=== PATIENT | male | born 1955 | race Caucasian/White ===

== ENCOUNTER → 2016-09-02 | Outpatient (CLI) | payer BC, OTHER ==
[~2016-09-02] MED LIST: AMIT25TA PO; AMIT50TA PO; CLOB-25 TOP; CYCL10TA PO; CYCL5TA PO; FLON0.054; GABA-282 PO; GABA-283 PO; LIDO5DIS36 TD; LISI10TA4 PO; LOPROX TOP; METF1000 PO; NITR4TASL SL; OMEP40CA2 PO; PRED5PAK PO; PROC60TA PO; REQU1TAB16 PO; SIMV40TA2 PO; TEMO0.0520 TOP; TIZA4CAP3 PO; VITA500046 PO; glucosamine PO; indocin PO
--- NOTE | 2016-09-07 00:20 | ECWPNPC ---
PATIENT NAME: JENNIFER JAIME : 1955 GENDER: MALE VISIT DATE: 09/02/2016 DISCHARGE DATE: 09/02/16915 VISIT LOCKED DATE TIME: PHYSICIAN: THANH ZAPATA PHYSICIAN PAGER NO: [phone] RESOURCE: THANH ZAPATA REASON FOR APPOINTMENT 1. BACK HISTORY OF PRESENT ILLNESS HISTORY OF PRESENT ILLNESS: PAIN THE PATIENT DESCRIBES THE PAIN... THE PATIENT DESCRIBES THE PAIN... THE PATIENT DESCRIBES THE PAIN... THE PATIENT DESCRIBES THE PAIN... HERE FOR ROUTINE F/U OF PERSISTENT NECK AND RIGHT UPPER BACK PAIN.USING CYMBALTA 30MG DAILY AND GABAPENTIN 300MG BID.FINDS MEDICATION EFFECTIVE AT REDUCING PAIN AND KEEPING HIM COMFORTABLE.DENIES SIDE EFFECTS.RATING PAIN VAS 2/10.CONTINUES W RELATIVELY NEW ONSET OF LEFT MID THORACIC INTERMITTENT PAIN. FALL RISK SCREENING: SCREENING :NO FALLS IN THE PAST YEAR CURRENT MEDICATIONS TAKING GLUCOSAMINE 2000 TABLET 1 TABLET ORALLY ONCE A DAY TAKING VITAMIN D 5000 UNIT TABLET 1 TABLET ORALLY DAILY TAKING CLOBETASOL PROPIONATE 0.05 % CREAM 1 APPLICATION TO AFFECTED AREA/ EZEXMA BODY EXTERNALLY TWICE A DAY NEEDED TAKING NITROGLYCERIN 0.4 MG TABLET SUBLINGUAL 1 TABLET UNDER THE TONGUE SUBLINGUAL 1 EVERY 5 MIN X3 FOR CHEST PAIN TAKING LOPROX CREAM CREAM TO FEET FOR FUNGUS TOPICALLY TWICE A DAY NEEDED TAKING METFORMIN 1000 MG TABLET 1 TAB(S) ORALLY TWICE A DAY TAKING OMEPRAZOLE 40 MG CAPSULE DELAYED RELEASE 1 CAPSULE ORALLY TWICE A DAY TAKING FLEXERIL 5 MG TABLET 1-2 TABLET ORALLY EVERY NIGHT MDD = 2 TAKING PLAVIX 75 MG TABLET 1 TAB(S) ORALLY DAILY TAKING ASPIRIN 81 MG TABLET 1 TAB(S) ORALLY DAILY TAKING BISOPROLOL FUMARATE 5 MG TABLET 1 TABLET ORALLY BID TAKING ATORVASTATIN CALCIUM 40 MG TABLET 1 TABLET ORALLY ONCE A DAY TAKING REQUIP 1 MG TABLET TAKE TWO TABLETS BY MOUTH AT BEDTIME TAKING NITROSTAT 0.4 MG TABLET SUBLINGUAL 1 TAB(S) SUBLINGUAL EVERY 5 MIN PRN CHEST PAIN, MAX DOSE 3 TAKING LISINOPRIL 10 MG TABLET 1 TABLET ORALLY DAILY TAKING AMLODIPINE 5MG TABLET 1 TAB(S) ORAL DAILY TAKING DULOXETINE HCL 30 MG CAPSULE DELAYED RELEASE PARTICLES 1 CAPSULE ORALLY DAILY TAKING GABAPENTIN 300 MG CAPSULE 1 CAPSULE ORALLY TWICE TIMES A DAY MEDICATION LIST REVIEWED AND RECONCILED WITH THE PATIENT PAST MEDICAL HISTORY CAD--NST 09/04 EF 63%, ANTEROSEPT ISCHEMIA, LAD STENT [facility] 09/04; NST 11/04, ANTEROSEPTAL REVERSIBLE ISCHEMIA, EF 60% IBS ECHO 08/07: EF 70%, SL ELEV PULM ART PRESSURE, NL VALVES DDD/DJD C-SPINE, T SPINE HYPERLIPIDEMIA IMPAIRED FASTING GLUCOSE ESOPHAGEAL REFLUX- EGD 08/24, UGI-01/26, PH PROBE 10/26 HYPERTENSION DERMATITIS VITAMIN D DEFICIENCY RLS ESOPHAGEAL SPASMS RENAL STONE 12/25 CONCUSSION DECEMBER 2013 T7 COMPRESSION FRACTURE 2014 ANTONI, ON CPAP 01/04 PFTS AT [facility] 08/07--NL, FEV1/FVC 76% ALLERGIES PRAVACHOL: ELEV LFT'S: SIDE EFFECTS SOCIAL HISTORY GENERAL: TOBACCO USE ARE YOU A: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 NEW PATIENT PAIN DIARY TODAY'S VISITNOTES FROM 0-10, WHAT LEVEL IS YOUR PAIN TODAY?0 PAIN CLINIC PFS, CLERGY, PUBLIC HEALTH REFERRALS PFS REFERRAL NEEDED?NO CLERGY REFERRAL NEEDED?NO PUBLIC HEALTH REFERRAL NEEDED?NO WAS THE PROVIDER NOTIFIED OF ANY PERTINENT INFO?NO PFS REFERRAL NEEDED?NO CLERGY REFERRAL NEEDED?NO PUBLIC HEALTH REFERRAL NEEDED?NO WAS THE PROVIDER NOTIFIED OF ANY PERTINENT INFO?NO REVIEW OF SYSTEMS CONSTITUTIONAL: ANY CHANGE IN YOUR MEDICAL CONDITION? NO . CHILLS NO . FEVER NO . INFECTION: DO YOU HAVE NEW INFECTIONS? NO . DO YOU HAVE HISTORY OF MRSA? NO . MUSCULOSKELETAL: ANY NEW PATTERNS OF PAIN OR NUMBNESS? YES, PAIN ON OCCASION GOING TO THE LEFT RIB AREA . GASTROENTEROLOGY: ANY NEW CHANGE IN BOWEL CONTROL? NO . GENITOURINARY: ANY NEW CHANGE IN BLADDER CONTROL? NO . IS THERE A CHANCE YOU COULD BE ? NO . HEMATOLOGY/LYMPH: DO YOU TAKE ANY BLOOD THINNERS? (FOR EXAMPLE- COUMADIN, PLAVIX, AGGRENOX, PLATEL, PRADAXA, OR XARELTO) YES, PLAVIX . WHEN WAS YOUR LAST DOSE? DATE:09/01/16 TIME: 2300 . NEUROLOGY: HAVE YOU FALLEN IN THE PAST 6 MONTHS? NO . ANY NEW EXTREMITY NUMBNESS OR WEAKNESS? NO . CARDIOLOGY: DO YOU HAVE A PACEMAKER OR DEFIBRILLATOR? NO . RESPIRATORY: HAVE YOU BEEN SICK IN THE PAST WEEK? NO . FEVER NO . FLU LIKE SYMPTOMS? NO . COUGH NO . INTEGUMENTARY: DO YOU HAVE ANY RASHES OR OPEN SORES? NO . ALLERGIC/IMMUNO: ARE YOU ALLERGIC TO SHELLFISH OR IV DYE? NO . ANY NEW ALLERGIES? NO . PSYCHIATRIC: DO YOU HAVE THOUGHTS OF HURTING YOURSELF OR SOMEONE ELSE? NO . ARE YOU ABUSED, NEGLECTED, OR IN AN UNSAFE ENVIRONMENT? NO . ENDOCRINOLOGY: ARE YOU DIABETIC? NO . OTHER: DO YOU NEED ANY PRESCRIPTIONS? YES . IF YES, PLEASE LIST: GABAPENTIN AND CYMBALTA . ANY NEW PROBLEMS WITH YOUR MEDICATIONS? NO . WHEN DID YOU LAST EAT? ____ . WHEN DID YOU LAST DRINK? ____ . WHAT DID YOU LAST DRINK? ____ . NAME OF PERSON DRIVING YOU HOME? ____ . DO YOU HAVE ANY OTHER QUESTIONS OR CONCERNS NO . REVIEWED BY: PROVIDER: THANH SANCHEZ . VITAL SIGNS WT 216 LBS, HT 70 IN, BMI 30.99 INDEX, BP 142/98 MM HG, HR 77 /MIN, RR 16 /MIN, TEMP 96.4 F, OXYGEN SAT % 96%, NA INITIALS SC 08:49, REVIEWED BY: KEYSHA. EXAMINATION GENERAL EXAMINATION: LUNGS:LUNG SOUNDS ARE CLEAR. HEART:HEART RATE REGULAR. MUSCULOSKELETAL:*, PALPATION: NEGATIVE FOR PAIN OVER L/S SPINE. NEGATIVE FOR PAIN OVER L/S PARASPINALS, MUSCLE STRENGTH TESTING 5/5 BILATERAL, NO PAIN ELICITED WITH PALPATION OVER CERVICAL SPINOUS PROCESSES AND ACROSS THE TRAPEZIUS MUSCLES BILATERALLY.THORACIC-PALPATION NEGATIVE FOR PAIN.FULL ROJM UPPER EXTREMITIES WITHOUT INCREASE IN PAIN. . ASSESSMENTS CERVICALGIA - M54.2 (PRIMARY) CHRONIC BILATERAL LOW BACK PAIN WITHOUT SCIATICA - M54.5 PAIN IN THORACIC SPINE - M54.6 TREATMENT CERVICALGIA REFILL GABAPENTIN CAPSULE, 300 MG, 1 CAPSULE, ORALLY, TWICE TIMES A DAY, 90 DAY(S), 180, REFILLS 1 CONTINUE FLEXERIL TABLET, 5 MG, 1-2 TABLET, ORALLY, EVERY NIGHT MDD = 2 REFILL DULOXETINE HCL CAPSULE DELAYED RELEASE PARTICLES, 30 MG, 1 CAPSULE, ORALLY, DAILY, 90 DAY(S), 90, REFILLS 1 PROCEDURE CODES FA211 ESTABILISHED PATIENT [facility] FAC[facility] CHARGE DISPOSITION & COMMUNICATION FOLLOW UP 3 MONTHS ELECTRONICALLY SIGNED BY LAURA BRASHER ON 09/02/2016 AT 02:00 PM EDT DISCLAIMER : THIS IS A VISIT SUMMARY EXTRACTED FROM THE [employer] CHART. IT IS NOT A COPY OF THE [employer] PROGRESS NOTE. RADHA
== END ==
LOC: M PAIN 08:40
PROVIDERS: ATTEND Nurse Practitioner Family
DX: G89.29 Other chronic pain (principal); M54.2 Cervicalgia; M54.5 Low back pain; M54.6 Pain in thoracic spine; I25.10 Atherosclerotic heart disease of native coronary artery without angina pectoris; K58.9 Irritable bowel syndrome, unspecified; E78.5 Hyperlipidemia, unspecified; R73.01 Impaired fasting glucose; K21.9 Gastro-esophageal reflux disease without esophagitis; K22.4 Dyskinesia of esophagus; I10 Essential (primary) hypertension; E55.9 Vitamin D deficiency, unspecified; G25.81 Restless legs syndrome; G47.33 Obstructive sleep apnea (adult) (pediatric); Z88.8 Allergy status to other drugs, medicaments and biological substances; Z79.01 Long term (current) use of anticoagulants; Z79.84 Long term (current) use of oral hypoglycemic drugs; Z79.82 Long term (current) use of aspirin; Z79.899 Other long term (current) drug therapy

== ENCOUNTER → 2016-10-30 | Outpatient (CLI) | payer BC, OTHER ==
[2016-10-30 13:46] LABS: MEAN CORPUSCULAR HEMOGLOBIN 33.7 pg (27.0-33.0); MEAN CORPUSCULAR HGB CONC 34.3 g/dl (32.0-36.5); MEAN CORPUSCULAR VOLUME 98.4 fl (80.0-96.0); RED CELL DISTRIBUTION WIDTH 12.5 % (11.5-14.5); WHITE BLOOD COUNT 4.2 K/mm3 (4.0-10.0)
[2016-10-30 14:05] LABS: ALBUMIN 3.8 GM/DL (3.2-5.2); ALBUMIN/GLOBULIN RATIO 1.36 (1.00-1.93); ALKALINE PHOSPHATASE 98 U/L (45-117); ALT/SGPT 63 U/L (12-78); ANION GAP 10 MEQ/L (8-16); AST/SGOT 25 U/L (15-37); BILIRUBIN,TOTAL 0.4 MG/DL (0.2-1.0); BLOOD UREA NITROGEN 19 MG/DL (7-18); CALCIUM LEVEL 8.3 MG/DL (8.5-10.1); CARBON DIOXIDE LEVEL 27 MEQ/L (21-32); CHLORIDE LEVEL 104 MEQ/L (98-107); CHOLESTEROL LEVEL 146 MG/DL (<200); GLOMERULAR FILTRATION RATE > 60.0 (>56); GLUCOSE, FASTING 101 MG/DL (70-105); POTASSIUM SERUM 4.5 MEQ/L (3.5-5.1); SODIUM LEVEL 141 MEQ/L (136-145); TOTAL PROTEIN 6.6 GM/DL (6.4-8.2); TRIGLYCERIDES LEVEL 253 MG/DL (<150)
== END ==
LOC: M SMT 08:03
PROVIDERS: ATTEND Family Medicine
DX: I25.10 Atherosclerotic heart disease of native coronary artery without angina pectoris (principal); E78.2 Mixed hyperlipidemia; Z12.5 Encounter for screening for malignant neoplasm of prostate
CPT/HCPCS: 36415; 80053; 80061; 83036; 84439; 84443; 85027; G0103

== ENCOUNTER → 2016-12-03 | Outpatient (CLI) | payer OTHER ==
--- NOTE | 2016-12-04 02:10 | ECWPNPC ---
PATIENT NAME: JENNIFER JAIME : 1955 GENDER: MALE VISIT DATE: 12/03/2016 DISCHARGE DATE: 12/03/16919 VISIT LOCKED DATE TIME: PHYSICIAN: THANH ZAPATA PHYSICIAN PAGER NO: [phone] RESOURCE: THANH ZAPATA REASON FOR APPOINTMENT 1. FOLLOWUP HISTORY OF PRESENT ILLNESS HISTORY OF PRESENT ILLNESS: PAIN THE PATIENT DESCRIBES THE PAIN... THE PATIENT DESCRIBES THE PAIN... THE PATIENT DESCRIBES THE PAIN... THE PATIENT DESCRIBES THE PAIN... THE PATIENT DESCRIBES THE PAIN... HERE FOR ROUTINE F/U OF PERSISTENT NECK AND RIGHT UPPER BACK PAIN.USING CYMBALTA 30MG DAILY AND GABAPENTIN 300MG BID.FINDS MEDICATION EFFECTIVE AT REDUCING PAIN AND KEEPING HIM COMFORTABLE.DENIES SIDE EFFECTS.RATING PAIN VAS 2/10.CONTINUES W RELATIVELY NEW ONSET OF RIGHT MID THORACIC INTERMITTENT PAIN. FALL RISK SCREENING: SCREENING :NO FALLS IN THE PAST YEAR CURRENT MEDICATIONS TAKING GLUCOSAMINE 2000 TABLET 1 TABLET ORALLY ONCE A DAY TAKING VITAMIN D 5000 UNIT TABLET 1 TABLET ORALLY DAILY TAKING CLOBETASOL PROPIONATE 0.05 % CREAM 1 APPLICATION TO AFFECTED AREA/ EZEXMA BODY EXTERNALLY TWICE A DAY NEEDED TAKING NITROGLYCERIN 0.4 MG TABLET SUBLINGUAL 1 TABLET UNDER THE TONGUE SUBLINGUAL 1 EVERY 5 MIN X3 FOR CHEST PAIN TAKING LOPROX CREAM CREAM TO FEET FOR FUNGUS TOPICALLY TWICE A DAY NEEDED TAKING METFORMIN 1000 MG TABLET 1 TAB(S) ORALLY TWICE A DAY TAKING OMEPRAZOLE 40 MG CAPSULE DELAYED RELEASE 1 CAPSULE ORALLY TWICE A DAY TAKING PLAVIX 75 MG TABLET 1 TAB(S) ORALLY DAILY TAKING ASPIRIN 81 MG TABLET 1 TAB(S) ORALLY DAILY TAKING BISOPROLOL FUMARATE 5 MG TABLET 1 TABLET ORALLY BID TAKING ATORVASTATIN CALCIUM 40 MG TABLET 1 TABLET ORALLY ONCE A DAY TAKING REQUIP 1 MG TABLET TAKE TWO TABLETS BY MOUTH AT BEDTIME TAKING NITROSTAT 0.4 MG TABLET SUBLINGUAL 1 TAB(S) SUBLINGUAL EVERY 5 MIN PRN CHEST PAIN, MAX DOSE 3 TAKING LISINOPRIL 10 MG TABLET 1 TABLET ORALLY DAILY TAKING AMLODIPINE 5MG TABLET 1 TAB(S) ORAL DAILY TAKING GABAPENTIN 300 MG CAPSULE 1 CAPSULE ORALLY TWICE TIMES A DAY TAKING FLEXERIL 5 MG TABLET 1-2 TABLET ORALLY EVERY NIGHT MDD = 2 TAKING AMITRIPTYLINE HCL 25 MG TABLET 2 TABLETS ORALLY BEFORE BEDTIME TAKING DULOXETINE HCL 30 MG CAPSULE DELAYED RELEASE PARTICLES TAKE ONE CAPSULE BY MOUTH EVERY DAY MEDICATION LIST REVIEWED AND RECONCILED WITH THE PATIENT PAST MEDICAL HISTORY CAD--NST 09/04 EF 63%, ANTEROSEPT ISCHEMIA, LAD STENT [facility] 09/04; NST 11/04, ANTEROSEPTAL REVERSIBLE ISCHEMIA, EF 60% IBS ECHO 08/07: EF 70%, SL ELEV PULM ART PRESSURE, NL VALVES DDD/DJD C-SPINE, T SPINE HYPERLIPIDEMIA IMPAIRED FASTING GLUCOSE ESOPHAGEAL REFLUX- EGD 08/24, UGI-01/26, PH PROBE 10/26 HYPERTENSION DERMATITIS VITAMIN D DEFICIENCY RLS ESOPHAGEAL SPASMS RENAL STONE 12/25 CONCUSSION DECEMBER 2013 T7 COMPRESSION FRACTURE 2014 ANTONI, ON CPAP 01/04 PFTS AT [facility] 08/07--NL, FEV1/FVC 76% ALLERGIES PRAVACHOL: ELEV LFT'S: SIDE EFFECTS REVIEW OF SYSTEMS CONSTITUTIONAL: ANY CHANGE IN YOUR MEDICAL CONDITION? NO . CHILLS NO . FEVER NO . INFECTION: DO YOU HAVE NEW INFECTIONS? NO . DO YOU HAVE HISTORY OF MRSA? NO . MUSCULOSKELETAL: ANY NEW PATTERNS OF PAIN OR NUMBNESS? NO . GASTROENTEROLOGY: ANY NEW CHANGE IN BOWEL CONTROL? NO . GENITOURINARY: ANY NEW CHANGE IN BLADDER CONTROL? NO . IS THERE A CHANCE YOU COULD BE ? NO . HEMATOLOGY/LYMPH: DO YOU TAKE ANY BLOOD THINNERS? (FOR EXAMPLE- COUMADIN, PLAVIX, AGGRENOX, PLATEL, PRADAXA, OR XARELTO) NO . WHEN WAS YOUR LAST DOSE? DATE: TIME: . NEUROLOGY: HAVE YOU FALLEN IN THE PAST 6 MONTHS? NO . ANY NEW EXTREMITY NUMBNESS OR WEAKNESS? NO . CARDIOLOGY: DO YOU HAVE A PACEMAKER OR DEFIBRILLATOR? NO . RESPIRATORY: HAVE YOU BEEN SICK IN THE PAST WEEK? YES, ALLERGIES TO UPPER RESP AND NOT FEELING WELL STILL TODAY . FEVER NO . FLU LIKE SYMPTOMS? NO . COUGH NO . INTEGUMENTARY: DO YOU HAVE ANY RASHES OR OPEN SORES? NO . ALLERGIC/IMMUNO: ARE YOU ALLERGIC TO SHELLFISH OR IV DYE? NO . ANY NEW ALLERGIES? NO . PSYCHIATRIC: DO YOU HAVE THOUGHTS OF HURTING YOURSELF OR SOMEONE ELSE? NO . ARE YOU ABUSED, NEGLECTED, OR IN AN UNSAFE ENVIRONMENT? NO . ENDOCRINOLOGY: ARE YOU DIABETIC? NO . OTHER: DO YOU NEED ANY PRESCRIPTIONS? YES . IF YES, PLEASE LIST: [place] - NOT SURE IF HER NEEDS . ANY NEW PROBLEMS WITH YOUR MEDICATIONS? NO . WHEN DID YOU LAST EAT? ____ . WHEN DID YOU LAST DRINK? ____ . WHAT DID YOU LAST DRINK? ____ . NAME OF PERSON DRIVING YOU HOME? ____ . DO YOU HAVE ANY OTHER QUESTIONS OR CONCERNS NO . REVIEWED BY: PROVIDER: THANH SANCHEZ . VITAL SIGNS WT 215 LBS, HT 70 IN, BMI 30.85 INDEX, BP 138/94 MM HG, HR 73 /MIN, RR 16 /MIN, TEMP 97.0 F, OXYGEN SAT % 98%, NA INITIALS SC 09:12, REVIEWED BY: NL. EXAMINATION GENERAL EXAMINATION: LUNGS:LUNG SOUNDS ARE CLEAR. HEART:HEART RATE REGULAR. MUSCULOSKELETAL:*, PALPATION: NEGATIVE FOR PAIN OVER L/S SPINE. NEGATIVE FOR PAIN OVER L/S PARASPINALS, MUSCLE STRENGTH TESTING 5/5 BILATERAL, NO PAIN ELICITED WITH PALPATION OVER CERVICAL SPINOUS PROCESSES AND ACROSS THE TRAPEZIUS MUSCLES BILATERALLY.THORACIC-PALPATION NEGATIVE FOR PAIN.FULL ROJM UPPER EXTREMITIES WITHOUT INCREASE IN PAIN. . ASSESSMENTS CERVICALGIA - M54.2 (PRIMARY) CHRONIC BILATERAL LOW BACK PAIN WITHOUT SCIATICA - M54.5 PAIN IN THORACIC SPINE - M54.6 TREATMENT CERVICALGIA CONTINUE GABAPENTIN CAPSULE, 300 MG, 1 CAPSULE, ORALLY, TWICE TIMES A DAY CONTINUE FLEXERIL TABLET, 5 MG, 1-2 TABLET, ORALLY, EVERY NIGHT MDD = 2 CONTINUE DULOXETINE HCL CAPSULE DELAYED RELEASE PARTICLES, 30 MG, TAKE ONE CAPSULE BY MOUTH EVERY DAY PROCEDURE CODES FA211 ESTABILISHED PATIENT [facility] CHARGE DISPOSITION & COMMUNICATION FOLLOW UP 3 MONTHS ELECTRONICALLY SIGNED BY LAURA BRASHER ON 12/03/2016 AT 03:15 PM EDT DISCLAIMER : THIS IS A VISIT SUMMARY EXTRACTED FROM THE [employer] CHART. IT IS NOT A COPY OF THE [employer] PROGRESS NOTE. MTDD
== END ==
LOC: M PAIN 08:40
PROVIDERS: ATTEND Nurse Practitioner Family
DX: G89.29 Other chronic pain (principal); M54.2 Cervicalgia; M54.5 Low back pain; M54.6 Pain in thoracic spine; I25.10 Atherosclerotic heart disease of native coronary artery without angina pectoris; E78.5 Hyperlipidemia, unspecified; K21.9 Gastro-esophageal reflux disease without esophagitis; E55.9 Vitamin D deficiency, unspecified; G25.81 Restless legs syndrome; G47.33 Obstructive sleep apnea (adult) (pediatric); I11.9 Hypertensive heart disease without heart failure; J30.9 Allergic rhinitis, unspecified; K58.8 Other irritable bowel syndrome; E78.2 Mixed hyperlipidemia; K22.0 Achalasia of cardia; R73.03 Prediabetes; H93.13 Tinnitus, bilateral; Z88.8 Allergy status to other drugs, medicaments and biological substances; Z79.84 Long term (current) use of oral hypoglycemic drugs; Z79.82 Long term (current) use of aspirin; Z79.899 Other long term (current) drug therapy; Z87.820 Personal history of traumatic brain injury

== ENCOUNTER 2017-02-06 08:18 | Emergency (ER) | payer BC, OTHER ==
[~2017-02-06] VITALS: Ht 177.8 cm; Wt 97.7 kg
[~2017-02-06 08:18] MED LIST changes: -LIDO5DIS36 TD; +LIDO5DIS41 TD; -METF1000 PO; +METF10004 PO
[2017-02-06 08:24] VITALS: BP 147/93
[2017-02-06] MEDS ORDERED: BISO5TAB5 (08:28)
[2017-02-06] MEDS ORDERED: DULO1CAP2 (08:28)
[2017-02-06] MEDS ORDERED: AMLO5TAB2 (08:28)
[2017-02-06] MEDS ORDERED: [UNRECOGNIZED DRUG - CODE] (08:28)
[2017-02-06] MEDS ORDERED: ATOR40TA75 PO (08:34)
--- NOTE | 2017-02-06 09:16 | REP ---
Left ankle four views: There is soft tissue edema laterally. There is no fracture or dislocation. The mortise is symmetric. Mineralization is normal. No calcifications or foreign bodies. Signed by Jatinder Nath MD 02/06/2017 09:07 A
== END 2017-02-06 09:17 | disposition home or self-care (01) ==
LOC: M ED 08:18
DX: S93.402A Sprain of unspecified ligament of left ankle, initial encounter (principal); E11.9 Type 2 diabetes mellitus without complications; I25.10 Atherosclerotic heart disease of native coronary artery without angina pectoris; X58.XXXA Exposure to other specified factors, initial encounter; Y92.018 Other place in single-family (private) house as the place of occurrence of the external cause; Y99.9 Unspecified external cause status; Y93.9 Activity, unspecified; Z79.84 Long term (current) use of oral hypoglycemic drugs; Z88.8 Allergy status to other drugs, medicaments and biological substances; Z79.899 Other long term (current) drug therapy

== ENCOUNTER → 2017-02-13 | Outpatient (REF) | payer OTHER ==
[~2017-02-13] MED LIST changes: +AMLO5TAB2; +ATOR40TA75 PO; +BISO5TAB5; +DULO1CAP2; +[UNRECOGNIZED DRUG - CODE]
[2017-02-13 12:12] LABS: MEAN CORPUSCULAR HEMOGLOBIN 33.9 pg (27.0-33.0); MEAN CORPUSCULAR HGB CONC 35.6 g/dl (32.0-36.5); MEAN CORPUSCULAR VOLUME 95.2 fl (80.0-96.0); RED CELL DISTRIBUTION WIDTH 13.2 % (11.5-14.5); WHITE BLOOD COUNT 4.7 K/mm3 (4.0-10.0)
[2017-02-13 13:02] LABS: ALBUMIN/GLOBULIN RATIO 1.25 (1.00-1.93); ALKALINE PHOSPHATASE 120 U/L (45-117); ALT/SGPT 54 U/L (12-78); ANION GAP 12 MEQ/L (8-16); AST/SGOT 29 U/L (15-37); BILIRUBIN,TOTAL 0.6 MG/DL (0.2-1.0); BLOOD UREA NITROGEN 21 MG/DL (7-18); CALCIUM LEVEL 9.5 MG/DL (8.8-10.2); CARBON DIOXIDE LEVEL 24 MEQ/L (21-32); CHLORIDE LEVEL 102 MEQ/L (98-107); CHOLESTEROL LEVEL 173 MG/DL (<200); CREATININE FOR GFR 1.08 MG/DL (0.70-1.30); FREE T4 0.87 NG/DL (0.76-1.46); GLOMERULAR FILTRATION RATE > 60.0 (>49); GLUCOSE, FASTING 85 MG/DL (80-110); POTASSIUM SERUM 4.2 MEQ/L (3.5-5.1); SODIUM LEVEL 138 MEQ/L (136-145); TOTAL PROTEIN 7.2 GM/DL (6.4-8.2); TRIGLYCERIDES LEVEL 426 MG/DL (<150)
== END ==
LOC: M SFHCPLAZ 09:28
PROVIDERS: ATTEND Family Medicine
DX: I25.10 Atherosclerotic heart disease of native coronary artery without angina pectoris (principal); E78.2 Mixed hyperlipidemia; R73.03 Prediabetes; Z12.5 Encounter for screening for malignant neoplasm of prostate

== ENCOUNTER → 2017-02-16 | Outpatient (CLI) | payer BC, OTHER ==
--- NOTE | 2017-02-16 16:44 | REP ---
MR BRAIN WITHOUT AND WITH CONTRAST: HISTORY: Sensory neural hearing loss. CONTRAST: ProHance 19 mL. Several punctate areas of increased signal intensity on T2 weighted images are present in the periventricular and subcortical white matter. This represents small vessel ischemic disease. There is no intraparenchymal hemorrhage, infarct, mass or midline shift. There is no abnormal enhancement. The ventricular system and cortical sulci are dilated consistent with minimal volume loss. There is no extracerebral collection. There is no cerebellopontine angle mass. The inner ear structures are normal in appearance. The mastoid air cells and sinuses are clear. IMPRESSION:1. Minimal small vessel ischemic disease. 2. Minimal volume loss. Signed by Gabriele Mayer MD 02/16/2017 05:08 P
== END ==
LOC: M RAD 11:09
PROVIDERS: ATTEND Otolaryngology
DX: H90.3 Sensorineural hearing loss, bilateral (principal)
CPT/HCPCS: 70553; A9576

== ENCOUNTER → 2017-03-05 | Outpatient (CLI) | payer BC, OTHER ==
--- NOTE | 2017-03-06 01:10 | ECWPNPC ---
PATIENT NAME: JENNIFER JAIME : 1955 GENDER: MALE VISIT DATE: 03/05/2017 DISCHARGE DATE: 03/05/17943 VISIT LOCKED DATE TIME: PHYSICIAN: THANH ZAPATA PHYSICIAN PAGER NO: [phone] RESOURCE: THANH ZAPATA REASON FOR APPOINTMENT 1. FOLLOWUP HISTORY OF PRESENT ILLNESS HISTORY OF PRESENT ILLNESS: PAIN THE PATIENT DESCRIBES THE PAIN... THE PATIENT DESCRIBES THE PAIN... THE PATIENT DESCRIBES THE PAIN... THE PATIENT DESCRIBES THE PAIN... THE PATIENT DESCRIBES THE PAIN... THE PATIENT DESCRIBES THE PAIN... HERE FOR ROUTINE F/U OF PERSISTENT NECK AND RIGHT UPPER BACK PAIN.USING CYMBALTA 30MG DAILY AND GABAPENTIN 300MG BID.RECENT FLARE UP OF CHRONIC NECK PAIN AND NEW ONSET OF LEFT ARM ACHING.REPORTS FALL INJURY ONE MONTHS AGO.PAIN HAS BEEN INTERUPTING SLEEP LATELY.REVIEWED MRI C-SPINE 2014.RATING PAIN VAS 4/10.DISCUSSED MEDICINE AND TREATMENT OPTIONS.HAS RESPONDED WELL TO CATRACHO ,LAST CATRACHO WAS 2014. FALL RISK SCREENING: SCREENING :NO FALLS IN THE PAST YEAR CURRENT MEDICATIONS TAKING GLUCOSAMINE 2000 TABLET 1 TABLET ORALLY ONCE A DAY TAKING VITAMIN D 5000 UNIT TABLET 1 TABLET ORALLY DAILY TAKING CLOBETASOL PROPIONATE 0.05 % CREAM 1 APPLICATION TO AFFECTED AREA/ EZEXMA BODY EXTERNALLY TWICE A DAY NEEDED TAKING NITROGLYCERIN 0.4 MG TABLET SUBLINGUAL 1 TABLET UNDER THE TONGUE SUBLINGUAL 1 EVERY 5 MIN X3 FOR CHEST PAIN TAKING LOPROX CREAM CREAM TO FEET FOR FUNGUS TOPICALLY TWICE A DAY NEEDED TAKING METFORMIN 1000 MG TABLET 1 TAB(S) ORALLY TWICE A DAY TAKING OMEPRAZOLE 40 MG CAPSULE DELAYED RELEASE 1 CAPSULE ORALLY TWICE A DAY TAKING PLAVIX 75 MG TABLET 1 TAB(S) ORALLY DAILY TAKING ASPIRIN 81 MG TABLET 1 TAB(S) ORALLY DAILY TAKING BISOPROLOL FUMARATE 5 MG TABLET 1 TABLET ORALLY BID TAKING ATORVASTATIN CALCIUM 40 MG TABLET 1 TABLET ORALLY ONCE A DAY TAKING REQUIP 1 MG TABLET TAKE TWO TABLETS BY MOUTH AT BEDTIME TAKING NITROSTAT 0.4 MG TABLET SUBLINGUAL 1 TAB(S) SUBLINGUAL EVERY 5 MIN PRN CHEST PAIN, MAX DOSE 3 TAKING LISINOPRIL 10 MG TABLET 1 TABLET ORALLY DAILY TAKING AMLODIPINE 5MG TABLET 1 TAB(S) ORAL DAILY TAKING AMITRIPTYLINE HCL 25 MG TABLET 2 TABLETS ORALLY BEFORE BEDTIME TAKING GABAPENTIN 300 MG CAPSULE 1 CAPSULE ORALLY TWICE TIMES A DAY TAKING FLEXERIL 5 MG TABLET 1-2 TABLET ORALLY EVERY NIGHT MDD = 2 TAKING DULOXETINE HCL 30 MG CAPSULE DELAYED RELEASE PARTICLES TAKE ONE CAPSULE BY MOUTH EVERY DAY MEDICATION LIST REVIEWED AND RECONCILED WITH THE PATIENT PAST MEDICAL HISTORY CAD--NST 09/04 EF 63%, ANTEROSEPT ISCHEMIA, LAD STENT [facility] 09/04; NST 11/04, ANTEROSEPTAL REVERSIBLE ISCHEMIA, EF 60% IBS ECHO 08/07: EF 70%, SL ELEV PULM ART PRESSURE, NL VALVES DDD/DJD C-SPINE, T SPINE HYPERLIPIDEMIA IMPAIRED FASTING GLUCOSE ESOPHAGEAL REFLUX- EGD 08/24, UGI-01/26, PH PROBE 10/26 HYPERTENSION DERMATITIS VITAMIN D DEFICIENCY RLS ESOPHAGEAL SPASMS RENAL STONE 12/25 CONCUSSION DECEMBER 2013 T7 COMPRESSION FRACTURE 2014 ANTONI, ON CPAP 01/04 PFTS AT [facility] 08/07--NL, FEV1/FVC 76% ALLERGIES PRAVACHOL: ELEV LFT'S: SIDE EFFECTS REVIEW OF SYSTEMS REVIEWED BY: PROVIDER: THANH SANCHEZ . CONSTITUTIONAL: ANY CHANGE IN YOUR MEDICAL CONDITION? NO . CHILLS NO . FEVER NO . INFECTION: DO YOU HAVE NEW INFECTIONS? NO . DO YOU HAVE HISTORY OF MRSA? NO . MUSCULOSKELETAL: ANY NEW PATTERNS OF PAIN OR NUMBNESS? NO . GASTROENTEROLOGY: ANY NEW CHANGE IN BOWEL CONTROL? NO . GENITOURINARY: ANY NEW CHANGE IN BLADDER CONTROL? NO . IS THERE A CHANCE YOU COULD BE ? NO . HEMATOLOGY/LYMPH: DO YOU TAKE ANY BLOOD THINNERS? (FOR EXAMPLE- COUMADIN, PLAVIX, AGGRENOX, PLATEL, PRADAXA, OR XARELTO) YES . WHEN WAS YOUR LAST DOSE? DATE: TIME: . NEUROLOGY: HAVE YOU FALLEN IN THE PAST 6 MONTHS? YES . ANY NEW EXTREMITY NUMBNESS OR WEAKNESS? NO . CARDIOLOGY: DO YOU HAVE A PACEMAKER OR DEFIBRILLATOR? NO . RESPIRATORY: HAVE YOU BEEN SICK IN THE PAST WEEK? NO . FEVER NO . FLU LIKE SYMPTOMS? NO . COUGH NO . INTEGUMENTARY: DO YOU HAVE ANY RASHES OR OPEN SORES? NO . ALLERGIC/IMMUNO: ARE YOU ALLERGIC TO SHELLFISH OR IV DYE? NO . ANY NEW ALLERGIES? NO . PSYCHIATRIC: DO YOU HAVE THOUGHTS OF HURTING YOURSELF OR SOMEONE ELSE? NO . ARE YOU ABUSED, NEGLECTED, OR IN AN UNSAFE ENVIRONMENT? NO . ENDOCRINOLOGY: ARE YOU DIABETIC? NO . OTHER: DO YOU NEED ANY PRESCRIPTIONS? YES . IF YES, PLEASE LIST: DULOXETINE . ANY NEW PROBLEMS WITH YOUR MEDICATIONS? NO . WHEN DID YOU LAST EAT? ____ . WHEN DID YOU LAST DRINK? ____ . WHAT DID YOU LAST DRINK? ____ . NAME OF PERSON DRIVING YOU HOME? ____ . DO YOU HAVE ANY OTHER QUESTIONS OR CONCERNS NO . VITAL SIGNS WT 215 LBS, HT 70 IN, BMI 30.85 INDEX, BP 137/95 MM HG, HR 80 /MIN, RR 18 /MIN, TEMP 97.5 F, OXYGEN SAT % 96, REVIEWED BY: NL. EXAMINATION CERVICAL SPINE/NECK: RANGE OF MOTION OF NECK:LIMITED ROTATIONS W INCREASE IN PAIN. REFLEXES:2 PLUS BILATERALLY. MOTOR STRENGTH:NORMAL. VERTEBRAL SPINE TENDERNESS:MILD DISCOMFORT OVER C-SPINE. DIAGNOSTIC DATA-MRI C-SPINE 2015 -REVIEWED. GENERAL EXAMINATION: LUNGS:LUNG MERA ARE CLEAR TO AUSCULTATION BILATERALLY. GOOD MOVEMENT OF AIR. HEART:S1, S2 IN A REGULAR RATE AND RHYTHM. NO SIGNIFICANT MURMURS, RUBS OR GALLOPS NOTED. ASSESSMENTS CERVICALGIA - M54.2 (PRIMARY) CERVICAL RADICULOPATHY - M54.12 TREATMENT CERVICALGIA START TRAMADOL HCL TABLET, 50 MG, 1 TABLET NEEDED, ORALLY, EVERY 6 HRS PRN MDD4, 30 DAYS, 30, REFILLS 1 NOTES: CATRAHCO C4/5STOP PLAVIX FULL 7 DAYS SCHEDULE DAY 8. OTHERS NOTES: CERVICAL EPIDURAL INJECTION: YOUR EXPERIENCE MATERIAL WAS PRINTED. PROCEDURE CODES FA211 ESTABILISHED PATIENT [facility] CHARGE DISPOSITION & COMMUNICATION FOLLOW UP 2WK POST (REASON: CATRACHO C4/5) ELECTRONICALLY SIGNED BY LAURA BRASHER ON 03/05/2017 AT 09:59 AM EDT DISCLAIMER : THIS IS A VISIT SUMMARY EXTRACTED FROM THE [employer] CHART. IT IS NOT A COPY OF THE [employer] PROGRESS NOTE. RADHA
== END ==
LOC: M PAIN 08:40
PROVIDERS: ATTEND Nurse Practitioner Family
DX: G89.29 Other chronic pain (principal); M54.12 Radiculopathy, cervical region; I25.10 Atherosclerotic heart disease of native coronary artery without angina pectoris; I11.9 Hypertensive heart disease without heart failure; K22.4 Dyskinesia of esophagus; J30.9 Allergic rhinitis, unspecified; K58.8 Other irritable bowel syndrome; K21.9 Gastro-esophageal reflux disease without esophagitis; E78.2 Mixed hyperlipidemia; E55.9 Vitamin D deficiency, unspecified; R73.03 Prediabetes; G25.81 Restless legs syndrome; Z88.8 Allergy status to other drugs, medicaments and biological substances; Z79.01 Long term (current) use of anticoagulants; Z79.84 Long term (current) use of oral hypoglycemic drugs; Z79.82 Long term (current) use of aspirin

== ENCOUNTER → 2017-03-31 | Outpatient (CLI) | payer BC, OTHER ==
[~2017-03-31] MED LIST changes: +ISOVUE-M 300 61% 15ML VIAL (Q9967) As Ordered ONE; +LIDOCAINE 1% SDV INJ 30 ML VIAL As Ordered ONE; +diazePAM 5 MG TAB As Ordered ONE; +methylPREDNISolone SUSP 40 MG/ML (DEPO-medrol) VIAL (J1030) As Ordered ONE; +oxyCODONE 5MG TAB As Ordered ONE
--- NOTE | 2017-03-31 15:16 | REP ---
PARTIAL CERVICAL SPINE SERIES: THREE VIEWS. HISTORY: Injection procedure for pain. 11 seconds of fluoroscopy time is reported. FINDINGS: A sequence of three last image hold fluoroscopic spot radiographs of the cervical-thoracic junction document needle position and contrast injection associated with epidural injection procedure. Signed by Flip Xavier MD 03/31/2017 05:28 P
--- NOTE | 2017-04-02 | ECWPNPC ---
PATIENT NAME: JENNIFER JAIME : 1955 GENDER: MALE VISIT DATE: 03/31/2017 DISCHARGE DATE: 03/31/17 1023 VISIT LOCKED DATE TIME: PHYSICIAN: DAVID CUBA PHYSICIAN PAGER NO: [phone] RESOURCE: DAVID CUBA REASON FOR APPOINTMENT 1. [place] HISTORY OF PRESENT ILLNESS HISTORY OF PRESENT ILLNESS: PAIN THE PATIENT DESCRIBES THE PAIN... FALL RISK SCREENING: SCREENING :NO FALLS IN THE PAST YEAR CURRENT MEDICATIONS TAKING GLUCOSAMINE 2000 TABLET 1 TABLET ORALLY ONCE A DAY, NOTES: HAS BEEN OUT FOR MONTHS TAKING LORAZEPAM 1 TAB ORAL FOUR TIMES DAILY NEEDED, NOTES: 03/27 1800 TAKING VITAMIN D 5000 UNIT TABLET 1 TABLET ORALLY DAILY, NOTES: 03/30 830 TAKING CLOBETASOL PROPIONATE 0.05 % CREAM 1 APPLICATION TO AFFECTED AREA/ EZEXMA BODY EXTERNALLY TWICE A DAY NEEDED, NOTES: NONE RECENT TAKING LOPROX CREAM CREAM TO FEET FOR FUNGUS TOPICALLY TWICE A DAY NEEDED, NOTES: NONE RECENT TAKING METFORMIN 1000 MG TABLET 1 TAB(S) ORALLY TWICE A DAY, NOTES: 03/30 2100 TAKING OMEPRAZOLE 40 MG CAPSULE DELAYED RELEASE 1 CAPSULE ORALLY TWICE A DAY, NOTES: 03/30 2200 TAKING PLAVIX 75 MG TABLET 1 TAB(S) ORALLY DAILY, NOTES: 03/23/172199 TAKING ASPIRIN 81 MG TABLET 1 TAB(S) ORALLY DAILY, NOTES: 03/30 830 TAKING BISOPROLOL FUMARATE 5 MG TABLET 1 TABLET ORALLY BID, NOTES: 03/30 2200 TAKING ATORVASTATIN CALCIUM 40 MG TABLET 1 TABLET ORALLY ONCE A DAY, NOTES: 03/30 2200 TAKING REQUIP 1 MG TABLET TAKE TWO TABLETS BY MOUTH AT BEDTIME , NOTES: 03/30 2200 TAKING NITROSTAT 0.4 MG TABLET SUBLINGUAL 1 TAB(S) SUBLINGUAL EVERY 5 MIN PRN CHEST PAIN, MAX DOSE 3, NOTES: 2 WEEKS AGO TAKING LISINOPRIL 10 MG TABLET 1 TABLET ORALLY DAILY, NOTES: 03/30 830 TAKING AMLODIPINE 5MG TABLET 1 TAB(S) ORAL DAILY, NOTES: 03/30 2200 TAKING AMITRIPTYLINE HCL 25 MG TABLET 2 TABLETS ORALLY BEFORE BEDTIME, NOTES: 03/30 2200 TAKING GABAPENTIN 300 MG CAPSULE 1 CAPSULE ORALLY TWICE TIMES A DAY, NOTES: 03/30 2200 TAKING FLEXERIL 5 MG TABLET 1-2 TABLET ORALLY EVERY NIGHT MDD = 2, NOTES: 03/30 2200 TAKING DULOXETINE HCL 30 MG CAPSULE DELAYED RELEASE PARTICLES TAKE ONE CAPSULE BY MOUTH EVERY DAY , NOTES: 03/30 2200 TAKING TRAMADOL HCL 50 MG TABLET 1 TABLET NEEDED ORALLY EVERY 6 HRS PRN MDD4, NOTES: 03/27 1800 DISCONTINUED NITROGLYCERIN 0.4 MG TABLET SUBLINGUAL 1 TABLET UNDER THE TONGUE SUBLINGUAL 1 EVERY 5 MIN X3 FOR CHEST PAIN MEDICATION LIST REVIEWED AND RECONCILED WITH THE PATIENT PAST MEDICAL HISTORY CAD--NST 09/04 EF 63%, ANTEROSEPT ISCHEMIA, LAD STENT [facility] 09/04; NST 11/04, ANTEROSEPTAL REVERSIBLE ISCHEMIA, EF 60% IBS ECHO 08/07: EF 70%, SL ELEV PULM ART PRESSURE, NL VALVES DDD/DJD C-SPINE, T SPINE HYPERLIPIDEMIA IMPAIRED FASTING GLUCOSE ESOPHAGEAL REFLUX- EGD 08/24, UGI-01/26, PH PROBE 10/26 HYPERTENSION DERMATITIS VITAMIN D DEFICIENCY RLS ESOPHAGEAL SPASMS RENAL STONE 12/25 CONCUSSION DECEMBER 2013 T7 COMPRESSION FRACTURE 2014 ANTONI, ON CPAP 01/04 PFTS AT [facility] 08/07--NL, FEV1/FVC 76% ALLERGIES PRAVACHOL: ELEV LFT'S: SIDE EFFECTS SOCIAL HISTORY GENERAL: TOBACCO USE ARE YOU A:NONSMOKER ALCOHOL SCREENING DID YOU HAVE A DRINK CONTAINING ALCOHOL IN THE PAST YEAR?YES HOW OFTEN DID YOU HAVE SIX OR MORE DRINKS ON ONE OCCASION IN THE PAST YEAR?NEVER (0 POINTS) HOW MANY DRINKS DID YOU HAVE ON A TYPICAL DAY WHEN YOU WERE DRINKING IN THE PAST YEAR?3 OR 4 (1 POINT) HOW OFTEN DID YOU HAVE A DRINK CONTAINING ALCOHOL IN THE PAST YEAR?TWO TO THREE TIMES PER WEEK (3 POINTS) POINTS4 INTERPRETATIONPOSITIVE RECREATIONAL DRUG USE DRUG USE?NO CAFFEINE CAFFEINE USE?YES COFFEE HOW OFTEN AND HOW MUCH? 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 MARITAL STATUS: . ZOROASTRIAN [id number] GNOSTICISM LEARNING BARRIERS / SPECIAL NEEDS CHANGE FROM LAST VISIT?NO BARRIERS TO LEARNING?NO HEARING IMPAIRED?NO VISION IMPAIRED?YES :CORRECTIVE LENSES COGNITIVELY IMPAIRED?NO READINESS TO LEARN?YES LEARNING PREFERENCES?NO LEARNING CAPABILITIES PRESENT?YES EMOTIONAL BARRIERS?NO SPECIAL DEVICES?NO NEW PATIENT PAIN DIARY TODAY'S VISITNOTES FROM 0-10, WHAT LEVEL IS YOUR PAIN TODAY?0 PAIN CLINIC PFS, CLERGY, PUBLIC HEALTH REFERRALS PFS REFERRAL NEEDED?NO CLERGY REFERRAL NEEDED?NO PUBLIC HEALTH REFERRAL NEEDED?NO WAS THE PROVIDER NOTIFIED OF ANY PERTINENT INFO?NO HAS THE PATIENT BEEN EDUCATED REGARDING HIS/HER PLAN OF CARE?YES HAS THE PATIENT BEEN EDUCATED REGARDING PAIN, THE RISK FOR PAIN, THE IMPORTANCE OF EFFECTIVE PAIN MANAGEMENT, AND THE PAIN ASSESSMENT PROCESS?YES 03/31 85 REVIEWED AD. REVIEW OF SYSTEMS REVIEWED BY: PROVIDER: . CONSTITUTIONAL: ANY CHANGE IN YOUR MEDICAL CONDITION? NO . CHILLS NO . FEVER NO . INFECTION: DO YOU HAVE NEW INFECTIONS? NO . DO YOU HAVE HISTORY OF MRSA? NO . MUSCULOSKELETAL: ANY NEW PATTERNS OF PAIN OR NUMBNESS? NO . GASTROENTEROLOGY: ANY NEW CHANGE IN BOWEL CONTROL? NO . GENITOURINARY: ANY NEW CHANGE IN BLADDER CONTROL? NO . IS THERE A CHANCE YOU COULD BE ? NO . HEMATOLOGY/LYMPH: DO YOU TAKE ANY BLOOD THINNERS? (FOR EXAMPLE- COUMADIN, PLAVIX, AGGRENOX, PLATEL, PRADAXA, OR XARELTO) YES, PLAVIX . WHEN WAS YOUR LAST DOSE? DATE: TIME: 03/23/172199 . NEUROLOGY: HAVE YOU FALLEN IN THE PAST 6 MONTHS? YES, MARTINA ROLLED HIS LEFT ANKLE WHEN GOING OUT THE DOOR. SPRAINED HIS ANKLE . ANY NEW EXTREMITY NUMBNESS OR WEAKNESS? NO . CARDIOLOGY: DO YOU HAVE A PACEMAKER OR DEFIBRILLATOR? NO . RESPIRATORY: HAVE YOU BEEN SICK IN THE PAST WEEK? NO . FEVER NO . FLU LIKE SYMPTOMS? NO . COUGH NO . INTEGUMENTARY: DO YOU HAVE ANY RASHES OR OPEN SORES? NO . ALLERGIC/IMMUNO: ARE YOU ALLERGIC TO SHELLFISH OR IV DYE? NO . ANY NEW ALLERGIES? NO . PSYCHIATRIC: DO YOU HAVE THOUGHTS OF HURTING YOURSELF OR SOMEONE ELSE? NO . ARE YOU ABUSED, NEGLECTED, OR IN AN UNSAFE ENVIRONMENT? NO . ENDOCRINOLOGY: ARE YOU DIABETIC? STATES HE'S PRE-DIABETIC; ON METFORMIN . OTHER: DO YOU NEED ANY PRESCRIPTIONS? NO . IF YES, PLEASE LIST: ____ . ANY NEW PROBLEMS WITH YOUR MEDICATIONS? NO . WHEN DID YOU LAST EAT? 03/30 2045 . WHEN DID YOU LAST DRINK? 03/31 400 . WHAT DID YOU LAST DRINK? WATER . NAME OF PERSON DRIVING YOU HOME? BELL . DO YOU HAVE ANY OTHER QUESTIONS OR CONCERNS NO . VITAL SIGNS WT 223.8 LBS, HT 70 IN, BMI 32.11 INDEX, BP 147/92 MM HG, HR 88 /MIN, RR 18 /MIN, TEMP 97.9 F, OXYGEN SAT % 97%, NA INITIALS SC 08:49, REVIEWED BY: AD. ASSESSMENTS CERVICAL DISC DISORDER WITH RADICULOPATHY OF CERVICOTHORACIC REGION - M50.13 (PRIMARY) PROCEDURES PN CERVICAL EPIDURAL PRE PROCEDURE DIAGNOSIS CERVICAL DISC DISORDER WITH RADICULOPATHY POST PROCEDURE DIAGNOSIS CERVICAL DISC DISORDER WITH RADICULOPATHY PROCEDURE CERVICAL EPIDURAL STEROID INJECTION UNDER FLUOROSCOPIC GUIDANCE SURGEON DR. DAVID CUBA FINANCIAL ADVISOR NONE ANESTHESIA LOCAL PRE PROCEDURE NOTE THE PATIENT HAS A HISTORY OF CHRONIC CERVICAL PAIN. I EVALUATE THE PATIENT AND REVIEWED THE CHART. I WENT OVER THE RISKS, ALTERNATIVES, AND BENEFITS ASSOCIATED WITH THIS PROCEDURE. THE PATIENT WOULD LIKE TO PROCEED AND GIVE CONSENT TO PERFORMED THE PROCEDURE. THE PATIENT DENIES UNEXPLAINABLE WEIGHT LOSS, FEVER, CHILLS, OR NEW CHANGES IN URINARY OR BOWEL CONTROL DESCRIPTION OF PROCEDURE THE PATIENT WAS BROUGHT TO THE PROCEDURE ROOM AND PLACED IN THE PRONE POSITION. THE CERVICOTHORACIC AREA WAS CLEANED WITH BETADINE SOLUTION AND DRAPED ASEPTICALLY. THE PROCEDURE WAS DONE UNDER STERILE CONDITIONS. I CHECKED LATERALITY AND THE LEVEL WHERE THE PROCEDURE WAS GOING TO BE PERFORMED WITH THE PATIENT AND THE SUPPORTING STAFF AT THE MOMENT OF THE TIME OUT IN THE PROCEDURE ROOM. UNDER FLUOROSCOPIC GUIDANCE, THE TARGET WAS SELECTED AT THE INTERLAMINAR LEVEL OF C7-T1. LIDOCAINE WAS USED TO NUMB THE SKIN AND THE SUBCUTANEOUS TISSUE BELOW IT. EPIDURAL TUOHY NEEDLE 17-GAUGE WAS ADVANCED UNDER FLUOROSCOPIC GUIDANCE AND FOLLOWING PATIENT FEEDBACK UNTIL THE EPIDURAL SPACE WAS REACHED 6 CM DEEP INTO THE SKIN BY THE LOSS OF RESISTANCE TECHNIQUE. ISOVUE M DYE 30%, 0.25 ML, WAS INJECTED SHOWING ADEQUATE SPREAD OF THE DYE. THEN, A SOLUTION OF 3 ML OF NORMAL SALINE WITH DEPO-MEDROL 60 MG WAS INJECTED SLOWLY FOLLOWING PATIENT FEEDBACK. THERE WAS NO EVIDENCE OF BLOOD, PARESTHESIA OR CEREBROSPINAL FLUID DURING THE PROCEDURE. THE PATIENT WAS SENT TO THE RECOVERY ROOM. THE PATIENT WAS MOVING THE EXTREMITIES AND DOING WELL. THERE WAS NO COMPLICATION DURING THE PROCEDURE. FLUOROSCOPY TIME WAS 11 SECONDS POST PROCEDURE NOTE THE PATIENT WILL BE SEEN IN A FOLLOW UP IN THE NEXT FEW WEEKS. INSTRUCTIONS WERE GIVEN, QUESTIONS WERE ANSWERED, AND THE PATIENT EXPRESSED UNDERSTANDING AND AGREES WITH THE PLAN. I, SILVIA ALSTON, DOCUMENTED THE ABOVE INFORMATION ACTING A SCRIBE FOR DR. CUBA. I HAVE REVIEWED THE ABOVE DOCUMENT, WRITTEN BY SILVIA RAZA AND I VERIFY THAT IT IS [facility]NOST[facility] FLUORO GUIDE SPINE INJECTION (PAIN)[id number] PROCEDURE CODES 46407 CERVICAL/THORACIC W/ IMAGING 6045F RADXPS IN END [id number] PXD DISPOSITION & COMMUNICATION FOLLOW UP 3 WEEKS ELECTRONICALLY SIGNED BY DAVID CUBA MD ON 04/01/2017 AT 01:02 PM EDT DISCLAIMER : THIS IS A VISIT SUMMARY EXTRACTED FROM THE [facility] CHART. IT IS NOT A COPY OF THE [facility] PROGRESS NOTE. MTDD
== END ==
LOC: M PAIN 08:45
PROVIDERS: ATTEND Anesthesiology
DX: M50.13 Cervical disc disorder with radiculopathy, cervicothoracic region (principal); I10 Essential (primary) hypertension; R73.09 Other abnormal glucose; Z79.82 Long term (current) use of aspirin; Z79.84 Long term (current) use of oral hypoglycemic drugs; Z79.899 Other long term (current) drug therapy; Z79.891 Long term (current) use of opiate analgesic
CPT/HCPCS: 62321; J1030; Q9967

== ENCOUNTER → 2017-04-14 | Outpatient (CLI) | payer BC, OTHER ==
[~2017-04-14] MED LIST changes: -ISOVUE-M 300 61% 15ML VIAL (Q9967) As Ordered ONE; -LIDOCAINE 1% SDV INJ 30 ML VIAL As Ordered ONE; -diazePAM 5 MG TAB As Ordered ONE; -methylPREDNISolone SUSP 40 MG/ML (DEPO-medrol) VIAL (J1030) As Ordered ONE; -oxyCODONE 5MG TAB As Ordered ONE
--- NOTE | 2017-04-15 00:29 | ECWPNPC ---
PATIENT NAME: JENNIFER JAIME : 1955 GENDER: MALE VISIT DATE: 04/14/2017 DISCHARGE DATE: 04/14/17903 VISIT LOCKED DATE TIME: PHYSICIAN: THANH ZAPATA PHYSICIAN PAGER NO: [phone] RESOURCE: THANH ZAPATA REASON FOR APPOINTMENT 1. POST EPIDURAL HISTORY OF PRESENT ILLNESS HISTORY OF PRESENT ILLNESS: HERE FOR POST PROCEDURE F/U.HAD CERVICAL EPIDURAL C7/T1 ON 03-31-17.REPORTING >50% IMPROVEMENT IN PAIN AND BILATERAL ARM PARATHESIAS SINCE PROCEDURE.RATING PAIN VAS 1/10.HAS NOT USED TRAMADOL SINCE PROCEDURE. PAIN THE PATIENT DESCRIBES THE PAIN... FALL RISK SCREENING: SCREENING :NO FALLS IN THE PAST YEAR CURRENT MEDICATIONS TAKING GLUCOSAMINE 2000 TABLET 1 TABLET ORALLY ONCE A DAY TAKING LORAZEPAM 1 TAB ORAL FOUR TIMES DAILY NEEDED TAKING VITAMIN D 5000 UNIT TABLET 1 TABLET ORALLY DAILY TAKING CLOBETASOL PROPIONATE 0.05 % CREAM 1 APPLICATION TO AFFECTED AREA/ EZEXMA BODY EXTERNALLY TWICE A DAY NEEDED TAKING LOPROX CREAM CREAM TO FEET FOR FUNGUS TOPICALLY TWICE A DAY NEEDED TAKING METFORMIN 1000 MG TABLET 1 TAB(S) ORALLY TWICE A DAY TAKING OMEPRAZOLE 40 MG CAPSULE DELAYED RELEASE 1 CAPSULE ORALLY TWICE A DAY TAKING PLAVIX 75 MG TABLET 1 TAB(S) ORALLY DAILY TAKING ASPIRIN 81 MG TABLET 1 TAB(S) ORALLY DAILY TAKING BISOPROLOL FUMARATE 5 MG TABLET 1 TABLET ORALLY BID TAKING ATORVASTATIN CALCIUM 40 MG TABLET 1 TABLET ORALLY ONCE A DAY TAKING REQUIP 1 MG TABLET TAKE TWO TABLETS BY MOUTH AT BEDTIME TAKING NITROSTAT 0.4 MG TABLET SUBLINGUAL 1 TAB(S) SUBLINGUAL EVERY 5 MIN PRN CHEST PAIN, MAX DOSE 3 TAKING LISINOPRIL 10 MG TABLET 1 TABLET ORALLY DAILY TAKING AMLODIPINE 5MG TABLET 1 TAB(S) ORAL DAILY TAKING AMITRIPTYLINE HCL 25 MG TABLET 2 TABLETS ORALLY BEFORE BEDTIME TAKING GABAPENTIN 300 MG CAPSULE 1 CAPSULE ORALLY TWICE TIMES A DAY TAKING FLEXERIL 5 MG TABLET 1-2 TABLET ORALLY EVERY NIGHT MDD = 2 TAKING DULOXETINE HCL 30 MG CAPSULE DELAYED RELEASE PARTICLES TAKE ONE CAPSULE BY MOUTH EVERY DAY TAKING TRAMADOL HCL 50 MG TABLET 1 TABLET NEEDED ORALLY EVERY 6 HRS PRN MDD4 MEDICATION LIST REVIEWED AND RECONCILED WITH THE PATIENT PAST MEDICAL HISTORY CAD--NST 09/04 EF 63%, ANTEROSEPT ISCHEMIA, LAD STENT [facility] 09/04; NST 11/04, ANTEROSEPTAL REVERSIBLE ISCHEMIA, EF 60% IBS ECHO 08/07: EF 70%, SL ELEV PULM ART PRESSURE, NL VALVES DDD/DJD C-SPINE, T SPINE HYPERLIPIDEMIA IMPAIRED FASTING GLUCOSE ESOPHAGEAL REFLUX- EGD 08/24, UGI-01/26, PH PROBE 10/26 HYPERTENSION DERMATITIS VITAMIN D DEFICIENCY RLS ESOPHAGEAL SPASMS RENAL STONE 12/25 CONCUSSION DECEMBER 2013 T7 COMPRESSION FRACTURE 2014 ANTONI, ON CPAP 01/04 PFTS AT [facility] 08/07--NL, FEV1/FVC 76% ALLERGIES PRAVACHOL: ELEV LFT'S: SIDE EFFECTS SOCIAL HISTORY GENERAL: TOBACCO USE ARE YOU A:NONSMOKER ALCOHOL SCREENING DID YOU HAVE A DRINK CONTAINING ALCOHOL IN THE PAST YEAR?YES HOW OFTEN DID YOU HAVE SIX OR MORE DRINKS ON ONE OCCASION IN THE PAST YEAR?NEVER (0 POINTS) HOW MANY DRINKS DID YOU HAVE ON A TYPICAL DAY WHEN YOU WERE DRINKING IN THE PAST YEAR?3 OR 4 (1 POINT) HOW OFTEN DID YOU HAVE A DRINK CONTAINING ALCOHOL IN THE PAST YEAR?TWO TO THREE TIMES PER WEEK (3 POINTS) POINTS4 INTERPRETATIONPOSITIVE RECREATIONAL DRUG USE DRUG USE?NO CAFFEINE CAFFEINE USE?YES COFFEE HOW OFTEN AND HOW MUCH? 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 MARITAL STATUS: . PENTECOSTAL [id number] MU-ISM LANGUAGE LANGUAGES SPOKEN:ANDORRAN LEARNING BARRIERS / SPECIAL NEEDS CHANGE FROM LAST VISIT?NO BARRIERS TO LEARNING?NO HEARING IMPAIRED?NO VISION IMPAIRED?YES :CORRECTIVE LENSES COGNITIVELY IMPAIRED?NO READINESS TO LEARN?YES LEARNING PREFERENCES?NO LEARNING CAPABILITIES PRESENT?YES EMOTIONAL BARRIERS?NO SPECIAL DEVICES?NO CABINET WORKER NEEDED?NO NEW PATIENT PAIN DIARY TODAY'S VISITNOTES FROM 0-10, WHAT LEVEL IS YOUR PAIN TODAY?0 PAIN CLINIC PFS, CLERGY, PUBLIC HEALTH REFERRALS PFS REFERRAL NEEDED?NO CLERGY REFERRAL NEEDED?NO PUBLIC HEALTH REFERRAL NEEDED?NO WAS THE PROVIDER NOTIFIED OF ANY PERTINENT INFO?NO HAS THE PATIENT BEEN EDUCATED REGARDING HIS/HER PLAN OF CARE?YES HAS THE PATIENT BEEN EDUCATED REGARDING PAIN, THE RISK FOR PAIN, THE IMPORTANCE OF EFFECTIVE PAIN MANAGEMENT, AND THE PAIN ASSESSMENT PROCESS?YES 03/31 85 REVIEWED AD. REVIEW OF SYSTEMS REVIEWED BY: PROVIDER: THANH SANCHEZ . CONSTITUTIONAL: ANY CHANGE IN YOUR MEDICAL CONDITION? NO . CHILLS NO . FEVER NO . INFECTION: DO YOU HAVE NEW INFECTIONS? NO . DO YOU HAVE HISTORY OF MRSA? NO . MUSCULOSKELETAL: ANY NEW PATTERNS OF PAIN OR NUMBNESS? NO . GASTROENTEROLOGY: ANY NEW CHANGE IN BOWEL CONTROL? NO . GENITOURINARY: ANY NEW CHANGE IN BLADDER CONTROL? NO . IS THERE A CHANCE YOU COULD BE ? NO . HEMATOLOGY/LYMPH: DO YOU TAKE ANY BLOOD THINNERS? (FOR EXAMPLE- COUMADIN, PLAVIX, AGGRENOX, PLATEL, PRADAXA, OR XARELTO) YES, PLAVIX . WHEN WAS YOUR LAST DOSE? DATE:04/13/17 TIME: 2199 . NEUROLOGY: HAVE YOU FALLEN IN THE PAST 6 MONTHS? YES . ANY NEW EXTREMITY NUMBNESS OR WEAKNESS? NO . CARDIOLOGY: DO YOU HAVE A PACEMAKER OR DEFIBRILLATOR? NO . RESPIRATORY: HAVE YOU BEEN SICK IN THE PAST WEEK? NO . FEVER NO . FLU LIKE SYMPTOMS? NO . COUGH NO . INTEGUMENTARY: DO YOU HAVE ANY RASHES OR OPEN SORES? NO . ALLERGIC/IMMUNO: ARE YOU ALLERGIC TO SHELLFISH OR IV DYE? NO . ANY NEW ALLERGIES? NO . PSYCHIATRIC: DO YOU HAVE THOUGHTS OF HURTING YOURSELF OR SOMEONE ELSE? NO . ARE YOU ABUSED, NEGLECTED, OR IN AN UNSAFE ENVIRONMENT? NO . ENDOCRINOLOGY: ARE YOU DIABETIC? NO . OTHER: DO YOU NEED ANY PRESCRIPTIONS? NO . IF YES, PLEASE LIST: ____ . ANY NEW PROBLEMS WITH YOUR MEDICATIONS? NO . WHEN DID YOU LAST EAT? ____ . WHEN DID YOU LAST DRINK? ____ . WHAT DID YOU LAST DRINK? ____ . NAME OF PERSON DRIVING YOU HOME? ____ . DO YOU HAVE ANY OTHER QUESTIONS OR CONCERNS NO . VITAL SIGNS WT 216 LBS, HT 70 IN, BMI 30.99 INDEX, BP 143/85 MM HG, HR 86 /MIN, RR 18 /MIN, TEMP 97.6 F, OXYGEN SAT % 95%, SAFE IN ENV? (Y/N) YES, NA INITIALS AW 0843, REVIEWED BY: CS. EXAMINATION CERVICAL SPINE/NECK: RANGE OF MOTION OF NECK:LIMITED ROTATIONS W INCREASE IN PAIN. REFLEXES:2 PLUS BILATERALLY. MOTOR STRENGTH:NORMAL. VERTEBRAL SPINE TENDERNESS:MILD DISCOMFORT OVER C-SPINE. DIAGNOSTIC DATA-MRI C-SPINE 2015 -REVIEWED. GENERAL EXAMINATION: LUNGS:LUNG MERA ARE CLEAR TO AUSCULTATION BILATERALLY. GOOD MOVEMENT OF AIR. HEART:S1, S2 IN A REGULAR RATE AND RHYTHM. NO SIGNIFICANT MURMURS, RUBS OR GALLOPS NOTED. ASSESSMENTS CERVICALGIA - M54.2 (PRIMARY) CERVICAL RADICULOPATHY - M54.12 TREATMENT CERVICALGIA CONTINUE TRAMADOL HCL TABLET, 50 MG, 1 TABLET NEEDED, ORALLY, EVERY 6 HRS PRN MDD4 PROCEDURE CODES FA211 ESTABILISHED PATIENT [facility] CHARGE DISPOSITION & COMMUNICATION FOLLOW UP 3 MONTHS ELECTRONICALLY SIGNED BY LAURA BRASHER ON 04/14/2017 AT 09:04 AM EDT DISCLAIMER : THIS IS A VISIT SUMMARY EXTRACTED FROM THE [employer] CHART. IT IS NOT A COPY OF THE [employer] PROGRESS NOTE. MTDD
== END ==
LOC: M PAIN 08:45
PROVIDERS: ATTEND Nurse Practitioner Family
DX: G89.29 Other chronic pain (principal); M54.12 Radiculopathy, cervical region; I25.10 Atherosclerotic heart disease of native coronary artery without angina pectoris; I11.9 Hypertensive heart disease without heart failure; K22.4 Dyskinesia of esophagus; J30.9 Allergic rhinitis, unspecified; K58.8 Other irritable bowel syndrome; E78.2 Mixed hyperlipidemia; K21.9 Gastro-esophageal reflux disease without esophagitis; E55.9 Vitamin D deficiency, unspecified; R73.03 Prediabetes; G25.81 Restless legs syndrome; Z88.8 Allergy status to other drugs, medicaments and biological substances; Z79.01 Long term (current) use of anticoagulants; Z79.84 Long term (current) use of oral hypoglycemic drugs; Z79.82 Long term (current) use of aspirin; Z79.899 Other long term (current) drug therapy

== ENCOUNTER 2017-05-30 10:21 | Inpatient (IN) | payer BC, OTHER ==
[~2017-05-30] VITALS: Ht 177.8 cm; Wt 97.7 kg
[~2017-05-30 10:21] MED LIST changes: -AMLO5TAB2; +AMLO5TAB2 PO; -BISO5TAB5; +BISO5TAB5 PO; -[UNRECOGNIZED DRUG - CODE]; +[UNRECOGNIZED DRUG - CODE] PO
[2017-05-30] MEDS ORDERED: ONDANSETRON 4MG/2ML VIAL (J2405) IV ONE (10:45)
[2017-05-30] MEDS ORDERED: NS 1,000 ML IV SCH (10:45)
[2017-05-30] MEDS: MORPHINE 4 MG/ML 1ML SYRINGE IV PRN ×4 (10:50→15:48)
--- NOTE | 2017-05-30 12:07 | REP ---
REASON: Preoperative evaluation. COMPARISON: 07/04/2015, the latest prior. The technique utilized in obtaining the radiograph has magnified the cardiac silhouette and accentuated the interstitial markings. AP supine was obtained. Cardiomediastinal silhouette is unchanged from the prior exam. The heart is not frankly enlarged. Mild fibrotic changes are seen throughout the lung fountain, status quo without evidence of a patchy opacity or pleural effusion. There is no change in the osseous structures. IMPRESSION: No evidence of acute cardiopulmonary disease. Signed by Dmia Toussaint DO 05/30/2017 12:16 P
--- NOTE | 2017-05-30 12:07 | REP ---
Pain after trauma. There is a distal fibular fracture and a posterior malleolar fracture seen in conjunction with abnormal widening of the medial mortise consistent with lateral tibiotalar subluxation. IMPRESSION: Fractures and subluxation as described above. Signed by Dima Toussaint DO 05/30/2017 12:16 P
[2017-05-30] MEDS ORDERED: GLUC100020 PO (12:24)
[2017-05-30] MEDS ORDERED: ASPI1TAB15 PO (12:24)
[2017-05-30] MEDS ORDERED: DULO1CAP2 PO (12:24)
[2017-05-30] MEDS ORDERED: LORA1TAB12 PO (12:24)
[2017-05-30] MEDS ORDERED: CYCL5TAB PO (12:24)
[2017-05-30] MEDS ORDERED: AMIT25TA PO (12:24)
[2017-05-30] MEDS ORDERED: IBUPOTC PO (12:24)
[2017-05-30 12:27] LABS: MEAN CORPUSCULAR HEMOGLOBIN 32.7 pg (27.0-33.0); MEAN CORPUSCULAR HGB CONC 35.5 g/dl (32.0-36.5); PLATELET COUNT, AUTOMATED 205 10^3/uL (150-450); RED CELL DISTRIBUTION WIDTH 11.9 % (11.5-14.5); WHITE BLOOD COUNT 4.8 10^3/uL (4.0-10.0)
--- NOTE | 2017-05-30 12:34 | ECGEPIP ---
Stationary ECG Study [facility] - ED Test Date: 2017-05-30 Pat Name: JENNIFER JAIME Department: Room: - Gender: M Wire Drawer: toney : 1955 Requested By: Sandro Lao Order Number: [id number] Reading MD: Karina Segundo Measurements Intervals [place] Rate: 74 P: 18 TX: 185 QRS: -7 QRSD: 101 T: -15 QT: 373 QTc: 415 Interpretive Statements SINUS RHYTHM MODERATE VOLTAGE CRITERIA FOR LVH, CONSIDER NORMAL VARIANT NSTTW ABNORMALITY DECREASED RATE 07/04/15 Electronically Signed On 05-30-2017 12:34:51 EST by Karina Segundo
[2017-05-30 12:50] LABS: ANION GAP 9 MEQ/L (8-16); BLOOD UREA NITROGEN 14 MG/DL (7-18); CARBON DIOXIDE LEVEL 25 MEQ/L (21-32); CHLORIDE LEVEL 106 MEQ/L (98-107); CREATININE FOR GFR 0.91 MG/DL (0.70-1.30); GLOMERULAR FILTRATION RATE > 60.0 (>49); GLUCOSE, FASTING 106 MG/DL (80-110); POTASSIUM SERUM 4.1 MEQ/L (3.5-5.1); SODIUM LEVEL 140 MEQ/L (136-145)
--- NOTE | 2017-05-30 16:37 | CR.PDOC ---
[facility] Consultation Consultation Family Medicine Consultation note DATE OF CONSULTATION: May 30, 2017 at 10:21 PRIMARY CARE PHYSICIAN: Dr. Salguero REFERRING PROVIDER: Dr. Bustillo ATTENDING PHYSICIAN: Dr. Carrasco REASON FOR CONSULTATION/CHIEF COMPLAINT: R ankle injury. HISTORY OF PRESENT ILLNESS: This is a 61 y/o M who presents to the ED today after slipping on ice and injuring his R ankle. He has a past medical history significant for CAD, ANTONI on CPAP, HTN, GERD, Restless leg syndrome, chronic back pain, chronic tinitus and hyperlipidemia. Patient injured his R ankle after slipping on ice infront of his driveway. He states that he rolled his ankle forward and fell backwards onto impacting his thighs and buttock. He states that there was a slight abrasion above his ankle but no open wound. He was not able to bear weight on the R foot. Patient crawled into his house and got his to call the ambulance. Pain worsened when in the ED. Patient was given morphine which controlled the pain. Ankle imaging series showed "a distal fibular fracture and a posterior malleolar fracture seen in conjunction with abnormal widening of the medial mortise consistent with lateral tibiotalar subluxation." Patient R ankle was stabilized with a cast in the ED. Orthopedic surgery to admit patient with the anticipated plan for operative fixation in the OR tomorrow. HOME MEDICATIONS: Please see below. PAST MEDICAL HISTORY: CAD, ANTONI on CPAP, HTN, GERD, Restless leg syndrome, chronic back pain, chronic tinitus, hyperlipidemia. 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 HEENT: tinitus, stable; no vision changes. CARDIOVASCULAR: no CP or palpitations. RESPIRATORY: no SOB. GENITOURINARY: no dysuria. MUSCULOSKELETAL: pain secondary to trauma per hx. GASTROINTESTINAL: no constipation/diarrhea. SKIN: no suspicious lesions NEUROLOGICAL: no sensory loss. PSYCHIATRIC: no depression hx or anxiety hx. ENDOCRINE: prediabetic. HEMATOLOGIC/LYMPHATIC: no abnormal bruising/bleeding. PHYSICAL EXAMINATION: VITAL SIGNS: Please see below. GENERAL APPEARANCE: resting in hospital bed, no acute distress. HEENT: Normocephalic. EOMI. PERRLA RESPIRATORY: Clear b/l. No wheezing. CARDIOVASCULAR: RRR, no murmurs ABDOMEN: obese, normoactive bowel sounds, nontender. EXTREMITIES: no edema. R ankle and foot in NEUROLOGICAL: No sensory deficits. CN II-XII grossly intact PSYCHIATRIC: Normal mood. LABORATORY DATA: Please see below. ASSESSMENT/PLAN: This is a 61 y/o M with R ankle fracture. 1. R ankle fracture. Anticipate OR tomorrow for operative fixation. Will address pain with morphine and Percocet. Orthopedic surgery will manage rehabilitation and bowel regimen postoperatively. 2. CAD. Continue patient on ASA. Will hold the Plavix and restart postoperatively. Patient has drug eluding stent, has been on dual antiplatelet therapy for over minimum recommended of 12mo. 3. HTN. Continue patient on home antihypertensive. Continue Bisoprolol with hold parameters. Holding Amlodipine and Lisinopril at the moment because his pressures are soft. 4. Prediabetic. Hold metformin. Will monitor fasting glucose. 5. Hyperlipidemia. Continue atorvastatin. 6. ANTONI. Continue CPAP at night. 7. Tinnitus, chronic. Continue Lorazepam. 8. Back pain, chronic. Continue patient on amitriptyline, cyclobenzaprine, duloxetine, gabapentin with hold parameters for excessive sedation Vital Signs/I&O Vital Signs Date Time Temp Pulse Resp B/P (MAP) Pulse Ox O2 Delivery O2 Flow Rate FiO2 05/30/17 15:48 16 05/30/17 14:37 98.4 74 124/81 (95) 94 Room Air I&O- Last 24 Hours up to 6 AM 05/31/17 06:00 Intake Total 1000 ml Balance 1000 ml Laboratory Data Labs 24H Laboratory Tests 2 05/30/17 12:21: Nucleated Red Blood Cells % (auto) 0.0, Anion Gap 9, Glomerular Filtration Rate > 60.0, Blood Urea Nitrogen 14, Creatinine 0.91, Sodium Level 140, Potassium Level 4.1, Chloride Level 106, Carbon Dioxide Level 25, Calcium Level 8.0L, Total Creatine Kinase 179, Creatine Kinase MB 1.5, Creatine Kinase MB Relative Index 0.83, Troponin I < 0.02 CBC/BMP Laboratory Tests 05/30/17 12:21 Red Blood Count 3.64 L, Mean Corpuscular Volume 92.0, Mean Corpuscular Hemoglobin 32.7, Mean Corpuscular Hemoglobin Concent 35.5, Red Cell Distribution Width 11.9, Calcium Level 8.0 L, Total Creatine Kinase 179 Allergies Coded Allergies: Pravastatin (Unverified Adverse Reaction, Intermediate, ELEVATED LFTS, 09/26) Tizanidine (Verified Adverse Reaction, Intermediate, TREMORS, 10/20/14) Home Medications Scheduled (Requip) 1 Mg Tab, 2 MG PO QHS, (Reported) Amitriptyline HCl (Amitriptyline HCl) 25 Mg Tab, 50 MG PO QHS, (Reported) Amlodipine Besylate (Amlodipine Besylate) 5 Mg Tab, 5 MG PO QHS, (Reported) Aspirin (Aspirin) 81 Mg Tab, 81 MG PO QHS, (Reported) Atorvastatin Calcium (Atorvastatin Calcium) 40 Mg Tab, 40 MG PO QHS, (Reported) Bisoprolol Fumarate (Bisoprolol Fumarate) 5 Mg Tab, 5 MG PO BID, (Reported) Cholecalciferol (Vitamin D) 5,000 Unit Tab, 5,000 UNIT PO DAILY, (Reported) Clopidogrel Bisulfate (Plavix) 300 Mg Tab, 75 MG PO QHS, (Reported) Cyclobenzaprine HCl (Cyclobenzaprine HCl) 5 Mg Tab, 10 MG PO QHS, (Reported) Duloxetine Hcl (Duloxetine HCl) 30 Mg Cap, 30 MG PO QHS, (Reported) Gabapentin (Gabapentin) 300 Mg Cap, 300 MG PO BID, (Reported) Glucosamine Sulfate (Glucosamine) 1,000 Mg Cap, 1,000 MG PO DAILY, (Reported) Lisinopril (Lisinopril) 10 Mg Tab, 10 MG PO DAILY, (Reported) Metformin Hydrochloride (Metformin HCl) 1,000 Mg Tab, 1,000 MG PO BID, (Reported ) Omeprazole (Omeprazole) 40 Mg Cap, 40 MG PO BID, (Reported) Scheduled PRN Clobetasol Propionate (Clobetasol Propionate) 0.05 % Lot, 0.05 % TOP BIDP PRN for ITCHING, (Reported) Ibuprofen (Ibuprofen) 200 Mg Tab, 600 MG PO QID PRN for PAIN, (Reported) Lorazepam (Lorazepam) 1 Mg Tab, 1 MG PO QHS PRN for SLEEP, (Reported) Lorazepam (Lorazepam) 1 Mg Tab, 2 MG PO QHS PRN for SLEEP, (Reported) Nitroglycerin (Nitrostat) 0.4 Mg Subl, 0.4 MG SL NITRO PRN for PAIN, (Reported) GME ATTESTATION GME ATTESTATION My faculty preceptor for this patient encounter was physically present during the encounter and was fully available. All aspects of the patient interview, examination, medical decision making process, and medical care plan development were reviewed and approved by the faculty preceptor. The faculty preceptor is aware and concurs with the plan as stated in the body of this note and will attest to such by his/her cosignature. DENNISE LACEY DO May 30, 2017 16:37
[2017-05-30] MEDS ORDERED: MORPHINE 2 MG/ML 1ML SYRINGE IV PRN (16:45)
[2017-05-30] MEDS ORDERED: LORazepam 1 MG TAB PO PRN (16:45)
[2017-05-30] MEDS ORDERED: PERCOCET 5MG/325MG TAB PO PRN (16:45)
[2017-05-30 18:00] VITALS: BP 141/97
[2017-05-30] MEDS ORDERED: oxyCODONE 5MG TAB PO PRN (18:15)
[2017-05-30] MEDS: oxyCODONE 5MG TAB PO PRN ×2 (18:21→21:31)
[2017-05-30] MEDS ORDERED: AMITRIPTYLINE 25 MG TAB PO SCH (21:00)
[2017-05-30] MEDS ORDERED: ASPIRIN 81 MG ENTERIC TAB PO SCH (21:00)
[2017-05-30] MEDS: BISOPROLOL FUMARATE 5 MG TAB PO SCH (21:00)
[2017-05-30] MEDS ORDERED: rOPINIRole 1MG TAB PO SCH (21:00)
[2017-05-30] MEDS ORDERED: DULoxetine 30 MG CAP (CYMBALTA) PO SCH (21:00)
[2017-05-30] MEDS ORDERED: CYCLOBENZAPRINE 10 MG TAB PO SCH (21:00)
[2017-05-30] MEDS: ATORVASTATIN 20 MG TAB PO SCH (21:31)
[2017-05-30] MEDS: OMEPRAZOLE 20 MG CAP PO SCH (21:32)
[2017-05-30] MEDS: GABAPENTIN 300 MG CAP PO SCH (21:32)
[2017-05-30 22:00] VITALS: BP 167/87
[2017-05-31] VITALS (11 sets, daily range): BP systolic 124–149; BP diastolic 76–83; O2SAT 92
[2017-05-31] MEDS: oxyCODONE 5MG TAB PO PRN ×5 (00:41→21:11)
[2017-05-31] MEDS ORDERED: ACETAMINOPHEN 500 MG TAB PO PRN (01:15)
[2017-05-31] MEDS: MORPHINE 2 MG/ML 1ML SYRINGE IV PRN ×3 (01:53→08:57)
[2017-05-31] MEDS: OMEPRAZOLE 20 MG CAP PO SCH ×2 (08:56→20:06)
[2017-05-31] MEDS: BISOPROLOL FUMARATE 5 MG TAB PO SCH (08:57)
[2017-05-31] MEDS: GABAPENTIN 300 MG CAP PO SCH (08:57)
[2017-05-31] MEDS: VITAMIN D 1,000 INTERNATIONAL UNITS TABLET PO SCH (08:58)
[2017-05-31] MEDS ORDERED: MIDAZOLAM INJ 2 MG/2 ML VIAL (J2250) As Ordered ONE ×2 (10:29→10:55)
[2017-05-31] MEDS ORDERED: fentaNYL 100 MCG/2 ML INJECTION (J3010) As Ordered ONE ×2 (10:29→13:03)
[2017-05-31] MEDS ORDERED: ceFAZolin 2 GM/D5W 50 ML IV BAG (J0690 PER 500MG) As Ordered ONE (10:43)
[2017-05-31] MEDS ORDERED: PROPOFOL 200 MG/20 ML VIAL As Ordered ONE (10:55)
[2017-05-31] MEDS ORDERED: ROCURONIUM BROMIDE 50 MG/5 ML VIAL As Ordered ONE (10:55)
[2017-05-31] MEDS ORDERED: ONDANSETRON 4MG/2ML VIAL (J2405) As Ordered ONE ×2 (10:55→14:15)
[2017-05-31] MEDS ORDERED: LIDOCAINE 2% INJ 100 MG/5 ML SDV (FOR ANES.) As Ordered ONE (10:55)
[2017-05-31] MEDS ORDERED: fentaNYL 250 MCG/5 ML INJECTION (J3010) As Ordered ONE (10:55)
[2017-05-31] MEDS ORDERED: dexameTHASONE 4 MG/ML 1ML VIAL (J1100) As Ordered ONE (10:55)
[2017-05-31] MEDS: LR 1,000 ML IV SCH ×2 (11:07)
--- NOTE | 2017-05-31 11:51 | REP ---
REASON: Trauma. COMPARISON: Earlier same day at 11:15 a.m. Previously described fracture/subluxation is again noted. There is overlying casting/splinting material obscuring the bony detail. With that exception, examination is unchanged. Signed by Dima Toussaint DO 05/31/2017 12:02 P
[2017-05-31] MEDS ORDERED: HYDROmorphone HCL 2 MG/ML 1ML VIAL (J1170) As Ordered ONE (12:06)
[2017-05-31] MEDS ORDERED: GLYCOPYRROLATE INJ 0.2 MG/ML 2 ML VIAL As Ordered ONE (12:37)
[2017-05-31] MEDS ORDERED: BUPIVACAINE HCL 0.5% 30 ML VIAL As Ordered ONE (12:52)
[2017-05-31] MEDS: fentaNYL 100 MCG/2 ML INJECTION (J3010) IV PRN ×4 (13:48→14:09)
[2017-05-31] MEDS ORDERED: oxyCODONE 5MG TAB As Ordered ONE (13:55)
[2017-05-31] MEDS ORDERED: ONDANSETRON 4MG/2ML VIAL (J2405) IV PRN (14:00)
[2017-05-31] MEDS ORDERED: MEPERIDINE INJ 25 MG/ML VIAL (J2175) IV PRN (14:00)
[2017-05-31] MEDS ORDERED: LR 1,000 ML IV SCH ×2 (14:00→14:15)
[2017-05-31] MEDS ORDERED: METOCLOPRAMIDE INJ 10MG/2ML VIAL (J2765) IV PRN (14:00)
[2017-05-31] MEDS ORDERED: PERCOCET 5MG/325MG TAB PO PRN (14:00)
[2017-05-31] MEDS ORDERED: MEPERIDINE INJ 25 MG/ML VIAL (J2175) As Ordered ONE (14:14)
--- NOTE | 2017-05-31 14:23 | REP ---
REASON: ORIF. Previously described ankle fractures have been reduced. The alignment is near anatomical. Nine spot views were obtained in my absentia. Seven internally affixing screws are seen with an internal fixation plate about the lateral distal fibular cortex. Fluoroscopy time was 54 seconds. Signed by Dima Toussaint DO 05/31/2017 02:27 P
--- NOTE | 2017-05-31 14:45 | REP ---
REASON: Status post ORIF. Previously described right ankle abnormalities have been openly reduced and internally fixed. There is an internal fixation plate applied to the lateral cortex of the distal fibula with seven affixing screws. The alignment is near anatomical. Overlying casting material does obscure the bony detail. Signed by Dima Toussaint DO 05/31/2017 02:48 P
--- NOTE | 2017-05-31 14:47 | HPE ---
DATE OF ADMISSION: 05/30/2017 CHIEF COMPLAINT: Right ankle pain. HISTORY OF PRESENT ILLNESS: This is a 61-year-old male who was walking to his car when he slipped on the ice in his driveway. He had immediate pain of the right ankle with a deformity. He was seen in the emergency department at [facility] where he was found to have a displaced right ankle fracture. The patient denies any numbness or tingling in his foot, although he has some mild paresthesias in his toe. He has pain in the region of the fracture. PAST MEDICAL HISTORY: 1. Obstructive sleep apnea. 2. Hiatal hernia. 3. Prediabetes. 4. Cholesterol. 5. Back and neck pain for which he gets epidural injections. PAST SURGICAL HISTORY: 1. Cardiac stent, on Plavix and aspirin. 2. Orbital fracture requiring open reduction internal fixation (ORIF). 3. Achilles repair times two. 4. ACL. 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 He lives with his . He does not smoke cigarettes. PHYSICAL EXAMINATION: GENERAL: Well appearing, alert and oriented, in no acute distress. MUSCULOSKELETAL: In the right ankle, the patient's skin is intact. There is a very small abrasion over the anterolateral aspect of the ankle. There is moderate swelling. The patient has intact sensation with some mild paresthesias over his toes. He is able to grossly wiggle his toes. PULMONARY: Regular breathing. CARDIAC: Regular pulse. RADIOLOGY: X-rays of the right ankle reveal a ligamentous supination-external rotation (SER) 4 ankle fracture. IMPRESSION: Ligamentous SER 4 ankle fracture. PLAN: The patient was placed in a splint and has been keeping his leg elevated since the fracture. We will plan to go to the operating room (OR) today for surgical fixation of the fracture. He has been cleared by his medical team to do this. We will hold the Plavix for the time being. He will get medical co-management given his comorbidities. The risks and benefits of surgery were explained to the patient and informed consent was obtained.
[2017-05-31] MEDS: ACETAMINOPHEN 500 MG TAB PO SCH ×2 (15:47→21:12)
[2017-05-31] MEDS: ATORVASTATIN 20 MG TAB PO SCH (20:05)
[2017-05-31] MEDS: DOCUSATE SODIUM 100 MG CAP PO SCH (20:05)
[2017-05-31] MEDS ORDERED: SENNA 8.6 MG TAB (SENOKOT) PO SCH (21:00)
[2017-06-01] MEDS: oxyCODONE 5MG TAB PO PRN ×3 (00:06→06:03)
[2017-06-01] MEDS: ACETAMINOPHEN 500 MG TAB PO SCH ×2 (05:26→13:25)
[2017-06-01 06:00] VITALS: BP 130/78
[2017-06-01 06:39] LABS: MEAN CORPUSCULAR HEMOGLOBIN 32.3 pg (27.0-33.0); MEAN CORPUSCULAR HGB CONC 35.2 g/dl (32.0-36.5); MEAN CORPUSCULAR VOLUME 91.9 fl (80.0-96.0); PLATELET COUNT, AUTOMATED 206 10^3/uL (150-450); RED CELL DISTRIBUTION WIDTH 11.9 % (11.5-14.5); WHITE BLOOD COUNT 7.3 10^3/uL (4.0-10.0)
[2017-06-01] MEDS ORDERED: MORP15TASA PO (07:39)
[2017-06-01] MEDS ORDERED: PERC5TAB12 PO (07:39)
[2017-06-01] MEDS ORDERED: PERCOCET 5MG/325MG TAB PO PRN ×2 (08:15)
[2017-06-01] MEDS ORDERED: ASPIRIN 81 MG CHEW TABLET PO SCH (09:00)
[2017-06-01] MEDS ORDERED: MORPHINE 15 MG SA TAB PO SCH (09:00)
[2017-06-01 10:00] VITALS: BP 131/75
[2017-06-01] MEDS: DOCUSATE SODIUM 100 MG CAP PO SCH (10:17)
[2017-06-01] MEDS: OMEPRAZOLE 20 MG CAP PO SCH (10:17)
[2017-06-01] MEDS: VITAMIN D 1,000 INTERNATIONAL UNITS TABLET PO SCH (10:18)
--- NOTE | 2017-06-01 12:26 | RO ---
DATE OF PROCEDURE: 05/31/2017 PREPROCEDURE DIAGNOSIS: Right ligamentous SER4 ankle fracture. POSTPROCEDURE DIAGNOSIS: Right ligamentous SER4 ankle fracture. PROCEDURE: Right ankle open reduction internal fixation. SURGEON: Anila Bustillo MD COLD FOOD PACKER: ANESTHESIA: General endotrachal. ESTIMATED BLOOD LOSS: 50 mL. IMPLANTS: Synthes seven hole one-third tubular plate with associated 3.5 mm screws and one 4 mm cancellous screw and a single 2.4 mm screw. INDICATIONS: Aftab Tafoya is a 61-year-old male who has a slip on the ice and fell sustaining a right ligamentous SER4 ankle fracture. Patient was admitted to the hospital and obtained clearance from the medical team. His Plavix was held for approximately 48 hours before the case. This was deemed satisfactory to the medical team for him to proceed with surgical fixation of his unstable ankle fracture. Risks and benefits of the surgery including flexion, deep venous thrombosis (DVT)/pulmonary embolism (PE), wound healing problems, malunion/nonunion, need for additional procedures, continued pain and stiffness were discussed with the patient in detail. Informed consent was obtained. DESCRIPTION OF PROCEDURE: The patient was met in the preoperative holding area where the right lower extremity was marked as the correct operative site. The decision was made to hold on a preoperative block as I wanted to monitor his exam given he was at increase of swelling with his history of Plavix. The patient agreed with this decision. He was taken to the operating room underwent general anesthesia without difficulty. He was transferred to operating room bed where he was placed in the supine position. His bony prominences were padded and a bump was placed under the ipsilateral hip. An incision was marked over the posterior lateral aspect of the fibula. An official time-out was held where the correct patient and site were again verified. At this point, the limb was exsanguinated and the tourniquet was inflated to 250 mmHg. Using a 15 blade the skin was incised. Careful dissection to the level to the fibula over the posterior lateral aspect of the bone was performed. The fracture was identified. It was cleaned from debris using a rongeur and curettes. It was thoroughly irrigated. The fracture was reduced using a pointed reduction clamp. It was secured using a .062 K-Wire. The fracture had a short oblique pattern anteriorly, but was relatively transverse over the posterior aspect of the fracture. Given this short section it was difficult to get a lag screw across the fracture site. I was able to at least secure this reduction with a 2.4 mm screw. A seven hole one-third tubular plate was selected and placed on the posterior aspect of the bone in an antiglide type fashion. The first screw was placed in the axilla of the fracture proximally. The plate was further secured proximally with 3.5 mm screws. Distally the plate was secured with a 3.5 mm screw and one 4.0 cancellous screw. There maintain to be good and satisfactory alignment of the fracture. The joint was stressed under live fluoroscopy and was not found to open medially. The tourniquet was brought down and hemostasis was obtained. The wound was irrigated with copious normal saline. The subcutaneous tissues were closed using #2-0 Vicryl and the skin was closed using #3-0 nylon. A well padded splint was applied. PLAN: The patient will be non-weightbearing right lower extremity in a splint. We will keep him on his aspirin for now for deep venous thrombosis (DVT) prophylaxis and restart his Plavix in 2 or 3 days. He will followup in clinic for a wound check as cast within the next few days. We will also monitor his swelling overnight to make sure his pain does not become uncontrolled.
== END 2017-06-01 13:45 | disposition home or self-care (01) | DRG 313 ==
LOC: M ED 10:21 → EDBD 10:21 → M ED INP 16:00 → M MS5PR 18:01
PROVIDERS: ADMIT Orthopaedic Surgery; ATTEND Orthopaedic Surgery
PROC: 0QSJ04Z Reposition Right Fibula with Internal Fixation Device, Open Approach (ICD-10-PCS; principal; 2017-05-31 12:00)
DX: S82.841B Displaced bimalleolar fracture of right lower leg, initial encounter for open fracture type I or II (principal); I10 Essential (primary) hypertension; G47.33 Obstructive sleep apnea (adult) (pediatric); K44.9 Diaphragmatic hernia without obstruction or gangrene; E78.00 Pure hypercholesterolemia, unspecified; M54.2 Cervicalgia; M54.5 Low back pain; Z79.82 Long term (current) use of aspirin; Z79.899 Other long term (current) drug therapy; I25.10 Atherosclerotic heart disease of native coronary artery without angina pectoris; G25.81 Restless legs syndrome; E78.5 Hyperlipidemia, unspecified; H93.19 Tinnitus, unspecified ear; W00.0XXA Fall on same level due to ice and snow, initial encounter; Y92.009 Unspecified place in unspecified non-institutional (private) residence as the place of occurrence of the external cause

== ENCOUNTER 2017-06-01 20:50 | Emergency (ER) | payer BC, OTHER ==
[~2017-06-01] VITALS: Ht 177.8 cm; Wt 100.0 kg
[2017-06-01 20:50] VITALS: BP 186/95
[~2017-06-01 20:50] MED LIST changes: +ASPI1TAB15 PO; +CYCL5TAB PO; +DULO1CAP2 PO; +GLUC100020 PO; +IBUPOTC PO; +LORA1TAB12 PO; +MORP15TASA PO; +PERC5TAB12 PO
[2017-06-02] MEDS ORDERED: dexameTHASONE 4 MG/ML 1ML VIAL (J1100) PO ONE
[2017-06-02] MEDS ORDERED: PERCOCET 5MG/325MG TAB PO ONE
== END 2017-06-02 00:27 | disposition home or self-care (01) ==
LOC: M ED 20:50
DX: R07.0 Pain in throat (principal); Z98.890 Other specified postprocedural states; I11.9 Hypertensive heart disease without heart failure; I25.10 Atherosclerotic heart disease of native coronary artery without angina pectoris; E11.9 Type 2 diabetes mellitus without complications; M54.5 Low back pain; K21.9 Gastro-esophageal reflux disease without esophagitis; E78.9 Disorder of lipoprotein metabolism, unspecified; Z95.5 Presence of coronary angioplasty implant and graft; Z79.02 Long term (current) use of antithrombotics/antiplatelets; Z79.899 Other long term (current) drug therapy; Z79.891 Long term (current) use of opiate analgesic; Z79.84 Long term (current) use of oral hypoglycemic drugs; Z79.82 Long term (current) use of aspirin
CPT/HCPCS: 99282; J1100

== ENCOUNTER → 2017-07-15 | Outpatient (CLI) | payer BC, OTHER | LOC: M PAIN 08:30 | DX: G89.29 Other chronic pain (principal); M50.13 Cervical disc disorder with radiculopathy, cervicothoracic region; I25.10 Atherosclerotic heart disease of native coronary artery without angina pectoris; K58.9 Irritable bowel syndrome, unspecified; E78.5 Hyperlipidemia, unspecified; R73.03 Prediabetes; K21.9 Gastro-esophageal reflux disease without esophagitis; I10 Essential (primary) hypertension; E55.9 Vitamin D deficiency, unspecified; G25.81 Restless legs syndrome; G47.33 Obstructive sleep apnea (adult) (pediatric); Z88.8 Allergy status to other drugs, medicaments and biological substances; Z79.02 Long term (current) use of antithrombotics/antiplatelets; Z79.899 Other long term (current) drug therapy; Z79.82 Long term (current) use of aspirin; Z79.84 Long term (current) use of oral hypoglycemic drugs; Z79.891 Long term (current) use of opiate analgesic | CPT/HCPCS: G0463 ==

== ENCOUNTER → 2017-11-04 | Outpatient (CLI) | payer OTHER | LOC: M PAIN 09:15 | DX: G89.29 Other chronic pain (principal); M54.2 Cervicalgia; I25.10 Atherosclerotic heart disease of native coronary artery without angina pectoris; K58.9 Irritable bowel syndrome, unspecified; M51.34 Other intervertebral disc degeneration, thoracic region; E78.5 Hyperlipidemia, unspecified; R73.03 Prediabetes; K21.9 Gastro-esophageal reflux disease without esophagitis; I10 Essential (primary) hypertension; G25.81 Restless legs syndrome; E55.9 Vitamin D deficiency, unspecified; G47.33 Obstructive sleep apnea (adult) (pediatric); Z79.84 Long term (current) use of oral hypoglycemic drugs; Z79.82 Long term (current) use of aspirin; Z79.899 Other long term (current) drug therapy; Z88.8 Allergy status to other drugs, medicaments and biological substances | CPT/HCPCS: G0463 ==

== ENCOUNTER → 2017-12-10 | Outpatient (CLI) | payer BC, OTHER ==
[2017-12-10 13:26] LABS: HEMATOCRIT 37.4 % (42.0-52.0); MEAN CORPUSCULAR HEMOGLOBIN 32.9 pg (27.0-33.0); MEAN CORPUSCULAR HGB CONC 34.8 g/dl (32.0-36.5); MEAN CORPUSCULAR VOLUME 94.7 fl (80.0-96.0); PLATELET COUNT, AUTOMATED 239 10^3/uL (150-450); RED BLOOD COUNT 3.95 10^6/uL (4.30-6.10); WHITE BLOOD COUNT 4.1 10^3/uL (4.0-10.0)
[2017-12-10 13:42] LABS: ALBUMIN/GLOBULIN RATIO 1.21 (1.00-1.93); ALKALINE PHOSPHATASE 113 U/L (45-117); ALT/SGPT 59 U/L (12-78); ANION GAP 8 MEQ/L (8-16); AST/SGOT 26 U/L (7-37); BILIRUBIN,TOTAL 0.5 MG/DL (0.2-1.0); BLOOD UREA NITROGEN 17 MG/DL (7-18); CALCIUM LEVEL 8.9 MG/DL (8.8-10.2); CARBON DIOXIDE LEVEL 27 MEQ/L (21-32); CHLORIDE LEVEL 105 MEQ/L (98-107); CHOLESTEROL LEVEL 173 MG/DL (<200); CREATININE FOR GFR 0.97 MG/DL (0.70-1.30); GLOMERULAR FILTRATION RATE > 60.0 (>49); GLUCOSE, FASTING 112 MG/DL (70-100); HDL CHOLESTEROL 50 MG/DL (>40); LDL CHOLESTEROL 79.4 MG/DL (<100); NON-HDL-C 123 MG/DL; POTASSIUM SERUM 4.6 MEQ/L (3.5-5.1); SODIUM LEVEL 140 MEQ/L (136-145); TOTAL PROTEIN 7.3 GM/DL (6.4-8.2); TRIGLYCERIDES LEVEL 218 MG/DL (<150)
[2017-12-10 13:49] LABS: ESTIMATED AVERAGE GLUCOSE 128 MG/DL (60-110); HEMOGLOBIN A1c 6.1 %
== END ==
LOC: M SMT 08:26
DX: I25.10 Atherosclerotic heart disease of native coronary artery without angina pectoris (principal); E78.2 Mixed hyperlipidemia; R73.03 Prediabetes
CPT/HCPCS: 80053

== ENCOUNTER → 2018-02-04 | Outpatient (CLI) | payer OTHER | LOC: M PAIN 08:30 | DX: M54.12 Radiculopathy, cervical region (principal); I25.10 Atherosclerotic heart disease of native coronary artery without angina pectoris; K58.9 Irritable bowel syndrome, unspecified; E78.5 Hyperlipidemia, unspecified; R73.03 Prediabetes; K21.9 Gastro-esophageal reflux disease without esophagitis; I10 Essential (primary) hypertension; E55.9 Vitamin D deficiency, unspecified; G25.81 Restless legs syndrome; G47.33 Obstructive sleep apnea (adult) (pediatric); M51.34 Other intervertebral disc degeneration, thoracic region; Z88.8 Allergy status to other drugs, medicaments and biological substances; Z79.02 Long term (current) use of antithrombotics/antiplatelets; Z79.84 Long term (current) use of oral hypoglycemic drugs; Z79.82 Long term (current) use of aspirin; Z79.899 Other long term (current) drug therapy; Z95.5 Presence of coronary angioplasty implant and graft | CPT/HCPCS: G0463 ==

== ENCOUNTER → 2018-04-15 | Outpatient (REF) | payer BC, OTHER | LOC: M ADAMS 15:53 | DX: M75.82 Other shoulder lesions, left shoulder (principal) | CPT/HCPCS: 73030 ==

== ENCOUNTER → 2018-05-25 | Outpatient (CLI) | payer BC, OTHER | LOC: M PAIN 09:30 | DX: M54.12 Radiculopathy, cervical region (principal); G89.29 Other chronic pain; I25.10 Atherosclerotic heart disease of native coronary artery without angina pectoris; E78.5 Hyperlipidemia, unspecified; K21.9 Gastro-esophageal reflux disease without esophagitis; I10 Essential (primary) hypertension; E55.9 Vitamin D deficiency, unspecified; G25.81 Restless legs syndrome; G47.33 Obstructive sleep apnea (adult) (pediatric); Z79.01 Long term (current) use of anticoagulants; Z79.84 Long term (current) use of oral hypoglycemic drugs; Z79.82 Long term (current) use of aspirin; Z79.899 Other long term (current) drug therapy; Z88.8 Allergy status to other drugs, medicaments and biological substances | CPT/HCPCS: G0463 ==

== ENCOUNTER → 2018-07-06 | Outpatient (REF) | payer OTHER ==
[~2018-07-06] MED LIST changes: -AMLO5TAB2 PO; +AMLO5TAB6 PO; -GABA-282 PO; -GABA-283 PO; +GABA-843 PO; +GABA-845 PO; +TIZA4CAP PO; -TIZA4CAP3 PO
[2018-07-06 12:49] LABS: HEMATOCRIT 38.8 % (42.0-52.0); HEMOGLOBIN 13.1 g/dl (13.5-17.5); MEAN CORPUSCULAR HEMOGLOBIN 32.4 pg (27.0-33.0); MEAN CORPUSCULAR HGB CONC 33.8 g/dl (32.0-36.5); PLATELET COUNT, AUTOMATED 254 10^3/uL (150-450); RED BLOOD COUNT 4.04 10^6/uL (4.30-6.10); WHITE BLOOD COUNT 5.3 10^3/uL (4.0-10.0)
[2018-07-06 13:17] LABS: ALBUMIN 3.9 GM/DL (3.2-5.2); ALT/SGPT 43 U/L (12-78); BILIRUBIN,TOTAL 0.4 MG/DL (0.2-1.0); BLOOD UREA NITROGEN 13 MG/DL (7-18); CALCIUM LEVEL 9.1 MG/DL (8.8-10.2); CARBON DIOXIDE LEVEL 25 MEQ/L (21-32); CHLORIDE LEVEL 103 MEQ/L (98-107); CREATININE FOR GFR 1.07 MG/DL (0.70-1.30); FREE T4 1.01 NG/DL (0.76-1.46); GLOMERULAR FILTRATION RATE > 60.0 (>49); GLUCOSE, FASTING 91 MG/DL (70-100); POTASSIUM SERUM 4.9 MEQ/L (3.5-5.1); SODIUM LEVEL 140 MEQ/L (136-145); TOTAL PROTEIN 7.4 GM/DL (6.4-8.2)
[2018-07-06 14:19] LABS: HEMOGLOBIN A1c 6.2 %
== END ==
LOC: M SFHCADAM 09:07
PROVIDERS: ATTEND Family Medicine
DX: R73.03 Prediabetes (principal); Z12.5 Encounter for screening for malignant neoplasm of prostate; I20.8 Other forms of angina pectoris; F41.0 Panic disorder [episodic paroxysmal anxiety]

== ENCOUNTER → 2018-08-24 | Outpatient (CLI) | payer BC, OTHER ==
--- NOTE | 2018-09-08 02:11 | ECWPNPC ---
PATIENT NAME: JENNIFER JAIME : 1955 GENDER: MALE VISIT DATE: 08/24/2018 DISCHARGE DATE: 08/24/18917 VISIT LOCKED DATE TIME: PHYSICIAN: THANH ZAPATA PHYSICIAN PAGER NO: [phone] RESOURCE: THANH ZAPATA REASON FOR APPOINTMENT 1. NECK HISTORY OF PRESENT ILLNESS HISTORY OF PRESENT ILLNESS: HERE FOR 3 MOS F/U OF CHRONIC NECK PAIN. RATING PAIN VAS 1/10.CHIEF AREA OF PAIN IS RIGHT MID THORACIC/NECK AND DESCRIBED INTERMITTENT ACHING.HAS BEEN USING TRAMAOL 50MG 1-2 TAB AT HS INFREQUENTLY FOR SEVERE PAIN AND THIS IS HELPFUL.TAKING CYMBALTA 30MG DAILY FOR GENERALIZED JOINT PAIN. PAIN THE PATIENT DESCRIBES THE PAIN... THE PATIENT DESCRIBES THE PAIN... THE PATIENT DESCRIBES THE PAIN... THE PATIENT DESCRIBES THE PAIN... THE PATIENT DESCRIBES THE PAIN... FALL RISK SCREENING: SCREENING : NO FALLS IN THE PAST YEAR. CURRENT MEDICATIONS TAKING GLUCOSAMINE 2000 TABLET 1 TABLET ORALLY ONCE A DAY TAKING VITAMIN D 5000 UNIT TABLET 1 TABLET ORALLY DAILY TAKING CLOBETASOL PROPIONATE 0.05 % CREAM 1 APPLICATION TO AFFECTED AREA/ EZEXMA BODY EXTERNALLY TWICE A DAY NEEDED TAKING LOPROX CREAM CREAM TO FEET FOR FUNGUS TOPICALLY TWICE A DAY NEEDED TAKING METFORMIN 1000 MG TABLET 1 TAB(S) ORALLY TWICE A DAY TAKING ASPIRIN 81 MG TABLET 1 TAB(S) ORALLY DAILY TAKING OMEPRAZOLE 40 MG CAPSULE DELAYED RELEASE TAKE ONE CAPSULE BY MOUTH TWICE A DAY TAKING PLAVIX 75 MG TABLET TAKE ONE TABLET BY MOUTH EVERY DAY TAKING NITROSTAT 0.4 MG TABLET SUBLINGUAL 1 TAB(S) SUBLINGUAL EVERY 5 MIN PRN CHEST PAIN, MAX DOSE 3 TAKING AMLODIPINE 5MG TABLET 1 TAB(S) ORAL DAILY TAKING LISINOPRIL 10 MG TABLET TAKE ONE TABLET BY MOUTH EVERY DAY TAKING CYCLOBENZAPRINE HCL 5 MG TABLET TAKE 1-2 TABLETS BY MOUTH EVERY NIGHT TAKING DULOXETINE HCL 30 MG CAPSULE DELAYED RELEASE PARTICLES TAKE ONE CAPSULE BY MOUTH EVERY DAY ORALLY DAILY TAKING REQUIP 1 MG TABLET TAKE TWO TABLETS BY MOUTH AT BEDTIME ORALLY DAILY TAKING AMITRIPTYLINE HCL 25 MG TABLET 2 TABLETS ORALLY BEFORE BEDTIME TAKING TRAMADOL HCL 50 MG TABLET 1 TABLET NEEDED ORALLY EVERY 6 HRS PRN MDD4 TAKING ATORVASTATIN CALCIUM 40 MG TABLET TAKE ONE TABLET BY MOUTH EVERY DAY TAKING BISOPROLOL FUMARATE 5 MG TABLET TAKE ONE TABLET BY MOUTH TWICE A DAY TAKING IBUPROFEN 800 MG TABLET 1 TABLET WITH FOOD OR MILK NEEDED ORALLY THREE TIMES A DAY TAKING ISOSORBIDE MONONITRATE ER 30 MG TABLET EXTENDED RELEASE 24 HOUR 1 TABLET IN THE MORNING ORALLY ONCE A DAY NOT-TAKING FLEXERIL 5 MG TABLET 1-2 TABLET ORALLY EVERY NIGHT MDD = 2 NOT-TAKING AMOXICILLIN 500 MG CAPSULE 1 CAPSULE ORALLY EVERY 8 HRS NOT-TAKING NAPROXEN 500 MG TABLET DELAYED RELEASE 1 TABLET ORALLY TWICE A DAY UNKNOWN PENICILLIN V POTASSIUM 500 MG TABLET 1 TABLET ORALLY FOUR TIMES A DAY UNKNOWN SHINGRIX 50 MCG SUSPENSION RECONSTITUTED DIRECTED INTRAMUSCULAR DIRECTED MEDICATION LIST REVIEWED AND RECONCILED WITH THE PATIENT PAST MEDICAL HISTORY CAD--NST 09/04 EF 63%, ANTEROSEPT ISCHEMIA, LAD STENT [facility] 09/04; NST 11/04, ANTEROSEPTAL REVERSIBLE ISCHEMIA, EF 60%; NST 11/06: NL PERFUSION, EF 65% IBS ECHO 08/07: EF 70%, SL ELEV PULM ART PRESSURE, NL VALVES DDD/DJD C-SPINE, T SPINE HYPERLIPIDEMIA PREDIABETES ESOPHAGEAL REFLUX- EGD 08/24, UGI-01/26, PH PROBE 10/26 HYPERTENSION DERMATITIS VITAMIN D DEFICIENCY 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 RENAL STONE 12/25 CONCUSSION DECEMBER 2013 T7 COMPRESSION FRACTURE 2014 ANTONI, ON CPAP 01/04 PFTS AT [facility] 08/07--NL, FEV1/FVC 76% ALLERGIES PRAVACHOL: ELEV LFT'S - SIDE EFFECTS SURGICAL HISTORY L EYE SURGERY 1980 RUPTURED ACHILLES TENDON L 1998 R KNEE ACL 2002 EGD/COLONOSCOPY--NL BOTH TIMES 08/24, 09/01 EGD--NL 01/26 CARDIAC CATH/LAD ADRIANNA STENT 09/04 09/04 RIGHT ANKLE 06/07 TOOTH EXTRACTION WITH BONE GRAFT FAMILY HISTORY FATHER: , AT 86, [place], DIAGNOSED WITH HEART DISEASE MOTHER: , AT 66 OF PULM FIBROSIS, [employer] MACHINERY SERVICE ENGINEER; CAD, HEART DISEASE SOCIAL HISTORY GENERAL: TOBACCO USE ARE YOU A: NONSMOKER . ALCOHOL SCREENING DID YOU HAVE A DRINK CONTAINING ALCOHOL IN THE PAST YEAR?YES HOW OFTEN DID YOU HAVE SIX OR MORE DRINKS ON ONE OCCASION IN THE PAST YEAR?NEVER (0 POINTS) HOW MANY DRINKS DID YOU HAVE ON A TYPICAL DAY WHEN YOU WERE DRINKING IN THE PAST YEAR?3 OR 4 (1 POINT) HOW OFTEN DID YOU HAVE A DRINK CONTAINING ALCOHOL IN THE PAST YEAR?TWO TO THREE TIMES PER WEEK (3 POINTS) POINTS4 INTERPRETATIONPOSITIVE RECREATIONAL DRUG USE DRUG USE?NO CAFFEINE CAFFEINE USE?YES COFFEE HOW OFTEN AND HOW MUCH? 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 MARITAL STATUS: . NEW PATIENT PAIN DIARY TODAY'S VISIT NOTES, FROM 0-10, WHAT LEVEL IS YOUR PAIN TODAY? 0. PAIN CLINIC PFS, CLERGY, PUBLIC HEALTH REFERRALS PFS REFERRAL NEEDED?NO CLERGY REFERRAL NEEDED?NO PUBLIC HEALTH REFERRAL NEEDED?NO WAS THE PROVIDER NOTIFIED OF ANY PERTINENT INFO?NO HAS THE PATIENT BEEN EDUCATED REGARDING HIS/HER PLAN OF CARE?YES HAS THE PATIENT BEEN EDUCATED REGARDING PAIN, THE RISK FOR PAIN, THE IMPORTANCE OF EFFECTIVE PAIN MANAGEMENT, AND THE PAIN ASSESSMENT PROCESS?YES ADVANCE DIRECTIVE ADVANCE DIRECTIVE DISCUSSED WITH PATIENT:YES DECLINED 03/31 858 REVIEWED AD. HOSPITALIZATION/MAJOR DIAGNOSTIC PROCEDURE SURG RELATED REVIEW OF SYSTEMS REVIEWED BY: PROVIDER: THANH SANCHEZ . CONSTITUTIONAL: ANY CHANGE IN YOUR MEDICAL CONDITION? NO . CHILLS NO . FEVER NO . INFECTION: DO YOU HAVE NEW INFECTIONS? NO . DO YOU HAVE HISTORY OF MRSA? NO . MUSCULOSKELETAL: ANY NEW PATTERNS OF PAIN OR NUMBNESS? NO . GASTROENTEROLOGY: ANY NEW CHANGE IN BOWEL CONTROL? NO . GENITOURINARY: ANY NEW CHANGE IN BLADDER CONTROL? NO . IS THERE A CHANCE YOU COULD BE ? NO . HEMATOLOGY/LYMPH: DO YOU TAKE ANY BLOOD THINNERS? (FOR EXAMPLE- COUMADIN, PLAVIX, AGGRENOX, PLATEL, PRADAXA, OR XARELTO) NO . WHEN WAS YOUR LAST DOSE? DATE: TIME: . NEUROLOGY: HAVE YOU FALLEN IN THE PAST 12 MONTHS? YES SLIPPED ON THE ICE A MONTH AGO - NO INJURY . ANY NEW EXTREMITY NUMBNESS OR WEAKNESS? NO . CARDIOLOGY: DO YOU HAVE A PACEMAKER OR DEFIBRILLATOR? NO . RESPIRATORY: HAVE YOU BEEN SICK IN THE PAST WEEK? NO . FEVER NO . FLU LIKE SYMPTOMS? NO . COUGH NO . INTEGUMENTARY: DO YOU HAVE ANY RASHES OR OPEN SORES? NO . ALLERGIC/IMMUNO: ARE YOU ALLERGIC TO IV DYE? NO . ANY NEW ALLERGIES? NO . PSYCHIATRIC: DO YOU HAVE THOUGHTS OF HURTING YOURSELF OR SOMEONE ELSE? NO . ARE YOU ABUSED, NEGLECTED, OR IN AN UNSAFE ENVIRONMENT? NO . ENDOCRINOLOGY: ARE YOU DIABETIC? YES . OTHER: DO YOU NEED ANY PRESCRIPTIONS? TRAMADOL . IF YES, PLEASE LIST: ____ . ANY NEW PROBLEMS WITH YOUR MEDICATIONS? NO . WHEN DID YOU LAST EAT? ____ . WHEN DID YOU LAST DRINK? ____ . WHAT DID YOU LAST DRINK? ____ . NAME OF PERSON DRIVING YOU HOME? ____ . DO YOU HAVE ANY OTHER QUESTIONS OR CONCERNS NO . VITAL SIGNS WT 227.4 LBS, HT 70 IN, BMI 32.62 INDEX, BP 138/90 MM HG, HR 82 /MIN, RR 18 /MIN, TEMP 97.2 F, OXYGEN SAT % 97%, NA INITIALS SC 08:54. EXAMINATION GENERAL EXAMINATION: GENERAL APPEARANCE:AWAKE,ALERT ,PLEAASANT . PSYCHAFFECT NORMAL . LUNGS:LUNG MERA ARE CLEAR TO AUSCULTATION BILATERALLY. GOOD MOVEMENT OF AIR . HEART:S1, S2 IN A REGULAR RATE AND RHYTHM. NO SIGNIFICANT MURMURS, RUBS OR GALLOPS NOTED . ASSESSMENTS CERVICALGIA - M54.2 (PRIMARY) CERVICAL RADICULOPATHY - M54.12 THORACIC SPINE PAIN - M54.6 TREATMENT CERVICALGIA CONTINUE DULOXETINE HCL CAPSULE DELAYED RELEASE PARTICLES, 30 MG, TAKE ONE CAPSULE BY MOUTH EVERY DAY, ORALLY, DAILY REFILL TRAMADOL HCL TABLET, 50 MG, 1 TABLET NEEDED, ORALLY, EVERY 6 HRS PRN MDD4, 30 DAY(S), 45, REFILLS 2 NOTES: [facility] NARCOTIC AGREEMENT WAS REVIEWED AND SIGNED TODAY BY THE PATIENT. SEE ATTACHED DOCUMENT FOR FULL DETAILS; SPECIFIC ISSUES WERE REVIEWED: 1) KEEP PAIN MEDS IN THEIR ORIGINAL BOTTLES AND ANY WEEKLY PLANNERS ARE TO BE BROUGHT TO THE PAIN CENTER AT EVERY VISIT. 2) THE PATIENT IS NOT TO INCREASE DOSING OR TIMING OF THEIR PAIN MEDICATION WITHOUT SPECIFIC DIRECTION OF THEIR PAIN CENTERPROVIDER (NOT ER OR OTHER PROVIDERS). 3) ALL PAIN MEDS ARE TO BE KEPT SECURED, IN A LOCKED BOX. 4) NO PAIN MEDS ARE TO BE SHARED WITH ANY OTHER PERSON FOR ANY REASON. 5) NO PAIN MEDS MAY BE TAKEN FROM ANY FRIENDS OR RELATIVES FOR ANY REASON 6) NO MEDS OR SUBSTANCES WHICH ARE NOT LEGAL ARE TO BE USED- NO MARIJUANA, NO COCAINE, AMPHETAMINES, HEROIN, OR OTHERS ARE EVER TO BE USED. 7)URINE TESTING IS DONE TO ACCOUNT FOR MEDS AND SUBSTANCES BEING TAKEN AND WILL BE DONE RANDOMLY., ISTOP REGISTRY REVIEWED AND DEMONSTRATES COMPLLIANCE. , RISKS AND BENEFITS OF NARCOTIC/OPIOD MEDICATIONS WERE REVIEWED WITH PATIENT - THIS INCLUDES BUT IS NOT LIMITED TO RISK OF DEPENDANCE/DEVELOPMENT OF ADDICTION, MOOD DISTURBANCE AND DEPRESSION, OSTEOPOROSIS, HORMONAL AND LABIDAL CHANGES, RESPIRATORY DEPRESSION AND . PATIENT IS ADVISED NOT TO DRIVE OR DRINK ALCOHOL WHILE ON THESE MEDICATIONS. PROCEDURE CODES FA211 ESTABILISHED PATIENT [facility] FAC[facility] CHARGE DISPOSITION & COMMUNICATION FOLLOW UP 3 MONTHS ELECTRONICALLY SIGNED BY LAURA ORDAZ ON 09/07/2018 AT 03:51 PM EDT DISCLAIMER : THIS IS A VISIT SUMMARY EXTRACTED FROM THE [employer] CHART. IT IS NOT A COPY OF THE [employer] PROGRESS NOTE. RADHA
== END ==
LOC: M PAIN 08:30
PROVIDERS: ATTEND Nurse Practitioner Family
DX: M54.12 Radiculopathy, cervical region (principal); M54.6 Pain in thoracic spine; G89.29 Other chronic pain; I25.10 Atherosclerotic heart disease of native coronary artery without angina pectoris; E78.5 Hyperlipidemia, unspecified; R73.03 Prediabetes; K21.9 Gastro-esophageal reflux disease without esophagitis; I10 Essential (primary) hypertension; G25.81 Restless legs syndrome; Z87.820 Personal history of traumatic brain injury; G47.33 Obstructive sleep apnea (adult) (pediatric); Z79.84 Long term (current) use of oral hypoglycemic drugs; Z79.82 Long term (current) use of aspirin; Z79.899 Other long term (current) drug therapy; Z88.8 Allergy status to other drugs, medicaments and biological substances

== ENCOUNTER → 2018-11-24 | Outpatient (CLI) | payer BC, OTHER ==
[~2018-11-24] MED LIST changes: -CYCL5TA PO; +CYCL5TAB5 PO
--- NOTE | 2018-11-25 00:51 | ECWPNPC ---
PATIENT NAME: JENNIFER JAIME : 1955 GENDER: MALE VISIT DATE: 11/24/2018 DISCHARGE DATE: 11/24/18916 VISIT LOCKED DATE TIME: PHYSICIAN: THANH ZAPATA PHYSICIAN PAGER NO: [phone] RESOURCE: THANH ZAPATA REASON FOR APPOINTMENT 1. NECK HISTORY OF PRESENT ILLNESS HISTORY OF PRESENT ILLNESS: HERE FOR 3 MOS F/U OF CHRONIC NECK PAIN. RATING PAIN VAS 1/10.CHIEF AREA OF PAIN IS RIGHT MID THORACIC/NECK AND DESCRIBED INTERMITTENT ACHING.HAS BEEN USING TRAMAOL 50MG 1-2 TAB AT HS INFREQUENTLY FOR SEVERE PAIN AND THIS IS HELPFUL.TAKING CYMBALTA 30MG DAILY FOR GENERALIZED JOINT PAIN. PAIN THE PATIENT DESCRIBES THE PAIN... THE PATIENT DESCRIBES THE PAIN... THE PATIENT DESCRIBES THE PAIN... THE PATIENT DESCRIBES THE PAIN... THE PATIENT DESCRIBES THE PAIN... THE PATIENT DESCRIBES THE PAIN... PAIN THE PATIENT DESCRIBES THE PAIN... THE PATIENT DESCRIBES THE PAIN... THE PATIENT DESCRIBES THE PAIN... THE PATIENT DESCRIBES THE PAIN... THE PATIENT DESCRIBES THE PAIN... THE PATIENT DESCRIBES THE PAIN... FALL RISK SCREENING: SCREENING :NO FALLS REPORTED IN THE LAST YEAR CURRENT MEDICATIONS TAKING GLUCOSAMINE 2000 TABLET 1 TABLET ORALLY ONCE A DAY, NOTES: NONE RECENTLY TAKING VITAMIN D 5000 UNIT TABLET 1 TABLET ORALLY DAILY TAKING CLOBETASOL PROPIONATE 0.05 % CREAM 1 APPLICATION TO AFFECTED AREA/ EZEXMA BODY EXTERNALLY TWICE A DAY NEEDED TAKING LOPROX CREAM CREAM TO FEET FOR FUNGUS TOPICALLY TWICE A DAY NEEDED TAKING METFORMIN 1000 MG TABLET 1 TAB(S) ORALLY TWICE A DAY TAKING ASPIRIN 81 MG TABLET 1 TAB(S) ORALLY DAILY TAKING OMEPRAZOLE 40 MG CAPSULE DELAYED RELEASE TAKE ONE CAPSULE BY MOUTH TWICE A DAY TAKING PLAVIX 75 MG TABLET TAKE ONE TABLET BY MOUTH EVERY DAY TAKING NITROSTAT 0.4 MG TABLET SUBLINGUAL 1 TAB(S) SUBLINGUAL EVERY 5 MIN PRN CHEST PAIN, MAX DOSE 3 TAKING AMLODIPINE 5MG TABLET 1 TAB(S) ORAL DAILY TAKING LISINOPRIL 10 MG TABLET TAKE ONE TABLET BY MOUTH EVERY DAY TAKING CYCLOBENZAPRINE HCL 5 MG TABLET TAKE 1-2 TABLETS BY MOUTH EVERY NIGHT TAKING ATORVASTATIN CALCIUM 40 MG TABLET TAKE ONE TABLET BY MOUTH EVERY DAY TAKING BISOPROLOL FUMARATE 5 MG TABLET TAKE ONE TABLET BY MOUTH TWICE A DAY TAKING IBUPROFEN 800 MG TABLET 1 TABLET WITH FOOD OR MILK NEEDED ORALLY THREE TIMES A DAY TAKING ISOSORBIDE MONONITRATE ER 30 MG TABLET EXTENDED RELEASE 24 HOUR 1 TABLET IN THE MORNING ORALLY ONCE A DAY TAKING DULOXETINE HCL 30 MG CAPSULE DELAYED RELEASE PARTICLES TAKE ONE CAPSULE BY MOUTH EVERY DAY ORALLY DAILY TAKING TRAMADOL HCL 50 MG TABLET 1 TABLET NEEDED ORALLY EVERY 6 HRS PRN MDD4 TAKING REQUIP 1 MG TABLET TAKE TWO TABLETS BY MOUTH AT BEDTIME ORALLY DAILY TAKING AMITRIPTYLINE HCL 25 MG TABLET 2 TABLETS ORALLY BEFORE BEDTIME TAKING MAY USE CBD OIL ONCE DAILY NOT-TAKING FLEXERIL 5 MG TABLET 1-2 TABLET ORALLY EVERY NIGHT MDD = 2 NOT-TAKING AMOXICILLIN 500 MG CAPSULE 1 CAPSULE ORALLY EVERY 8 HRS NOT-TAKING NAPROXEN 500 MG TABLET DELAYED RELEASE 1 TABLET ORALLY TWICE A DAY NOT-TAKING PENICILLIN V POTASSIUM 500 MG TABLET 1 TABLET ORALLY FOUR TIMES A DAY NOT-TAKING SHINGRIX 50 MCG SUSPENSION RECONSTITUTED DIRECTED INTRAMUSCULAR DIRECTED DISCONTINUED METFORMIN HCL 1000 MG TABLET TAKE ONE TABLET BY MOUTH TWICE A DAY , NOTES: DUPLICATE MEDICATION LIST REVIEWED AND RECONCILED WITH THE PATIENT PAST MEDICAL HISTORY CAD--NST 09/04 EF 63%, ANTEROSEPT ISCHEMIA, LAD STENT [facility] 09/04; NST 11/04, ANTEROSEPTAL REVERSIBLE ISCHEMIA, EF 60%; NST 11/06: NL PERFUSION, EF 65% IBS ECHO 08/07: EF 70%, SL ELEV PULM ART PRESSURE, NL VALVES DDD/DJD C-SPINE, T SPINE HYPERLIPIDEMIA PREDIABETES ESOPHAGEAL REFLUX- EGD 08/24, UGI-01/26, PH PROBE 10/26 HYPERTENSION DERMATITIS VITAMIN D DEFICIENCY 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 RENAL STONE 12/25 CONCUSSION DECEMBER 2013 T7 COMPRESSION FRACTURE 2014 ANTONI, ON CPAP 01/04 PFTS AT [facility] 08/07--NL, FEV1/FVC 76% ALLERGIES PRAVACHOL: ELEV LFT'S - SIDE EFFECTS SURGICAL HISTORY L EYE SURGERY 1980 RUPTURED ACHILLES TENDON L 1998 R KNEE ACL 2002 EGD/COLONOSCOPY--NL BOTH TIMES 08/24, 09/01 EGD--NL 01/26 CARDIAC CATH/LAD ADRIANNA STENT 09/04 09/04 RIGHT ANKLE 06/07 TOOTH EXTRACTION WITH BONE GRAFT -2018 FAMILY HISTORY FATHER: , AT 86, [place], DIAGNOSED WITH HEART DISEASE MOTHER: , AT 66 OF PULM FIBROSIS, 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 LANGUAGE LANGUAGES SPOKEN:UPPER SORBIAN NEW PATIENT PAIN DIARY TODAY'S VISIT NOTES, FROM 0-10, WHAT LEVEL IS YOUR PAIN TODAY? 0. 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 PAIN CLINIC PFS, CLERGY, PUBLIC HEALTH REFERRALS PFS REFERRAL NEEDED?NO CLERGY REFERRAL NEEDED?NO PUBLIC HEALTH REFERRAL NEEDED?NO WAS THE PROVIDER NOTIFIED OF ANY PERTINENT INFO?NO HAS THE PATIENT BEEN EDUCATED REGARDING HIS/HER PLAN OF CARE?YES HAS THE PATIENT BEEN EDUCATED REGARDING PAIN, THE RISK FOR PAIN, THE IMPORTANCE OF EFFECTIVE PAIN MANAGEMENT, AND THE PAIN ASSESSMENT PROCESS?YES LATEX QUESTIONNAIRE LATEX ALLERGY : HAVE YOU EVER DEVELOPED ANY TYPE OF REACTION AFTER HANDLING LATEX PRODUCTS SUCH RUBBER GLOVES, CONDOMS, DIAPHRAGMS, BALLOONS, SOCKS, OR UNDERWEAR?NO LATEX ALLERGY : HAVE YOU EVER DEVELOPED ANY TYPE OF REACTION DURING OR AFTER DENTAL APPOINTMENT, VAGINAL/RECTAL EXAMINATION, SURGICAL PROCEDURE, OR ANY OTHER EXPOSURE?NO LATEX RISK : HAVE YOU EVER HAD ANY DIFFICULTY BREATHING OR HIVES AFTER EATING OR HANDLING ANY FRUITS, OR VEGETABLES; SUCH KIWI, BANANAS, STONE FRUITS, OR CHESTNUTSNO LATEX RISK : DO YOU HAVE A PREVIOUS PERSONAL HISTORY OF MORE THAN NINE SURGERIES, SPINA BIFIDA, OR REPEATED CATHERTIZATIONS? NO LATEX RISK : ARE YOU FREQUENTLY EXPOSED TO LATEX PRODUCTS IN YOUR OCCUPATION?NO DATE ASKED : 11/24/2018 CAFFEINE CAFFEINE USE?YES COFFEE HOW OFTEN AND HOW MUCH? 3 CUPS COFFEE/DAY ADVANCE DIRECTIVE ADVANCE DIRECTIVE DISCUSSED WITH PATIENT:YES DECLINED INFO AND ASSISTANCE WITH FORM AT THIS TIME 11/24/18 MORAVIAN [id number] SIKHISM MARITAL STATUS: . 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 SEXUAL HX HAD SEX IN THE LAST 12 MONTHS (VAGINAL, ORAL, OR ANAL)?YES WITHWOMEN ONLY HAVE YOU EVER HAD AN STD?NO 03/31 858 REVIEWED ADREVIEWED WITH PT 11/24/18 0855 BV. HOSPITALIZATION/MAJOR DIAGNOSTIC PROCEDURE SURG RELATED REVIEW OF SYSTEMS REVIEWED BY: PROVIDER: THANH SANCHEZ . CONSTITUTIONAL: ANY CHANGE IN YOUR MEDICAL CONDITION? NO . CHILLS NO . FEVER NO . INFECTION: DO YOU HAVE NEW INFECTIONS? NO . DO YOU HAVE HISTORY OF MRSA? NO . MUSCULOSKELETAL: ANY NEW PATTERNS OF PAIN OR NUMBNESS? NO . GASTROENTEROLOGY: ANY NEW CHANGE IN BOWEL CONTROL? NO . GENITOURINARY: ANY NEW CHANGE IN BLADDER CONTROL? NO . IS THERE A CHANCE YOU COULD BE ? NO . HEMATOLOGY/LYMPH: DO YOU TAKE ANY BLOOD THINNERS? (FOR EXAMPLE- COUMADIN, PLAVIX, AGGRENOX, PLATEL, PRADAXA, OR XARELTO) YES, PLAVIX . WHEN WAS YOUR LAST DOSE? DATE: TIME: . NEUROLOGY: HAVE YOU FALLEN IN THE PAST 12 MONTHS? YES, PT REPORTS A FALL IN THE WINTER ON ICE. DOES NOT RECALL EXACT DATE, BUT DENIES ANY INJUIES OR ED VISIT WITH FALL. . ANY NEW EXTREMITY NUMBNESS OR WEAKNESS? YES, PT COMPLAINS OF NEW NUMBNESS/BURNING FEELING IN RIGHT LATERAL LOWER THIGH. STATES THIS IS INTERMITTENT AND HAS BEEN HAPPENING FOR ABOUT THE PAST 3 WEEKS. STATES HE IS GOING TO TALK TO ANA STEWART ABOUT THIS NEXT WEEK . CARDIOLOGY: DO YOU HAVE A PACEMAKER OR DEFIBRILLATOR? NO . RESPIRATORY: HAVE YOU BEEN SICK IN THE PAST WEEK? NO . FEVER NO . FLU LIKE SYMPTOMS? NO . COUGH NO . INTEGUMENTARY: DO YOU HAVE ANY RASHES OR OPEN SORES? NO . ALLERGIC/IMMUNO: ARE YOU ALLERGIC TO IV DYE? NO . ANY NEW ALLERGIES? NO . PSYCHIATRIC: DO YOU HAVE THOUGHTS OF HURTING YOURSELF OR SOMEONE ELSE? NO . ARE YOU ABUSED, NEGLECTED, OR IN AN UNSAFE ENVIRONMENT? NO . ENDOCRINOLOGY: ARE YOU DIABETIC? NO . OTHER: DO YOU NEED ANY PRESCRIPTIONS? NO . IF YES, PLEASE LIST: ____ . ANY NEW PROBLEMS WITH YOUR MEDICATIONS? NO . WHEN DID YOU LAST EAT? ____ . WHEN DID YOU LAST DRINK? ____ . WHAT DID YOU LAST DRINK? ____ . NAME OF PERSON DRIVING YOU HOME? ____ . DO YOU HAVE ANY OTHER QUESTIONS OR CONCERNS NO . VITAL SIGNS WT 228.0 LBS, HT 70 IN, BMI 32.71 INDEX, BP 136/85 MM HG, HR 80 /MIN, RR 18 /MIN, TEMP 97.8 F, OXYGEN SAT % 97, NA INITIALS MP 0842, REVIEWED BY: BV. EXAMINATION GENERAL EXAMINATION: GENERAL APPEARANCE:AWAKE,ALERT ,PLEAASANT . PSYCHAFFECT NORMAL . LUNGS:LUNG MERA ARE CLEAR TO AUSCULTATION BILATERALLY. GOOD MOVEMENT OF AIR . HEART:S1, S2 IN A REGULAR RATE AND RHYTHM. NO SIGNIFICANT MURMURS, RUBS OR GALLOPS NOTED . ASSESSMENTS CERVICALGIA - M54.2 (PRIMARY) CERVICAL RADICULOPATHY - M54.12 THORACIC SPINE PAIN - M54.6 TREATMENT CERVICALGIA CONTINUE DULOXETINE HCL CAPSULE DELAYED RELEASE PARTICLES, 30 MG, TAKE ONE CAPSULE BY MOUTH EVERY DAY, ORALLY, DAILY CONTINUE TRAMADOL HCL TABLET, 50 MG, 1 TABLET NEEDED, ORALLY, EVERY 6 HRS PRN MDD4 PROCEDURE CODES FA211 ESTABILISHED PATIENT [facility] CHARGE DISPOSITION & COMMUNICATION FOLLOW UP 3 MONTHS ELECTRONICALLY SIGNED BY LAURA ORDAZ ON 11/24/2018 AT 10:56 AM EDT DISCLAIMER : THIS IS A VISIT SUMMARY EXTRACTED FROM THE [employer] CHART. IT IS NOT A COPY OF THE [employer] PROGRESS NOTE. MTDD
== END ==
LOC: M PAIN 08:30
PROVIDERS: ATTEND Nurse Practitioner Family
DX: M54.2 Cervicalgia (principal); M54.6 Pain in thoracic spine; Z79.4 Long term (current) use of insulin; Z79.2 Long term (current) use of antibiotics; Z79.899 Other long term (current) drug therapy; Z79.891 Long term (current) use of opiate analgesic; Z95.5 Presence of coronary angioplasty implant and graft; Z88.8 Allergy status to other drugs, medicaments and biological substances

== ENCOUNTER → 2019-02-24 | Outpatient (CLI) | payer BC, OTHER ==
[~2019-02-24] MED LIST changes: +BISO5TAB14 PO; -BISO5TAB5 PO; -DULO1CAP2; -DULO1CAP2 PO; +DULO1CAP5; +DULO1CAP5 PO; +ISOS30TA4; -LORA1TAB12 PO; +LORA1TAB4 PO; +NAPR-885; -OMEP40CA2 PO; +OMEP40CA97 PO; +ROPI1TAB; -SIMV40TA2 PO; +SIMV40TA20 PO
--- NOTE | 2019-02-25 02:54 | ECWPNPC ---
PATIENT NAME: JENNIFER JAIME : 1955 GENDER: MALE VISIT DATE: 02/24/2019 DISCHARGE DATE: 02/24/19932 VISIT LOCKED DATE TIME: PHYSICIAN: THANH ZAPATA PHYSICIAN PAGER NO: [phone] RESOURCE: THANH ZAPATA REASON FOR APPOINTMENT 1. NECK/UPPER BACK HISTORY OF PRESENT ILLNESS HISTORY OF PRESENT ILLNESS: HERE FOR 3 MOS F/U OF CHRONIC NECK PAIN. RATING PAIN VAS 1/10.CHIEF AREA OF PAIN IS RIGHT MID THORACIC/NECK AND DESCRIBED INTERMITTENT ACHING.HAS BEEN USING TRAMAOL 50MG 1-2 TAB AT HS INFREQUENTLY FOR SEVERE PAIN AND THIS IS HELPFUL.TAKING CYMBALTA 30MG DAILY FOR GENERALIZED JOINT PAIN. PAIN THE PATIENT DESCRIBES THE PAIN... THE PATIENT DESCRIBES THE PAIN... THE PATIENT DESCRIBES THE PAIN... THE PATIENT DESCRIBES THE PAIN... THE PATIENT DESCRIBES THE PAIN... THE PATIENT DESCRIBES THE PAIN... THE PATIENT DESCRIBES THE PAIN... FALL RISK SCREENING: SCREENING :NO FALLS REPORTED IN THE LAST YEAR CURRENT MEDICATIONS TAKING VITAMIN D 5000 UNIT TABLET 1 TABLET ORALLY DAILY TAKING CLOBETASOL PROPIONATE 0.05 % CREAM 1 APPLICATION TO AFFECTED AREA/ EZEXMA BODY EXTERNALLY TWICE A DAY NEEDED TAKING LOPROX CREAM CREAM TO FEET FOR FUNGUS TOPICALLY TWICE A DAY NEEDED TAKING METFORMIN 1000 MG TABLET 1 TAB(S) ORALLY TWICE A DAY TAKING ASPIRIN 81 MG TABLET 1 TAB(S) ORALLY DAILY TAKING OMEPRAZOLE 40 MG CAPSULE DELAYED RELEASE TAKE ONE CAPSULE BY MOUTH TWICE A DAY TAKING NITROSTAT 0.4 MG TABLET SUBLINGUAL 1 TAB(S) SUBLINGUAL EVERY 5 MIN PRN CHEST PAIN, MAX DOSE 3 TAKING LISINOPRIL 10 MG TABLET TAKE ONE TABLET BY MOUTH EVERY DAY TAKING CYCLOBENZAPRINE HCL 5 MG TABLET TAKE 1-2 TABLETS BY MOUTH EVERY NIGHT TAKING ATORVASTATIN CALCIUM 40 MG TABLET TAKE ONE TABLET BY MOUTH EVERY DAY TAKING BISOPROLOL FUMARATE 5 MG TABLET TAKE ONE TABLET BY MOUTH TWICE A DAY TAKING IBUPROFEN 800 MG TABLET 1 TABLET WITH FOOD OR MILK NEEDED ORALLY THREE TIMES A DAY TAKING ISOSORBIDE MONONITRATE ER 30 MG TABLET EXTENDED RELEASE 24 HOUR 1 TABLET IN THE MORNING ORALLY ONCE A DAY TAKING REQUIP 1 MG TABLET TAKE TWO TABLETS BY MOUTH AT BEDTIME ORALLY DAILY TAKING AMITRIPTYLINE HCL 25 MG TABLET 2 TABLETS ORALLY BEFORE BEDTIME TAKING MAY USE CBD TABS ONCE DAILY TAKING DULOXETINE HCL 30 MG CAPSULE DELAYED RELEASE PARTICLES TAKE ONE CAPSULE BY MOUTH EVERY DAY ORALLY DAILY TAKING TRAMADOL HCL 50 MG TABLET 1 TABLET NEEDED ORALLY EVERY 6 HRS PRN MDD4 TAKING AMLODIPINE 5MG TABLET 1 TAB(S) ORAL DAILY TAKING TURMERIC CURCUMIN 500 MG CAPSULE DIRECTED ORALLY NOT-TAKING GLUCOSAMINE 2000 TABLET 1 TABLET ORALLY ONCE A DAY, NOTES: NONE RECENTLY NOT-TAKING PLAVIX 75 MG TABLET TAKE ONE TABLET BY MOUTH EVERY DAY NOT-TAKING FLEXERIL 5 MG TABLET 1-2 TABLET ORALLY EVERY NIGHT MDD = 2 NOT-TAKING AMOXICILLIN 500 MG CAPSULE 1 CAPSULE ORALLY EVERY 8 HRS NOT-TAKING NAPROXEN 500 MG TABLET DELAYED RELEASE 1 TABLET ORALLY TWICE A DAY NOT-TAKING PENICILLIN V POTASSIUM 500 MG TABLET 1 TABLET ORALLY FOUR TIMES A DAY NOT-TAKING SHINGRIX 50 MCG SUSPENSION RECONSTITUTED DIRECTED INTRAMUSCULAR DIRECTED MEDICATION LIST REVIEWED AND RECONCILED WITH THE PATIENT PAST MEDICAL HISTORY CAD--NST 09/04 EF 63%, ANTEROSEPT ISCHEMIA, LAD STENT [facility] 09/04; NST 11/04, ANTEROSEPTAL REVERSIBLE ISCHEMIA, EF 60%; NST 11/06: NL PERFUSION, EF 65% IBS ECHO 08/07: EF 70%, SL ELEV PULM ART PRESSURE, NL VALVES DDD/DJD C-SPINE, T SPINE HYPERLIPIDEMIA PREDIABETES ESOPHAGEAL REFLUX- EGD 08/24, UGI-01/26, PH PROBE 10/26 HYPERTENSION VITAMIN D DEFICIENCY 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 RENAL STONE 12/25 CONCUSSION DECEMBER 2013 T7 COMPRESSION FRACTURE 2014 ANTONI, ON CPAP 01/04 PFTS AT [facility] 08/07--NL, FEV1/FVC 76% DERMATITIS FRACTURE RIGHT ANKLE ALLERGIES PRAVACHOL: ELEV LFT'S - SIDE EFFECTS SURGICAL HISTORY L EYE SURGERY 1980 RUPTURED ACHILLES TENDON L X 2 12/1998, 05/1999 R KNEE ACL 2002 EGD/COLONOSCOPY--NL BOTH TIMES 08/24, 09/01 EGD--NL 01/26 CARDIAC CATH/LAD ADRIANNA STENT 09/04 09/04 RIGHT ANKLE 06/07 TOOTH EXTRACTION WITH BONE GRAFT FAMILY HISTORY FATHER: , AT 86, [place], DIAGNOSED WITH HEART DISEASE MOTHER: , AT 66 OF PULM FIBROSIS, [employer] STRAIGHT[employer]; CAD, HEART DISEASE SOCIAL HISTORY GENERAL: TOBACCO USE ARE YOU A: NONSMOKER. 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?NO PAIN CLINIC PFS, CLERGY, PUBLIC HEALTH REFERRALS PFS REFERRAL NEEDED?NO CLERGY REFERRAL NEEDED?NO PUBLIC HEALTH REFERRAL NEEDED?NO WAS THE PROVIDER NOTIFIED OF ANY PERTINENT INFO?NO HAS THE PATIENT BEEN EDUCATED REGARDING HIS/HER PLAN OF CARE?YES HAS THE PATIENT BEEN EDUCATED REGARDING PAIN, THE RISK FOR PAIN, THE IMPORTANCE OF EFFECTIVE PAIN MANAGEMENT, AND THE PAIN ASSESSMENT PROCESS?YES LATEX QUESTIONNAIRE LATEX ALLERGY : HAVE YOU EVER DEVELOPED ANY TYPE OF REACTION AFTER HANDLING LATEX PRODUCTS SUCH RUBBER GLOVES, CONDOMS, DIAPHRAGMS, BALLOONS, SOCKS, OR UNDERWEAR?NO LATEX ALLERGY : HAVE YOU EVER DEVELOPED ANY TYPE OF REACTION DURING OR AFTER DENTAL APPOINTMENT, VAGINAL/RECTAL EXAMINATION, SURGICAL PROCEDURE, OR ANY OTHER EXPOSURE?NO DATE ASKED : 11/24/2018 LATEX RISK : HAVE YOU EVER HAD ANY DIFFICULTY BREATHING OR HIVES AFTER EATING OR HANDLING ANY FRUITS, OR VEGETABLES; SUCH KIWI, BANANAS, STONE FRUITS, OR CHESTNUTSNO LATEX RISK : DO YOU HAVE A PREVIOUS PERSONAL HISTORY OF MORE THAN NINE SURGERIES, SPINA BIFIDA, OR REPEATED CATHERIZATIONS? NO LATEX RISK : ARE YOU FREQUENTLY EXPOSED TO LATEX PRODUCTS IN YOUR OCCUPATION?NO CAFFEINE CAFFEINE USE?YES COFFEE HOW OFTEN AND HOW MUCH? 3 CUPS COFFEE/DAY ADVANCE DIRECTIVE ADVANCE DIRECTIVE DISCUSSED WITH PATIENT:YES DECLINED INFO AND ASSISTANCE WITH FORM AT THIS TIME 11/24/18 YAZIDI [id number] ADVENTISM MARITAL STATUS: . 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 SEXUAL HX HAD SEX IN THE LAST 12 MONTHS (VAGINAL, ORAL, OR ANAL)?YES WITHWOMEN ONLY HAVE YOU EVER HAD AN STD?NO HOSPITALIZATION/MAJOR DIAGNOSTIC PROCEDURE SURG RELATED REVIEW OF SYSTEMS REVIEWED BY: PROVIDER: THANH SANCHEZ . CONSTITUTIONAL: ANY CHANGE IN YOUR MEDICAL CONDITION? NO . CHILLS NO . FEVER NO . INFECTION: DO YOU HAVE NEW INFECTIONS? NO . DO YOU HAVE HISTORY OF MRSA? NO . MUSCULOSKELETAL: ANY NEW PATTERNS OF PAIN OR NUMBNESS? NO . GASTROENTEROLOGY: ANY NEW CHANGE IN BOWEL CONTROL? NO . GENITOURINARY: ANY NEW CHANGE IN BLADDER CONTROL? NO . IS THERE A CHANCE YOU COULD BE ? NO . HEMATOLOGY/LYMPH: DO YOU TAKE ANY BLOOD THINNERS? (FOR EXAMPLE- COUMADIN, PLAVIX, AGGRENOX, PLATEL, PRADAXA, OR XARELTO) NO . WHEN WAS YOUR LAST DOSE? DATE: TIME: . NEUROLOGY: HAVE YOU FALLEN IN THE PAST 12 MONTHS? NO . ANY NEW EXTREMITY NUMBNESS OR WEAKNESS? NO . CARDIOLOGY: DO YOU HAVE A PACEMAKER OR DEFIBRILLATOR? NO . RESPIRATORY: HAVE YOU BEEN SICK IN THE PAST WEEK? NO . FEVER NO . FLU LIKE SYMPTOMS? NO . COUGH NO . INTEGUMENTARY: DO YOU HAVE ANY RASHES OR OPEN SORES? NO . ALLERGIC/IMMUNO: ARE YOU ALLERGIC TO IV DYE? NO . ANY NEW ALLERGIES? NO . PSYCHIATRIC: DO YOU HAVE THOUGHTS OF HURTING YOURSELF OR SOMEONE ELSE? NO . ARE YOU ABUSED, NEGLECTED, OR IN AN UNSAFE ENVIRONMENT? NO . ENDOCRINOLOGY: ARE YOU DIABETIC? NO . OTHER: DO YOU NEED ANY PRESCRIPTIONS? YES . IF YES, PLEASE LIST: TRAMADOL, DULOXETINE . ANY NEW PROBLEMS WITH YOUR MEDICATIONS? NO . WHEN DID YOU LAST EAT? ____ . WHEN DID YOU LAST DRINK? ____ . WHAT DID YOU LAST DRINK? ____ . NAME OF PERSON DRIVING YOU HOME? ____ . DO YOU HAVE ANY OTHER QUESTIONS OR CONCERNS NO . VITAL SIGNS WT 220.2 LBS, HT 70 IN, BMI 31.59 INDEX, BP 135/93 MM HG, HR 73 /MIN, RR 18 /MIN, TEMP 96.6 F, OXYGEN SAT % 98%, NA INITIALS SC 09:02, REVIEWED BY: FANTA. EXAMINATION GENERAL EXAMINATION: GENERALAWAKE,ALERT ,PLEAASANT . PSYCHAFFECT NORMAL . LUNGS:LUNG MERA ARE CLEAR TO AUSCULTATION BILATERALLY. GOOD MOVEMENT OF AIR . HEART:S1, S2 IN A REGULAR RATE AND RHYTHM. NO SIGNIFICANT MURMURS, RUBS OR GALLOPS NOTED . ASSESSMENTS CERVICALGIA - M54.2 (PRIMARY) CERVICAL RADICULOPATHY - M54.12 THORACIC SPINE PAIN - M54.6 TREATMENT CERVICALGIA REFILL DULOXETINE HCL CAPSULE DELAYED RELEASE PARTICLES, 30 MG, TAKE ONE CAPSULE BY MOUTH EVERY DAY, ORALLY, DAILY, 30 DAYS, 30, REFILLS 2 CONTINUE TRAMADOL HCL TABLET, 50 MG, 1 TABLET NEEDED, ORALLY, EVERY 6 HRS PRN MDD4, 30 DAYS, 45, REFILLS 1 NOTES: ISTOP REGISTRY REVIEWED AND DEMONSTRATES COMPLLIANCE. URINE TOX TODAY, RISKS AND BENEFITS OF NARCOTIC/OPIOD MEDICATIONS WERE REVIEWED WITH PATIENT - THIS INCLUDES BUT IS NOT LIMITED TO RISK OF DEPENDANCE/DEVELOPMENT OF ADDICTION, MOOD DISTURBANCE AND DEPRESSION, OSTEOPOROSIS, HORMONAL AND LABIDAL CHANGES, RESPIRATORY DEPRESSION AND . PATIENT IS ADVISED NOT TO DRIVE OR DRINK ALCOHOL WHILE ON THESE MEDICATIONS. PROCEDURE CODES FA211 ESTABILISHED PATIENT [facility] CHARGE DISPOSITION & COMMUNICATION FOLLOW UP 3 MONTHS (REASON: MED MGMNT) ELECTRONICALLY SIGNED BY LAURA ORDAZ ON 02/24/2019 AT 09:45 AM EDT DISCLAIMER : THIS IS A VISIT SUMMARY EXTRACTED FROM THE [employer] CHART. IT IS NOT A COPY OF THE [employer] PROGRESS NOTE. RADHA
== END ==
LOC: M PAIN 08:45
PROVIDERS: ATTEND Nurse Practitioner Family
DX: M54.12 Radiculopathy, cervical region (principal); M54.6 Pain in thoracic spine; G89.29 Other chronic pain; E78.5 Hyperlipidemia, unspecified; R73.03 Prediabetes; K21.9 Gastro-esophageal reflux disease without esophagitis; I10 Essential (primary) hypertension; E55.9 Vitamin D deficiency, unspecified; G25.81 Restless legs syndrome; G47.33 Obstructive sleep apnea (adult) (pediatric); Z88.8 Allergy status to other drugs, medicaments and biological substances; Z79.82 Long term (current) use of aspirin; Z79.84 Long term (current) use of oral hypoglycemic drugs; Z79.899 Other long term (current) drug therapy

== ENCOUNTER 2019-05-05 13:20 | Emergency (ER) | payer BC, OTHER ==
[~2019-05-05] VITALS: Ht 177.8 cm; Wt 94.5 kg
[~2019-05-05 13:20] MED LIST changes: -BISO5TAB14 PO; +BISO5TAB9 PO; -ISOS30TA4; +LORA1TAB12 PO; -LORA1TAB4 PO; -NAPR-885; -ROPI1TAB; +SIMV40TA2 PO; -SIMV40TA20 PO
[2019-05-05] MEDS ORDERED: NAPR-885 (13:49)
[2019-05-05] MEDS ORDERED: ROPI1TAB (13:49)
[2019-05-05] MEDS ORDERED: ISOS30TA4 (13:49)
[2019-05-05] MEDS ORDERED: ASPIRIN 81 MG CHEW TABLET PO ONE (14:00)
[2019-05-05] MEDS ORDERED: NITROGLYCERIN 0.4 MG SUBL TABLET SL PRN (14:00)
[2019-05-05 14:09] VITALS: BP 143/93
[2019-05-05 14:12] LABS: BASO % 0.5 % (0.0-1.0); EOS # 0.2 10^3/uL (0.0-0.5); EOS % 2.9 % (0.0-3.0); HEMATOCRIT 38.5 % (42.0-52.0); HEMOGLOBIN 13.1 g/dl (13.5-17.5); LYMPH # 1.3 10^3/uL (1.5-5.0); LYMPH % 23.9 % (24.0-44.0); MEAN CORPUSCULAR HEMOGLOBIN 32.8 pg (27.0-33.0); MEAN CORPUSCULAR VOLUME 96.5 fl (80.0-96.0); MONO # 0.4 10^3/uL (0.0-0.8); MONO % 6.3 % (0.0-5.0); NEUTROPHILS # 3.7 10^3/uL (1.5-8.5); NEUTROPHILS % 66.2 % (36.0-66.0); PLATELET COUNT, AUTOMATED 252 10^3/uL (150-450); RED BLOOD COUNT 3.99 10^6/uL (4.30-6.10); WHITE BLOOD COUNT 5.6 10^3/uL (4.0-10.0)
[2019-05-05] MEDS ORDERED: ISOSORBIDE MON. (IMDUR) 30 MG XR TAB PO ONE (14:15)
--- NOTE | 2019-05-05 14:29 | REP ---
Portable chest x-ray: Single view. History: Chest pain. Comparison study: May 30, 2017. Findings: Monitoring electrodes are seen. The lungs are symmetrically aerated and clear. The pleural angles are sharp. Heart is not enlarged. No focal infiltrate is seen. Pulmonary vasculature is not increased. Impression: No acute disease. Electronically Signed by Flip Xavier MD 05/05/2019 02:19 P
[2019-05-05 14:38] LABS: ALBUMIN 3.7 GM/DL (3.2-5.2); ALT/SGPT 42 U/L (12-78); BILIRUBIN,DIRECT < 0.1 MG/DL (0.0-0.2); BILIRUBIN,TOTAL 0.3 MG/DL (0.2-1.0); LIPASE 117 U/L (73-393)
[2019-05-05 14:39] LABS: BLOOD UREA NITROGEN 17 MG/DL (7-18); CALCIUM LEVEL 9.5 MG/DL (8.8-10.2); CARBON DIOXIDE LEVEL 24 MEQ/L (21-32); CHLORIDE LEVEL 106 MEQ/L (98-107); CK-MB VALUE MASS 5.6 NG/ML (<3.6); CPK CREATINE PHOSPHOKINASE 173 U/L (39-308); CREATININE FOR GFR 1.21 MG/DL (0.70-1.30); GLOMERULAR FILTRATION RATE > 60.0 (>49); GLUCOSE, FASTING 122 MG/DL (70-100); MB/CK RELATIVE INDEX 3.24 (< OR =4); POTASSIUM SERUM 4.5 MEQ/L (3.5-5.1); SODIUM LEVEL 140 MEQ/L (136-145); TROPONIN I < 0.02 NG/ML (< 0.10)
--- NOTE | 2019-05-05 18:33 | ECGEPIP ---
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
--- NOTE | 2019-05-05 18:39 | ECGEPIP ---
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
[2019-05-05 19:03] LABS: CK-MB VALUE MASS 4.3 NG/ML (<3.6); CPK CREATINE PHOSPHOKINASE 142 U/L (39-308); MB/CK RELATIVE INDEX 3.03 (< OR =4); TROPONIN I < 0.02 NG/ML (< 0.10)
[2019-05-05 19:35] VITALS: BP 147/87
== END 2019-05-05 19:36 | disposition home or self-care (01) ==
LOC: M ED 13:20
DX: I20.9 Angina pectoris, unspecified (principal); R00.0 Tachycardia, unspecified; I11.9 Hypertensive heart disease without heart failure; J44.9 Chronic obstructive pulmonary disease, unspecified; Z95.5 Presence of coronary angioplasty implant and graft; Z87.891 Personal history of nicotine dependence; Z88.8 Allergy status to other drugs, medicaments and biological substances; Z79.82 Long term (current) use of aspirin; Z79.83 Long term (current) use of bisphosphonates; Z79.899 Other long term (current) drug therapy

== ENCOUNTER → 2019-05-26 | Outpatient (CLI) | payer BC, OTHER ==
[~2019-05-26] MED LIST changes: +ISOS30TA4; +NAPR-885; +ROPI1TAB; -SIMV40TA2 PO; +SIMV40TA20 PO
--- NOTE | 2019-06-11 04:34 | ECWPNPC ---
PATIENT NAME: JENNIFER JAIME : 1955 GENDER: MALE VISIT DATE: 05/26/2019 DISCHARGE DATE: 05/26/19952 VISIT LOCKED DATE TIME: PHYSICIAN: THANH ZAPATA PHYSICIAN PAGER NO: [phone] RESOURCE: THANH ZAPATA REASON FOR APPOINTMENT 1. MED MGMNT HISTORY OF PRESENT ILLNESS HISTORY OF PRESENT ILLNESS: HERE FOR F/U OF CHRONIC NECK PAIN.REPORTS FALLING X2 OVER THE PAST 2 WEEKS.REPORTING INCREASE IN NECK PAIN AND GENERALIZED BACK PAIN SINCE FALL.REPORTING WHAT COULD BE NEW RADICULAR PAIN/PARATHESIAS IN RIGHT ARM AND HAND SINCE FALL INJURY.RATING PAIN VAS 4-7/10. PAIN THE PATIENT DESCRIBES THE PAIN... FALL RISK SCREENING: SCREENING :NO FALLS REPORTED IN THE LAST YEAR CURRENT MEDICATIONS TAKING VITAMIN D 5000 UNIT TABLET 1 TABLET ORALLY DAILY TAKING CLOBETASOL PROPIONATE 0.05 % CREAM 1 APPLICATION TO AFFECTED AREA/ EZEXMA BODY EXTERNALLY TWICE A DAY NEEDED TAKING LOPROX CREAM CREAM TO FEET FOR FUNGUS TOPICALLY TWICE A DAY NEEDED TAKING METFORMIN 1000 MG TABLET 1 TAB(S) ORALLY TWICE A DAY TAKING ASPIRIN 81 MG TABLET 1 TAB(S) ORALLY DAILY TAKING OMEPRAZOLE 40 MG CAPSULE DELAYED RELEASE TAKE ONE CAPSULE BY MOUTH TWICE A DAY TAKING NITROSTAT 0.4 MG TABLET SUBLINGUAL 1 TAB(S) SUBLINGUAL EVERY 5 MIN PRN CHEST PAIN, MAX DOSE 3 TAKING CYCLOBENZAPRINE HCL 5 MG TABLET TAKE 1-2 TABLETS BY MOUTH EVERY NIGHT TAKING BISOPROLOL FUMARATE 5 MG TABLET TAKE ONE TABLET BY MOUTH TWICE A DAY TAKING IBUPROFEN 800 MG TABLET 1 TABLET WITH FOOD OR MILK NEEDED ORALLY THREE TIMES A DAY TAKING ISOSORBIDE MONONITRATE ER 30 MG TABLET EXTENDED RELEASE 24 HOUR 1 TABLET IN THE MORNING ORALLY ONCE A DAY TAKING MAY USE CBD TABS ONCE DAILY TAKING AMLODIPINE 5MG TABLET 1 TAB(S) ORAL DAILY TAKING TURMERIC CURCUMIN 500 MG CAPSULE DIRECTED ORALLY TAKING DULOXETINE HCL 30 MG CAPSULE DELAYED RELEASE PARTICLES TAKE ONE CAPSULE BY MOUTH EVERY DAY ORALLY DAILY TAKING TRAMADOL HCL 50 MG TABLET 1 TABLET NEEDED ORALLY EVERY 6 HRS PRN MDD4 TAKING LISINOPRIL 10 MG TABLET TAKE ONE TABLET BY MOUTH EVERY DAY TAKING REQUIP 1 MG TABLET TAKE TWO TABLETS BY MOUTH AT BEDTIME ORALLY DAILY TAKING AMITRIPTYLINE HCL 25 MG TABLET 2 TABLETS ORALLY BEFORE BEDTIME TAKING ATORVASTATIN CALCIUM 40 MG TABLET TAKE ONE TABLET BY MOUTH EVERY DAY NOT-TAKING PLAVIX 75 MG TABLET TAKE ONE TABLET BY MOUTH EVERY DAY ORALLY DAILY NOT-TAKING GLUCOSAMINE 2000 TABLET 1 TABLET ORALLY ONCE A DAY, NOTES: NONE RECENTLY NOT-TAKING FLEXERIL 5 MG TABLET 1-2 TABLET ORALLY EVERY NIGHT MDD = 2 NOT-TAKING AMOXICILLIN 500 MG CAPSULE 1 CAPSULE ORALLY EVERY 8 HRS NOT-TAKING NAPROXEN 500 MG TABLET DELAYED RELEASE 1 TABLET ORALLY TWICE A DAY NOT-TAKING PENICILLIN V POTASSIUM 500 MG TABLET 1 TABLET ORALLY FOUR TIMES A DAY NOT-TAKING SHINGRIX 50 MCG SUSPENSION RECONSTITUTED DIRECTED INTRAMUSCULAR DIRECTED MEDICATION LIST REVIEWED AND RECONCILED WITH THE PATIENT PAST MEDICAL HISTORY CAD--NST 09/04 EF 63%, ANTEROSEPT ISCHEMIA, LAD STENT [facility] 09/04; NST 11/04, ANTEROSEPTAL REVERSIBLE ISCHEMIA, EF 60%; NST 11/06: NL PERFUSION, EF 65% IBS ECHO 08/07: EF 70%, SL ELEV PULM ART PRESSURE, NL VALVES DDD/DJD C-SPINE, T SPINE HYPERLIPIDEMIA PREDIABETES ESOPHAGEAL REFLUX- EGD 08/24, UGI-01/26, PH PROBE 10/26 HYPERTENSION VITAMIN D DEFICIENCY 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 RENAL STONE 12/25 CONCUSSION DECEMBER 2013 T7 COMPRESSION FRACTURE 2014 ANTONI, ON CPAP 01/04 PFTS AT [facility] 08/07--NL, FEV1/FVC 76% DERMATITIS FRACTURE RIGHT ANKLE CHEST PAIN ALLERGIES PRAVACHOL: ELEV LFT'S - SIDE EFFECTS SURGICAL HISTORY L EYE SURGERY 1980 RUPTURED ACHILLES TENDON L X 2 12/1998, 05/1999 R KNEE ACL 2002 EGD/COLONOSCOPY--NL BOTH TIMES 08/24, 09/01 EGD--NL 01/26 CARDIAC CATH/LAD ADRIANNA STENT 09/04 09/04 RIGHT ANKLE 06/07 TOOTH EXTRACTION WITH BONE GRAFT FAMILY HISTORY FATHER: , AT 86, [place], DIAGNOSED WITH UNSPECIFIED HEART DISEASE MOTHER: , AT 66 OF PULM FIBROSIS, [employer] LEGAL RESEARCHER; CAD, UNSPECIFIED HEART DISEASE SOCIAL HISTORY GENERAL: TOBACCO USE ARE YOU A: NONSMOKER. LANGUAGE LANGUAGES SPOKEN:SRI LANKAN NEW PATIENT PAIN DIARY FROM 0-10, WHAT LEVEL IS YOUR PAIN TODAY?1 BMI CARE GOAL FOLLOW-UP ABOVE NORMAL BMI FOLLOW-UPDIETARY MANAGEMENT EDUCATION, GUIDANCE, AND COUNSELING RECREATIONAL DRUG USE DRUG USE?NO LEARNING BARRIERS / SPECIAL NEEDS CHANGE FROM LAST VISIT?NO BARRIERS TO LEARNING?NO HEARING IMPAIRED?NO VISION IMPAIRED?YES COGNITIVELY IMPAIRED?NO :CORRECTIVE LENSES READINESS TO LEARN?YES LEARNING PREFERENCES?NO LEARNING CAPABILITIES PRESENT?YES EMOTIONAL BARRIERS?NO SPECIAL DEVICES?NO SUBMARINE DIVER NEEDED?NO LUNG CANCER SCREENING SMOKING STATUS:NON SMOKER PAIN CLINIC PFS, CLERGY, PUBLIC HEALTH REFERRALS PFS REFERRAL NEEDED?NO CLERGY REFERRAL NEEDED?NO PUBLIC HEALTH REFERRAL NEEDED?NO WAS THE PROVIDER NOTIFIED OF ANY PERTINENT INFO?NO HAS THE PATIENT BEEN EDUCATED REGARDING HIS/HER PLAN OF CARE?YES HAS THE PATIENT BEEN EDUCATED REGARDING PAIN, THE RISK FOR PAIN, THE IMPORTANCE OF EFFECTIVE PAIN MANAGEMENT, AND THE PAIN ASSESSMENT PROCESS?YES LATEX QUESTIONNAIRE LATEX ALLERGY : HAVE YOU EVER DEVELOPED ANY TYPE OF REACTION AFTER HANDLING LATEX PRODUCTS SUCH RUBBER GLOVES, CONDOMS, DIAPHRAGMS, BALLOONS, SOCKS, OR UNDERWEAR?NO LATEX ALLERGY : HAVE YOU EVER DEVELOPED ANY TYPE OF REACTION DURING OR AFTER DENTAL APPOINTMENT, VAGINAL/RECTAL EXAMINATION, SURGICAL PROCEDURE, OR ANY OTHER EXPOSURE?NO LATEX RISK : HAVE YOU EVER HAD ANY DIFFICULTY BREATHING OR HIVES AFTER EATING OR HANDLING ANY FRUITS, OR VEGETABLES; SUCH KIWI, BANANAS, STONE FRUITS, OR CHESTNUTSNO LATEX RISK : DO YOU HAVE A PREVIOUS PERSONAL HISTORY OF MORE THAN NINE SURGERIES, SPINA BIFIDA, OR REPEATED CATHERIZATIONS? NO LATEX RISK : ARE YOU FREQUENTLY EXPOSED TO LATEX PRODUCTS IN YOUR OCCUPATION?NO DATE ASKED : 11/24/2018 CAFFEINE CAFFEINE USE?YES COFFEE HOW OFTEN AND HOW MUCH? 3 CUPS COFFEE/DAY ADVANCE DIRECTIVE ADVANCE DIRECTIVE DISCUSSED WITH PATIENT:YES 05/26/19 PATIENT GIVEN INFORMATION ON HCP AT THIS TIME, DECLINED ASSISTANCE IN FILLING IT OUT. KORINA ROMAN CATHOLIC [id number] [facility] STATUS: . 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 SEXUAL HX HAD SEX IN THE LAST 12 MONTHS (VAGINAL, ORAL, OR ANAL)?YES WITHWOMEN ONLY HAVE YOU EVER HAD AN STD?NO REVIEWED WITH PATIENT 05/26/19 7782 . HOSPITALIZATION/MAJOR DIAGNOSTIC PROCEDURE SURG RELATED REVIEW OF SYSTEMS REVIEWED BY: PROVIDER: THANH SANCHEZ . CONSTITUTIONAL: ANY CHANGE IN YOUR MEDICAL CONDITION? NO . CHILLS NO . FEVER NO . INFECTION: DO YOU HAVE NEW INFECTIONS? YES, HEAD COLD . DO YOU HAVE HISTORY OF MRSA? NO . MUSCULOSKELETAL: ANY NEW PATTERNS OF PAIN OR NUMBNESS? YES, STATES INCREASED PAIN SINCE THE 2 FALLS WITHIN THE PAST FEW DAYS . GASTROENTEROLOGY: ANY NEW CHANGE IN BOWEL CONTROL? NO . GENITOURINARY: ANY NEW CHANGE IN BLADDER CONTROL? NO . IS THERE A CHANCE YOU COULD BE ? NO . HEMATOLOGY/LYMPH: DO YOU TAKE ANY BLOOD THINNERS? (FOR EXAMPLE- COUMADIN, PLAVIX, AGGRENOX, PLATEL, PRADAXA, OR XARELTO) NO . WHEN WAS YOUR LAST DOSE? DATE: TIME: . NEUROLOGY: HAVE YOU FALLEN IN THE PAST 12 MONTHS? YES, 2 FALLS IN THE PAST 5 DAYS FROM SLIPPING ON THE ICE, STATES INCERASED PAIN SINCE. STATES NO ED VISIT, NO IMAGING PERFORMED . ANY NEW EXTREMITY NUMBNESS OR WEAKNESS? YES, TINGLING/BUZZING FEELING DOWN RIGHT ARM . CARDIOLOGY: DO YOU HAVE A PACEMAKER OR DEFIBRILLATOR? NO . RESPIRATORY: HAVE YOU BEEN SICK IN THE PAST WEEK? YES, HEAD COLD . FEVER NO . FLU LIKE SYMPTOMS? NO . COUGH YES . INTEGUMENTARY: DO YOU HAVE ANY RASHES OR OPEN SORES? NO . ALLERGIC/IMMUNO: ARE YOU ALLERGIC TO IV DYE? NO . ANY NEW ALLERGIES? NO . PSYCHIATRIC: DO YOU HAVE THOUGHTS OF HURTING YOURSELF OR SOMEONE ELSE? NO . ARE YOU ABUSED, NEGLECTED, OR IN AN UNSAFE ENVIRONMENT? NO . ENDOCRINOLOGY: ARE YOU DIABETIC? NO . OTHER: DO YOU NEED ANY PRESCRIPTIONS? YES . IF YES, PLEASE LIST: ____TRAMADOL . ANY NEW PROBLEMS WITH YOUR MEDICATIONS? NO . WHEN DID YOU LAST EAT? ____ . WHEN DID YOU LAST DRINK? ____ . WHAT DID YOU LAST DRINK? ____ . NAME OF PERSON DRIVING YOU HOME? ____ . DO YOU HAVE ANY OTHER QUESTIONS OR CONCERNS YES, STATES NEW NECK/BACK PAIN FROM HIS 2 FALLS . VITAL SIGNS WT 217 LBS, HT 70 IN, BMI 31.13 INDEX, BP 149/95 MM HG, HR 95 /MIN, RR 18 /MIN, TEMP 97.9 F, OXYGEN SAT % 97%, SAFE IN ENV? (Y/N) YES, NA INITIALS RI 08:52, REVIEWED BY: KORINA. EXAMINATION GENERAL EXAMINATION: GENERALNO ACUTE DISTRESS, WELL NOURISHED AND HYDRATED. NECK:NO LYMPHADENOPATHY, SUPPLE, NO THYROMEGALLY, NO JVD OR BRUITS. LUNGS: LUNG SOUNDS ARE CLEAR . HEART: HEART RATE REGULAR . MUSCULOSKELETAL:*, MUSCLE STRENGTH TESTING 5/5 BILATERAL UPPER EXTREMITIES. . CERVICAL+ FOR PAIN WITH PALPATION OF CERVICAL SPINE. + FOR PAIN WITH PALPATION OF CERVICAL PARASPINALS. . DIAGNOSTIC TESTS REVIEWED CERVICAL MRI-2014. 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 TREATMENT NECK PAIN, ACUTE INCREASE CYCLOBENZAPRINE HCL TABLET, 5 MG, TAKE 1-2 TABLETS BY MOUTH EVERY NIGHT, ORALLY, Q6H PRN, 14 DAYS, REFILLS 2 REFILL DULOXETINE HCL CAPSULE DELAYED RELEASE PARTICLES, 30 MG, TAKE ONE CAPSULE BY MOUTH EVERY DAY, ORALLY, DAILY, 30 DAYS, 30, REFILLS 2 INCREASE TRAMADOL HCL TABLET, 50 MG, 1 TABLET NEEDED, ORALLY, EVERY 6 HRS PRN MDD4, 30 DAYS, 120, REFILLS 1 START VALIUM TABLET, 5 MG, 1 TAB, ORALLY, 2HR PRE MRI AND 1 TAB 30MIN PRE MRI MDD2, 1 DAYS, 2, REFILLS 0 [facility] MRI SPINE, CERVICAL WITHOUT [id number] NOTES: ISTOP REGISTRY REVIEWED AND DEMONSTRATES COMPLLIANCE. , RISKS OF NARCOTIC/OPIOD MEDICATIONS INCLUDES BUT IS NOT LIMITED TO RISK OF DEPENDANCE/DEVELOPMENT OF ADDICTION, MOOD DISTURBANCE AND DEPRESSION, OSTEOPOROSIS, HORMONAL AND LABIDAL CHANGES, RESPIRATORY DEPRESSION AND . PATIENT IS ADVISED NOT TO DRIVE OR DRINK ALCOHOL WHILE ON THESE MEDICATIONS. OTHER CERVICAL DISC DEGENERATION, CERVICOTHORACIC REGION [facility] MRI SPINE, CERVICAL WITHOUT [id number] PROCEDURE CODES FA211 ESTABILISHED PATIENT [facility] FACILITY CHARGE DISPOSITION & COMMUNICATION FOLLOW UP 6 WEEKS (REASON: REVIEW CERVICAL MRI) ELECTRONICALLY SIGNED BY LAURA ORDAZ ON 06/10/2019 AT 01:23 PM EST DISCLAIMER : THIS IS A VISIT SUMMARY EXTRACTED FROM THE [employer] CHART. IT IS NOT A COPY OF THE [employer] PROGRESS NOTE. RADHA
== END ==
LOC: M PAIN 08:45
PROVIDERS: ATTEND Nurse Practitioner Family
DX: M50.33 Other cervical disc degeneration, cervicothoracic region (principal); G89.29 Other chronic pain; E78.5 Hyperlipidemia, unspecified; R73.03 Prediabetes; K21.9 Gastro-esophageal reflux disease without esophagitis; I10 Essential (primary) hypertension; E55.9 Vitamin D deficiency, unspecified; G25.81 Restless legs syndrome; G47.33 Obstructive sleep apnea (adult) (pediatric); Z88.8 Allergy status to other drugs, medicaments and biological substances; Z79.82 Long term (current) use of aspirin; Z79.84 Long term (current) use of oral hypoglycemic drugs; Z79.899 Other long term (current) drug therapy

== ENCOUNTER → 2019-05-28 | Outpatient (CLI) | payer BC, OTHER ==
--- NOTE | 2019-05-29 09:52 | REP ---
MRI CERVICAL SPINE WITHOUT CONTRAST: 05/28/2019. COMPARISON: 10/13/2014. CLINICAL HISTORY: Neck pain, acute. TECHNIQUE: Sagittal T1, T2 and STIR with axial T1 and T2 sequences provided. FINDINGS: There is loss of some of the normal lordosis. There is cervical spondylosis with loss of disc water signal throughout the cervical spine. There is maintenance of height at the C2-3 level to relative extend C4-5, but the other disc space heights and T1-2 show some narrowing. Anterior osteophytes at C6-7 and T1-2 are noted. There are no destructive lesions or fractures. Craniocervical junction shows ample subarachnoid space. At C2-3, there is no significant disc bulge, herniation and no spinal stenosis or foraminal encroachment. At C3-4, there is a minimal disc bulge not causing central canal stenosis. No nerve root compression in the central canal. The foramina show some uncinate spurring contributing to some mild stenosis bilaterally. C4-5, there is a mild broad-based disc bulge thinning the ventral subarachnoid space without cord compression. Uncinate spurring causing moderately severe stenosis on the right, slightly less on the left. At C5-6, some minimal broad-based thinning ventral thecal sac but not causing cord compression or central canal stenosis. Uncinate hypertrophy noted contributing to mild foraminal encroachment of both C5 foramina. At C6-C7, there is a mild broad-based disc bulge flattening ventral thecal sac but not causing central canal stenosis. The foramina show encroachment due to uncinate spurring on both sides, greater left than right. C7-T1, there is no spinal or foraminal stenosis. T1-2, there is a broad-based disc bulge thinning the ventral thecal sac and not causing cord compression. There is foraminal encroachment bilaterally at this level. There is no intrinsic cord signal abnormality at any level. IMPRESSION: 1. Cervical spondylosis from C3-4 through C6-7 and also at T1-T2 without cord compression. Foraminal encroachment due to uncinate spurring noted at all of these levels. 2. The C2-3 and C7-T1 levels are spared. Overall, I see no significant progression from the study in 2014. Nevertheless, the foraminal encroachment is at multiple levels and in some places moderately severe. Electronically Signed by Aditya Avelar MD 05/29/2019 10:22 A
== END ==
LOC: M RAD 08:50
PROVIDERS: ATTEND Nurse Practitioner Family
DX: M54.2 Cervicalgia (principal)

== ENCOUNTER → 2019-06-21 | Outpatient (CLI) | payer BC, OTHER ==
[2019-06-21 16:08] LABS: HEMATOCRIT 38.3 % (42.0-52.0); HEMOGLOBIN 12.9 g/dl (13.5-17.5); MEAN CORPUSCULAR HEMOGLOBIN 32.1 pg (27.0-33.0); MEAN CORPUSCULAR HGB CONC 33.7 g/dl (32.0-36.5); MEAN CORPUSCULAR VOLUME 95.3 fl (80.0-96.0); PLATELET COUNT, AUTOMATED 283 10^3/uL (150-450); RED BLOOD COUNT 4.02 10^6/uL (4.30-6.10)
[2019-06-21 16:23] LABS: HEMOGLOBIN A1c 6.3 %
[2019-06-21 16:31] LABS: ALBUMIN 3.9 GM/DL (3.2-5.2); ALT/SGPT 38 U/L (12-78); BILIRUBIN,TOTAL 0.5 MG/DL (0.2-1.0); BLOOD UREA NITROGEN 17 MG/DL (7-18); CALCIUM LEVEL 9.3 MG/DL (8.8-10.2); CARBON DIOXIDE LEVEL 26 MEQ/L (21-32); CHLORIDE LEVEL 104 MEQ/L (98-107); CHOLESTEROL LEVEL 158 MG/DL (<200); CHOLESTEROL RISK RATIO 3.224 (<5); CREATININE FOR GFR 1.28 MG/DL (0.70-1.30); GLOMERULAR FILTRATION RATE > 60.0 (>49); GLUCOSE, FASTING 101 MG/DL (70-100); HDL CHOLESTEROL 49 MG/DL (>40); LDL CHOLESTEROL 73 MG/DL (<100); NON-HDL-C 109 MG/DL; SODIUM LEVEL 140 MEQ/L (136-145); TOTAL PROTEIN 7.5 GM/DL (6.4-8.2); TRIGLYCERIDES LEVEL 180 MG/DL (<150)
== END ==
LOC: M PLALAB 13:05
PROVIDERS: ATTEND Family Medicine
DX: Z12.5 Encounter for screening for malignant neoplasm of prostate (principal); I25.10 Atherosclerotic heart disease of native coronary artery without angina pectoris; I11.9 Hypertensive heart disease without heart failure; R73.03 Prediabetes; E78.2 Mixed hyperlipidemia
CPT/HCPCS: 36415; 80053; 80061; 83036; 85027; G0103

== ENCOUNTER → 2019-06-27 | Outpatient (CLI) | payer BC, OTHER ==
[~2019-06-27] MED LIST changes: +BISO5TAB14 PO; -BISO5TAB9 PO; -LORA1TAB12 PO; +LORA1TAB4 PO
--- NOTE | 2019-07-12 01:35 | ECWPNPC ---
PATIENT NAME: JENNIFER JAIME : 1955 GENDER: MALE VISIT DATE: 06/27/2019 DISCHARGE DATE: 06/27/19 1135 VISIT LOCKED DATE TIME: PHYSICIAN: THANH ZAPATA PHYSICIAN PAGER NO: [phone] RESOURCE: THANH ZAPATA REASON FOR APPOINTMENT 1. REVIEW MRI HISTORY OF PRESENT ILLNESS HISTORY OF PRESENT ILLNESS: HERE FOR F/U OF NECK PAIN EXACERBATION WITH RADICULAR SYMPTOMS THAT OCCURED AFTER A FALL INJURY 1 MONTH AGO.FEELS HE IS DOING BETTER SINCE FALL.REVIEWED CERVICAL MRI.CHIEF AREA OF PAIN IS LEFT SCAPULAR PAIN.PAIN IS AGGREVATED BY MOVEMENT.RATING PAIN VAS 2-7/10. PAIN THE PATIENT DESCRIBES THE PAIN... FALL RISK SCREENING: SCREENING :NO FALLS REPORTED IN THE LAST YEAR CURRENT MEDICATIONS TAKING VITAMIN D 5000 UNIT TABLET 1 TABLET ORALLY DAILY TAKING CLOBETASOL PROPIONATE 0.05 % CREAM 1 APPLICATION TO AFFECTED AREA/ EZEXMA BODY EXTERNALLY TWICE A DAY NEEDED TAKING LOPROX CREAM CREAM TO FEET FOR FUNGUS TOPICALLY TWICE A DAY NEEDED TAKING METFORMIN 1000 MG TABLET 1 TAB(S) ORALLY TWICE A DAY TAKING ASPIRIN 81 MG TABLET 1 TAB(S) ORALLY DAILY TAKING NITROSTAT 0.4 MG TABLET SUBLINGUAL 1 TAB(S) SUBLINGUAL EVERY 5 MIN PRN CHEST PAIN, MAX DOSE 3 TAKING IBUPROFEN 800 MG TABLET 1 TABLET WITH FOOD OR MILK NEEDED ORALLY THREE TIMES A DAY TAKING ISOSORBIDE MONONITRATE ER 30 MG TABLET EXTENDED RELEASE 24 HOUR 1 TABLET IN THE MORNING ORALLY ONCE A DAY TAKING AMLODIPINE 5MG TABLET 1 TAB(S) ORAL DAILY TAKING REQUIP 1 MG TABLET TAKE TWO TABLETS BY MOUTH AT BEDTIME ORALLY DAILY TAKING AMITRIPTYLINE HCL 25 MG TABLET 2 TABLETS ORALLY BEFORE BEDTIME TAKING ATORVASTATIN CALCIUM 40 MG TABLET TAKE ONE TABLET BY MOUTH EVERY DAY TAKING CYCLOBENZAPRINE HCL 5 MG TABLET TAKE 1-2 TABLETS BY MOUTH EVERY NIGHT ORALLY Q6H PRN TAKING DULOXETINE HCL 30 MG CAPSULE DELAYED RELEASE PARTICLES TAKE ONE CAPSULE BY MOUTH EVERY DAY ORALLY DAILY TAKING TRAMADOL HCL 50 MG TABLET 1 TABLET NEEDED ORALLY EVERY 6 HRS PRN MDD4 TAKING OMEPRAZOLE 40 MG CAPSULE DELAYED RELEASE TAKE ONE CAPSULE BY MOUTH TWICE A DAY TAKING LISINOPRIL 10 MG TABLET TAKE ONE TABLET BY MOUTH EVERY DAY TAKING BISOPROLOL FUMARATE 5 MG TABLET TAKE ONE TABLET BY MOUTH TWICE A DAY NOT-TAKING MAY USE CBD TABS ONCE DAILY NOT-TAKING TURMERIC CURCUMIN 500 MG CAPSULE DIRECTED ORALLY NOT-TAKING VALIUM 5 MG TABLET 1 TAB ORALLY 2HR PRE MRI AND 1 TAB 30MIN PRE MRI MDD2 NOT-TAKING PLAVIX 75 MG TABLET TAKE ONE TABLET BY MOUTH EVERY DAY ORALLY DAILY NOT-TAKING GLUCOSAMINE 2000 TABLET 1 TABLET ORALLY ONCE A DAY, NOTES: NONE RECENTLY NOT-TAKING FLEXERIL 5 MG TABLET 1-2 TABLET ORALLY EVERY NIGHT MDD = 2 NOT-TAKING AMOXICILLIN 500 MG CAPSULE 1 CAPSULE ORALLY EVERY 8 HRS NOT-TAKING NAPROXEN 500 MG TABLET DELAYED RELEASE 1 TABLET ORALLY TWICE A DAY NOT-TAKING PENICILLIN V POTASSIUM 500 MG TABLET 1 TABLET ORALLY FOUR TIMES A DAY NOT-TAKING SHINGRIX 50 MCG SUSPENSION RECONSTITUTED DIRECTED INTRAMUSCULAR DIRECTED MEDICATION LIST REVIEWED AND RECONCILED WITH THE PATIENT PAST MEDICAL HISTORY CAD--NST 09/04 EF 63%, ANTEROSEPT ISCHEMIA, LAD STENT [facility] 09/04; NST 11/04, ANTEROSEPTAL REVERSIBLE ISCHEMIA, EF 60%; NST 11/06: NL PERFUSION, EF 65% IBS ECHO 08/07: EF 70%, SL ELEV PULM ART PRESSURE, NL VALVES DDD/DJD C-SPINE, T SPINE HYPERLIPIDEMIA PREDIABETES ESOPHAGEAL REFLUX- EGD 08/24, UGI-01/26, PH PROBE 10/26 HYPERTENSION VITAMIN D DEFICIENCY 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 RENAL STONE 12/25 CONCUSSION DECEMBER 2013 T7 COMPRESSION FRACTURE 2014 ANTONI, ON CPAP 01/04 PFTS AT [facility] 08/07--NL, FEV1/FVC 76% DERMATITIS FRACTURE RIGHT ANKLE CHEST PAIN ALLERGIES PRAVACHOL: ELEV LFT'S - SIDE EFFECTS SURGICAL HISTORY L EYE SURGERY 1980 RUPTURED ACHILLES TENDON L X 2 12/1998, 05/1999 R KNEE ACL 2002 EGD/COLONOSCOPY--NL BOTH TIMES 08/24, 09/01 EGD--NL 01/26 CARDIAC CATH/LAD ADRIANNA STENT 09/04 09/04 RIGHT ANKLE 06/07 TOOTH EXTRACTION WITH BONE GRAFT FAMILY HISTORY FATHER: , AT 86, [place], DIAGNOSED WITH UNSPECIFIED HEART DISEASE MOTHER: , AT 66 OF PULM FIBROSIS, [employer] SEARCH ANALYST; CAD, UNSPECIFIED HEART DISEASE SOCIAL HISTORY GENERAL: TOBACCO USE ARE YOU A: NONSMOKER. 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 LUNG CANCER SCREENING SMOKING STATUS:NON SMOKER PAIN CLINIC PFS, CLERGY, PUBLIC HEALTH REFERRALS PFS REFERRAL NEEDED?NO CLERGY REFERRAL NEEDED?NO PUBLIC HEALTH REFERRAL NEEDED?NO WAS THE PROVIDER NOTIFIED OF ANY PERTINENT INFO?NO HAS THE PATIENT BEEN EDUCATED REGARDING HIS/HER PLAN OF CARE?YES HAS THE PATIENT BEEN EDUCATED REGARDING PAIN, THE RISK FOR PAIN, THE IMPORTANCE OF EFFECTIVE PAIN MANAGEMENT, AND THE PAIN ASSESSMENT PROCESS?YES LATEX QUESTIONNAIRE LATEX ALLERGY : HAVE YOU EVER DEVELOPED ANY TYPE OF REACTION AFTER HANDLING LATEX PRODUCTS SUCH RUBBER GLOVES, CONDOMS, DIAPHRAGMS, BALLOONS, SOCKS, OR UNDERWEAR?NO LATEX ALLERGY : HAVE YOU EVER DEVELOPED ANY TYPE OF REACTION DURING OR AFTER DENTAL APPOINTMENT, VAGINAL/RECTAL EXAMINATION, SURGICAL PROCEDURE, OR ANY OTHER EXPOSURE?NO LATEX RISK : HAVE YOU EVER HAD ANY DIFFICULTY BREATHING OR HIVES AFTER EATING OR HANDLING ANY FRUITS, OR VEGETABLES; SUCH KIWI, BANANAS, STONE FRUITS, OR CHESTNUTSNO LATEX RISK : DO YOU HAVE A PREVIOUS PERSONAL HISTORY OF MORE THAN NINE SURGERIES, SPINA BIFIDA, OR REPEATED CATHERIZATIONS? NO LATEX RISK : ARE YOU FREQUENTLY EXPOSED TO LATEX PRODUCTS IN YOUR OCCUPATION?NO DATE ASKED : 06/27/2019 CAFFEINE CAFFEINE USE?YES COFFEE HOW OFTEN AND HOW MUCH? 3 CUPS COFFEE/DAY ADVANCE DIRECTIVE ADVANCE DIRECTIVE DISCUSSED WITH PATIENT:YES PATIENT GIVEN INFORMATION ON HCP AT LAST APPT, DECLINED ASSISTANCE IN FILLING IT OUT. LUTHERAN [id number] BAPTIST MARITAL STATUS: . 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 SEXUAL HX HAD SEX IN THE LAST 12 MONTHS (VAGINAL, ORAL, OR ANAL)?YES WITHWOMEN ONLY HAVE YOU EVER HAD AN STD?NO REVIEWED WITH PATIENT 05/26/19 0853 JSREVIEWED WITH PATIENT 06-27-19. HOSPITALIZATION/MAJOR DIAGNOSTIC PROCEDURE SURG RELATED REVIEW OF SYSTEMS REVIEWED BY: PROVIDER: THANH SANCHEZ . CONSTITUTIONAL: ANY CHANGE IN YOUR MEDICAL CONDITION? NO . CHILLS NO . FEVER NO . INFECTION: DO YOU HAVE NEW INFECTIONS? YES, PT STATES THAT HE HAS HAD A COLD RECENTLY . DO YOU HAVE HISTORY OF MRSA? NO . MUSCULOSKELETAL: ANY NEW PATTERNS OF PAIN OR NUMBNESS? NO . GASTROENTEROLOGY: ANY NEW CHANGE IN BOWEL CONTROL? NO . GENITOURINARY: ANY NEW CHANGE IN BLADDER CONTROL? NO . IS THERE A CHANCE YOU COULD BE ? NO . HEMATOLOGY/LYMPH: DO YOU TAKE ANY BLOOD THINNERS? (FOR EXAMPLE- COUMADIN, PLAVIX, AGGRENOX, PLATEL, PRADAXA, OR XARELTO) NO . WHEN WAS YOUR LAST DOSE? DATE: TIME: . NEUROLOGY: HAVE YOU FALLEN IN THE PAST 12 MONTHS? YES, PT STATES THAT HE FELL WHILE AT HOME, SLIPPED ON ICE, NO REPORT TO ED, FEELS THAT HE MAY HAVE INJURED BACK . ANY NEW EXTREMITY NUMBNESS OR WEAKNESS? YES . CARDIOLOGY: DO YOU HAVE A PACEMAKER OR DEFIBRILLATOR? NO . RESPIRATORY: HAVE YOU BEEN SICK IN THE PAST WEEK? YES, PT STATES THAT HE RECENTLY HAD A COLD . FEVER NO . FLU LIKE SYMPTOMS? NO . COUGH NO . INTEGUMENTARY: DO YOU HAVE ANY RASHES OR OPEN SORES? NO . ALLERGIC/IMMUNO: ARE YOU ALLERGIC TO IV DYE? NO . ANY NEW ALLERGIES? NO . PSYCHIATRIC: DO YOU HAVE THOUGHTS OF HURTING YOURSELF OR SOMEONE ELSE? NO . ARE YOU ABUSED, NEGLECTED, OR IN AN UNSAFE ENVIRONMENT? NO . ENDOCRINOLOGY: ARE YOU DIABETIC? NO . OTHER: DO YOU NEED ANY PRESCRIPTIONS? NO . IF YES, PLEASE LIST: ____ . ANY NEW PROBLEMS WITH YOUR MEDICATIONS? NO . WHEN DID YOU LAST EAT? ____ . WHEN DID YOU LAST DRINK? ____ . WHAT DID YOU LAST DRINK? ____ . NAME OF PERSON DRIVING YOU HOME? ____ . DO YOU HAVE ANY OTHER QUESTIONS OR CONCERNS NO . VITAL SIGNS WT 216.2 LBS, HT 70 IN, BMI 31.02 INDEX, BP 119/78 MM HG, HR 82 /MIN, RR 16 /MIN, TEMP 97.4 F, OXYGEN SAT % 100, SAFE IN ENV? (Y/N) Y, REVIEWED BY: [place]. EXAMINATION GENERAL EXAMINATION: GENERAL AWAKE,ALERT ,PLEASANT . PSYCH AFFECT NORMAL . LUNGS: LUNG MERA ARE CLEAR TO AUSCULTATION BILATERALLY. GOOD MOVEMENT OF AIR . HEART: S1, S2 IN A REGULAR RATE AND RHYTHM. NO SIGNIFICANT MURMURS, RUBS OR GALLOPS NOTED . MUSCULOSKELETAL: MUSCLE STRENGTH TESTING 5/5 BILATERAL UPPER AND LOWER EXTREMITIES , TRIGGER POINTS:, ELICITED WITH PALPATION OVER LEFT MID THORACIC MUSCLES T8/10/. DIAGNOSTIC TESTS REVIEWED MRI CERVICAL -05/28/19 MRI THORACIC-2014. ASSESSMENTS MYALGIA, OTHER SITE - M79.18 (PRIMARY) TREATMENT MYALGIA, OTHER SITE NOTES: LEFT T8 TPIREVIEWED WRITTEN AND VERBAL INSTRUCTION FOR TPI WITH PATIENT, PT ACKNOWLEDGED UNDERSTANDING. PREVENTIVE MEDICINE PAIN CLINIC TEACHING: THE PATIENT HAS BEEN EDUCATED REGARDING HIS/HER PLAN OF CARE : REVIEWED AND DISCUSSED INSTRUCTIONS FOR MRI, PT ACKNOWLEDGED UNDERSTANDING. DS THE PATIENT HAS BEEN EDUCATED REGARDING PAIN, THE RISK FOR PAIN, THE IMPORTANCE OF EFFECTIVE PAIN MANAGEMENT, AND THE PAIN ASSESSMENT PROCESS. : REVIEWED WRITTEN AND VERBAL INSTRUCTIONS FOR TPI, PT ACKNOWLEDGED UNDERSTANDING. [place] PROCEDURE CODES FA211 ESTABILISHED PATIENT [facility] FACILITY CHARGE DISPOSITION & COMMUNICATION FOLLOW UP POST (REASON: LEFT T8 TPI) ELECTRONICALLY SIGNED BY LAURA ORDAZ ON 07/11/2019 AT 03:03 PM EST DISCLAIMER : THIS IS A VISIT SUMMARY EXTRACTED FROM THE [employer] CHART. IT IS NOT A COPY OF THE [employer] PROGRESS NOTE. RADHA
== END ==
LOC: M PAIN 10:00
PROVIDERS: ATTEND Nurse Practitioner Family
DX: M79.18 Myalgia, other site (principal)

== ENCOUNTER → 2019-06-29 | Outpatient (CLI) | payer BC, OTHER ==
[~2019-06-29] MED LIST changes: +BUPIVACAINE HCL 0.25% 10 ML VIAL As Ordered ONE; +BUPIVACAINE HCL 0.25% 30 ML VIAL As Ordered ONE; +TRIAMCINOLONE ACETONIDE SUSP 40 MG/ML VIAL (J3301) As Ordered ONE; +diazePAM 5 MG TAB As Ordered ONE; +oxyCODONE 5MG TAB As Ordered ONE
--- NOTE | 2019-07-06 23:24 | ECWPNPC ---
PATIENT NAME: JENNIFER JAIME : 1955 GENDER: MALE VISIT DATE: 06/29/2019 DISCHARGE DATE: 06/29/19 1516 VISIT LOCKED DATE TIME: PHYSICIAN: DAVID CUBA MD PHYSICIAN PAGER NO: [phone] RESOURCE: DAVID CUBA MD REASON FOR APPOINTMENT 1. LEFT THORACIC TPI HISTORY OF PRESENT ILLNESS HISTORY OF PRESENT ILLNESS: PAIN THE PATIENT DESCRIBES THE PAIN... FALL RISK SCREENING: SCREENING :NO FALLS REPORTED IN THE LAST YEAR CURRENT MEDICATIONS TAKING VITAMIN D 5000 UNIT TABLET 1 TABLET ORALLY DAILY, NOTES: 06/29/19 TAKING CLOBETASOL PROPIONATE 0.05 % CREAM 1 APPLICATION TO AFFECTED AREA/ EZEXMA BODY EXTERNALLY TWICE A DAY NEEDED, NOTES: NONE LATELY TAKING LOPROX CREAM CREAM TO FEET FOR FUNGUS TOPICALLY TWICE A DAY NEEDED, NOTES: NONE LATELY TAKING METFORMIN 1000 MG TABLET 1 TAB(S) ORALLY TWICE A DAY, NOTES: 06/29/19 TAKING ASPIRIN 81 MG TABLET 1 TAB(S) ORALLY DAILY, NOTES: 06/28/19 TAKING NITROSTAT 0.4 MG TABLET SUBLINGUAL 1 TAB(S) SUBLINGUAL EVERY 5 MIN PRN CHEST PAIN, MAX DOSE 3, NOTES: NONE LATELY TAKING IBUPROFEN 800 MG TABLET 1 TABLET WITH FOOD OR MILK NEEDED ORALLY THREE TIMES A DAY, NOTES: NONE LATELY TAKING ISOSORBIDE MONONITRATE ER 30 MG TABLET EXTENDED RELEASE 24 HOUR 1 TABLET IN THE MORNING ORALLY ONCE A DAY, NOTES: 06/29/19 TAKING AMLODIPINE 5MG TABLET 1 TAB(S) ORAL DAILY, NOTES: 06/28/19 TAKING REQUIP 1 MG TABLET TAKE TWO TABLETS BY MOUTH AT BEDTIME ORALLY DAILY, NOTES: 06/28/19 TAKING AMITRIPTYLINE HCL 25 MG TABLET 2 TABLETS ORALLY BEFORE BEDTIME, NOTES: 06/28/19 TAKING ATORVASTATIN CALCIUM 40 MG TABLET TAKE ONE TABLET BY MOUTH EVERY DAY , NOTES: 06/28/19 TAKING CYCLOBENZAPRINE HCL 5 MG TABLET TAKE 1-2 TABLETS BY MOUTH EVERY NIGHT ORALLY Q6H PRN, NOTES: 06/28/19 TAKING DULOXETINE HCL 30 MG CAPSULE DELAYED RELEASE PARTICLES TAKE ONE CAPSULE BY MOUTH EVERY DAY ORALLY DAILY, NOTES: 06/28/19 TAKING TRAMADOL HCL 50 MG TABLET 1 TABLET NEEDED ORALLY EVERY 6 HRS PRN MDD4, NOTES: 06/28/19 TAKING OMEPRAZOLE 40 MG CAPSULE DELAYED RELEASE TAKE ONE CAPSULE BY MOUTH TWICE A DAY , NOTES: 06/29/19 TAKING LISINOPRIL 10 MG TABLET TAKE ONE TABLET BY MOUTH EVERY DAY , NOTES: 06/29/19 TAKING BISOPROLOL FUMARATE 5 MG TABLET TAKE ONE TABLET BY MOUTH TWICE A DAY , NOTES: 06/29/19 MEDICATION LIST REVIEWED AND RECONCILED WITH THE PATIENT PAST MEDICAL HISTORY CAD--NST 09/04 EF 63%, ANTEROSEPT ISCHEMIA, LAD STENT [facility] 09/04; NST 11/04, ANTEROSEPTAL REVERSIBLE ISCHEMIA, EF 60%; NST 11/06: NL PERFUSION, EF 65% IBS ECHO 08/07: EF 70%, SL ELEV PULM ART PRESSURE, NL VALVES DDD/DJD C-SPINE, T SPINE HYPERLIPIDEMIA PREDIABETES ESOPHAGEAL REFLUX- EGD 08/24, UGI-01/26, PH PROBE 10/26 HYPERTENSION VITAMIN D DEFICIENCY 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 RENAL STONE 12/25 CONCUSSION DECEMBER 2013 T7 COMPRESSION FRACTURE 2014 ANTONI, ON CPAP 01/04 PFTS AT [facility] 08/07--NL, FEV1/FVC 76% DERMATITIS FRACTURE RIGHT ANKLE CHEST PAIN ALLERGIES PRAVACHOL: ELEV LFT'S - SIDE EFFECTS SURGICAL HISTORY L EYE SURGERY 1980 RUPTURED ACHILLES TENDON L X 2 12/1998, 05/1999 R KNEE ACL 2002 EGD/COLONOSCOPY--NL BOTH TIMES 08/24, 09/01 EGD--NL 01/26 CARDIAC CATH/LAD ADRIANNA STENT 09/04 09/04 RIGHT ANKLE 06/07 TOOTH EXTRACTION WITH BONE GRAFT FAMILY HISTORY FATHER: , AT 86, [place], DIAGNOSED WITH UNSPECIFIED HEART DISEASE MOTHER: , AT 66 OF PULM FIBROSIS, [employer]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 LANGUAGE LANGUAGES SPOKEN:ARMENIAN NEW PATIENT PAIN DIARY FROM 0-10, WHAT LEVEL IS YOUR PAIN TODAY?1 BMI CARE GOAL FOLLOW-UP ABOVE NORMAL BMI FOLLOW-UPDIETARY MANAGEMENT EDUCATION, GUIDANCE, AND COUNSELING RECREATIONAL DRUG USE DRUG USE?NO LEARNING BARRIERS / SPECIAL NEEDS CHANGE FROM LAST VISIT?NO BARRIERS TO LEARNING?NO HEARING IMPAIRED?NO VISION IMPAIRED?YES COGNITIVELY IMPAIRED?NO :CORRECTIVE LENSES READINESS TO LEARN?YES LEARNING PREFERENCES?NO LEARNING CAPABILITIES PRESENT?YES EMOTIONAL BARRIERS?NO SPECIAL DEVICES?NO OIL DRILLING ENGINEER NEEDED?NO LUNG CANCER SCREENING SMOKING STATUS:NON SMOKER PAIN CLINIC PFS, CLERGY, PUBLIC HEALTH REFERRALS PFS REFERRAL NEEDED?NO CLERGY REFERRAL NEEDED?NO PUBLIC HEALTH REFERRAL NEEDED?NO WAS THE PROVIDER NOTIFIED OF ANY PERTINENT INFO?NO HAS THE PATIENT BEEN EDUCATED REGARDING HIS/HER PLAN OF CARE?YES HAS THE PATIENT BEEN EDUCATED REGARDING PAIN, THE RISK FOR PAIN, THE IMPORTANCE OF EFFECTIVE PAIN MANAGEMENT, AND THE PAIN ASSESSMENT PROCESS?YES LATEX QUESTIONNAIRE LATEX ALLERGY : HAVE YOU EVER DEVELOPED ANY TYPE OF REACTION AFTER HANDLING LATEX PRODUCTS SUCH RUBBER GLOVES, CONDOMS, DIAPHRAGMS, BALLOONS, SOCKS, OR UNDERWEAR?NO LATEX ALLERGY : HAVE YOU EVER DEVELOPED ANY TYPE OF REACTION DURING OR AFTER DENTAL APPOINTMENT, VAGINAL/RECTAL EXAMINATION, SURGICAL PROCEDURE, OR ANY OTHER EXPOSURE?NO DATE ASKED : 06/27/2019 LATEX RISK : HAVE YOU EVER HAD ANY DIFFICULTY BREATHING OR HIVES AFTER EATING OR HANDLING ANY FRUITS, OR VEGETABLES; SUCH KIWI, BANANAS, STONE FRUITS, OR CHESTNUTSNO LATEX RISK : DO YOU HAVE A PREVIOUS PERSONAL HISTORY OF MORE THAN NINE SURGERIES, SPINA BIFIDA, OR REPEATED CATHERIZATIONS? NO LATEX RISK : ARE YOU FREQUENTLY EXPOSED TO LATEX PRODUCTS IN YOUR OCCUPATION?NO CAFFEINE CAFFEINE USE?YES COFFEE HOW OFTEN AND HOW MUCH? 3 CUPS COFFEE/DAY ADVANCE DIRECTIVE ADVANCE DIRECTIVE DISCUSSED WITH PATIENT:YES PATIENT GIVEN INFORMATION ON HCP AT LAST APPT, DECLINED ASSISTANCE IN FILLING IT OUT. MOSQUE [id number] [employer] MARITAL STATUS: . ALCOHOL SCREENING DID YOU HAVE A DRINK CONTAINING ALCOHOL IN THE PAST YEAR?YES HOW OFTEN DID YOU HAVE SIX OR MORE DRINKS ON ONE OCCASION IN THE PAST YEAR?NEVER (0 POINTS) HOW MANY DRINKS DID YOU HAVE ON A TYPICAL DAY WHEN YOU WERE DRINKING IN THE PAST YEAR?3 OR 4 (1 POINT) HOW OFTEN DID YOU HAVE A DRINK CONTAINING ALCOHOL IN THE PAST YEAR?TWO TO THREE TIMES PER WEEK (3 POINTS) POINTS4 INTERPRETATIONPOSITIVE OCCUPATION: [employer] - RETIRED. SEXUAL HX HAD SEX IN THE LAST 12 MONTHS (VAGINAL, ORAL, OR ANAL)?YES WITHWOMEN ONLY HAVE YOU EVER HAD AN STD?NO REVIEWED WITH PATIENT 05/26/19 0853 JSREVIEWED WITH PATIENT 06-27-19. HOSPITALIZATION/MAJOR DIAGNOSTIC PROCEDURE SURG RELATED REVIEW OF SYSTEMS REVIEWED BY: PROVIDER: . CONSTITUTIONAL: ANY CHANGE IN YOUR MEDICAL CONDITION? NO . CHILLS NO . FEVER NO . INFECTION: DO YOU HAVE NEW INFECTIONS? NO . DO YOU HAVE HISTORY OF MRSA? NO . MUSCULOSKELETAL: ANY NEW PATTERNS OF PAIN OR NUMBNESS? NO . GASTROENTEROLOGY: ANY NEW CHANGE IN BOWEL CONTROL? NO . GENITOURINARY: ANY NEW CHANGE IN BLADDER CONTROL? NO . IS THERE A CHANCE YOU COULD BE ? NO . HEMATOLOGY/LYMPH: DO YOU TAKE ANY BLOOD THINNERS? (FOR EXAMPLE- COUMADIN, PLAVIX, AGGRENOX, PLATEL, PRADAXA, OR XARELTO) NO . WHEN WAS YOUR LAST DOSE? DATE: TIME: . NEUROLOGY: HAVE YOU FALLEN IN THE PAST 12 MONTHS? YES, PRIOR TO LAST VISIT . ANY NEW EXTREMITY NUMBNESS OR WEAKNESS? NO . CARDIOLOGY: DO YOU HAVE A PACEMAKER OR DEFIBRILLATOR? NO . RESPIRATORY: HAVE YOU BEEN SICK IN THE PAST WEEK? YES, URI RESOLVING . FEVER NO . FLU LIKE SYMPTOMS? NO . COUGH NO . INTEGUMENTARY: DO YOU HAVE ANY RASHES OR OPEN SORES? NO . ALLERGIC/IMMUNO: ARE YOU ALLERGIC TO IV DYE? NO . ANY NEW ALLERGIES? NO . PSYCHIATRIC: DO YOU HAVE THOUGHTS OF HURTING YOURSELF OR SOMEONE ELSE? NO . ARE YOU ABUSED, NEGLECTED, OR IN AN UNSAFE ENVIRONMENT? NO . ENDOCRINOLOGY: ARE YOU DIABETIC? NO . OTHER: DO YOU NEED ANY PRESCRIPTIONS? NO . IF YES, PLEASE LIST: ____ . ANY NEW PROBLEMS WITH YOUR MEDICATIONS? NO . WHEN DID YOU LAST EAT? 06/28/19 2300 . WHEN DID YOU LAST DRINK? 06/29/19 1115 . WHAT DID YOU LAST DRINK? [place] . NAME OF PERSON DRIVING YOU HOME? BELL . DO YOU HAVE ANY OTHER QUESTIONS OR CONCERNS NO . VITAL SIGNS WT 217.6 LBS, HT 70 IN, BMI 31.22 INDEX, BP 129/81 MM HG, HR 74 /MIN, RR 18 /MIN, TEMP 97.0 F, OXYGEN SAT % 99%, NA INITIALS SC 13:31, REVIEWED BY: EM. ASSESSMENTS MYALGIA, OTHER SITE - M79.18 (PRIMARY) PROCEDURES PN TRIGGER POINT INJECTION WITH STEROIDS PRE PROCEDURE DIAGNOSIS 1. MYALGIA 2. PAIN AT LEFT THORACIC AREA POST PROCEDURE DIAGNOSIS 1. MYALGIA 2. PAIN AT LEFT THORACIC AREA PROCEDURE TRIGGER POINT INJECTION AT LEFT THORACIC AREA SURGEON DR. DAVID CUBA EXTERNAL RELATIONS DIRECTOR NONE ANESTHESIA LOCAL PRE PROCEDURE NOTE THE PATIENT HAS A HISTORY OF CHRONIC PAIN AT THE LEFT THORACIC AREA. I EVALUATED THE PATIENT AND REVIEWED THE CHART. THERE IS EVIDENCE OF BANDS OF TISSUE WITH RESTRICTION OF MOVEMENT AND PRESENCE OF TRIGGER POINT AT THE AFFECTED AREA. I WENT OVER THE RISKS, ALTERNATIVES, AND BENEFITS ASSOCIATED WITH THIS PROCEDURE. THE PATIENT WOULD LIKE TO PROCEED AND GIVES CONSENT TO PERFORM THE PROCEDURE. THE PATIENT DENIES UNEXPLAINABLE WEIGHT LOSS, FEVER, CHILLS, OR NEW CHANGES IN URINARY OR BOWEL CONTROL DESCRIPTION OF PROCEDURE THE PATIENT WAS BROUGHT TO THE PROCEDURE ROOM AND PLACED IN THE SITTING POSITION. THE AREA WAS CLEANED WITH ALCOHOL. THE PROCEDURE WAS DONE USING ASEPTIC STERILE TECHNIQUE. I CHECKED LATERALITY AND THE LEVEL WHERE THE PROCEDURE WAS GOING TO BE PERFORMED WITH THE PATIENT AND THE SUPPORTING STAFF AT THE MOMENT OF THE TIME OUT IN THE PROCEDURE ROOM. USING A 25-GAUGE NEEDLE, TRIGGER POINTS WERE INJECTED AT THE LEFT THORACIC AREA WITH A TOTAL OF 40 ML OF BUPIVACAINE 0.25% AND KENALOG 40 MG. THERE WAS NO EVIDENCE OF BLOOD, PARESTHESIA OR CEREBROSPINAL FLUID DURING THE PROCEDURE. THE PATIENT WAS SENT TO THE RECOVERY ROOM. THE PATIENT WAS MOVING THE EXTREMITIES AND DOING WELL. THERE WAS NO COMPLICATION DURING THE PROCEDURE POST PROCEDURE NOTE THE PATIENT WILL BE SEEN IN A FOLLOWUP IN THE NEXT FEW WEEKS. I AM LOOKING FOR LONG-LASTING PAIN RELIEF WITH THIS INTERVENTION. INSTRUCTIONS WERE GIVEN, QUESTIONS WERE ANSWERED, AND THE PATIENT EXPRESSED UNDERSTANDING AND AGREES WITH THE PLAN. I, INÉS RAMOS, DOCUMENTED THE ABOVE INFORMATION ACTING A SCRIBE FOR DR. CUBA. I HAVE REVIEWED THE ABOVE DOCUMENT, WRITTEN BY LUZ MARINA GUERRERO, AND I VERIFY THAT IT IS ACCURATE PROCEDURE CODES 82767 INJECT TRIGGER POINT, 1 OR 2 DISPOSITION & COMMUNICATION FOLLOW UP 3 WEEKS ELECTRONICALLY SIGNED BY DAVID CUBA MD, MD ON 07/06/2019 AT 11:30 AM EST DISCLAIMER : THIS IS A VISIT SUMMARY EXTRACTED FROM THE [employer] CHART. IT IS NOT A COPY OF THE [employer] PROGRESS NOTE. RADHA
== END ==
LOC: M PAIN 13:30
PROVIDERS: ATTEND Anesthesiology
DX: M79.18 Myalgia, other site (principal); E78.5 Hyperlipidemia, unspecified; R73.03 Prediabetes; K21.9 Gastro-esophageal reflux disease without esophagitis; I10 Essential (primary) hypertension; E55.9 Vitamin D deficiency, unspecified; G25.81 Restless legs syndrome; G47.33 Obstructive sleep apnea (adult) (pediatric); Z88.8 Allergy status to other drugs, medicaments and biological substances; Z79.82 Long term (current) use of aspirin; Z79.84 Long term (current) use of oral hypoglycemic drugs; Z79.899 Other long term (current) drug therapy
CPT/HCPCS: 20552; J3301

== ENCOUNTER → 2019-07-20 | Outpatient (CLI) | payer BC, OTHER ==
[~2019-07-20] MED LIST changes: -BUPIVACAINE HCL 0.25% 10 ML VIAL As Ordered ONE; -BUPIVACAINE HCL 0.25% 30 ML VIAL As Ordered ONE; -ROPI1TAB; +ROPI1TAB3; -TRIAMCINOLONE ACETONIDE SUSP 40 MG/ML VIAL (J3301) As Ordered ONE; -diazePAM 5 MG TAB As Ordered ONE; -oxyCODONE 5MG TAB As Ordered ONE
--- NOTE | 2019-08-09 05:42 | ECWPNPC ---
PATIENT NAME: JENNIFER JAIME : 1955 GENDER: MALE VISIT DATE: 07/20/2019 DISCHARGE DATE: 07/20/19 1158 VISIT LOCKED DATE TIME: PHYSICIAN: THANH ZAPATA PHYSICIAN PAGER NO: [phone] RESOURCE: THANH ZAPATA REASON FOR APPOINTMENT 1. POST TPI HISTORY OF PRESENT ILLNESS HISTORY OF PRESENT ILLNESS: HERE FOR POST PROCEDURE FOLLOW-UP. HAD TRIGGER POINT INJECTIONS TO LEFT THORACIC REGION ON 06/29/2019. DOING WELL TODAY. REPORTING LESS PAIN IN THAT REGION. CHIEF AREA OF PAIN IS LEFT SHOULDER. FOLLOWING WITH [facility] FOR TORN LABRUM LEFT SHOULDER. RATING BACK PAIN A 1-4/10 VAS. PAIN THE PATIENT DESCRIBES THE PAIN... FALL RISK SCREENING: SCREENING :NO FALLS REPORTED IN THE LAST YEAR CURRENT MEDICATIONS TAKING VITAMIN D 5000 UNIT TABLET 1 TABLET ORALLY DAILY TAKING CLOBETASOL PROPIONATE 0.05 % CREAM 1 APPLICATION TO AFFECTED AREA/ EZEXMA BODY EXTERNALLY TWICE A DAY NEEDED TAKING LOPROX CREAM CREAM TO FEET FOR FUNGUS TOPICALLY TWICE A DAY NEEDED TAKING METFORMIN 1000 MG TABLET 1 TAB(S) ORALLY TWICE A DAY TAKING ASPIRIN 81 MG TABLET 1 TAB(S) ORALLY DAILY TAKING NITROSTAT 0.4 MG TABLET SUBLINGUAL 1 TAB(S) SUBLINGUAL EVERY 5 MIN PRN CHEST PAIN, MAX DOSE 3 TAKING IBUPROFEN 800 MG TABLET 1 TABLET WITH FOOD OR MILK NEEDED ORALLY THREE TIMES A DAY TAKING ISOSORBIDE MONONITRATE ER 30 MG TABLET EXTENDED RELEASE 24 HOUR 1 TABLET IN THE MORNING ORALLY ONCE A DAY TAKING AMLODIPINE 5MG TABLET 1 TAB(S) ORAL DAILY TAKING REQUIP 1 MG TABLET TAKE TWO TABLETS BY MOUTH AT BEDTIME ORALLY DAILY TAKING AMITRIPTYLINE HCL 25 MG TABLET 2 TABLETS ORALLY BEFORE BEDTIME TAKING ATORVASTATIN CALCIUM 40 MG TABLET TAKE ONE TABLET BY MOUTH EVERY DAY TAKING CYCLOBENZAPRINE HCL 5 MG TABLET TAKE 1-2 TABLETS BY MOUTH EVERY NIGHT ORALLY Q6H PRN TAKING DULOXETINE HCL 30 MG CAPSULE DELAYED RELEASE PARTICLES TAKE ONE CAPSULE BY MOUTH EVERY DAY ORALLY DAILY TAKING TRAMADOL HCL 50 MG TABLET 1 TABLET NEEDED ORALLY EVERY 6 HRS PRN MDD4 TAKING OMEPRAZOLE 40 MG CAPSULE DELAYED RELEASE TAKE ONE CAPSULE BY MOUTH TWICE A DAY TAKING LISINOPRIL 10 MG TABLET TAKE ONE TABLET BY MOUTH EVERY DAY TAKING BISOPROLOL FUMARATE 5 MG TABLET TAKE ONE TABLET BY MOUTH TWICE A DAY TAKING MAY USE - - CBD CREAM DIRECTED MEDICATION LIST REVIEWED AND RECONCILED WITH THE PATIENT PAST MEDICAL HISTORY CAD--NST 09/04 EF 63%, ANTEROSEPT ISCHEMIA, LAD STENT [facility] 09/04; NST 11/04, ANTEROSEPTAL REVERSIBLE ISCHEMIA, EF 60%; NST 11/06: NL PERFUSION, EF 65% IBS ECHO 08/07: EF 70%, SL ELEV PULM ART PRESSURE, NL VALVES DDD/DJD C-SPINE, T SPINE HYPERLIPIDEMIA PREDIABETES ESOPHAGEAL REFLUX- EGD 08/24, UGI-01/26, PH PROBE 10/26 HYPERTENSION VITAMIN D DEFICIENCY 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 RENAL STONE 12/25 CONCUSSION DECEMBER 2013 T7 COMPRESSION FRACTURE 2014 ANTONI, ON CPAP 01/04 PFTS AT [facility] 08/07--NL, FEV1/FVC 76% DERMATITIS FRACTURE RIGHT ANKLE CHEST PAIN TORN LABRUM LEFT SHOULDER ALLERGIES PRAVACHOL: ELEV LFT'S - SIDE EFFECTS SURGICAL HISTORY L EYE SURGERY 1980 RUPTURED ACHILLES TENDON L X 2 12/1998, 05/1999 R KNEE ACL 2002 EGD/COLONOSCOPY--NL BOTH TIMES 08/24, 09/01 EGD--NL 01/26 CARDIAC CATH/LAD ADRIANNA STENT 09/04 09/04 RIGHT ANKLE 06/07 TOOTH EXTRACTION WITH BONE GRAFT FAMILY HISTORY FATHER: , AT 86, [place], DIAGNOSED WITH UNSPECIFIED HEART DISEASE MOTHER: , AT 66 OF PULM FIBROSIS, [employer] 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 LUNG CANCER SCREENING SMOKING STATUS:NON SMOKER PAIN CLINIC PFS, CLERGY, PUBLIC HEALTH REFERRALS PFS REFERRAL NEEDED?NO CLERGY REFERRAL NEEDED?NO PUBLIC HEALTH REFERRAL NEEDED?NO WAS THE PROVIDER NOTIFIED OF ANY PERTINENT INFO?NO HAS THE PATIENT BEEN EDUCATED REGARDING HIS/HER PLAN OF CARE?YES HAS THE PATIENT BEEN EDUCATED REGARDING PAIN, THE RISK FOR PAIN, THE IMPORTANCE OF EFFECTIVE PAIN MANAGEMENT, AND THE PAIN ASSESSMENT PROCESS?YES LATEX QUESTIONNAIRE LATEX ALLERGY : HAVE YOU EVER DEVELOPED ANY TYPE OF REACTION AFTER HANDLING LATEX PRODUCTS SUCH RUBBER GLOVES, CONDOMS, DIAPHRAGMS, BALLOONS, SOCKS, OR UNDERWEAR?NO LATEX ALLERGY : HAVE YOU EVER DEVELOPED ANY TYPE OF REACTION DURING OR AFTER DENTAL APPOINTMENT, VAGINAL/RECTAL EXAMINATION, SURGICAL PROCEDURE, OR ANY OTHER EXPOSURE?NO LATEX RISK : HAVE YOU EVER HAD ANY DIFFICULTY BREATHING OR HIVES AFTER EATING OR HANDLING ANY FRUITS, OR VEGETABLES; SUCH KIWI, BANANAS, STONE FRUITS, OR CHESTNUTSNO LATEX RISK : DO YOU HAVE A PREVIOUS PERSONAL HISTORY OF MORE THAN NINE SURGERIES, SPINA BIFIDA, OR REPEATED CATHERIZATIONS? NO LATEX RISK : ARE YOU FREQUENTLY EXPOSED TO LATEX PRODUCTS IN YOUR OCCUPATION?NO DATE ASKED : 06/27/2019 CAFFEINE CAFFEINE USE?YES COFFEE HOW OFTEN AND HOW MUCH? 3 CUPS COFFEE/DAY ADVANCE DIRECTIVE ADVANCE DIRECTIVE DISCUSSED WITH PATIENT:YES 07/20/2019 PATIENT GIVEN INFORMATION ON HCP AT LAST APPT, DECLINED ASSISTANCE IN FILLING IT OUT. JS RASTAFARIAN [id number] CONGREGATION MARITAL STATUS: . 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 SEXUAL HX HAD SEX IN THE LAST 12 MONTHS (VAGINAL, ORAL, OR ANAL)?YES WITHWOMEN ONLY HAVE YOU EVER HAD AN STD?NO REVIEWED WITH PATIENT 05/26/19 0853 JSREVIEWED WITH PATIENT [id number] WITH PATIENT 07/20/2019 1138 JS. HOSPITALIZATION/MAJOR DIAGNOSTIC PROCEDURE SURG RELATED REVIEW OF SYSTEMS REVIEWED BY: PROVIDER: THANH SANCHEZ . CONSTITUTIONAL: ANY CHANGE IN YOUR MEDICAL CONDITION? YES, LEFT SHOULDER TORN LABRUM - RECEIVED CORTISONE INJECTION YESTERDAY . CHILLS NO . FEVER NO . INFECTION: DO YOU HAVE NEW INFECTIONS? NO . DO YOU HAVE HISTORY OF MRSA? NO . MUSCULOSKELETAL: ANY NEW PATTERNS OF PAIN OR NUMBNESS? NO . GASTROENTEROLOGY: ANY NEW CHANGE IN BOWEL CONTROL? NO . GENITOURINARY: ANY NEW CHANGE IN BLADDER CONTROL? NO . IS THERE A CHANCE YOU COULD BE ? NO . HEMATOLOGY/LYMPH: DO YOU TAKE ANY BLOOD THINNERS? (FOR EXAMPLE- COUMADIN, PLAVIX, AGGRENOX, PLATEL, PRADAXA, OR XARELTO) NO . WHEN WAS YOUR LAST DOSE? DATE: TIME: . NEUROLOGY: HAVE YOU FALLEN IN THE PAST 12 MONTHS? YES, STATES FALL BEGINNING OF MAY - DISCUSSED AT PREVIOUS VISIT . ANY NEW EXTREMITY NUMBNESS OR WEAKNESS? NO . CARDIOLOGY: DO YOU HAVE A PACEMAKER OR DEFIBRILLATOR? NO . RESPIRATORY: HAVE YOU BEEN SICK IN THE PAST WEEK? YES, COLD 2 WEEKS AGO . FEVER NO . FLU LIKE SYMPTOMS? NO . COUGH YES . INTEGUMENTARY: DO YOU HAVE ANY RASHES OR OPEN SORES? NO . ALLERGIC/IMMUNO: ARE YOU ALLERGIC TO IV DYE? NO . ANY NEW ALLERGIES? NO . PSYCHIATRIC: DO YOU HAVE THOUGHTS OF HURTING YOURSELF OR SOMEONE ELSE? NO . ARE YOU ABUSED, NEGLECTED, OR IN AN UNSAFE ENVIRONMENT? NO . ENDOCRINOLOGY: ARE YOU DIABETIC? NO . OTHER: DO YOU NEED ANY PRESCRIPTIONS? NO . IF YES, PLEASE LIST: ____ . ANY NEW PROBLEMS WITH YOUR MEDICATIONS? NO . WHEN DID YOU LAST EAT? ____ . WHEN DID YOU LAST DRINK? ____ . WHAT DID YOU LAST DRINK? ____ . NAME OF PERSON DRIVING YOU HOME? ____ . DO YOU HAVE ANY OTHER QUESTIONS OR CONCERNS NO . VITAL SIGNS WT 216.2 LBS, HT 70 IN, BMI 31.02 INDEX, BP 135/88 MM HG, HR 76 /MIN, RR 18 /MIN, TEMP 98.1 F, OXYGEN SAT % 97%, SAFE IN ENV? (Y/N) YES, REVIEWED BY: KORINA. EXAMINATION GENERAL EXAMINATION: GENERAL AWAKE,ALERT. PSYCH AFFECT NORMAL . LUNGS: LUNG MERA ARE CLEAR TO AUSCULTATION BILATERALLY. GOOD MOVEMENT OF AIR . HEART: S1, S2 IN A REGULAR RATE AND RHYTHM. NO SIGNIFICANT MURMURS, RUBS OR GALLOPS NOTED . ASSESSMENTS MYALGIA, OTHER SITE - M79.18 (PRIMARY) TREATMENT MYALGIA, OTHER SITE CONTINUE DULOXETINE HCL CAPSULE DELAYED RELEASE PARTICLES, 30 MG, TAKE ONE CAPSULE BY MOUTH EVERY DAY, ORALLY, DAILY CONTINUE TRAMADOL HCL TABLET, 50 MG, 1 TABLET NEEDED, ORALLY, EVERY 6 HRS PRN MDD4 NOTES: ISTOP REGISTRY REVIEWED AND DEMONSTRATES COMPLLIANCE. BRINGS IN MEDICATIONS WHICH IS APPROPRIATE FOR WHAT WAS DISPENSED.. PROCEDURE CODES FA211 ESTABILISHED PATIENT [facility] FACILITY CHARGE DISPOSITION & COMMUNICATION FOLLOW UP 3 MONTHS (REASON: THORACIC/NECK PAIN) ELECTRONICALLY SIGNED BY LAURA ORDAZ ON 08/08/2019 AT 09:58 AM EST DISCLAIMER : THIS IS A VISIT SUMMARY EXTRACTED FROM THE [employer] CHART. IT IS NOT A COPY OF THE [employer] PROGRESS NOTE. MTDD
== END ==
LOC: M PAIN 10:45
PROVIDERS: ATTEND Nurse Practitioner Family
DX: M79.18 Myalgia, other site (principal); E78.5 Hyperlipidemia, unspecified; I10 Essential (primary) hypertension; G25.81 Restless legs syndrome; Z79.82 Long term (current) use of aspirin; Z79.84 Long term (current) use of oral hypoglycemic drugs; Z79.891 Long term (current) use of opiate analgesic; Z79.899 Other long term (current) drug therapy; Z88.8 Allergy status to other drugs, medicaments and biological substances

== ENCOUNTER 2019-10-01 09:26 | Emergency (ER) | payer BC, OTHER ==
[~2019-10-01] VITALS: Ht 177.8 cm; Wt 100.4 kg
[~2019-10-01 09:26] MED LIST changes: +CYCL-707 PO; -CYCL10TA PO
[2019-10-01] MEDS ORDERED: ASPIRIN 81 MG CHEW TABLET PO ONE (09:45)
[2019-10-01 09:48] LABS: BASO # 0.1 10^3/uL (0.0-0.2); BASO % 0.4 % (0.0-1.0); EOS # 0.2 10^3/uL (0.0-0.5); EOS % 1.3 % (0.0-3.0); HEMATOCRIT 38.9 % (42.0-52.0); HEMOGLOBIN 13.1 g/dl (13.5-17.5); LYMPH # 2.7 10^3/uL (1.5-5.0); LYMPH % 21.1 % (24.0-44.0); MEAN CORPUSCULAR HEMOGLOBIN 33.2 pg (27.0-33.0); MEAN CORPUSCULAR HGB CONC 33.7 g/dl (32.0-36.5); MEAN CORPUSCULAR VOLUME 98.7 fl (80.0-96.0); MONO # 0.6 10^3/uL (0.0-0.8); MONO % 4.8 % (0.0-5.0); NEUTROPHILS # 9.1 10^3/uL (1.5-8.5); NEUTROPHILS % 71.8 % (36.0-66.0); PLATELET COUNT, AUTOMATED 295 10^3/uL (150-450); RED BLOOD COUNT 3.94 10^6/uL (4.30-6.10); WHITE BLOOD COUNT 12.7 10^3/uL (4.0-10.0)
[2019-10-01 09:59] LABS: INR 0.88; PROTHROMBIN TIME 11.7 SECONDS (11.8-14.0)
[2019-10-01 10:00] LABS: PARTIAL THROMBOPLASTIN TIME 26.4 SECONDS (25.0-38.4)
[2019-10-01] MEDS ORDERED: NS 500 ML IV ONE (10:00)
[2019-10-01] MEDS ORDERED: lisinopriL 10 MG TAB PO ONE (10:00)
[2019-10-01] MEDS ORDERED: PANTOPRAZOLE 40MG INJ (PROTONIX) (C9113) IV ONE (10:00)
[2019-10-01 10:02] VITALS: BP 115/65
--- NOTE | 2019-10-01 10:13 | REP ---
CHEST PORTABLE: REASON: Chest pain. COMPARISON: 05/05/2019 The technique utilized in obtaining the radiograph has magnified the cardiac silhouette and accentuated the interstitial markings. FINDINGS: The superior mediastinal structures are midline. The cardiac silhouette is unremarkable in size, shape, and position. The diaphragmatic surfaces of the lungs are regular, and the costophrenic angles are clear. The pulmonary fountain are clear. The imaged osseous structures are intact. IMPRESSION: There is no acute cardiopulmonary disease. Stable chronic changes. Electronically Signed by Dima Toussaint DO 10/01/2019 11:12 A
[2019-10-01 10:18] LABS: ALBUMIN 4.1 GM/DL (3.2-5.2); ALT/SGPT 57 U/L (12-78); BILIRUBIN,DIRECT 0.2 MG/DL (0.0-0.2); BILIRUBIN,TOTAL 0.4 MG/DL (0.2-1.0); BLOOD UREA NITROGEN 24 MG/DL (7-18); CALCIUM LEVEL 9.2 MG/DL (8.8-10.2); CARBON DIOXIDE LEVEL 19 MEQ/L (21-32); CHLORIDE LEVEL 102 MEQ/L (98-107); CK-MB VALUE MASS 2.1 NG/ML (<3.6); CPK CREATINE PHOSPHOKINASE 124 U/L (39-308); CREATININE FOR GFR 1.33 MG/DL (0.70-1.30); FREE T4 1.29 NG/DL (0.76-1.46); GLUCOSE, FASTING 66 MG/DL (70-100); LIPASE 126 U/L (73-393); MB/CK RELATIVE INDEX 1.69 (< OR =4); POTASSIUM SERUM 3.6 MEQ/L (3.5-5.1); SODIUM LEVEL 138 MEQ/L (136-145); TROPONIN I < 0.02 NG/ML (< 0.10)
[2019-10-01] MEDS ORDERED: DEXTROSE 50% 50 ML SYRINGE IV STA (10:19)
[2019-10-01 14:05] LABS: CK-MB VALUE MASS 2.3 NG/ML (<3.6); MB/CK RELATIVE INDEX 2.35 (< OR =4); TROPONIN I 0.06 NG/ML (< 0.10)
[2019-10-01 14:47] VITALS: BP 134/95
--- NOTE | 2019-10-01 19:28 | ECGEPIP ---
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
--- NOTE | 2019-10-01 19:29 | ECGEPIP ---
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
== END 2019-10-01 14:51 | disposition home or self-care (01) ==
LOC: M ED 09:26
DX: R07.9 Chest pain, unspecified (principal); Z95.5 Presence of coronary angioplasty implant and graft; I11.9 Hypertensive heart disease without heart failure; E78.5 Hyperlipidemia, unspecified; G47.33 Obstructive sleep apnea (adult) (pediatric); M54.5 Low back pain; K21.9 Gastro-esophageal reflux disease without esophagitis; F41.0 Panic disorder [episodic paroxysmal anxiety]; Z88.8 Allergy status to other drugs, medicaments and biological substances; Z79.899 Other long term (current) drug therapy
CPT/HCPCS: 71045; 80048; 80076; 82550; 82553; 83690; 84439; 84443; 84484; 85025; 85610; 85730; 93005; 93041; 94760; 96361; 96374; 96375; 99285; C9113; G0480

== ENCOUNTER → 2019-10-11 | Outpatient (REF) | payer OTHER ==
[2019-10-11 16:37] LABS: BLOOD UREA NITROGEN 17 MG/DL (7-18); CALCIUM LEVEL 9.1 MG/DL (8.8-10.2); CARBON DIOXIDE LEVEL 29 MEQ/L (21-32); CHLORIDE LEVEL 103 MEQ/L (98-107); CREATININE FOR GFR 1.12 MG/DL (0.70-1.30); GLOMERULAR FILTRATION RATE > 60.0 (>49); GLUCOSE, FASTING 126 MG/DL (70-100); POTASSIUM SERUM 4.7 MEQ/L (3.5-5.1); SODIUM LEVEL 135 MEQ/L (136-145)
[2019-10-11 17:11] LABS: HEMOGLOBIN A1c 6.5 %
== END ==
LOC: M SFHCADAM 12:14
PROVIDERS: ATTEND Family Medicine
DX: E16.0 Drug-induced hypoglycemia without coma (principal)

== ENCOUNTER → 2019-11-09 | Outpatient (CLI) | payer BC, OTHER ==
--- NOTE | 2019-11-16 05:33 | ECWPNPC ---
PATIENT NAME: JENNIFER JAIME : 1955 GENDER: MALE VISIT DATE: 11/09/2019 DISCHARGE DATE: 11/09/19 1139 VISIT LOCKED DATE TIME: PHYSICIAN: THANH ZAPATA PHYSICIAN PAGER NO: [phone] RESOURCE: THANH ZAPATA REASON FOR APPOINTMENT 1. [email or web address] HISTORY OF PRESENT ILLNESS HISTORY OF PRESENT ILLNESS: BEING SEEN VIA ZOOM, TELEMED VISIT TODAY, WHICH PATIENT IS AGREEABLE TO. THIS IS A FOLLOW-UP FOR PERSISTENT RIGHT UPPER BACK PAIN. OVERALL DOING WELL IN THIS REGION. RATING PAIN LEVEL I/X VAS. CHIEF AREA OF PAIN IS LEFT SHOULDER. HE WILL BE HAVING LEFT SHOULDER SURGERY IN THE NEAR FUTURE. USING TRAMADOL PERIODICALLY FOR SEVERE PAIN EPISODES WHICH IS HELPFUL. ON CYMBALTA 30 MILLIGRAMS DAILY. PAIN THE PATIENT DESCRIBES THE PAIN... FALL RISK SCREENING: SCREENING :NO FALLS REPORTED IN THE LAST YEAR CURRENT MEDICATIONS TAKING VITAMIN D 5000 UNIT TABLET 1 TABLET ORALLY DAILY TAKING CLOBETASOL PROPIONATE 0.05 % CREAM 1 APPLICATION TO AFFECTED AREA/ EZEXMA BODY EXTERNALLY TWICE A DAY NEEDED TAKING LOPROX CREAM CREAM TO FEET FOR FUNGUS TOPICALLY TWICE A DAY NEEDED TAKING ASPIRIN 81 MG TABLET 1 TAB(S) ORALLY DAILY TAKING NITROSTAT 0.4 MG TABLET SUBLINGUAL 1 TAB(S) SUBLINGUAL EVERY 5 MIN PRN CHEST PAIN, MAX DOSE 3 TAKING IBUPROFEN 800 MG TABLET 1 TABLET WITH FOOD OR MILK NEEDED ORALLY THREE TIMES A DAY TAKING AMLODIPINE 5MG TABLET 1 TAB(S) ORAL DAILY TAKING ATORVASTATIN CALCIUM 40 MG TABLET TAKE ONE TABLET BY MOUTH EVERY DAY TAKING CYCLOBENZAPRINE HCL 5 MG TABLET 1-2 TABS ORALLY BEFORE BEDTIME TAKING OMEPRAZOLE 40 MG CAPSULE DELAYED RELEASE TAKE ONE CAPSULE BY MOUTH TWICE A DAY TAKING LISINOPRIL 10 MG TABLET TAKE ONE TABLET BY MOUTH EVERY DAY TAKING BISOPROLOL FUMARATE 5 MG TABLET TAKE ONE TABLET BY MOUTH TWICE A DAY TAKING MAY USE - - CBD CREAM DIRECTED TAKING ISOSORBIDE MONONITRATE ER 30 MG TABLET EXTENDED RELEASE 24 HOUR 1 TABLET IN THE MORNING ORALLY ONCE A DAY TAKING AMITRIPTYLINE HCL 25 MG TABLET 2 TABLETS ORALLY BEFORE BEDTIME TAKING TRAMADOL HCL 50 MG TABLET 1 TABLET NEEDED ORALLY EVERY 6 HRS PRN MDD4 TAKING DULOXETINE HCL 30 MG CAPSULE DELAYED RELEASE PARTICLES TAKE ONE CAPSULE BY MOUTH EVERY DAY ORALLY DAILY TAKING REQUIP 1 MG TABLET TAKE TWO TABLETS BY MOUTH AT BEDTIME ORALLY DAILY TAKING MELATONIN ER 1 MG TABLET EXTENDED RELEASE DIRECTED ORALLY TAKING METFORMIN 1000 MG TABLET 1 TAB(S) ORALLY DAILY MEDICATION LIST REVIEWED AND RECONCILED WITH THE PATIENT PAST MEDICAL HISTORY CAD--NST 09/04 EF 63%, ANTEROSEPT ISCHEMIA, LAD STENT [facility] 09/04; NST 11/04, ANTEROSEPTAL REVERSIBLE ISCHEMIA, EF 60%; NST 11/06: NL PERFUSION, EF 65%; NST 11/08: NL PERFUSION, EF 66% IBS ECHO 08/07: EF 70%, SL ELEV PULM ART PRESSURE, NL VALVES DDD/DJD C-SPINE, T SPINE HYPERLIPIDEMIA PREDIABETES ESOPHAGEAL REFLUX- EGD 08/24, UGI-01/26, PH PROBE 10/26 HYPERTENSION VITAMIN D DEFICIENCY 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 RENAL STONE 12/25 CONCUSSION DECEMBER 2013 T7 COMPRESSION FRACTURE 2014 ANTONI, ON CPAP 01/04 PFTS AT [facility] 08/07--NL, FEV1/FVC 76% FRACTURE RIGHT ANKLE TORN LABRUM LEFT SHOULDER TINNITUS ALLERGIES PRAVACHOL: ELEV LFT'S - SIDE EFFECTS SURGICAL HISTORY L EYE SURGERY 1980 RUPTURED ACHILLES TENDON L X 2 12/1998, 05/1999 R KNEE ACL 2002 EGD/COLONOSCOPY--NL BOTH TIMES 08/24, 09/01 EGD--NL 01/26 CARDIAC CATH/LAD ADRIANNA STENT 09/04 09/04 RIGHT ANKLE 06/07 TOOTH EXTRACTION WITH BONE GRAFT X4 FAMILY HISTORY FATHER: , AT 86, [place], DIAGNOSED WITH UNSPECIFIED HEART DISEASE MOTHER: , AT 66 OF PULM FIBROSIS, SnapwizEMPLOYEE COMMUNICATIONS INTERN; CAD, UNSPECIFIED HEART DISEASE SOCIAL HISTORY GENERAL: TOBACCO USE ARE YOU A: NONSMOKER. LATEX QUESTIONNAIRE LATEX ALLERGY : HAVE YOU EVER DEVELOPED ANY TYPE OF REACTION AFTER HANDLING LATEX PRODUCTS SUCH RUBBER GLOVES, CONDOMS, DIAPHRAGMS, BALLOONS, SOCKS, OR UNDERWEAR?NO LATEX ALLERGY : HAVE YOU EVER DEVELOPED ANY TYPE OF REACTION DURING OR AFTER DENTAL APPOINTMENT, VAGINAL/RECTAL EXAMINATION, SURGICAL PROCEDURE, OR ANY OTHER EXPOSURE?NO LATEX RISK : HAVE YOU EVER HAD ANY DIFFICULTY BREATHING OR HIVES AFTER EATING OR HANDLING ANY FRUITS, OR VEGETABLES; SUCH KIWI, BANANAS, STONE FRUITS, OR CHESTNUTSNO LATEX RISK : DO YOU HAVE A PREVIOUS PERSONAL HISTORY OF MORE THAN NINE SURGERIES, SPINA BIFIDA, OR REPEATED CATHERIZATIONS? NO LATEX RISK : ARE YOU FREQUENTLY EXPOSED TO LATEX PRODUCTS IN YOUR OCCUPATION?NO DATE ASKED : 11/08/2019 LUNG CANCER SCREENING SMOKING STATUS:NON SMOKER BMI CARE GOAL FOLLOW-UP ABOVE NORMAL BMI FOLLOW-UPDIETARY MANAGEMENT EDUCATION, GUIDANCE, AND COUNSELING ALCOHOL SCREENING DID YOU HAVE A DRINK CONTAINING ALCOHOL IN THE PAST YEAR?YES HOW OFTEN DID YOU HAVE SIX OR MORE DRINKS ON ONE OCCASION IN THE PAST YEAR?NEVER (0 POINTS) HOW MANY DRINKS DID YOU HAVE ON A TYPICAL DAY WHEN YOU WERE DRINKING IN THE PAST YEAR?3 OR 4 (1 POINT) HOW OFTEN DID YOU HAVE A DRINK CONTAINING ALCOHOL IN THE PAST YEAR?TWO TO THREE TIMES PER WEEK (3 POINTS) POINTS4 INTERPRETATIONPOSITIVE RECREATIONAL DRUG USE DRUG USE?NO CAFFEINE CAFFEINE USE?YES COFFEE HOW OFTEN AND HOW MUCH? 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 MARITAL STATUS: . NEW PATIENT PAIN DIARY TODAY'S VISIT 11/09/19 PATIENT DESCRIBES PAIN :ACHING, IT COMES AND GOES, SHARP, SORE, SHOOTING FROM 0-10, WHAT LEVEL IS YOUR PAIN TODAY?1 PRECIPITATING FACTORS NOTHING IN PARTICULAR ALLEVIATING FACTORS SOMETIMES TRAMADOL OR IBUPROPHEN IMPACT ON FUNCTION AT TIMES WHEN ACUTE IT MAKES HIM "SLOW GOING" PAIN CLINIC PFS, CLERGY, PUBLIC HEALTH REFERRALS PFS REFERRAL NEEDED?NO CLERGY REFERRAL NEEDED?NO PUBLIC HEALTH REFERRAL NEEDED?NO HAS THE PATIENT BEEN EDUCATED REGARDING HIS/HER PLAN OF CARE?YES HAS THE PATIENT BEEN EDUCATED REGARDING PAIN, THE RISK FOR PAIN, THE IMPORTANCE OF EFFECTIVE PAIN MANAGEMENT, AND THE PAIN ASSESSMENT PROCESS?YES ADVANCE DIRECTIVE ADVANCE DIRECTIVE DISCUSSED WITH PATIENT:YES PT STATES HE ALREADY HAD INFORMATION ON HCP BUT HAS NOT COMPLETED IT YET. ASSSISTANCE OFFERED IN COMPLETING FORM IF NEEDED. HOSPITALIZATION/MAJOR DIAGNOSTIC PROCEDURE SURG RELATED REVIEW OF SYSTEMS REVIEWED BY: PROVIDER: THANH SANCHEZ . CONSTITUTIONAL: ANY CHANGE IN YOUR MEDICAL CONDITION? YES, HAD HYPOGLYCEMIC EPISODE 1 1/2 WEEKS, ALSO HAD TACHYCARDIA AND EVALUATED IN ED. BS WAS 67. HAS BEEN FOLLOW WITH PCP . CHILLS NO . FEVER NO . INFECTION: DO YOU HAVE NEW INFECTIONS? NO . DO YOU HAVE HISTORY OF MRSA? NO . MUSCULOSKELETAL: ANY NEW PATTERNS OF PAIN OR NUMBNESS? NO . GASTROENTEROLOGY: ANY NEW CHANGE IN BOWEL CONTROL? NO . GENITOURINARY: ANY NEW CHANGE IN BLADDER CONTROL? NO . IS THERE A CHANCE YOU COULD BE ? NO . HEMATOLOGY/LYMPH: DO YOU TAKE ANY BLOOD THINNERS? (FOR EXAMPLE- COUMADIN, PLAVIX, AGGRENOX, PLATEL, PRADAXA, OR XARELTO) NO . WHEN WAS YOUR LAST DOSE? DATE: TIME: . NEUROLOGY: HAVE YOU FALLEN IN THE PAST 12 MONTHS? YES, 05/26/19 FELL CAUSING LABRUM TEAR LEFT SHOULDER . ANY NEW EXTREMITY NUMBNESS OR WEAKNESS? NO . CARDIOLOGY: DO YOU HAVE A PACEMAKER OR DEFIBRILLATOR? NO . RESPIRATORY: HAVE YOU BEEN SICK IN THE PAST WEEK? NO . FEVER NO . FLU LIKE SYMPTOMS? NO . COUGH NO . INTEGUMENTARY: DO YOU HAVE ANY RASHES OR OPEN SORES? NO . ALLERGIC/IMMUNO: ARE YOU ALLERGIC TO IV DYE? NO . ANY NEW ALLERGIES? NO . PSYCHIATRIC: DO YOU HAVE THOUGHTS OF HURTING YOURSELF OR SOMEONE ELSE? NO . ARE YOU ABUSED, NEGLECTED, OR IN AN UNSAFE ENVIRONMENT? NO . ENDOCRINOLOGY: ARE YOU DIABETIC? NO, PRE-DIABETIC . OTHER: DO YOU NEED ANY PRESCRIPTIONS? YES . IF YES, PLEASE LIST: TRAMADOL . ANY NEW PROBLEMS WITH YOUR MEDICATIONS? NO . WHEN DID YOU LAST EAT? ____ . WHEN DID YOU LAST DRINK? ____ . WHAT DID YOU LAST DRINK? ____ . NAME OF PERSON DRIVING YOU HOME? ____ . DO YOU HAVE ANY OTHER QUESTIONS OR CONCERNS NO, PAIN IN HIS BACK IS BETTER THAN WHEN HE MADE THIS APPT. . EXAMINATION GENERAL EXAMINATION: GENERALNO ACUTE DISTRESS, WELL NOURISHED AND HYDRATED. PSYCHAPPROPRIATE MOOD AND AFFECT . FACE:UNREMARKABLE. ASSESSMENTS CERVICAL DISC DISORDER WITH RADICULOPATHY OF CERVICOTHORACIC REGION - M50.13 (PRIMARY) MYALGIA, OTHER SITE - M79.18 TREATMENT CERVICAL DISC DISORDER WITH RADICULOPATHY OF CERVICOTHORACIC REGION REFILL TRAMADOL HCL TABLET, 50 MG, 1 TABLET NEEDED, ORALLY, EVERY 6 HRS PRN MDD4, 30 DAYS, 120, REFILLS 2 REFILL DULOXETINE HCL CAPSULE DELAYED RELEASE PARTICLES, 30 MG, TAKE ONE CAPSULE BY MOUTH EVERY DAY, ORALLY, DAILY, 30 DAYS, 30, REFILLS 5 NOTES: CONTINUE HOME EXERCISE AND STRETCHING. FOLLOW-UP AT PAIN CLINIC IN 3 MONTHS. TOTAL TIME SPENT DURING TELEMED VISIT WAS APPROXIMATELY 12 MINUTES. OTHERS NOTES: UNABLE TO DUE V/S DUE TO VIRTUAL VISIT, PT GIVES CONSENT TO ACCESS RECORDS FOR VIRTUAL VISIT. DS . DISPOSITION & COMMUNICATION FOLLOW UP 3 MONTHS (REASON: NECK PAIN) ELECTRONICALLY SIGNED BY LAURA ORDAZ ON 11/15/2019 AT 03:19 PM EDT DISCLAIMER : THIS IS A VISIT SUMMARY EXTRACTED FROM THE [employer] CHART. IT IS NOT A COPY OF THE [employer] PROGRESS NOTE. RADHA
== END ==
LOC: M PAIN 09:30 → M TMPAIN 09:30
PROVIDERS: ATTEND Nurse Practitioner Family
DX: M50.13 Cervical disc disorder with radiculopathy, cervicothoracic region (principal); M79.18 Myalgia, other site; Z79.82 Long term (current) use of aspirin; Z79.84 Long term (current) use of oral hypoglycemic drugs; Z79.891 Long term (current) use of opiate analgesic; Z79.899 Other long term (current) drug therapy; Z88.8 Allergy status to other drugs, medicaments and biological substances

== ENCOUNTER → 2019-12-20 | Outpatient (CLI) | payer BC, OTHER ==
--- NOTE | 2019-12-20 14:47 | REP ---
Clinical: Preoperative assessment. Technique: PA and lateral. Comparison: 10/01/2019. Findings: Mediastinum and cardiac silhouette are normal. Lung fountain demonstrate chronic fibrosis and emphysematous changes similar to prior examination. No obvious acute consolidation, effusion, or pneumothorax. Skeletal structures are intact. Impression: Chronic stable changes. Electronically Signed by Jason Vasquez MD 12/20/2019 02:39 P
== END ==
LOC: M ADAMS 14:24
PROVIDERS: ATTEND Physician Assistant Medical
DX: Z01.818 Encounter for other preprocedural examination (principal); S43.432D Superior glenoid labrum lesion of left shoulder, subsequent encounter; S46.012D Strain of muscle(s) and tendon(s) of the rotator cuff of left shoulder, subsequent encounter; X58.XXXD Exposure to other specified factors, subsequent encounter; Y92.9 Unspecified place or not applicable

== ENCOUNTER → 2019-12-20 | Outpatient (REF) | payer OTHER ==
[2019-12-20 17:50] LABS: BLOOD UREA NITROGEN 18 MG/DL (7-18); CALCIUM LEVEL 9.2 MG/DL (8.8-10.2); CARBON DIOXIDE LEVEL 27 MEQ/L (21-32); CHLORIDE LEVEL 103 MEQ/L (98-107); CREATININE FOR GFR 1.26 MG/DL (0.70-1.30); GLOMERULAR FILTRATION RATE > 60.0 (>49); GLUCOSE, FASTING 96 MG/DL (70-100); POTASSIUM SERUM 4.2 MEQ/L (3.5-5.1); SODIUM LEVEL 138 MEQ/L (136-145)
[2019-12-20 18:03] LABS: BASO # 0.1 10^3/uL (0.0-0.2); BASO % 0.8 % (0.0-1.0); EOS # 0.2 10^3/uL (0.0-0.5); EOS % 2.4 % (0.0-3.0); HEMATOCRIT 36.1 % (42.0-52.0); HEMOGLOBIN 12.5 g/dl (13.5-17.5); LYMPH # 1.4 10^3/uL (1.5-5.0); LYMPH % 21.2 % (24.0-44.0); MEAN CORPUSCULAR HEMOGLOBIN 33.2 pg (27.0-33.0); MEAN CORPUSCULAR HGB CONC 34.6 g/dl (32.0-36.5); MEAN CORPUSCULAR VOLUME 95.8 fl (80.0-96.0); MONO # 0.5 10^3/uL (0.0-0.8); MONO % 8.2 % (0.0-5.0); NEUTROPHILS # 4.3 10^3/uL (1.5-8.5); NEUTROPHILS % 67.1 % (36.0-66.0); PLATELET COUNT, AUTOMATED 235 10^3/uL (150-450); RED BLOOD COUNT 3.77 10^6/uL (4.30-6.10); WHITE BLOOD COUNT 6.4 10^3/uL (4.0-10.0)
== END ==
LOC: M SFHCADAM 14:20
PROVIDERS: ATTEND Physician Assistant Medical
DX: Z01.818 Encounter for other preprocedural examination (principal); S43.432D Superior glenoid labrum lesion of left shoulder, subsequent encounter; S46.012D Strain of muscle(s) and tendon(s) of the rotator cuff of left shoulder, subsequent encounter

== ENCOUNTER → 2019-12-25 | Outpatient (CLI) | payer BC, OTHER | LOC: M LABSMTC 10:12 | PROVIDERS: ATTEND Orthopaedic Surgery | DX: Z03.818 Encounter for observation for suspected exposure to other biological agents ruled out (principal); Z11.59 Encounter for screening for other viral diseases ==

== ENCOUNTER → 2020-02-09 | Outpatient (POV) | payer BC, OTHER | LOC: M PAIN 09:00 | PROVIDERS: ATTEND Nurse Practitioner Family | DX: M54.2 Cervicalgia (principal) ==

== ENCOUNTER → 2020-04-23 | Outpatient (CLI) | payer BC, OTHER ==
[~2020-04-23] MED LIST changes: +AMLO1TAB24 PO; -AMLO5TAB6 PO; +ASPI-546 PO; -ASPI1TAB15 PO
--- NOTE | 2020-04-25 00:14 | ECWPNPC ---
PATIENT NAME: JENNIFER JAIME : 1955 GENDER: MALE VISIT DATE: 04/23/2020 DISCHARGE DATE: 04/23/20 1045 VISIT LOCKED DATE TIME: PHYSICIAN: THANH ZAPATA PHYSICIAN PAGER NO: ACTIVE RESOURCE: THANH ZAPATA REASON FOR APPOINTMENT 1. 3MOS F/U HISTORY OF PRESENT ILLNESS GENERAL: HERE FOR FOLLOW-UP AND MEDICATION MANAGEMENT OF PERSISTENT UPPER BACK AND NECK PAIN. OVER THE PAST MONTH HE IS NOTICING INCREASE IN HIS RIGHT UPPER BACK PAIN. PAIN IS AGGRAVATED IN THIS AREA WITH RANGE OF JOINT MOTION OF THE NECK OR USE OF HIS RIGHT ARM. HAS BENEFITED FROM TRIGGER POINT INJECTIONS IN THE PAST. REVIEWED MRIS AND DISCUSSED TREATMENT PLAN. CONTINUES WITH PERIODIC USE OF TRAMADOL FOR SEVERE EPISODES AND CYMBALTA DAILY FOR CHRONIC PAIN.-. FALL RISK SCREENING: SCREENING :ONE FALL WITH INJURY IN THE PAST YEAR FALL 06/09 LEFT SHOULDER INJURY, REQUIRING SURGICAL INTERVENTION SURGRY 01/08. PAIN SCREENING: PATIENT HAS A COMPLAINT OF ACUTE OR CHRONIC PAIN :YES LOCATION OF PAIN:NECK, RIGHT SHOULDER INTENSITY OF PAIN (SCALE OF 1 TO 10):3 WHAT DOES YOUR PAIN FEEL LIKE:STABBING "ICY/COLD PAIN" DURATION:STEADY PAIN IS INCREASED BY:ACTIVITIES PLAN/GOALS/TREATMENT/INTERVENTION/FOLLOW UP:SEE PLAN NURSING NOTE: -. PAIN CENTER INTAKE QUESTIONS: DO YOU HAVE A HISTORY OF MRSA? :NO DO YOU TAKE A BLOOD THINNERS? :NO DO YOU HAVE ANY BLEEDING DISORDERS? :NO ANY NEW NUMBNESS OR WEAKNESS IN YOUR LEGS OR ARMS? :NO ANY PACEMAKER,DEFIBRILLATOR, OR DORSAL COLUMN STIMULATOR? :NO DO YOU HAVE ANY RASHES OR OPEN SORES? :NO ARE YOU ALLERGIC TO IV DYE? :NO ARE YOU DIABETIC? :NO PRE DIABETIC ANY NEW PROBLEMS WITH YOUR MEDICATIONS? :NO HAVE YOU RECEIVED A VACCINE IN THE PAST 30 DAYS? :NO DO YOU PLAN TO RECEIVE A VACCINE IN THE NEXT 21 DAYS? :NO DO YOU NEED ANY PRESCRIPTION? :NO DO YOU TAKE ANY IMMUNOSUPPRESSIVE MEDICATIONS? :NO IS THERE A CHANCE YOU COULD BE ? :NO ARE YOU BREAST FEEDING? :NO CURRENT MEDICATIONS TAKING VITAMIN D 5000 UNIT TABLET 1 TABLET ORALLY DAILY TAKING CLOBETASOL PROPIONATE 0.05 % CREAM 1 APPLICATION TO AFFECTED AREA/ EZEXMA BODY EXTERNALLY TWICE A DAY NEEDED TAKING LOPROX CREAM CREAM TO FEET FOR FUNGUS TOPICALLY TWICE A DAY NEEDED TAKING ASPIRIN 81 MG TABLET 1 TAB(S) ORALLY DAILY TAKING NITROSTAT 0.4 MG TABLET SUBLINGUAL 1 TAB(S) SUBLINGUAL EVERY 5 MIN PRN CHEST PAIN, MAX DOSE 3 TAKING IBUPROFEN 600 MG TABLET 1 TABLET WITH FOOD OR MILK NEEDED ORALLY THREE TIMES A DAY TAKING AMLODIPINE 5MG TABLET 1 TAB(S) ORAL DAILY TAKING CYCLOBENZAPRINE HCL 5 MG TABLET 1-2 TABS ORALLY BEFORE BEDTIME TAKING OMEPRAZOLE 40 MG CAPSULE DELAYED RELEASE TAKE ONE CAPSULE BY MOUTH TWICE A DAY TAKING BISOPROLOL FUMARATE 5 MG TABLET TAKE ONE TABLET BY MOUTH TWICE A DAY TAKING MAY USE - - CBD CREAM DIRECTED TAKING ISOSORBIDE MONONITRATE ER 30 MG TABLET EXTENDED RELEASE 24 HOUR 1 TABLET IN THE MORNING ORALLY ONCE A DAY TAKING REQUIP 1 MG TABLET TAKE TWO TABLETS BY MOUTH AT BEDTIME ORALLY DAILY TAKING MELATONIN ER 1 MG TABLET EXTENDED RELEASE DIRECTED ORALLY TAKING TRAMADOL HCL 50 MG TABLET 1 TABLET NEEDED ORALLY EVERY 6 HRS PRN MDD4 TAKING DULOXETINE HCL 30 MG CAPSULE DELAYED RELEASE PARTICLES TAKE ONE CAPSULE BY MOUTH EVERY DAY ORALLY DAILY TAKING ATORVASTATIN CALCIUM 40 MG TABLET TAKE ONE TABLET BY MOUTH EVERY DAY TAKING AMITRIPTYLINE HCL 25 MG TABLET 2 TABLETS ORALLY BEFORE BEDTIME TAKING METFORMIN 1000 MG TABLET 1 TAB(S) ORALLY DAILY TAKING LISINOPRIL 10 MG TABLET TAKE ONE TABLET BY MOUTH EVERY DAY MEDICATION LIST REVIEWED AND RECONCILED WITH THE PATIENT PAST MEDICAL HISTORY CAD--NST 09/04 EF 63%, ANTEROSEPT ISCHEMIA, LAD STENT [facility] 09/04; NST 11/04, ANTEROSEPTAL REVERSIBLE ISCHEMIA, EF 60%; NST 11/06: NL PERFUSION, EF 65%; NST 11/08: NL PERFUSION, EF 66% IBS ECHO 08/07: EF 70%, SL ELEV PULM ART PRESSURE, NL VALVES DDD/DJD C-SPINE, T SPINE HYPERLIPIDEMIA PREDIABETES ESOPHAGEAL REFLUX- EGD 08/24, UGI-01/26, PH PROBE 10/26 HYPERTENSION VITAMIN D DEFICIENCY 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 RENAL STONE 12/25 CONCUSSION DECEMBER 2013 T7 COMPRESSION FRACTURE 2014 ANTONI, ON CPAP 01/04 PFTS AT [facility] 08/07--NL, FEV1/FVC 76% FRACTURE RIGHT ANKLE TORN LABRUM LEFT SHOULDER TINNITUS ALLERGIES PRAVACHOL: ELEV LFT'S - SIDE EFFECTS SURGICAL HISTORY L EYE SURGERY 1980 RUPTURED ACHILLES TENDON L X 2 12/1998, 05/1999 R KNEE ACL 2002 EGD/COLONOSCOPY--NL BOTH TIMES 08/24, 09/01 EGD--NL 01/26 CARDIAC CATH/LAD ADRIANNA STENT 09/04 09/04 RIGHT ANKLE 06/07 TOOTH EXTRACTION WITH BONE GRAFT X4 LEFT SHOULDER SURGERY 12/2019 FAMILY HISTORY FATHER: , AT 86, [place], DIAGNOSED WITH UNSPECIFIED HEART DISEASE MOTHER: , AT 66 OF PULM FIBROSIS, [place] 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 LATEX QUESTIONNAIRE LATEX ALLERGY : HAVE YOU EVER DEVELOPED ANY TYPE OF REACTION AFTER HANDLING LATEX PRODUCTS SUCH RUBBER GLOVES, CONDOMS, DIAPHRAGMS, BALLOONS, SOCKS, OR UNDERWEAR?NO LATEX ALLERGY : HAVE YOU EVER DEVELOPED ANY TYPE OF REACTION DURING OR AFTER DENTAL APPOINTMENT, VAGINAL/RECTAL EXAMINATION, SURGICAL PROCEDURE, OR ANY OTHER EXPOSURE?NO LATEX RISK : HAVE YOU EVER HAD ANY DIFFICULTY BREATHING OR HIVES AFTER EATING OR HANDLING ANY FRUITS, OR VEGETABLES; SUCH KIWI, BANANAS, STONE FRUITS, OR CHESTNUTSNO LATEX RISK : DO YOU HAVE A PREVIOUS PERSONAL HISTORY OF MORE THAN NINE SURGERIES, SPINA BIFIDA, OR REPEATED CATHERIZATIONS? NO LATEX RISK : ARE YOU FREQUENTLY EXPOSED TO LATEX PRODUCTS IN YOUR OCCUPATION?NO DATE ASKED : 04/23/2020 LUNG CANCER SCREENING SMOKING STATUS:NON SMOKER BMI CARE GOAL FOLLOW-UP ABOVE NORMAL BMI FOLLOW-UPDIETARY MANAGEMENT EDUCATION, GUIDANCE, AND COUNSELING ALCOHOL SCREENING DID YOU HAVE A DRINK CONTAINING ALCOHOL IN THE PAST YEAR?YES HOW OFTEN DID YOU HAVE SIX OR MORE DRINKS ON ONE OCCASION IN THE PAST YEAR?NEVER (0 POINTS) HOW MANY DRINKS DID YOU HAVE ON A TYPICAL DAY WHEN YOU WERE DRINKING IN THE PAST YEAR?3 OR 4 (1 POINT) HOW OFTEN DID YOU HAVE A DRINK CONTAINING ALCOHOL IN THE PAST YEAR?TWO TO THREE TIMES PER WEEK (3 POINTS) POINTS4 INTERPRETATIONPOSITIVE RECREATIONAL DRUG USE DRUG USE?NO CAFFEINE CAFFEINE USE?YES COFFEE HOW OFTEN AND HOW MUCH? 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 MARITAL STATUS: . PAIN CLINIC PFS, CLERGY, PUBLIC HEALTH REFERRALS PFS REFERRAL NEEDED?NO CLERGY REFERRAL NEEDED?NO PUBLIC HEALTH REFERRAL NEEDED?NO HAS THE PATIENT BEEN EDUCATED REGARDING HIS/HER PLAN OF CARE?YES HAS THE PATIENT BEEN EDUCATED REGARDING PAIN, THE RISK FOR PAIN, THE IMPORTANCE OF EFFECTIVE PAIN MANAGEMENT, AND THE PAIN ASSESSMENT PROCESS?YES ADVANCE DIRECTIVE ADVANCE DIRECTIVE DISCUSSED WITH PATIENT:YES PT STATES HE ALREADY HAD INFORMATION ON HCP BUT HAS NOT COMPLETED IT YET. ASSISTANCE OFFERED IN COMPLETING FORM IF NEEDED. HOSPITALIZATION/MAJOR DIAGNOSTIC PROCEDURE SURG RELATED REVIEW OF SYSTEMS CONSTITUTIONAL: ANY RECENT FEVER NO . CHILLS NO . WEIGHT CHANGE OF UNKNOWN REASONS NO . GASTROENTEROLOGY: NEW UNEXPLAINABLE CHANGES IN BOWEL CONTROL NO . CONSTIPATION NO . GENITOURINARY: ANY NEW CHANGE IN BLADDER CONTROL? NO . NEUROLOGY: NEW ONSET DIZZINESS OR NEUROLOGICAL CHANGES NOT MENTIONED NO . NEW NUMBNESS OR PAIN PATTERNS NOT MENTIONED AND PERTINENT TO TODAY'S VISIT NO . CARDIOLOGY: NEW CHEST PRESSURE NO . NEW CHEST PAIN NO . RESPIRATORY: UNEXPLAINABLE COUGH NO . NEW SHORTNESS OF BREATH NO . VITAL SIGNS WT 230.6 LBS, HT 70 IN, BMI 33.08 INDEX, BP 129/81 MM HG, HR 87 /MIN, RR 18 /MIN, TEMP 96.7 F, OXYGEN SAT % 93%, SAFE IN ENV? (Y/N) YES, NA INITIALS GA 09:51, REVIEWED BY: SRIDEVI [place] [employer] MACHINE TENDER. EXAMINATION GENERAL EXAMINATION: GENERAL AWAKE,ALERT ,PLEAASANT . PSYCH AFFECT NORMAL . LUNGS: LUNG MERA ARE CLEAR TO AUSCULTATION BILATERALLY. GOOD MOVEMENT OF AIR . HEART: S1, S2 IN A REGULAR RATE AND RHYTHM. NO SIGNIFICANT MURMURS, RUBS OR GALLOPS NOTED . MUSCULOSKELETAL:NORMAL RANGE OF MOTION , TRIGGER POINTS: NOTED OVER RIGHT SCAPULAR AREA/RIGHT UPPER BACK. PAIN IS AGGRAVATED IN THIS REGION WITH RANGE OF JOINT MOTION OF THE NECK AND RANGE OF JOINT MOTION OF THE RIGHT ARM.. ASSESSMENTS MYALGIA, OTHER SITE - M79.18 (PRIMARY) TREATMENT MYALGIA, OTHER SITE NOTES: TRIGGER POINT INJECTIONS RIGHT SCAPULAR 1040 04/23/20 PATIENT GIVEN PRE PROCEDURE INSTRUCTIONS FOR TRIGGER POINT INJECTIONS, PATIENT VERBALIZED UNDERSTANDING OF INSTRUCTIONS. . PROCEDURE CODES FA211 ESTABILISHED PATIENT [facility] CHARGE DISPOSITION & COMMUNICATION FOLLOW UP POST PROCEDURE (REASON: TRIGGER POINT INJECTIONS RIGHT SCAPULAR) ELECTRONICALLY SIGNED BY LAURA ORDAZ ON 04/24/2020 AT 09:05 AM EST DISCLAIMER : THIS IS A VISIT SUMMARY EXTRACTED FROM THE [employer] CHART. IT IS NOT A COPY OF THE [employer] PROGRESS NOTE. RADHA
== END ==
LOC: M PAIN 09:30
PROVIDERS: ATTEND Nurse Practitioner Family
DX: M79.18 Myalgia, other site (principal); I25.10 Atherosclerotic heart disease of native coronary artery without angina pectoris; K58.9 Irritable bowel syndrome, unspecified; M50.30 Other cervical disc degeneration, unspecified cervical region; M51.34 Other intervertebral disc degeneration, thoracic region; E78.5 Hyperlipidemia, unspecified; R73.03 Prediabetes; K21.9 Gastro-esophageal reflux disease without esophagitis; I10 Essential (primary) hypertension; E55.9 Vitamin D deficiency, unspecified; G25.81 Restless legs syndrome; G47.33 Obstructive sleep apnea (adult) (pediatric); Z79.82 Long term (current) use of aspirin; Z79.891 Long term (current) use of opiate analgesic; Z79.84 Long term (current) use of oral hypoglycemic drugs; Z79.899 Other long term (current) drug therapy; Z88.8 Allergy status to other drugs, medicaments and biological substances

== ENCOUNTER → 2020-05-06 | Outpatient (CLI) | payer BC, OTHER | LOC: M LABSMTC 08:49 | PROVIDERS: ATTEND Anesthesiology | DX: Z20.828 Contact with and (suspected) exposure to other viral communicable diseases (principal) ==

== ENCOUNTER → 2020-05-11 | Outpatient (CLI) | payer BC, OTHER ==
[~2020-05-11] MED LIST changes: +BUPIVACAINE HCL 0.25% 10ML VIAL As Ordered ONE; +BUPIVACAINE HCL 0.25% 30ML VIAL As Ordered ONE; +TRIAMCINOLONE ACETONIDE SUSP 40 MG/ML VIAL (J3301) As Ordered ONE; +diazePAM 5 MG TAB As Ordered ONE; +oxyCODONE 5MG TAB As Ordered ONE
--- NOTE | 2020-05-24 02:34 | ECWPNPC ---
PATIENT NAME: JENNIFER JAIME : 1955 GENDER: MALE VISIT DATE: 05/11/2020 DISCHARGE DATE: 05/11/201452 VISIT LOCKED DATE TIME: PHYSICIAN: DAVID CUBA MD PHYSICIAN PAGER NO: ACTIVE RESOURCE: DAVID CUBA MD REASON FOR APPOINTMENT 1. TRIGGER POINT INJECTIONS RIGHT SCAPULAR HISTORY OF PRESENT ILLNESS GENERAL: -. FALL RISK SCREENING: SCREENING :ONE FALL WITH INJURY IN THE PAST YEAR FALL 05/2019, LEFT SHOULDER INJURY REQUIRING SURGICAL INTERVENTION. PAIN SCREENING: PATIENT HAS A COMPLAINT OF ACUTE OR CHRONIC PAIN :YES LOCATION OF PAIN: RIGHT NECK, RIGHT SHOULDER/ARM INTENSITY OF PAIN (SCALE OF 1 TO 10):6 WITH MOVEMENT STATES PAIN IS A 6/10 UPWARDS TO 9./10 AT VARIOUS POINTS OF THE DAY. WHAT DOES YOUR PAIN FEEL LIKE:SHARP, OTHER "ICY" PAIN INTO ARM FEELS LIKE AN "ELECTRICAL SHOCK" DURATION:AWAKENS FROM SLEEP, STEADY PAIN IS INCREASED BY:ACTIVITIES, PROLONGED STANDING PLAN/GOALS/TREATMENT/INTERVENTION/FOLLOW UP:SEE PLAN NURSING NOTE: -. PAIN CENTER INTAKE QUESTIONS: DO YOU HAVE A HISTORY OF MRSA? :NO DO YOU TAKE A BLOOD THINNERS? :NO DO YOU HAVE ANY BLEEDING DISORDERS? :NO ANY NEW NUMBNESS OR WEAKNESS IN YOUR LEGS OR ARMS? :YES IN THE LAST COUPLE OF WEEKS, SHOOTS DOWN INTO SHOULDER BLADE AND ARM. ANY PACEMAKER,DEFIBRILLATOR, OR DORSAL COLUMN STIMULATOR? :NO DO YOU HAVE ANY RASHES OR OPEN SORES? :NO ARE YOU ALLERGIC TO IV DYE? :NO ARE YOU DIABETIC? :NO ANY NEW PROBLEMS WITH YOUR MEDICATIONS? :NO HAVE YOU RECEIVED A VACCINE IN THE PAST 30 DAYS? :NO DO YOU PLAN TO RECEIVE A VACCINE IN THE NEXT 21 DAYS? :NO DO YOU TAKE ANY IMMUNOSUPPRESSIVE MEDICATIONS? :NO ANY HISTORY OF SEIZURES? :NO ANY HISTORY OF CARDIAC ISSUES OR EVENTS? :YES CARDIAC STENT AUGUST 2015. DO YOU HAVE SLEEP APNEA? :NO ANY RECENT HEAD INJURY? :NO DO YOU HAVE ANY NEW INFECTIONS? :NO IS THERE A CHANCE YOU COULD BE ? :NO ARE YOU BREAST FEEDING? :NO WHEN DID YOU LAST EAT? : 05/10/20 2200 WHEN DID YOU LAST DRINK? : 05/11/20 0900 WHAT DID YOU LAST DRINK? : 8OZ WATER WITH MEDICATIONS NAME OF PERSON DRIVING YOU HOME? : BELL () DO YOU HAVE ANY OTHER QUESTIONS OR CONCERNS? : NO CURRENT MEDICATIONS TAKING VITAMIN D 5000 UNIT TABLET 1 TABLET ORALLY DAILY, NOTES: 05/11 900 TAKING CLOBETASOL PROPIONATE 0.05 % CREAM 1 APPLICATION TO AFFECTED AREA/ EZEXMA BODY EXTERNALLY TWICE A DAY NEEDED, NOTES: NOT RECENTLY TAKING LOPROX CREAM CREAM TO FEET FOR FUNGUS TOPICALLY TWICE A DAY NEEDED, NOTES: NOT RECENTLY TAKING ASPIRIN 81 MG TABLET 1 TAB(S) ORALLY DAILY, NOTES: 05/10 2230 TAKING NITROSTAT 0.4 MG TABLET SUBLINGUAL 1 TAB(S) SUBLINGUAL EVERY 5 MIN PRN CHEST PAIN, MAX DOSE 3, NOTES: NOT RECENTLY TAKING IBUPROFEN 600 MG TABLET 1 TABLET WITH FOOD OR MILK NEEDED ORALLY THREE TIMES A DAY, NOTES: NOT RECENTLY TAKING AMLODIPINE 5MG TABLET 1 TAB(S) ORAL DAILY, NOTES: 05/10 2230 TAKING CYCLOBENZAPRINE HCL 5 MG TABLET 1-2 TABS ORALLY BEFORE BEDTIME, NOTES: 05/10 2230 TAKING OMEPRAZOLE 40 MG CAPSULE DELAYED RELEASE TAKE ONE CAPSULE BY MOUTH TWICE A DAY , NOTES: 05/11 900 TAKING BISOPROLOL FUMARATE 5 MG TABLET TAKE ONE TABLET BY MOUTH TWICE A DAY , NOTES: 05/11 900 TAKING MAY USE - - CBD CREAM DIRECTED, NOTES: A WEEK AND A HALF AGO TAKING ISOSORBIDE MONONITRATE ER 30 MG TABLET EXTENDED RELEASE 24 HOUR 1 TABLET IN THE MORNING ORALLY ONCE A DAY, NOTES: 05/11 900 TAKING REQUIP 1 MG TABLET TAKE TWO TABLETS BY MOUTH AT BEDTIME ORALLY DAILY, NOTES: 05/10 2230 TAKING MELATONIN ER 1 MG TABLET EXTENDED RELEASE DIRECTED ORALLY , NOTES: NOT RECNTLY TAKING TRAMADOL HCL 50 MG TABLET 1 TABLET NEEDED ORALLY EVERY 6 HRS PRN MDD4, NOTES: 05/10 2230 TAKING DULOXETINE HCL 30 MG CAPSULE DELAYED RELEASE PARTICLES TAKE ONE CAPSULE BY MOUTH EVERY DAY ORALLY DAILY, NOTES: 05/10 2230 TAKING ATORVASTATIN CALCIUM 40 MG TABLET TAKE ONE TABLET BY MOUTH EVERY DAY , NOTES: 05/10 2230 TAKING AMITRIPTYLINE HCL 25 MG TABLET 2 TABLETS ORALLY BEFORE BEDTIME, NOTES: 05/10 2230 TAKING METFORMIN 1000 MG TABLET 1 TAB(S) ORALLY DAILY, NOTES: 05/10 900 TAKING LISINOPRIL 10 MG TABLET TAKE ONE TABLET BY MOUTH EVERY DAY , NOTES: 05/11 900 MEDICATION LIST REVIEWED AND RECONCILED WITH THE PATIENT PAST MEDICAL HISTORY CAD--NST 09/04 EF 63%, ANTEROSEPT ISCHEMIA, LAD STENT [facility] 09/04; NST 11/04, ANTEROSEPTAL REVERSIBLE ISCHEMIA, EF 60%; NST 11/06: NL PERFUSION, EF 65%; NST 11/08: NL PERFUSION, EF 66% IBS ECHO 08/07: EF 70%, SL ELEV PULM ART PRESSURE, NL VALVES DDD/DJD C-SPINE, T SPINE HYPERLIPIDEMIA PREDIABETES ESOPHAGEAL REFLUX- EGD 08/24, UGI-01/26, PH PROBE 10/26 HYPERTENSION VITAMIN D DEFICIENCY 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 RENAL STONE 12/25 CONCUSSION DECEMBER 2013 T7 COMPRESSION FRACTURE 2014 ANTONI, ON CPAP 01/04 PFTS AT [facility] 08/07--NL, FEV1/FVC 76% FRACTURE RIGHT ANKLE TORN LABRUM LEFT SHOULDER TINNITUS ALLERGIES PRAVACHOL: ELEV LFT'S - SIDE EFFECTS SURGICAL HISTORY L EYE SURGERY 1980 RUPTURED ACHILLES TENDON L X 2 12/1998, 05/1999 R KNEE ACL 2002 EGD/COLONOSCOPY--NL BOTH TIMES 08/24, 09/01 EGD--NL 01/26 CARDIAC CATH/LAD ADRIANNA STENT 09/04 09/04 RIGHT ANKLE 06/07 TOOTH EXTRACTION WITH BONE GRAFT X4 LEFT SHOULDER SURGERY 12/2019 FAMILY HISTORY FATHER: , AT 86, [place], DIAGNOSED WITH UNSPECIFIED HEART DISEASE MOTHER: , AT 66 OF PULM FIBROSIS, [employer]O INSPECTION SPECIALIST; CAD, UNSPECIFIED HEART DISEASE 2 BROTHER(S) . 2DAUGHTER(S) - HEALTHY. YOUNGER BROTHER: THYROID. SOCIAL HISTORY GENERAL: TOBACCO USE ARE YOU A: NONSMOKER. LATEX QUESTIONNAIRE LATEX ALLERGY : HAVE YOU EVER DEVELOPED ANY TYPE OF REACTION AFTER HANDLING LATEX PRODUCTS SUCH RUBBER GLOVES, CONDOMS, DIAPHRAGMS, BALLOONS, SOCKS, OR UNDERWEAR?NO LATEX ALLERGY : HAVE YOU EVER DEVELOPED ANY TYPE OF REACTION DURING OR AFTER DENTAL APPOINTMENT, VAGINAL/RECTAL EXAMINATION, SURGICAL PROCEDURE, OR ANY OTHER EXPOSURE?NO LATEX RISK : HAVE YOU EVER HAD ANY DIFFICULTY BREATHING OR HIVES AFTER EATING OR HANDLING ANY FRUITS, OR VEGETABLES; SUCH KIWI, BANANAS, STONE FRUITS, OR CHESTNUTSNO LATEX RISK : DO YOU HAVE A PREVIOUS PERSONAL HISTORY OF MORE THAN NINE SURGERIES, SPINA BIFIDA, OR REPEATED CATHERIZATIONS? NO LATEX RISK : ARE YOU FREQUENTLY EXPOSED TO LATEX PRODUCTS IN YOUR OCCUPATION?NO DATE ASKED : 05/11/2020 LUNG CANCER SCREENING SMOKING STATUS:NON SMOKER BMI CARE GOAL FOLLOW-UP ABOVE NORMAL BMI FOLLOW-UPDIETARY MANAGEMENT EDUCATION, GUIDANCE, AND COUNSELING ALCOHOL SCREENING DID YOU HAVE A DRINK CONTAINING ALCOHOL IN THE PAST YEAR?YES HOW OFTEN DID YOU HAVE SIX OR MORE DRINKS ON ONE OCCASION IN THE PAST YEAR?NEVER (0 POINTS) HOW MANY DRINKS DID YOU HAVE ON A TYPICAL DAY WHEN YOU WERE DRINKING IN THE PAST YEAR?3 OR 4 (1 POINT) HOW OFTEN DID YOU HAVE A DRINK CONTAINING ALCOHOL IN THE PAST YEAR?TWO TO THREE TIMES PER WEEK (3 POINTS) POINTS4 INTERPRETATIONPOSITIVE RECREATIONAL DRUG USE DRUG USE?NO CAFFEINE CAFFEINE USE?YES COFFEE HOW OFTEN AND HOW MUCH? 3 CUPS COFFEE/DAY SEXUAL HX HAD SEX IN THE LAST 12 MONTHS (VAGINAL, ORAL, OR ANAL)?YES WITHWOMEN ONLY HAVE YOU EVER HAD AN STD?NO JEW [id number] CAODAISM LANGUAGE LANGUAGES SPOKEN:MALAY LEARNING BARRIERS / SPECIAL NEEDS CHANGE FROM LAST VISIT?NO BARRIERS TO LEARNING?NO HEARING IMPAIRED?YES VISION IMPAIRED?YES COGNITIVELY IMPAIRED?NO : 10% HEARING LOSS RIGHT EAR :CORRECTIVE LENSES READINESS TO LEARN?YES LEARNING PREFERENCES?NO LEARNING CAPABILITIES PRESENT?YES EMOTIONAL BARRIERS?NO SPECIAL DEVICES?NO CIVIL LITIGATION ATTORNEY NEEDED?NO OCCUPATION: [employer] CONS[employer]ANT - RETIRED. MARITAL STATUS: . PAIN CLINIC PFS, CLERGY, PUBLIC HEALTH REFERRALS PFS REFERRAL NEEDED?NO CLERGY REFERRAL NEEDED?NO PUBLIC HEALTH REFERRAL NEEDED?NO HAS THE PATIENT BEEN EDUCATED REGARDING HIS/HER PLAN OF CARE?YES HAS THE PATIENT BEEN EDUCATED REGARDING PAIN, THE RISK FOR PAIN, THE IMPORTANCE OF EFFECTIVE PAIN MANAGEMENT, AND THE PAIN ASSESSMENT PROCESS?YES ADVANCE DIRECTIVE ADVANCE DIRECTIVE DISCUSSED WITH PATIENT:YES PT STATES HE ALREADY HAD INFORMATION ON HCP BUT HAS NOT COMPLETED IT YET. ASSISTANCE OFFERED IN COMPLETING FORM IF NEEDED. HOSPITALIZATION/MAJOR DIAGNOSTIC PROCEDURE SURG RELATED ER HYPOGLYCEMIC RELATED TO METFORMIN BID 09/2019 VITAL SIGNS WT 225.4 LBS, HT 70 IN, BMI 32.34 INDEX, BP 125/75 MM HG, HR 77 /MIN, RR 18 /MIN, TEMP 97.3 F, OXYGEN SAT % 97%, SAFE IN ENV? (Y/N) YES, NA INITIALS AW 1330, REVIEWED BY: SRIDEVI SAN STATION EXAMINER. EXAMINATION GENERAL EXAMINATION: THE PATIENT IS ALERT, ORIENTED TIMES THREE AND COOPERATIVE. HEART SHOWS REGULAR RHYTHM, NO MURMURS AND NO GALLOPS. LUNGS ARE CLEAR TO AUSCULTATION. ASSESSMENTS MYALGIA, OTHER SITE - M79.18 (PRIMARY) TREATMENT MYALGIA, OTHER SITE MEDICATION: VALIUM TAB 5MG ORALLY (DIAZEPAM)SALVADOR SAN 05/11/2020 2:03:01 PM > LOT # [id number] EXP: 01/09. IRAM MCKINNEY 05/11/2020 2:05:15 PM > VERIFIED SALVADOR SAN 05/11/2020 2:25:04 PM > ADMINISTERED AT 1408. MEDICATION: OXYCODONE HCL TAB 10MG ORALLYSALVADOR SAN 05/11/2020 2:03:27 PM > LOT# [id number] EXP: 08/13. IRAM MCKINNEY 05/11/2020 2:05:36 PM > VERIFIED SALVADOR SAN 05/11/2020 2:25:18 PM > ADMINISTERED AT 1408. PROCEDURES PAIN NURSING RECORD PRE-PROCEDURE IV SITE N/A, PRE-PROCEDURE ORAL MEDICATIONS YES PLEASE SEE TREATMENT SECTION. PROCEDURE IN ROOM 1330, PHYSICIAN IN ROOM 1428, START 1432, FINISH 1435, PHYSICIAN OUT OF ROOM 1437, OUT OF ROOM 1451, STEROID KENALOG, O2 RA, ECG N/A, PATIENT SHIELDED NO, SAFETY STRAP NO, PREP ALCOHOL DR. CUBA, IV INFUSED N/A, DRESSING TEGADERM SALVADOR SAN STATION EXAMINER LOC: SALVADOR SAN 05/11/2020 13:30:36 PM > 1. ALERT, ORIENTED RESP: SALVADOR SAN 05/11/2020 13:30:36 PM > 1. REGULAR, NO DYSPNEA COLOR: SALVADOR SAN 05/11/2020 13:30:36 PM > 1. PINK SKIN: SALVADOR SAN 05/11/2020 13:30:36 PM > 1. WARM, DRY POSITION: SALVADOR SAN 05/11/2020 13:30:36 PM > 4. OTHER, SITTING UPRIGHT VITALS: SALVADOR SAN 05/11/2020 2:40:54 PM > POST PROCEDURE 117/77, 75, 95% RA, 18. DISCHARGE: POST PAIN 1, DRESSING SITE DRY AND INTACT, IV N/A, GAIT STEADY, TEACHING COMPLETED, PATIENT ACKNOWLEDGES UNDERSTANDING YES, PATIENT DISCHARGED AT 1451 PN TRIGGER POINT INJECTION WITH STEROIDS PRE PROCEDURE DIAGNOSIS 1. MYALGIA 2. PAIN AT RIGHT NECK AREA AND RIGHT SHOULDER AREA POST PROCEDURE DIAGNOSIS 1. MYALGIA 2. PAIN AT RIGHT NECK AREA AND RIGHT SHOULDER AREA PROCEDURE TRIGGER POINT INJECTION AT RIGHT NECK AREA AND RIGHT SHOULDER AREA SURGEON DR. DAVID CUBA SALES OPERATIONS ASSISTANT NONE ANESTHESIA LOCAL PRE PROCEDURE NOTE THE PATIENT HAS A HISTORY OF CHRONIC PAIN AT THE RIGHT NECK AREA AND RIGHT SHOULDER AREA. I EVALUATED THE PATIENT AND REVIEWED THE CHART. THERE IS EVIDENCE OF BANDS OF TISSUE WITH RESTRICTION OF MOVEMENT AND PRESENCE OF TRIGGER POINT AT THE RIGHT NECK AREA AND RIGHT SHOULDER AREA. I WENT OVER THE RISKS, ALTERNATIVES, AND BENEFITS ASSOCIATED WITH THIS PROCEDURE. THE PATIENT WOULD LIKE TO PROCEED AND GIVE CONSENT TO PERFORMED THE PROCEDURE. THE PATIENT DENIES UNEXPLAINABLE WEIGHT LOSS, FEVER, CHILLS, OR NEW CHANGES IN URINARY OR BOWEL CONTROL. THE PATIENT IS COVID-19 NEGATIVE DESCRIPTION OF PROCEDURE THE PATIENT WAS BROUGHT TO THE PROCEDURE ROOM AND PLACED IN THE SITTING POSITION. THE AREA WAS CLEANED WITH ALCOHOL. THE PROCEDURE WAS DONE USING ASEPTIC STERILE TECHNIQUE. A TIMEOUT WAS PERFORMED WHERE LATERALITY AND THE SITE OF THE PROCEDURE WERE CHECKED AND CONFIRMED WITH EVERYONE IN THE ROOM. USING A 25-GAUGE NEEDLE, TRIGGER POINTS WERE INJECTED AT THE RIGHT NECK AREA AND RIGHT SHOULDER AREA WITH A TOTAL OF 40 ML OF BUPIVACAINE 0.25% AND KENALOG 40 MG. THE MEDICATIONS WERE VERIFIED WITH THE NURSE. THERE WAS NO EVIDENCE OF BLOOD OR PARESTHESIA DURING THE PROCEDURE. THE PATIENT WAS SENT TO THE RECOVERY ROOM. THE PATIENT WAS MOVING THE EXTREMITIES AND DOING WELL. THERE WERE NO COMPLICATIONS DURING THE PROCEDURE. ESTIMATED BLOOD LOSS WAS LESS THAN 5 ML POST PROCEDURE NOTE THE PROCEDURE DONE WAS DISCUSSED WITH THE PATIENT. THE PATIENT WILL BE SEEN IN A FOLLOW UP IN THE NEXT FEW WEEKS. I AM LOOKING FOR LONG LASTING PAIN RELIEF FOR THE PATIENT WITH THIS INTERVENTION. INSTRUCTIONS WERE GIVEN, QUESTIONS WERE ANSWERED, AND THE PATIENT EXPRESSED UNDERSTANDING AND AGREES WITH THE PLAN. I, SIMON JACKSON, DOCUMENTED THE ABOVE INFORMATION ACTING A SCRIBE FOR DR. CUBA. I HAVE REVIEWED THE ABOVE DOCUMENT, WRITTEN BY SIMON JACKSON, PRESSING MACHINE OPERATOR, AND I VERIFY THAT IT IS ACCURATE PROCEDURE CODES 13294 INJ TRIGGER POINT 06/23 MUSCL DISPOSITION & COMMUNICATION FOLLOW UP FOLLOW UP WITH LOG DECKMAN (REASON: POST TPI RIGHT NECK AND SHOULDER ) ELECTRONICALLY SIGNED BY DAVID CUBA MD, MD ON 05/23/2020 AT 01:53 PM EST DISCLAIMER : THIS IS A VISIT SUMMARY EXTRACTED FROM THE [employer] CHART. IT IS NOT A COPY OF THE [employer] PROGRESS NOTE. RADHA
== END ==
LOC: M PAIN 13:30
PROVIDERS: ATTEND Anesthesiology
DX: M79.18 Myalgia, other site (principal); K21.9 Gastro-esophageal reflux disease without esophagitis; E55.9 Vitamin D deficiency, unspecified; G25.81 Restless legs syndrome; G47.33 Obstructive sleep apnea (adult) (pediatric); R73.03 Prediabetes; Z95.5 Presence of coronary angioplasty implant and graft; Z88.8 Allergy status to other drugs, medicaments and biological substances; Z79.82 Long term (current) use of aspirin; Z79.84 Long term (current) use of oral hypoglycemic drugs; Z79.899 Other long term (current) drug therapy
CPT/HCPCS: 20552; J3301

== ENCOUNTER → 2020-05-31 | Outpatient (REF) | payer BC, OTHER ==
[~2020-05-31] MED LIST changes: -BUPIVACAINE HCL 0.25% 10ML VIAL As Ordered ONE; -BUPIVACAINE HCL 0.25% 30ML VIAL As Ordered ONE; -TRIAMCINOLONE ACETONIDE SUSP 40 MG/ML VIAL (J3301) As Ordered ONE; -diazePAM 5 MG TAB As Ordered ONE; -oxyCODONE 5MG TAB As Ordered ONE
[2020-05-31 13:14] LABS: HEMATOCRIT 37.9 % (42.0-52.0); HEMOGLOBIN 12.2 g/dl (13.5-17.5); MEAN CORPUSCULAR HEMOGLOBIN 31.3 pg (27.0-33.0); MEAN CORPUSCULAR HGB CONC 32.2 g/dl (32.0-36.5); MEAN CORPUSCULAR VOLUME 97.2 fl (80.0-96.0); PLATELET COUNT, AUTOMATED 210 10^3/uL (150-450)
[2020-05-31 13:37] LABS: ALBUMIN 3.9 GM/DL (3.2-5.2); ALT/SGPT 101 U/L (12-78); BILIRUBIN,TOTAL 0.6 MG/DL (0.2-1.0); BLOOD UREA NITROGEN 22 MG/DL (7-18); CALCIUM LEVEL 9.1 MG/DL (8.8-10.2); CARBON DIOXIDE LEVEL 29 MEQ/L (21-32); CHLORIDE LEVEL 108 MEQ/L (98-107); CHOLESTEROL LEVEL 198 MG/DL (<200); CHOLESTEROL RISK RATIO 2.605 (<5); CREATININE FOR GFR 1.27 MG/DL (0.70-1.30); GLOMERULAR FILTRATION RATE > 60.0 (>49); GLUCOSE, FASTING 121 MG/DL (70-100); HDL CHOLESTEROL 76 MG/DL (>40); LDL CHOLESTEROL 96 MG/DL (<100); NON-HDL-C 122 MG/DL; POTASSIUM SERUM 4.7 MEQ/L (3.5-5.1); SODIUM LEVEL 139 MEQ/L (136-145); TOTAL PROTEIN 6.9 GM/DL (6.4-8.2); TRIGLYCERIDES LEVEL 132 MG/DL (<150)
[2020-05-31 13:38] LABS: HEMOGLOBIN A1c 6.5 %
== END ==
LOC: M LABDRWAD 12:41
PROVIDERS: ATTEND Family Medicine
DX: I11.9 Hypertensive heart disease without heart failure (principal); E11.9 Type 2 diabetes mellitus without complications; E78.5 Hyperlipidemia, unspecified

== ENCOUNTER → 2020-06-08 | Outpatient (CLI) | payer BC, OTHER ==
--- NOTE | 2020-06-12 00:49 | ECWPNPC ---
PATIENT NAME: JENNIFER JAIME : 1955 GENDER: MALE VISIT DATE: 06/08/2020 DISCHARGE DATE: 06/08/20 1221 VISIT LOCKED DATE TIME: PHYSICIAN: THANH ZAPATA PHYSICIAN PAGER NO: ACTIVE RESOURCE: THANH ZAPATA REASON FOR APPOINTMENT 1. POST TRIGGER POINT INJECTION HISTORY OF PRESENT ILLNESS GENERAL: HERE FOR POST PROCEDURE FOLLOW-UP. HAD TRIGGER POINT INJECTIONS RIGHT NECK AND RIGHT SHOULDER ON 05/11/2020. REPORTING NO IMPROVEMENT IN HIS PAIN POSTPROCEDURE. HE IS VERY UNCOMFORTABLE TODAY. COMPLAINING OF PAIN THAT RADIATES INTO RIGHT SCAPULA AND DOWN RIGHT ARM. REPORTS THAT TRAMADOL IS INEFFECTIVE. REPORTING INTERRUPTION IN SLEEP DUE TO PAIN. REVIEWED CERVICAL MRI. DISCUSSED TREATMENT OPTIONS. HAS RESPONDED WELL TO CERVICAL EPIDURAL STEROID INJECTIONS IN THE PAST. -. FALL RISK SCREENING: SCREENING :TWO OR MORE FALLS WITHOUT INJURY IN THE PAST YEAR PAIN SCREENING: PATIENT HAS A COMPLAINT OF ACUTE OR CHRONIC PAIN :YES LOCATION OF PAIN:NECK, RIGHT SHOULDER, OTHER: RIGHT ARM INTENSITY OF PAIN (SCALE OF 1 TO 10):3 WHAT DOES YOUR PAIN FEEL LIKE:ACHING, SHOOTING DURATION:CONTINOUS, AWAKENS FROM SLEEP DIFFICULT FALLING ASLEEP PAIN IS INCREASED BY:ACTIVITIES, OTHERS BENDING OVER AND REACHING PAIN IS DECREASED BY:USE OF PAIN MEDICATIONS, OTHERS HEATING PAD NURSING NOTE: -. PAIN CENTER INTAKE QUESTIONS: DO YOU HAVE A HISTORY OF MRSA? :NO DO YOU TAKE A BLOOD THINNERS? :NO DO YOU HAVE ANY BLEEDING DISORDERS? :NO ANY NEW NUMBNESS OR WEAKNESS IN YOUR LEGS OR ARMS? :YES PT STATE NUMBNESS TO RIGHT PINKY ANY PACEMAKER,DEFIBRILLATOR, OR DORSAL COLUMN STIMULATOR? :NO DO YOU HAVE ANY RASHES OR OPEN SORES? :NO ARE YOU ALLERGIC TO IV DYE? :NO ARE YOU DIABETIC? :NO ANY NEW PROBLEMS WITH YOUR MEDICATIONS? :NO HAVE YOU RECEIVED A VACCINE IN THE PAST 30 DAYS? :NO DO YOU PLAN TO RECEIVE A VACCINE IN THE NEXT 21 DAYS? :YES IF SO WHAT VACCINE AND WHEN? WANT TO GET COVID VACCINE ONCE AVAILABLE DO YOU NEED ANY PRESCRIPTION? :YES DULOXETINE DO YOU TAKE ANY IMMUNOSUPPRESSIVE MEDICATIONS? :NO IS THERE A CHANCE YOU COULD BE ? :NO ARE YOU BREAST FEEDING? :NO CURRENT MEDICATIONS TAKING VITAMIN D 5000 UNIT TABLET 1 TABLET ORALLY DAILY TAKING CLOBETASOL PROPIONATE 0.05 % CREAM 1 APPLICATION TO AFFECTED AREA/ EZEXMA BODY EXTERNALLY TWICE A DAY NEEDED TAKING LOPROX CREAM CREAM TO FEET FOR FUNGUS TOPICALLY TWICE A DAY NEEDED TAKING ASPIRIN 81 MG TABLET 1 TAB(S) ORALLY DAILY TAKING NITROSTAT 0.4 MG TABLET SUBLINGUAL 1 TAB(S) SUBLINGUAL EVERY 5 MIN PRN CHEST PAIN, MAX DOSE 3 TAKING IBUPROFEN 600 MG TABLET 1 TABLET WITH FOOD OR MILK NEEDED ORALLY THREE TIMES A DAY TAKING AMLODIPINE 5MG TABLET 1 TAB(S) ORAL DAILY TAKING OMEPRAZOLE 40 MG CAPSULE DELAYED RELEASE TAKE ONE CAPSULE BY MOUTH TWICE A DAY TAKING BISOPROLOL FUMARATE 5 MG TABLET TAKE ONE TABLET BY MOUTH TWICE A DAY TAKING MAY USE - - CBD CREAM DIRECTED TAKING ISOSORBIDE MONONITRATE ER 30 MG TABLET EXTENDED RELEASE 24 HOUR 1 TABLET IN THE MORNING ORALLY ONCE A DAY TAKING REQUIP 1 MG TABLET TAKE TWO TABLETS BY MOUTH AT BEDTIME ORALLY DAILY TAKING MELATONIN ER 1 MG TABLET EXTENDED RELEASE DIRECTED ORALLY TAKING TRAMADOL HCL 50 MG TABLET 1 TABLET NEEDED ORALLY EVERY 6 HRS PRN MDD4 TAKING DULOXETINE HCL 30 MG CAPSULE DELAYED RELEASE PARTICLES TAKE ONE CAPSULE BY MOUTH EVERY DAY ORALLY DAILY TAKING ATORVASTATIN CALCIUM 40 MG TABLET TAKE ONE TABLET BY MOUTH EVERY DAY TAKING METFORMIN 1000 MG TABLET 1 TAB(S) ORALLY DAILY TAKING LISINOPRIL 10 MG TABLET TAKE ONE TABLET BY MOUTH EVERY DAY TAKING FLUTICASONE PROPIONATE 50 MCG/ACT SUSPENSION 1 SPRAY IN EACH NOSTRIL NASALLY ONCE A DAY TAKING AMITRIPTYLINE HCL 25 MG TABLET 2 TABLETS ORALLY BEFORE BEDTIME TAKING CYCLOBENZAPRINE HCL 5 MG TABLET 1-2 TABS ORALLY BEFORE BEDTIME MEDICATION LIST REVIEWED AND RECONCILED WITH THE PATIENT PAST MEDICAL HISTORY CAD--NST 09/04 EF 63%, ANTEROSEPT ISCHEMIA, LAD STENT [facility] 09/04; NST 11/04, ANTEROSEPTAL REVERSIBLE ISCHEMIA, EF 60%; NST 11/06: NL PERFUSION, EF 65%; NST 11/08: NL PERFUSION, EF 66% IBS ECHO 08/07: EF 70%, SL ELEV PULM ART PRESSURE, NL VALVES DDD/DJD C-SPINE, T SPINE-- ORTHO, PAIN CLINIC, HAD CERVICAL EPIDURALS HYPERLIPIDEMIA PREDIABETES ESOPHAGEAL REFLUX- EGD 08/24, UGI-01/26, PH PROBE 10/26 HYPERTENSION VITAMIN D DEFICIENCY 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 RENAL STONE 12/25 CONCUSSION DECEMBER 2013 T7 COMPRESSION FRACTURE 2014 ANTONI, ON CPAP 01/04 PFTS AT [facility] 08/07--NL, FEV1/FVC 76% FRACTURE RIGHT ANKLE TORN LABRUM LEFT SHOULDER TINNITUS CHRONIC ALLERGIC RHINITIS CHRONIC NECK PAIN ALLERGIES PRAVACHOL: ELEV LFT'S - SIDE EFFECTS SURGICAL HISTORY L EYE SURGERY 1980 RUPTURED ACHILLES TENDON L X 2 12/1998, 05/1999 R KNEE ACL 2002 EGD/COLONOSCOPY--NL BOTH TIMES 08/24, 09/01 EGD--NL 01/26 CARDIAC CATH/LAD ADRIANNA STENT 09/04 09/04 RIGHT ANKLE 06/07 TOOTH EXTRACTION WITH BONE GRAFT X4 LEFT SHOULDER SURGERY 12/2019 FAMILY HISTORY FATHER: , AT 86, [place], DIAGNOSED WITH UNSPECIFIED HEART DISEASE MOTHER: , AT 66 OF PULM FIBROSIS, [employer] Systems[employer]ACT NEGOTIATION SPECIALIST; CAD, UNSPECIFIED HEART DISEASE 2 BROTHER(S) . 2DAUGHTER(S) - HEALTHY. YOUNGER BROTHER: THYROID. SOCIAL HISTORY GENERAL: TOBACCO USE ARE YOU A: NONSMOKER. LATEX QUESTIONNAIRE LATEX ALLERGY : HAVE YOU EVER DEVELOPED ANY TYPE OF REACTION AFTER HANDLING LATEX PRODUCTS SUCH RUBBER GLOVES, CONDOMS, DIAPHRAGMS, BALLOONS, SOCKS, OR UNDERWEAR?NO LATEX ALLERGY : HAVE YOU EVER DEVELOPED ANY TYPE OF REACTION DURING OR AFTER DENTAL APPOINTMENT, VAGINAL/RECTAL EXAMINATION, SURGICAL PROCEDURE, OR ANY OTHER EXPOSURE?NO LATEX RISK : HAVE YOU EVER HAD ANY DIFFICULTY BREATHING OR HIVES AFTER EATING OR HANDLING ANY FRUITS, OR VEGETABLES; SUCH KIWI, BANANAS, STONE FRUITS, OR CHESTNUTSNO LATEX RISK : DO YOU HAVE A PREVIOUS PERSONAL HISTORY OF MORE THAN NINE SURGERIES, SPINA BIFIDA, OR REPEATED CATHERIZATIONS? NO LATEX RISK : ARE YOU FREQUENTLY EXPOSED TO LATEX PRODUCTS IN YOUR OCCUPATION?NO DATE ASKED : 05/11/2020 LUNG CANCER SCREENING SMOKING STATUS:NON SMOKER BMI CARE GOAL FOLLOW-UP ABOVE NORMAL BMI FOLLOW-UPDIETARY MANAGEMENT EDUCATION, GUIDANCE, AND COUNSELING ALCOHOL SCREENING DID YOU HAVE A DRINK CONTAINING ALCOHOL IN THE PAST YEAR?YES HOW OFTEN DID YOU HAVE SIX OR MORE DRINKS ON ONE OCCASION IN THE PAST YEAR?NEVER (0 POINTS) HOW MANY DRINKS DID YOU HAVE ON A TYPICAL DAY WHEN YOU WERE DRINKING IN THE PAST YEAR?3 OR 4 (1 POINT) HOW OFTEN DID YOU HAVE A DRINK CONTAINING ALCOHOL IN THE PAST YEAR?TWO TO THREE TIMES PER WEEK (3 POINTS) POINTS4 INTERPRETATIONPOSITIVE RECREATIONAL DRUG USE DRUG USE?NO CAFFEINE CAFFEINE USE?YES COFFEE HOW OFTEN AND HOW MUCH? 3 CUPS COFFEE/DAY SEXUAL HX HAD SEX IN THE LAST 12 MONTHS (VAGINAL, ORAL, OR ANAL)?YES WITHWOMEN ONLY HAVE YOU EVER HAD AN STD?NO CHURCH [id number] JEWISH LANGUAGE LANGUAGES SPOKEN:YI LEARNING BARRIERS / SPECIAL NEEDS CHANGE FROM LAST VISIT?NO BARRIERS TO LEARNING?NO HEARING IMPAIRED?YES : 10% HEARING LOSS RIGHT EAR VISION IMPAIRED?YES :CORRECTIVE LENSES COGNITIVELY IMPAIRED?NO READINESS TO LEARN?YES LEARNING PREFERENCES?NO LEARNING CAPABILITIES PRESENT?YES EMOTIONAL BARRIERS?NO SPECIAL DEVICES?NO ELECTROPLATING LABORER NEEDED?NO OCCUPATION: [employer] - RETIRED. MARITAL STATUS: . PAIN CLINIC PFS, CLERGY, PUBLIC HEALTH REFERRALS PFS REFERRAL NEEDED?NO CLERGY REFERRAL NEEDED?NO PUBLIC HEALTH REFERRAL NEEDED?NO HAS THE PATIENT BEEN EDUCATED REGARDING HIS/HER PLAN OF CARE?YES HAS THE PATIENT BEEN EDUCATED REGARDING PAIN, THE RISK FOR PAIN, THE IMPORTANCE OF EFFECTIVE PAIN MANAGEMENT, AND THE PAIN ASSESSMENT PROCESS?YES ADVANCE DIRECTIVE ADVANCE DIRECTIVE DISCUSSED WITH PATIENT:YES PATIENT GIVEN HCP INFORMATION. ASSISTANCE OFFERED IN COMPLETING FORM IF NEEDED. HOSPITALIZATION/MAJOR DIAGNOSTIC PROCEDURE SURG RELATED ER HYPOGLYCEMIC RELATED TO METFORMIN BID 09/2019 REVIEW OF SYSTEMS CONSTITUTIONAL: ANY RECENT FEVER NO . CHILLS NO . WEIGHT CHANGE OF UNKNOWN REASONS NO . GASTROENTEROLOGY: NEW UNEXPLAINABLE CHANGES IN BOWEL CONTROL NO . CONSTIPATION NO . GENITOURINARY: ANY NEW CHANGE IN BLADDER CONTROL? NO . NEUROLOGY: NEW ONSET DIZZINESS OR NEUROLOGICAL CHANGES NOT MENTIONED NO . NEW NUMBNESS OR PAIN PATTERNS NOT MENTIONED AND PERTINENT TO TODAY'S VISIT NO . CARDIOLOGY: NEW CHEST PRESSURE NO . NEW CHEST PAIN NO . RESPIRATORY: UNEXPLAINABLE COUGH NO . NEW SHORTNESS OF BREATH NO . VITAL SIGNS WT 229.2 LBS, HT 70 IN, BMI 32.88 INDEX, BP 143/98 MM HG, REPEAT BP 124/70 MANUAL, HR 85 /MIN, RR 18 /MIN, TEMP 97.8 F, OXYGEN SAT % 93%, SAFE IN ENV? (Y/N) YES, NA INITIALS [place] 10:56, REVIEWED BY: SHAWN VILLARREAL. EXAMINATION GENERAL EXAMINATION: GENERALAPPEARS UNCOMFORTABLE . LUNGS: LUNG SOUNDS ARE CLEAR . HEART: HEART RATE REGULAR . MUSCULOSKELETAL:*, MUSCLE STRENGTH TESTING : SLIGHT WEAKNESS NOTED OVER RIGHT ARM. CERVICAL:+ FOR PAIN WITH PALPATION OF CERVICAL SPINE. + FOR PAIN WITH PALPATION OF CERVICAL PARASPINALS. . DIAGNOSTIC TESTS REVIEWED CERVICAL MRI-05/28/2019. ASSESSMENTS OTHER CHRONIC PAIN - G89.29 (PRIMARY) TREATMENT OTHER CHRONIC PAIN START HYDROCODONE-ACETAMINOPHEN TABLET, 5-325 MG, 1 TABLET NEEDED, ORALLY, Q8H PRN PAIN MDD3, 10 DAY(S), 30, REFILLS 0 PAIN PROCEDURE LOGDATE OF [id number]/20/2020PROCEDURE:TRIGGER POINT INJECTION RIGHT NECK AREA AND RIGHT SHOULDER AREAAMOUNT OF PRE SEDATEVALIUM 5MG OXYCODONE 10MGRESULT:REPORTING MINIMAL IMPROVEMENT FOR SHORT PERIOD OF TIME NOTES: C7-T1 CERVICAL EPIDURALS INJECTION- RIGHT DUE TO SEVERE INCREASE IN NECK PAIN AND ARM PAIN I'VE ADVISED PATIENT TO TAKE HYDROCODONE 5/325 ONE TABLET EVERY 8 HOURS NEEDED FOR SEVERE PAIN EPISODES X10 DAYS DISPENSED 30 TABLETS. PROCEDURE CODES FA211 ESTABILISHED PATIENT [facility] CHARGE DISPOSITION & COMMUNICATION FOLLOW UP POST (REASON: C7-T1 CERVICAL EPIDURALS. INJECTION-RIGHT) ELECTRONICALLY SIGNED BY LAURA ORDAZ ON 06/11/2020 AT 08:36 AM EST DISCLAIMER : THIS IS A VISIT SUMMARY EXTRACTED FROM THE [employer] CHART. IT IS NOT A COPY OF THE [employer] PROGRESS NOTE. RADHA
== END ==
LOC: M PAIN 11:00
PROVIDERS: ATTEND Nurse Practitioner Family
DX: G89.29 Other chronic pain (principal); R73.03 Prediabetes; K21.9 Gastro-esophageal reflux disease without esophagitis; E55.9 Vitamin D deficiency, unspecified; G25.81 Restless legs syndrome; G47.33 Obstructive sleep apnea (adult) (pediatric); Z88.8 Allergy status to other drugs, medicaments and biological substances; Z79.82 Long term (current) use of aspirin; Z79.84 Long term (current) use of oral hypoglycemic drugs; Z79.899 Other long term (current) drug therapy

== ENCOUNTER → 2020-07-07 | Outpatient (CLI) | payer BC, OTHER ==
[~2020-07-07] MED LIST changes: -AMIT25TA PO; +AMIT25TA17 PO; +GABA-282 PO; -GABA-843 PO
== END ==
LOC: M LABSMTC 10:39
PROVIDERS: ATTEND Anesthesiology
DX: Z20.822 Contact with and (suspected) exposure to COVID-19 (principal)

== ENCOUNTER → 2020-07-12 | Outpatient (CLI) | payer BC, OTHER ==
[~2020-07-12] MED LIST changes: +ISOS1TAB35; -ISOS30TA4; +ISOVUE-M 300 61% 15ML VIAL As Ordered ONE; +LIDOCAINE 1% SDV 30ML VIAL As Ordered ONE; +LISI10TA22 PO; -LISI10TA4 PO; +diazePAM 5MG TABLET As Ordered ONE; +methylPREDNISolone SUSP 40MG/ML 1ML VIAL (DEPO MEDROL) As Ordered ONE; +oxyCODONE 5MG TAB As Ordered ONE
--- NOTE | 2020-07-12 10:53 | REP ---
INDICATION: RIGHT CERVICAL EPIDURAL STEROID INJECTION. COMPARISON: None. TECHNIQUE: Three views. 10.6 seconds of fluoroscopy time is reported. FINDINGS: A sequence of 3 last image hold fluoroscopically obtained spot radiograph(s) of the lumbar spine document(s) needle position(s) and contrast injection associated with injection procedure. IMPRESSION: Procedural imaging. <Electronically signed by Johnnie Xavier > 07/12/20 2041
--- NOTE | 2020-07-13 02:08 | ECWPNPC ---
PATIENT NAME: JENNIFER JAIME : 1955 GENDER: MALE VISIT DATE: 07/12/2020 DISCHARGE DATE: 07/12/20 1047 VISIT LOCKED DATE TIME: PHYSICIAN: DAVID CUBA MD PHYSICIAN PAGER NO: ACTIVE RESOURCE: DAVID CUBA MD REASON FOR APPOINTMENT 1. CERVICAL EPIDURAL STEROID INJECTION HISTORY OF PRESENT ILLNESS GENERAL: -. FALL RISK SCREENING: SCREENING :NO FALLS REPORTED IN THE LAST YEAR PAIN SCREENING: PATIENT HAS A COMPLAINT OF ACUTE OR CHRONIC PAIN :YES LOCATION OF PAIN:NECK RIGHT NECK TO SCAPULA/ELBOW THAT INCREASES TO 8/10 WITH MOVEMENT INTENSITY OF PAIN (SCALE OF 1 TO 10):3 WHAT DOES YOUR PAIN FEEL LIKE:ACHING, CONTINOUS, INTERMITTENT PAIN IS SHARP AND STABBING COMING ACROSS SCAPULA WITH MOVEMENT DURATION:CONTINOUS, CONSTANT PAIN IS INCREASED BY:ACTIVITIES PAIN IS DECREASED BY:USE OF PAIN MEDICATIONS NURSING NOTE: -. PAIN CENTER INTAKE QUESTIONS: DO YOU HAVE A HISTORY OF MRSA? :NO DO YOU TAKE A BLOOD THINNERS? :NO DO YOU HAVE ANY BLEEDING DISORDERS? :NO ANY NEW NUMBNESS OR WEAKNESS IN YOUR LEGS OR ARMS? :NO ANY PACEMAKER,DEFIBRILLATOR, OR DORSAL COLUMN STIMULATOR? :NO DO YOU HAVE ANY RASHES OR OPEN SORES? :NO ARE YOU ALLERGIC TO IV DYE? :NO ARE YOU DIABETIC? :YES PREDIABETIC ON METFORMIN ANY NEW PROBLEMS WITH YOUR MEDICATIONS? :NO HAVE YOU RECEIVED A VACCINE IN THE PAST 30 DAYS? :NO DO YOU PLAN TO RECEIVE A VACCINE IN THE NEXT 21 DAYS? :NO DO YOU TAKE ANY IMMUNOSUPPRESSIVE MEDICATIONS? :NO ANY HISTORY OF SEIZURES? :NO ANY HISTORY OF CARDIAC ISSUES OR EVENTS? :YES HX OF CORONARY STENT X1 IN 2016 DO YOU HAVE SLEEP APNEA? :YES DO YOU WEAR A CPAP?YES ANY RECENT HEAD INJURY? :NO DO YOU HAVE ANY NEW INFECTIONS? :NO IS THERE A CHANCE YOU COULD BE ? :NO ARE YOU BREAST FEEDING? :NO WHEN DID YOU LAST EAT? : - WHEN DID YOU LAST DRINK? : - WHAT DID YOU LAST DRINK? : - NAME OF PERSON DRIVING YOU HOME? : - BELL DO YOU HAVE ANY OTHER QUESTIONS OR CONCERNS? : - CURRENT MEDICATIONS TAKING HYDROCODONE-ACETAMINOPHEN 5-325 MG TABLET 1 TABLET NEEDED ORALLY Q8H PRN PAIN MDD3, NOTES: 07-11-20201999 TAKING VITAMIN D 5000 UNIT TABLET 1 TABLET ORALLY DAILY TAKING CLOBETASOL PROPIONATE 0.05 % CREAM 1 APPLICATION TO AFFECTED AREA/ EZEXMA BODY EXTERNALLY TWICE A DAY NEEDED TAKING LOPROX CREAM CREAM TO FEET FOR FUNGUS TOPICALLY TWICE A DAY NEEDED TAKING ASPIRIN 81 MG TABLET 1 TAB(S) ORALLY DAILY TAKING NITROSTAT 0.4 MG TABLET SUBLINGUAL 1 TAB(S) SUBLINGUAL EVERY 5 MIN PRN CHEST PAIN, MAX DOSE 3 TAKING IBUPROFEN 600 MG TABLET 1 TABLET WITH FOOD OR MILK NEEDED ORALLY THREE TIMES A DAY TAKING AMLODIPINE 5MG TABLET 1 TAB(S) ORAL DAILY, NOTES: 07-11-20201999 TAKING MAY USE - - CBD CREAM DIRECTED TAKING ISOSORBIDE MONONITRATE ER 30 MG TABLET EXTENDED RELEASE 24 HOUR 1 TABLET IN THE MORNING ORALLY ONCE A DAY, NOTES: LAST DOSE 07-12-2020 TAKING REQUIP 1 MG TABLET TAKE TWO TABLETS BY MOUTH AT BEDTIME ORALLY DAILY TAKING MELATONIN ER 1 MG TABLET EXTENDED RELEASE DIRECTED ORALLY TAKING TRAMADOL HCL 50 MG TABLET 1 TABLET NEEDED ORALLY EVERY 6 HRS PRN MDD4, NOTES: 07-10-20201199 TAKING ATORVASTATIN CALCIUM 40 MG TABLET TAKE ONE TABLET BY MOUTH EVERY DAY TAKING METFORMIN 1000 MG TABLET 1 TAB(S) ORALLY DAILY, NOTES: AST DOSE 07-11-2020 TAKING LISINOPRIL 10 MG TABLET TAKE ONE TABLET BY MOUTH EVERY DAY , NOTES: AST DOSE TODAY T 0800 TAKING FLUTICASONE PROPIONATE 50 MCG/ACT SUSPENSION 1 SPRAY IN EACH NOSTRIL NASALLY ONCE A DAY TAKING AMITRIPTYLINE HCL 25 MG TABLET 2 TABLETS ORALLY BEFORE BEDTIME TAKING CYCLOBENZAPRINE HCL 5 MG TABLET 1-2 TABS ORALLY BEFORE BEDTIME, NOTES: 07-11-20201999 TAKING DULOXETINE HCL 30 MG CAPSULE DELAYED RELEASE PARTICLES TAKE ONE CAPSULE BY MOUTH EVERY DAY ORALLY DAILY TAKING OMEPRAZOLE 40 MG CAPSULE DELAYED RELEASE TAKE ONE CAPSULE BY MOUTH TWICE A DAY TAKING BISOPROLOL FUMARATE 5 MG TABLET TAKE ONE TABLET BY MOUTH TWICE A DAY , NOTES: LAST DOSE 07-12-2020 MEDICATION LIST REVIEWED AND RECONCILED WITH THE PATIENT PAST MEDICAL HISTORY CAD--NST 09/04 EF 63%, ANTEROSEPT ISCHEMIA, LAD STENT [facility] 09/04; NST 11/04, ANTEROSEPTAL REVERSIBLE ISCHEMIA, EF 60%; NST 11/06: NL PERFUSION, EF 65%; NST 11/08: NL PERFUSION, EF 66% IBS ECHO 2/16: EF 70%, SL ELEV PULM ART PRESSURE, NL VALVES DDD/DJD C-SPINE, T SPINE-- ORTHO, PAIN CLINIC, HAD CERVICAL EPIDURALS HYPERLIPIDEMIA PREDIABETES ESOPHAGEAL REFLUX- EGD 08/24, UGI-01/26, PH PROBE 10/26 HYPERTENSION VITAMIN D DEFICIENCY 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 RENAL STONE 12/25 CONCUSSION DECEMBER 2013 T7 COMPRESSION FRACTURE 2014 ANTONI, ON CPAP 01/04 PFTS AT [facility] 08/07--NL, FEV1/FVC 76% FRACTURE RIGHT ANKLE TORN LABRUM LEFT SHOULDER TINNITUS CHRONIC ALLERGIC RHINITIS CHRONIC NECK PAIN ALLERGIES PRAVACHOL: ELEV LFT'S - SIDE EFFECTS SURGICAL HISTORY L EYE SURGERY 1980 RUPTURED ACHILLES TENDON L X 2 12/1998, 05/1999 R KNEE ACL 2002 EGD/COLONOSCOPY--NL BOTH TIMES 08/24, 09/01 EGD--NL 01/26 CARDIAC CATH/LAD ADRIANNA STENT 09/04 09/04 RIGHT ANKLE 06/07 TOOTH EXTRACTION WITH BONE GRAFT X4 LEFT SHOULDER SURGERY 12/2019 FAMILY HISTORY FATHER: , AT 86, [place], DIAGNOSED WITH UNSPECIFIED HEART DISEASE MOTHER: , AT 66 OF PULM FIBROSIS, KrikleADMINISTRATIVE SUPPORT ASSOCIATE; CAD, UNSPECIFIED HEART DISEASE 2 BROTHER(S) . 2DAUGHTER(S) - HEALTHY. YOUNGER BROTHER: THYROID. SOCIAL HISTORY GENERAL: TOBACCO USE ARE YOU A: NONSMOKER. LATEX QUESTIONNAIRE LATEX ALLERGY : HAVE YOU EVER DEVELOPED ANY TYPE OF REACTION AFTER HANDLING LATEX PRODUCTS SUCH RUBBER GLOVES, CONDOMS, DIAPHRAGMS, BALLOONS, SOCKS, OR UNDERWEAR?NO LATEX ALLERGY : HAVE YOU EVER DEVELOPED ANY TYPE OF REACTION DURING OR AFTER DENTAL APPOINTMENT, VAGINAL/RECTAL EXAMINATION, SURGICAL PROCEDURE, OR ANY OTHER EXPOSURE?NO LATEX RISK : HAVE YOU EVER HAD ANY DIFFICULTY BREATHING OR HIVES AFTER EATING OR HANDLING ANY FRUITS, OR VEGETABLES; SUCH KIWI, BANANAS, STONE FRUITS, OR CHESTNUTSNO LATEX RISK : DO YOU HAVE A PREVIOUS PERSONAL HISTORY OF MORE THAN NINE SURGERIES, SPINA BIFIDA, OR REPEATED CATHERIZATIONS? NO LATEX RISK : ARE YOU FREQUENTLY EXPOSED TO LATEX PRODUCTS IN YOUR OCCUPATION?NO DATE ASKED : 07/11/2020 LUNG CANCER SCREENING SMOKING STATUS:NON SMOKER BMI CARE GOAL FOLLOW-UP ABOVE NORMAL BMI FOLLOW-UPDIETARY MANAGEMENT EDUCATION, GUIDANCE, AND COUNSELING ALCOHOL SCREENING DID YOU HAVE A DRINK CONTAINING ALCOHOL IN THE PAST YEAR?YES HOW OFTEN DID YOU HAVE SIX OR MORE DRINKS ON ONE OCCASION IN THE PAST YEAR?NEVER (0 POINTS) HOW MANY DRINKS DID YOU HAVE ON A TYPICAL DAY WHEN YOU WERE DRINKING IN THE PAST YEAR?3 OR 4 (1 POINT) HOW OFTEN DID YOU HAVE A DRINK CONTAINING ALCOHOL IN THE PAST YEAR?TWO TO THREE TIMES PER WEEK (3 POINTS) POINTS4 INTERPRETATIONPOSITIVE RECREATIONAL DRUG USE DRUG USE?NO CAFFEINE CAFFEINE USE?YES COFFEE HOW OFTEN AND HOW MUCH? 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 MARITAL STATUS: . - PFS REFERRAL NEEDED?NO CLERGY REFERRAL NEEDED?NO PUBLIC HEALTH REFERRAL NEEDED?NO HAS THE PATIENT BEEN EDUCATED REGARDING HIS/HER PLAN OF CARE?YES HAS THE PATIENT BEEN EDUCATED REGARDING PAIN, THE RISK FOR PAIN, THE IMPORTANCE OF EFFECTIVE PAIN MANAGEMENT, AND THE PAIN ASSESSMENT PROCESS?YES ADVANCE DIRECTIVE ADVANCE DIRECTIVE DISCUSSED WITH PATIENT:YES PATIENT GIVEN HCP INFORMATION. ASSISTANCE OFFERED IN COMPLETING FORM IF NEEDED. HOSPITALIZATION/MAJOR DIAGNOSTIC PROCEDURE SURG RELATED ER HYPOGLYCEMIC RELATED TO METFORMIN BID 09/2019 VITAL SIGNS WT 230.8 LBS, HT 70 IN, BMI 33.11 INDEX, BP 118/77 MM HG, HR 79 /MIN, RR 18 /MIN, TEMP 95.2 F, OXYGEN SAT % 96%, SAFE IN ENV? (Y/N) YES, NA INITIALS [place] 09:04, REVIEWED BY: JACQUE. EXAMINATION GENERAL EXAMINATION: THE PATIENT IS ALERT, ORIENTED TIMES THREE AND COOPERATIVE. LUNGS ARE CLEAR TO AUSCULTATION. HEART SHOWS REGULAR RHYTHM, NO MURMURS AND NO GALLOPS. ASSESSMENTS CERVICAL DISC DISORDER WITH RADICULOPATHY, UNSPECIFIED CERVICAL REGION - M50.10 (PRIMARY) TREATMENT CERVICAL DISC DISORDER WITH RADICULOPATHY, UNSPECIFIED CERVICAL REGION [facility] FLUORO GUIDE SPINE INJECTION (PAIN)[id number] SALINE LOCK MEDICATION: VALIUM TAB 10MG ORALLY (DIAZEPAM)SCOTT FIGUEROA 07/12/2020 9:34:21 AM > VERIFIED LEO LOWE 07/12/2020 9:36:15 AM > LOT # [id number] EXPIRATION DATE 03/2022 LEO LOWE 07/12/2020 9:36:39 AM > ADMINISTERED MEDICATION: OXYCODONE HCL TAB 10MG ORALLYSCOTT FIGUEROA 07/12/2020 9:34:50 AM > VERIFIED LEO LOWE 07/12/2020 9:37:54 AM > LOT # [id number] EXPITATION 07/2021 ADMINISTERED COMPLETION OF PROCEDURAL VISIT WHEN MEETS CRITERIA OTHERS NOTES: PAT COMPLETED 07/11/20. Jennifer MAJANO RN . PROCEDURES PAIN NURSING RECORD PROCEDURE IN ROOM 0954, PHYSICIAN IN ROOM 1013, START 1019, FINISH 1025, PHYSICIAN OUT OF ROOM 1025, OUT OF ROOM 1033, ECG NORMAL SINUS, PATIENT SHIELDED YES, SAFETY STRAP YES, PREP BETADINE BY MEGAN BLANDON, DRESSING TEGADERM BY DR CUBA LOC: 0956, 1. ALERT, ORIENTED RESP: 0956 , 1. REGULAR, NO DYSPNEA COLOR: 0956 1. PINK SKIN: 0956 1. WARM, DRY POSITION: 0956 1. PRONE VITALS: 0956- HR68, 110/66, 94% 1000 - HR 69, 109/66, 94% 1015- HR70, 111/65, 92% 1040 - HR70, 113/74, 95% NOTES Mac LOWE RN COMPLETION OF PROCEDURE APPOINTMENT: POST PAIN 1, DRESSING SITE DRY AND INTACT, IV DISCONTINUED, SITE CLEAR, CATHETER INTACT, GAIT STEADY, TEACHING COMPLETED, PATIENT ACKNOWLEDGES UNDERSTANDING YES PATIENT VERBALIZES UNDERSTANDING OF TEACHING, PROCEDURE APPOINTMENT COMPLETED AT 1045 BY: Mac LOWE RN PN CERVICAL EPIDURAL PRE PROCEDURE DIAGNOSIS CERVICAL DISC DISORDER WITH RADICULOPATHY POST PROCEDURE DIAGNOSIS CERVICAL DISC DISORDER WITH RADICULOPATHY PROCEDURE CERVICAL EPIDURAL STEROID INJECTION UNDER FLUOROSCOPIC GUIDANCE SURGEON DR. DAVID CUBA MULTIPLE EFFECT EVAPORATOR OPERATOR NONE ANESTHESIA LOCAL PRE PROCEDURE NOTE THE PATIENT HAS A HISTORY OF CHRONIC CERVICAL PAIN. I EVALUATED THE PATIENT AND REVIEWED THE CHART. I WENT OVER THE RISKS, ALTERNATIVES, AND BENEFITS ASSOCIATED WITH THIS PROCEDURE. THE PATIENT WOULD LIKE TO PROCEED AND GIVE CONSENT TO PERFORMED THE PROCEDURE. THE PATIENT DENIES UNEXPLAINABLE WEIGHT LOSS, FEVER, CHILLS, OR NEW CHANGES IN URINARY OR BOWEL CONTROL. THE PATIENT IS COVID-19 NEGATIVE DESCRIPTION OF PROCEDURE THE PATIENT WAS BROUGHT TO THE PROCEDURE ROOM AND PLACED IN THE PRONE POSITION. THE CERVICOTHORACIC AREA WAS CLEANED WITH BETADINE SOLUTION AND DRAPED ASEPTICALLY. THE PROCEDURE WAS DONE UNDER STERILE CONDITIONS. A TIMEOUT WAS PERFORMED WHERE THE SITE OF THE PROCEDURE WERE CHECKED AND CONFIRMED WITH EVERYONE IN THE ROOM. UNDER FLUOROSCOPIC GUIDANCE, THE TARGET WAS SELECTED AT THE INTERLAMINAR LEVEL OF C7-T1. I CONFIRMED AGAIN WITH EVERYONE IN THE ROOM THE SITE OF THE TARGET AT 1017. LIDOCAINE WAS USED TO NUMB THE SKIN AND THE SUBCUTANEOUS TISSUE BELOW IT. EPIDURAL TUOHY NEEDLE, 17-GAUGE, WAS ADVANCED UNDER FLUOROSCOPIC GUIDANCE AND FOLLOWING PATIENT FEEDBACK UNTIL THE EPIDURAL SPACE WAS REACHED 6 CM DEEP INTO THE SKIN BY THE LOSS OF RESISTANCE TECHNIQUE. ISOVUE-M DYE 30%, 0.25 ML, WAS INJECTED SHOWING ADEQUATE SPREAD OF THE DYE. THEN, A SOLUTION OF 3 ML OF NORMAL SALINE WITH DEPO-MEDROL 80MG WAS INJECTED SLOWLY FOLLOWING PATIENT FEEDBACK. THE MEDICATIONS WERE VERIFIED WITH THE NURSE. THERE WAS NO EVIDENCE OF BLOOD, PARESTHESIA OR CEREBROSPINAL FLUID DURING THE PROCEDURE. ESTIMATED BLOOD LOSS WAS LESS THAN 5 ML. THE PATIENT WAS SENT TO THE RECOVERY ROOM. THE PATIENT WAS MOVING THE EXTREMITIES AND DOING WELL. THERE WERE NO COMPLICATIONS DURING THE PROCEDURE. FLUOROSCOPY TIME WAS 10 SECONDS POST PROCEDURE NOTE THE PATIENT WILL BE SEEN IN A FOLLOW UP IN THE NEXT FEW WEEKS. I AM LOOKING FOR LONG LASTING RELIEF FOR THE PATIENT WITH THIS INTERVENTION. INSTRUCTIONS WERE GIVEN, QUESTIONS WERE ANSWERED, AND THE PATIENT EXPRESSED UNDERSTANDING AND AGREES WITH THE PLAN. I, SIMON JACKSON, DOCUMENTED THE ABOVE INFORMATION ACTING A SCRIBE FOR DR. CUBA. I HAVE REVIEWED THE ABOVE DOCUMENT, WRITTEN BY SIMON JACKSON, HUB CUTTER APPRENTICE, AND I VERIFY THAT IT IS ACCURATE PROCEDURE CODES [id number] CERVICAL/THORACIC W/ IMAGING DISPOSITION & COMMUNICATION FOLLOW UP FOLLOW UP WITH AREA REPRESENTATIVE (REASON: POST CERVICAL EPIDURAL STEROID INJECTION) ELECTRONICALLY SIGNED BY DAVID CUBA MD, MD ON 07/12/2020 AT 01:02 PM EST DISCLAIMER : THIS IS A VISIT SUMMARY EXTRACTED FROM THE [employer] CHART. IT IS NOT A COPY OF THE [employer] PROGRESS NOTE. RADHA
== END ==
LOC: M PAIN 09:00
PROVIDERS: ATTEND Anesthesiology
DX: M50.10 Cervical disc disorder with radiculopathy, unspecified cervical region (principal); R73.03 Prediabetes; G47.33 Obstructive sleep apnea (adult) (pediatric); K21.9 Gastro-esophageal reflux disease without esophagitis; E55.9 Vitamin D deficiency, unspecified; G25.81 Restless legs syndrome; Z95.5 Presence of coronary angioplasty implant and graft; Z88.8 Allergy status to other drugs, medicaments and biological substances; Z79.82 Long term (current) use of aspirin; Z79.84 Long term (current) use of oral hypoglycemic drugs; Z79.899 Other long term (current) drug therapy
CPT/HCPCS: 62321; J1030; Q9967

== ENCOUNTER → 2020-07-26 | Outpatient (CLI) | payer BC, OTHER ==
[~2020-07-26] MED LIST changes: -ISOVUE-M 300 61% 15ML VIAL As Ordered ONE; -LIDOCAINE 1% SDV 30ML VIAL As Ordered ONE; -diazePAM 5MG TABLET As Ordered ONE; -methylPREDNISolone SUSP 40MG/ML 1ML VIAL (DEPO MEDROL) As Ordered ONE; -oxyCODONE 5MG TAB As Ordered ONE
--- NOTE | 2020-07-31 03:22 | ECWPNPC ---
PATIENT NAME: JENNIFER JAIME : 1955 GENDER: MALE VISIT DATE: 07/26/2020 DISCHARGE DATE: 07/26/20 1031 VISIT LOCKED DATE TIME: PHYSICIAN: THANH ZAPATA PHYSICIAN PAGER NO: ACTIVE RESOURCE: THANH ZAPATA REASON FOR APPOINTMENT 1. POST C7-T1 CERVICAL EPIDURALS. INJECTION-RIGHT HISTORY OF PRESENT ILLNESS DEPRESSION SCREENING: PHQ-2 (2015 EDITION) LITTLE INTEREST OR PLEASURE IN DOING THINGS?NOT AT ALL FEELING DOWN, DEPRESSED, OR HOPELESS?NOT AT ALL TOTAL SCORE0 GENERAL: HERE FOR POST PROCEDURE FOLLOW-UP. HAD C7-T1 CERVICAL EPIDURAL STEROID INJECTION ON 07/12/2020. REPORTING MARKED REDUCTION IN PAIN THAT CONTINUES TODAY. REPORTING IMPROVEMENT IN RIGHT ARM SHOOTING PAIN. IS COMPLAINING OF RIGHT LOW BACK PAIN THAT HAS BEEN QUITE SEVERE. HE WILL HAVE THIS EVALUATED BY PRIMARY CARE PROVIDER. REPORTING NORMAL BOWEL AND BLADDER FUNCTION. CURRENTLY USING CYMBALTA 30 MG DAILY AND TRAMADOL 50 MG PERIODICALLY FOR SEVERE PAIN EPISODES. PATIENT BRINGS HIS MEDICATION WHICH IS APPROPRIATE FOR WHAT WAS DISPENSED. RECENT URINE TOXICOLOGY WITHIN NORMAL LIMITS. DENIES ADVERSE SIDE EFFECTS.-. FALL RISK SCREENING: SCREENING :NO FALLS REPORTED IN THE LAST YEAR PAIN SCREENING: PATIENT HAS A COMPLAINT OF ACUTE OR CHRONIC PAIN :YES LOCATION OF PAIN:NECK, LOW BACK INTENSITY OF PAIN (SCALE OF 1 TO 10):1 PAIN LEVEL IN CERVICAL AREA. 8-10 LOWER BACK WHAT DOES YOUR PAIN FEEL LIKE:BURNING, SHARP DURATION:CONTINOUS, CONSTANT, STEADY PAIN IS INCREASED BY:ACTIVITIES PAIN IS DECREASED BY:USE OF PAIN MEDICATIONS, SITTING, OTHERS STANDING, IBUPROFEN NURSING NOTE: -. PAIN CENTER INTAKE QUESTIONS: DO YOU HAVE A HISTORY OF MRSA? :NO DO YOU TAKE A BLOOD THINNERS? :NO DO YOU HAVE ANY BLEEDING DISORDERS? :NO ANY NEW NUMBNESS OR WEAKNESS IN YOUR LEGS OR ARMS? :NO ANY PACEMAKER,DEFIBRILLATOR, OR DORSAL COLUMN STIMULATOR? :NO DO YOU HAVE ANY RASHES OR OPEN SORES? :NO ARE YOU ALLERGIC TO IV DYE? :NO ARE YOU DIABETIC? :NO ANY NEW PROBLEMS WITH YOUR MEDICATIONS? :NO HAVE YOU RECEIVED A VACCINE IN THE PAST 30 DAYS? :NO DO YOU PLAN TO RECEIVE A VACCINE IN THE NEXT 21 DAYS? :YES WOULD LIKE THE COVID VACCINATION WHEN IT BECOMES AVAILABLE. DO YOU NEED ANY PRESCRIPTION? :YES DULOXETINE DO YOU TAKE ANY IMMUNOSUPPRESSIVE MEDICATIONS? :NO IS THERE A CHANCE YOU COULD BE ? :NO ARE YOU BREAST FEEDING? :NO CURRENT MEDICATIONS TAKING HYDROCODONE-ACETAMINOPHEN 5-325 MG TABLET 1 TABLET NEEDED ORALLY Q8H PRN PAIN MDD3, NOTES: 07-11-20201999 TAKING VITAMIN D 5000 UNIT TABLET 1 TABLET ORALLY DAILY TAKING CLOBETASOL PROPIONATE 0.05 % CREAM 1 APPLICATION TO AFFECTED AREA/ EZEXMA BODY EXTERNALLY TWICE A DAY NEEDED TAKING LOPROX CREAM CREAM TO FEET FOR FUNGUS TOPICALLY TWICE A DAY NEEDED TAKING ASPIRIN 81 MG TABLET 1 TAB(S) ORALLY DAILY TAKING NITROSTAT 0.4 MG TABLET SUBLINGUAL 1 TAB(S) SUBLINGUAL EVERY 5 MIN PRN CHEST PAIN, MAX DOSE 3 TAKING IBUPROFEN 600 MG TABLET 1 TABLET WITH FOOD OR MILK NEEDED ORALLY THREE TIMES A DAY TAKING AMLODIPINE 5MG TABLET 1 TAB(S) ORAL DAILY, NOTES: 07-11-20201999 TAKING MAY USE - - CBD CREAM DIRECTED TAKING ISOSORBIDE MONONITRATE ER 30 MG TABLET EXTENDED RELEASE 24 HOUR 1 TABLET IN THE MORNING ORALLY ONCE A DAY, NOTES: LAST DOSE 07-12-2020 TAKING REQUIP 1 MG TABLET TAKE TWO TABLETS BY MOUTH AT BEDTIME ORALLY DAILY TAKING MELATONIN ER 1 MG TABLET EXTENDED RELEASE DIRECTED ORALLY TAKING ATORVASTATIN CALCIUM 40 MG TABLET TAKE ONE TABLET BY MOUTH EVERY DAY TAKING METFORMIN 1000 MG TABLET 1 TAB(S) ORALLY DAILY, NOTES: AST DOSE 07-11-2020 TAKING FLUTICASONE PROPIONATE 50 MCG/ACT SUSPENSION 1 SPRAY IN EACH NOSTRIL NASALLY ONCE A DAY TAKING AMITRIPTYLINE HCL 25 MG TABLET 2 TABLETS ORALLY BEFORE BEDTIME TAKING CYCLOBENZAPRINE HCL 5 MG TABLET 1-2 TABS ORALLY BEFORE BEDTIME, NOTES: 07-11-20201999 TAKING DULOXETINE HCL 30 MG CAPSULE DELAYED RELEASE PARTICLES TAKE ONE CAPSULE BY MOUTH EVERY DAY ORALLY DAILY TAKING OMEPRAZOLE 40 MG CAPSULE DELAYED RELEASE TAKE ONE CAPSULE BY MOUTH TWICE A DAY TAKING BISOPROLOL FUMARATE 5 MG TABLET TAKE ONE TABLET BY MOUTH TWICE A DAY , NOTES: LAST DOSE 07-12-2020 TAKING TRAMADOL HCL 50 MG TABLET 1 TABLET NEEDED ORALLY EVERY 6 HRS PRN MDD4 TAKING LISINOPRIL 10 MG TABLET TAKE ONE TABLET BY MOUTH EVERY DAY , NOTES: AST DOSE TODAY T 0800 MEDICATION LIST REVIEWED AND RECONCILED WITH THE PATIENT PAST MEDICAL HISTORY CAD--NST 3/16 EF 63%, ANTEROSEPT ISCHEMIA, LAD STENT [facility] 09/04; NST 11/04, ANTEROSEPTAL REVERSIBLE ISCHEMIA, EF 60%; NST 11/06: NL PERFUSION, EF 65%; NST 11/08: NL PERFUSION, EF 66% IBS ECHO 08/07: EF 70%, SL ELEV PULM ART PRESSURE, NL VALVES DDD/DJD C-SPINE, T SPINE-- ORTHO, PAIN CLINIC, HAD CERVICAL EPIDURALS HYPERLIPIDEMIA PREDIABETES ESOPHAGEAL REFLUX- EGD 08/24, UGI-01/26, PH PROBE 10/26 HYPERTENSION VITAMIN D DEFICIENCY 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 RENAL STONE 12/25 CONCUSSION DECEMBER 2013 T7 COMPRESSION FRACTURE 2014 ANTONI, ON CPAP 01/04 PFTS AT [facility] 08/07--NL, FEV1/FVC 76% FRACTURE RIGHT ANKLE TORN LABRUM LEFT SHOULDER TINNITUS CHRONIC ALLERGIC RHINITIS CHRONIC NECK PAIN ALLERGIES PRAVACHOL: ELEV LFT'S - SIDE EFFECTS SOCIAL HISTORY GENERAL: TOBACCO USE ARE YOU A: NONSMOKER. LATEX QUESTIONNAIRE LATEX ALLERGY : HAVE YOU EVER DEVELOPED ANY TYPE OF REACTION AFTER HANDLING LATEX PRODUCTS SUCH RUBBER GLOVES, CONDOMS, DIAPHRAGMS, BALLOONS, SOCKS, OR UNDERWEAR?NO LATEX ALLERGY : HAVE YOU EVER DEVELOPED ANY TYPE OF REACTION DURING OR AFTER DENTAL APPOINTMENT, VAGINAL/RECTAL EXAMINATION, SURGICAL PROCEDURE, OR ANY OTHER EXPOSURE?NO LATEX RISK : HAVE YOU EVER HAD ANY DIFFICULTY BREATHING OR HIVES AFTER EATING OR HANDLING ANY FRUITS, OR VEGETABLES; SUCH KIWI, BANANAS, STONE FRUITS, OR CHESTNUTSNO LATEX RISK : DO YOU HAVE A PREVIOUS PERSONAL HISTORY OF MORE THAN NINE SURGERIES, SPINA BIFIDA, OR REPEATED CATHERIZATIONS? NO LATEX RISK : ARE YOU FREQUENTLY EXPOSED TO LATEX PRODUCTS IN YOUR OCCUPATION?NO DATE ASKED : 07/26/2020 ALCOHOL USE: YES. OCCASIONAL. LUNG CANCER SCREENING SMOKING STATUS:NON SMOKER BMI CARE GOAL FOLLOW-UP ABOVE NORMAL BMI FOLLOW-UPDIETARY MANAGEMENT EDUCATION, GUIDANCE, AND COUNSELING ALCOHOL SCREENING DID YOU HAVE A DRINK CONTAINING ALCOHOL IN THE PAST YEAR?YES HOW OFTEN DID YOU HAVE SIX OR MORE DRINKS ON ONE OCCASION IN THE PAST YEAR?NEVER (0 POINTS) HOW MANY DRINKS DID YOU HAVE ON A TYPICAL DAY WHEN YOU WERE DRINKING IN THE PAST YEAR?3 OR 4 (1 POINT) HOW OFTEN DID YOU HAVE A DRINK CONTAINING ALCOHOL IN THE PAST YEAR?TWO TO THREE TIMES PER WEEK (3 POINTS) POINTS4 INTERPRETATIONPOSITIVE RECREATIONAL DRUG USE DRUG USE?NO CAFFEINE CAFFEINE USE?YES COFFEE HOW OFTEN AND HOW MUCH? 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 MARITAL STATUS: . - PFS REFERRAL NEEDED?NO CLERGY REFERRAL NEEDED?NO PUBLIC HEALTH REFERRAL NEEDED?NO HAS THE PATIENT BEEN EDUCATED REGARDING HIS/HER PLAN OF CARE?YES HAS THE PATIENT BEEN EDUCATED REGARDING PAIN, THE RISK FOR PAIN, THE IMPORTANCE OF EFFECTIVE PAIN MANAGEMENT, AND THE PAIN ASSESSMENT PROCESS?YES ADVANCE DIRECTIVE ADVANCE DIRECTIVE DISCUSSED WITH PATIENT:YES PATIENT GIVEN HCP INFORMATION. ASSISTANCE OFFERED IN COMPLETING FORM IF NEEDED. REVIEW OF SYSTEMS CONSTITUTIONAL: ANY RECENT FEVER NO . CHILLS NO . WEIGHT CHANGE OF UNKNOWN REASONS NO . GASTROENTEROLOGY: NEW UNEXPLAINABLE CHANGES IN BOWEL CONTROL NO . CONSTIPATION NO . GENITOURINARY: ANY NEW CHANGE IN BLADDER CONTROL? NO . NEUROLOGY: NEW ONSET DIZZINESS OR NEUROLOGICAL CHANGES NOT MENTIONED NO . NEW NUMBNESS OR PAIN PATTERNS NOT MENTIONED AND PERTINENT TO TODAY'S VISIT NO . CARDIOLOGY: NEW CHEST PRESSURE NO . NEW CHEST PAIN NO . RESPIRATORY: UNEXPLAINABLE COUGH NO . NEW SHORTNESS OF BREATH NO . VITAL SIGNS WT 231.2 LBS, HT 70 IN, BMI 33.17 INDEX, BP 111/73 MM HG, HR 78 /MIN, RR 18 /MIN, TEMP 98.3 F, OXYGEN SAT % 99%, SAFE IN ENV? (Y/N) YES, REVIEWED BY: CHARLEY BAER MA. EXAMINATION GENERAL EXAMINATION: GENERALAWAKE,ALERT ,PLEASANT . PSYCHAFFECT NORMAL . LUNGS:LUNG MERA ARE CLEAR TO AUSCULTATION BILATERALLY. GOOD MOVEMENT OF AIR . HEART:S1, S2 IN A REGULAR RATE AND RHYTHM. NO SIGNIFICANT MURMURS, RUBS OR GALLOPS NOTED . ASSESSMENTS OTHER CHRONIC PAIN - G89.29 (PRIMARY) CERVICAL DISC DISORDER WITH RADICULOPATHY OF CERVICOTHORACIC REGION - M50.13 TREATMENT OTHER CHRONIC PAIN REFILL DULOXETINE HCL CAPSULE DELAYED RELEASE PARTICLES, 30 MG, TAKE ONE CAPSULE BY MOUTH EVERY DAY, ORALLY, DAILY, 90 DAY(S), 90, REFILLS 5 CONTINUE TRAMADOL HCL TABLET, 50 MG, 1 TABLET NEEDED, ORALLY, EVERY 6 HRS PRN MDD4 PAIN PROCEDURE LOGDATE OF PROCEDURE1PROCEDURE:CERVICAL EPIDURAL STEROID INJECTIONAMOUNT OF PRE SEDATEVALIUM 10MG, OXYCODONE 10 MGRESULT:MARKED REDUCTION IN PAIN CONTINUES TODAY PROCEDURE CODES FA211 ESTABILISHED PATIENT [facility] CHARGE DISPOSITION & COMMUNICATION FOLLOW UP 3 MONTHS (REASON: CERVICAL PAIN/MEDICATION MANAGEMENT/URINE TOX) ELECTRONICALLY SIGNED BY LAURA ORDAZ ON 07/30/2020 AT 08:27 AM EST DISCLAIMER : THIS IS A VISIT SUMMARY EXTRACTED FROM THE [employer] CHART. IT IS NOT A COPY OF THE [employer] PROGRESS NOTE. RADHA
== END ==
LOC: M PAIN 09:45
PROVIDERS: ATTEND Nurse Practitioner Family
DX: M50.13 Cervical disc disorder with radiculopathy, cervicothoracic region (principal); G89.29 Other chronic pain; R73.03 Prediabetes; K21.9 Gastro-esophageal reflux disease without esophagitis; E55.9 Vitamin D deficiency, unspecified; G25.81 Restless legs syndrome; G47.33 Obstructive sleep apnea (adult) (pediatric); Z88.8 Allergy status to other drugs, medicaments and biological substances; Z79.82 Long term (current) use of aspirin; Z79.84 Long term (current) use of oral hypoglycemic drugs; Z79.899 Other long term (current) drug therapy

== ENCOUNTER → 2020-08-28 | Outpatient (CLI) | payer BC, OTHER ==
[2020-08-28 19:38] LABS: CALCIUM LEVEL 9.5 MG/DL (8.8-10.2); CREATININE FOR GFR 1.39 MG/DL (0.70-1.30); GLOMERULAR FILTRATION RATE 54.9 (>49); POTASSIUM SERUM 4.5 MEQ/L (3.5-5.1)
== END ==
LOC: M PLALAB 13:50
PROVIDERS: ATTEND Physician Assistant
DX: R06.02 Shortness of breath (principal); I11.9 Hypertensive heart disease without heart failure

== ENCOUNTER 2020-09-09 01:19 | Emergency (ER) | payer BC, OTHER ==
[~2020-09-09] VITALS: Ht 177.8 cm; Wt 107.5 kg
[2020-09-09 01:54] LABS: BASO % 0.7 % (0.0-1.0); EOS # 0.2 10^3/uL (0.0-0.5); EOS % 3.6 % (0.0-3.0); HEMATOCRIT 38.4 % (42.0-52.0); HEMOGLOBIN 13.2 g/dl (13.5-17.5); LYMPH # 2.1 10^3/uL (1.5-5.0); LYMPH % 35.5 % (24.0-44.0); MEAN CORPUSCULAR HEMOGLOBIN 32.3 pg (27.0-33.0); MEAN CORPUSCULAR HGB CONC 34.4 g/dl (32.0-36.5); MEAN CORPUSCULAR VOLUME 93.9 fl (80.0-96.0); MONO # 0.5 10^3/uL (0.0-0.8); MONO % 8.8 % (2.0-8.0); NEUTROPHILS % 51.2 % (36.0-66.0); PLATELET COUNT, AUTOMATED 253 10^3/uL (150-450); RED BLOOD COUNT 4.09 10^6/uL (4.30-6.10); WHITE BLOOD COUNT 5.8 10^3/uL (4.0-10.0)
[2020-09-09 02:06] LABS: INR 0.79; PROTHROMBIN TIME 11.1 SECONDS (12.5-14.3)
[2020-09-09 02:22] LABS: ALT/SGPT 56 U/L (12-78); BILIRUBIN,DIRECT < 0.1 MG/DL (0.0-0.2); BILIRUBIN,TOTAL 0.2 MG/DL (0.2-1.0); BLOOD UREA NITROGEN 19 MG/DL (7-18); CALCIUM LEVEL 9.2 MG/DL (8.8-10.2); CARBON DIOXIDE LEVEL 23 MEQ/L (21-32); CHLORIDE LEVEL 103 MEQ/L (98-107); CK-MB VALUE MASS 1.7 NG/ML (<3.6); CPK CREATINE PHOSPHOKINASE 99 U/L (39-308); GLOMERULAR FILTRATION RATE 54.5 (>49); GLUCOSE, FASTING 172 MG/DL (70-100); LIPASE 158 U/L (73-393); MB/CK RELATIVE INDEX 1.72 (< OR =4); POTASSIUM SERUM 3.8 MEQ/L (3.5-5.1); SODIUM LEVEL 137 MEQ/L (136-145); TOTAL PROTEIN 7.4 GM/DL (6.4-8.2); TROPONIN I < 0.02 NG/ML (< 0.10)
[2020-09-09] MEDS ORDERED: NITROGLYCERIN 2% OINT 1 GM *U/D* PKT TOP ONE (02:35)
[2020-09-09] MEDS ORDERED: ASPIRIN 325 MG TAB PO ONE (02:35)
--- NOTE | 2020-09-09 02:41 | REPVR ---
PROCEDURE INFORMATION: Exam: XR Chest Exam date and time: 09/09/2020 2:11 AM Age: 64 years old Clinical indication: Other: Chest pain TECHNIQUE: Imaging protocol: XR of the chest Views: 1 view. COMPARISON: DX CHEST 2 VIEW 12/20/2019 2:10 PM FINDINGS: Lungs: Slight coarsening of interstitial markings which is similar to the prior study consistent with chronic change. There are no interval infiltrates. Pleural spaces: Unremarkable. No pleural effusion. No pneumothorax. Heart/Mediastinum: The heart and mediastinum are unchanged. Bones/joints: Unremarkable. IMPRESSION: Essentially stable chest since 12/20/2019. No acute interval process is identified. Electronically signed by: Johnathon Tsang On 09/09/2020 02:40:43 AM
[2020-09-09 03:02] LABS: D-DIMER QUANT 442.9 ng/ml (<500)
[2020-09-09] MEDS ORDERED: HEPARIN DRIP 25,000 UNITS in IV 1 EA IV SCH ×2 (03:48→04:10)
[2020-09-09] MEDS ORDERED: HEPARIN SOD (PORCINE) 5000UNITS/ML 1ML VIAL/SYRINGE IV ONE (03:50)
[2020-09-09 04:05] LABS: PARTIAL THROMBOPLASTIN TIME 28.1 SECONDS (24.2-38.5)
[2020-09-09] MEDS ORDERED: HEPARIN SOD (PORCINE) 5000UNITS/ML 1ML VIAL/SYRINGE IV PRN (04:10)
[2020-09-09 07:15] VITALS: BP 104/67
--- NOTE | 2020-09-09 08:22 | ECGEPIP ---
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
--- NOTE | 2020-09-09 08:22 | ECGEPIP ---
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
== END 2020-09-09 07:20 | disposition short-term general hospital (02) ==
LOC: M ED 01:19
DX: I20.0 Unstable angina (principal); Z20.822 Contact with and (suspected) exposure to COVID-19; R94.31 Abnormal electrocardiogram [ECG] [EKG]; E11.9 Type 2 diabetes mellitus without complications; I12.9 Hypertensive chronic kidney disease with stage 1 through stage 4 chronic kidney disease, or unspecified chronic kidney disease; E78.5 Hyperlipidemia, unspecified; Z88.8 Allergy status to other drugs, medicaments and biological substances; Z79.899 Other long term (current) drug therapy; Z79.82 Long term (current) use of aspirin
CPT/HCPCS: 71045; 80048; 80076; 82550; 82553; 83690; 84484; 85025; 85379; 85610; 85730; 93005; 93041; 94760; 96365; 99285; J1644; U0002

== ENCOUNTER → 2020-09-13 | Outpatient (REF) | payer OTHER ==
[2020-09-13 13:18] LABS: BLOOD UREA NITROGEN 21 MG/DL (7-18); CARBON DIOXIDE LEVEL 26 MEQ/L (21-32); CHLORIDE LEVEL 104 MEQ/L (98-107); CREATININE FOR GFR 1.27 MG/DL (0.70-1.30); GLOMERULAR FILTRATION RATE > 60.0 (>49); GLUCOSE, FASTING 145 MG/DL (70-100); POTASSIUM SERUM 4.1 MEQ/L (3.5-5.1); SODIUM LEVEL 137 MEQ/L (136-145)
[2020-09-13 13:35] LABS: HEMOGLOBIN A1c 6.5 %
== END ==
LOC: M SFHCADAM 09:24
PROVIDERS: ATTEND Family Medicine
DX: R73.03 Prediabetes (principal); N17.9 Acute kidney failure, unspecified

== ENCOUNTER 2020-09-17 00:45 | Emergency (ER) | payer BC, OTHER ==
[~2020-09-17] VITALS: Ht 177.8 cm; Wt 107.3 kg
[2020-09-17] MEDS ORDERED: PLAV1TAB2 PO (01:16)
[2020-09-17] MEDS ORDERED: JARD1TAB PO (01:16)
[2020-09-17 01:51] LABS: BASO # 0.1 10^3/uL (0.0-0.2); EOS # 0.2 10^3/uL (0.0-0.5); EOS % 3.7 % (0.0-3.0); HEMATOCRIT 39.9 % (42.0-52.0); HEMOGLOBIN 13.3 g/dl (13.5-17.5); LYMPH # 1.7 10^3/uL (1.5-5.0); MEAN CORPUSCULAR HEMOGLOBIN 31.3 pg (27.0-33.0); MEAN CORPUSCULAR HGB CONC 33.3 g/dl (32.0-36.5); MEAN CORPUSCULAR VOLUME 93.9 fl (80.0-96.0); MONO # 0.6 10^3/uL (0.0-0.8); MONO % 9.4 % (2.0-8.0); NEUTROPHILS # 3.3 10^3/uL (1.5-8.5); NEUTROPHILS % 56.6 % (36.0-66.0); PLATELET COUNT, AUTOMATED 263 10^3/uL (150-450); RED BLOOD COUNT 4.25 10^6/uL (4.30-6.10); WHITE BLOOD COUNT 5.9 10^3/uL (4.0-10.0)
[2020-09-17 02:26] LABS: ALT/SGPT 95 U/L (12-78); BILIRUBIN,DIRECT < 0.1 MG/DL (0.0-0.2); BILIRUBIN,TOTAL 0.2 MG/DL (0.2-1.0); BLOOD UREA NITROGEN 27 MG/DL (7-18); CARBON DIOXIDE LEVEL 22 MEQ/L (21-32); CHLORIDE LEVEL 107 MEQ/L (98-107); CREATININE FOR GFR 1.42 MG/DL (0.70-1.30); GLOMERULAR FILTRATION RATE 53.6 (>49); GLUCOSE, FASTING 117 MG/DL (70-100); LIPASE 161 U/L (73-393); POTASSIUM SERUM 4.1 MEQ/L (3.5-5.1); SODIUM LEVEL 139 MEQ/L (136-145); TOTAL PROTEIN 7.6 GM/DL (6.4-8.2)
--- NOTE | 2020-09-17 03:21 | REPVR ---
PROCEDURE INFORMATION: Exam: XR Chest Exam date and time: 09/17/2020 2:37 AM Age: 64 years old Clinical indication: Chest pain TECHNIQUE: Imaging protocol: XR of the chest Views: 1 view. COMPARISON: 1. CR PORTABLE CHEST X-RAY 09/09/2020 2:09 AM 2. DX CHEST 2 VIEW 12/20/2019 2:10:43 PM 3. CR PORTABLE CHEST X-RAY 10/01/2019 9:37:28 AM FINDINGS: Lungs: There are chronic interstitial opacities in the lung bases, which are similar in appearance compared to the prior chest x-ray on 09/09/2020. No lobar consolidation or pulmonary edema is noted. Pleural spaces: Unremarkable. No pleural effusion. No pneumothorax. Heart/Mediastinum: Unremarkable. No cardiomegaly. Bones/joints: Unremarkable. IMPRESSION: No radiographic evidence for an acute cardiopulmonary process. Electronically signed by: Cuba Caldera On 09/17/2020 03:20:41 AM
[2020-09-17 04:25] VITALS: BP 107/67
--- NOTE | 2020-09-17 19:57 | ECGEPIP ---
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
--- NOTE | 2020-09-17 20:00 | ECGEPIP ---
[facility] - ED Test Date: 2020-09-17 Pat Name: JENNIFER JAIME Department: Room: - Gender: Male Direct Support Professional Home Health: DELPHINE : 1955 Requested By: Lenard Quinteros Order Number: [id number] Reading MD: Karina Segundo Measurements Intervals [place] Rate: 88 P: 33 OK: 208 QRS: -12 QRSD: 80 T: -1 QT: 346 QTc: 418 Interpretive Statements Normal sinus rhythm Minimal voltage criteria for LVH, may be normal variant ( R in aVL ) PRWP similar 09/17/20 Electronically Signed on 09-17-2020 19:59:53 EDT by Karina Segundo
== END 2020-09-17 04:27 | disposition home or self-care (01) ==
LOC: M ED 00:45
DX: R07.89 Other chest pain (principal); I25.10 Atherosclerotic heart disease of native coronary artery without angina pectoris; I10 Essential (primary) hypertension; E78.5 Hyperlipidemia, unspecified; K21.9 Gastro-esophageal reflux disease without esophagitis; Z95.5 Presence of coronary angioplasty implant and graft; Z79.899 Other long term (current) drug therapy

== ENCOUNTER 2020-09-27 21:50 | Emergency (ER) | payer BC, OTHER ==
[~2020-09-27] VITALS: Ht 177.8 cm; Wt 106.2 kg
[~2020-09-27 21:50] MED LIST changes: +JARD1TAB PO; +PLAV1TAB2 PO
[2020-09-27] MEDS ORDERED: ASPIRIN 81 MG CHEW TABLET PO ONE (22:20)
[2020-09-27] MEDS: NITROGLYCERIN 0.4 MG SUBL TABLET SL PRN ×2 (22:24→23:52)
[2020-09-27 22:28] LABS: BASO # 0.1 10^3/uL (0.0-0.2); BASO % 0.9 % (0.0-1.0); EOS # 0.3 10^3/uL (0.0-0.5); HEMATOCRIT 38.2 % (42.0-52.0); LYMPH # 1.6 10^3/uL (1.5-5.0); LYMPH % 29.8 % (24.0-44.0); MEAN CORPUSCULAR HEMOGLOBIN 32.4 pg (27.0-33.0); MEAN CORPUSCULAR VOLUME 95.3 fl (80.0-96.0); MONO # 0.4 10^3/uL (0.0-0.8); MONO % 7.4 % (2.0-8.0); NEUTROPHILS % 55.5 % (36.0-66.0); PLATELET COUNT, AUTOMATED 253 10^3/uL (150-450); RED BLOOD COUNT 4.01 10^6/uL (4.30-6.10); WHITE BLOOD COUNT 5.4 10^3/uL (4.0-10.0)
[2020-09-27 22:37] LABS: INR 0.88; PROTHROMBIN TIME 12.2 SECONDS (12.5-14.3)
[2020-09-27 22:49] LABS: PARTIAL THROMBOPLASTIN TIME 26.2 SECONDS (24.2-38.5)
[2020-09-27 22:52] LABS: ALBUMIN 4.3 GM/DL (3.2-5.2); ALT/SGPT 68 U/L (12-78); BILIRUBIN,DIRECT < 0.1 MG/DL (0.0-0.2); BILIRUBIN,TOTAL 0.2 MG/DL (0.2-1.0); BLOOD UREA NITROGEN 25 MG/DL (7-18); CARBON DIOXIDE LEVEL 23 MEQ/L (21-32); CHLORIDE LEVEL 107 MEQ/L (98-107); CK-MB VALUE MASS 2.5 NG/ML (<3.6); CPK CREATINE PHOSPHOKINASE 147 U/L (39-308); CREATININE FOR GFR 1.51 MG/DL (0.70-1.30); GLOMERULAR FILTRATION RATE 49.9 (>49); GLUCOSE, FASTING 108 MG/DL (70-100); LIPASE 185 U/L (73-393); POTASSIUM SERUM 4.3 MEQ/L (3.5-5.1); SODIUM LEVEL 140 MEQ/L (136-145); TOTAL PROTEIN 7.7 GM/DL (6.4-8.2); TROPONIN I < 0.02 NG/ML (< 0.10)
--- NOTE | 2020-09-27 23:02 | REPVR ---
PROCEDURE INFORMATION: Exam: XR Chest Exam date and time: 09/27/20 (10:24pm) Age: 64 years old Clinical indication: Chest pain TECHNIQUE: Imaging protocol: Portable CXR Views: 1 view COMPARISON: Portable CXR of 09/17/20 Chest films of 12/20/19 FINDINGS: Lungs: Prominent interstitial markings laterally at each lung base (unchanged). No consolidation. No masses. Pleural spaces: Unremarkable. No pleural effusions. No pneumothorax. Heart/Mediastinum: Heart size may be top normal (unchanged). Bones/joints: Unremarkable. IMPRESSION: No acute findings. Similar findings were noted on 09/17/20 and in November 2019. Electronically signed by: Rosa Whitlock On 09/27/2020 23:02:45 PM
[2020-09-27] MEDS ORDERED: CLOPIDOGREL 300 MG TAB (PLAVIX) PO ONE (23:10)
[2020-09-27] MEDS ORDERED: HEPARIN SOD (PORCINE) 5000UNITS/ML 1ML VIAL/SYRINGE IV ONE (23:10)
[2020-09-27] MEDS ORDERED: HEPARIN DRIP 25,000 UNITS in IV 1 EA IV SCH (23:10)
[2020-09-27 23:52] VITALS: BP 107/63
[2020-09-28 00:15] VITALS: BP 113/77
--- NOTE | 2020-09-28 08:54 | ECGEPIP ---
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
--- NOTE | 2020-09-28 20:45 | ECGEPIP ---
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
== END 2020-09-28 00:38 | disposition short-term general hospital (02) ==
LOC: M ED 21:50
DX: I20.0 Unstable angina (principal); I44.0 Atrioventricular block, first degree; I10 Essential (primary) hypertension; I25.10 Atherosclerotic heart disease of native coronary artery without angina pectoris; E78.5 Hyperlipidemia, unspecified; K58.9 Irritable bowel syndrome, unspecified; G89.29 Other chronic pain; M54.5 Low back pain; G47.30 Sleep apnea, unspecified; Z88.8 Allergy status to other drugs, medicaments and biological substances; Z79.899 Other long term (current) drug therapy
CPT/HCPCS: 71045; 80048; 80076; 82550; 82553; 83690; 84484; 85025; 85610; 85730; 87798; 93005; 93041; 94760; 96374; 99285; J1644

== ENCOUNTER → 2020-10-08 | Outpatient (CLI) | payer BC, OTHER ==
[2020-10-08 14:07] LABS: BASO % 0.7 % (0.0-1.0); EOS # 0.2 10^3/uL (0.0-0.5); EOS % 3.8 % (0.0-3.0); HEMATOCRIT 37.3 % (42.0-52.0); HEMOGLOBIN 12.5 g/dl (13.5-17.5); LYMPH # 1.2 10^3/uL (1.5-5.0); LYMPH % 26.1 % (24.0-44.0); MEAN CORPUSCULAR HEMOGLOBIN 31.8 pg (27.0-33.0); MEAN CORPUSCULAR HGB CONC 33.5 g/dl (32.0-36.5); MEAN CORPUSCULAR VOLUME 94.9 fl (80.0-96.0); MONO # 0.5 10^3/uL (0.0-0.8); MONO % 12.2 % (2.0-8.0); NEUTROPHILS # 2.5 10^3/uL (1.5-8.5); NEUTROPHILS % 56.7 % (36.0-66.0); PLATELET COUNT, AUTOMATED 215 10^3/uL (150-450); RED BLOOD COUNT 3.93 10^6/uL (4.30-6.10); WHITE BLOOD COUNT 4.4 10^3/uL (4.0-10.0)
[2020-10-08 16:47] LABS: ALBUMIN 4.1 GM/DL (3.2-5.2); BILIRUBIN,TOTAL 0.5 MG/DL (0.2-1.0); CREATININE FOR GFR 1.37 MG/DL (0.70-1.30); GLOMERULAR FILTRATION RATE 55.9 (>49); POTASSIUM SERUM 4.8 MEQ/L (3.5-5.1); TOTAL PROTEIN 7.2 GM/DL (6.4-8.2)
== END ==
LOC: M PLALAB 11:27
PROVIDERS: ATTEND Physician Assistant
DX: I25.118 Atherosclerotic heart disease of native coronary artery with other forms of angina pectoris (principal); R06.02 Shortness of breath

== ENCOUNTER → 2020-10-11 | Outpatient (CLI) | payer BC, OTHER ==
--- NOTE | 2020-10-11 10:19 | REP ---
INDICATION: DYSPNEA COMPARISON: 09/27/2020-12/20/2019 TECHNIQUE: PA and lateral. FINDINGS: The mediastinum and cardiac silhouette are stable/normal. The lung fountain demonstrate stable diffuse chronic interstitial changes and findings to suggest emphysematous disease. No focal consolidation, effusion, or pneumothorax. The skeletal structures are intact and normal. IMPRESSION: Chronic appearing changes. If the patient remains symptomatic consider chest CT for further investigation. <Electronically signed by Jason Vasquez > 10/11/20 1012
== END ==
LOC: M ADAMS 09:53
PROVIDERS: ATTEND Family Medicine
DX: R06.09 Other forms of dyspnea (principal)

== ENCOUNTER → 2020-10-23 | Outpatient (CLI) | payer BC, OTHER ==
--- NOTE | 2020-10-25 05:20 | ECWPNPC ---
PATIENT NAME: JENNIFER JAIME : 1955 GENDER: MALE VISIT DATE: 10/23/2020 DISCHARGE DATE: 10/23/20 1011 VISIT LOCKED DATE TIME: PHYSICIAN: THANH ZAPATA PHYSICIAN PAGER NO: ACTIVE RESOURCE: THANH ZAPATA REASON FOR APPOINTMENT 1. CERVICAL PAIN/MEDICATION MANAGEMENT/URINE TOX HISTORY OF PRESENT ILLNESS GENERAL: HERE FOR FOLLOW-UP OF PERSISTENT NECK AND UPPER BACK PAIN. DOING FAIRLY WELL. HAS BEEN UNDERGOING A LOT OF MEDICAL TESTING WITH RECENT CARDIAC STENTING. NEW DIAGNOSIS OF EMPHYSEMA. IS SCHEDULED FOR CT SCAN IN THE NEAR FUTURE. DENIES CHEST PAINS OR SHORTNESS OF BREATH TODAY. FINDS CURRENT CHRONIC PAIN MEDICATION HELPFUL AT REDUCING PAIN AND KEEPING HIM FUNCTIONAL. DENIES ADVERSE SIDE EFFECTS. -. FALL RISK SCREENING: SCREENING : NO FALLS REPORTED IN THE LAST YEAR. PAIN SCREENING: PATIENT HAS A COMPLAINT OF ACUTE OR CHRONIC PAIN :YES LOCATION OF PAIN:NECK, UPPER BACK INTENSITY OF PAIN (SCALE OF 1 TO 10):1 WHAT DOES YOUR PAIN FEEL LIKE:ACHING, BURNING, INTERMITTENT, SHARP, STABBING, SHOOTING INTERMITTENTLY STABBING/SHOOTING PAIN INTO RIGHT POSTERIOR UPPER BACK DURATION:INTERMITTENT PAIN IS INCREASED BY:ACTIVITIES, OTHERS ALSO NOTES AT REST PAIN IS DECREASED BY:USE OF PAIN MEDICATIONS NURSING NOTE: -. PAIN CENTER INTAKE QUESTIONS: DO YOU HAVE A HISTORY OF MRSA? :NO DO YOU TAKE A BLOOD THINNERS? :YES PLAVIX DO YOU HAVE ANY BLEEDING DISORDERS? :NO ANY NEW NUMBNESS OR WEAKNESS IN YOUR LEGS OR ARMS? :NO ANY PACEMAKER,DEFIBRILLATOR, OR DORSAL COLUMN STIMULATOR? :NO DO YOU HAVE ANY RASHES OR OPEN SORES? :NO ARE YOU ALLERGIC TO IV DYE? :NO ARE YOU DIABETIC? :YES PREDIABETIC ON METFORMIN AND JARDIANCE ANY NEW PROBLEMS WITH YOUR MEDICATIONS? :NO HAVE YOU RECEIVED A VACCINE IN THE PAST 30 DAYS? :YES 2ND COVID VACCINE EARLY SEPTEMBER DO YOU PLAN TO RECEIVE A VACCINE IN THE NEXT 21 DAYS? :YES DO YOU TAKE ANY IMMUNOSUPPRESSIVE MEDICATIONS? :NO IS THERE A CHANCE YOU COULD BE ? :NO ARE YOU BREAST FEEDING? :NO CURRENT MEDICATIONS TAKING HYDROCODONE-ACETAMINOPHEN 5-325 MG TABLET 1 TABLET NEEDED ORALLY Q8H PRN PAIN MDD3, NOTES: 07-11-20201999 TAKING VITAMIN D 5000 UNIT TABLET 1 TABLET ORALLY DAILY TAKING CLOBETASOL PROPIONATE 0.05 % CREAM 1 APPLICATION TO AFFECTED AREA/ EZEXMA BODY EXTERNALLY TWICE A DAY NEEDED TAKING LOPROX CREAM CREAM TO FEET FOR FUNGUS TOPICALLY TWICE A DAY NEEDED TAKING ASPIRIN 81 MG TABLET 1 TAB(S) ORALLY DAILY TAKING NITROSTAT 0.4 MG TABLET SUBLINGUAL 1 TAB(S) SUBLINGUAL EVERY 5 MIN PRN CHEST PAIN, MAX DOSE 3 TAKING MAY USE - - CBD CREAM DIRECTED TAKING MELATONIN ER 1 MG TABLET EXTENDED RELEASE DIRECTED ORALLY 3 MG NEEDED TAKING ATORVASTATIN CALCIUM 40 MG TABLET TAKE ONE TABLET BY MOUTH EVERY DAY TAKING FLUTICASONE PROPIONATE 50 MCG/ACT SUSPENSION 1 SPRAY IN EACH NOSTRIL NASALLY ONCE A DAY TAKING AMITRIPTYLINE HCL 25 MG TABLET 2 TABLETS ORALLY BEFORE BEDTIME TAKING CYCLOBENZAPRINE HCL 5 MG TABLET 1-2 TABS ORALLY BEFORE BEDTIME TAKING OMEPRAZOLE 40 MG CAPSULE DELAYED RELEASE TAKE ONE CAPSULE BY MOUTH TWICE A DAY TAKING BISOPROLOL FUMARATE 5 MG TABLET TAKE ONE TABLET BY MOUTH TWICE A DAY , NOTES: L TAKING LISINOPRIL 10 MG TABLET TAKE ONE TABLET BY MOUTH EVERY DAY TAKING DULOXETINE HCL 30 MG CAPSULE DELAYED RELEASE PARTICLES TAKE ONE CAPSULE BY MOUTH EVERY DAY ORALLY DAILY TAKING TRAMADOL HCL 50 MG TABLET 1 TABLET NEEDED ORALLY EVERY 6 HRS PRN MDD4 TAKING METFORMIN 1000 MG TABLET 1 TAB(S) ORALLY DAILY TAKING AMLODIPINE 5MG TABLET 1 TAB(S) ORAL DAILY TAKING ISOSORBIDE MONONITRATE 20 MG TABLET 1 TABLET ORALLY ONCE A DAY 120 MG TAKING JARDIANCE 10 MG TABLET 1 TABLET ORALLY ONCE A DAY TAKING CLOPIDOGREL BISULFATE 75 MG TABLET 1 TABLET ORALLY DAILY TAKING REQUIP 1 MG TABLET 3 TAB ORALLY BEFORE BEDTIME NOT-TAKING IBUPROFEN 600 MG TABLET 1 TABLET WITH FOOD OR MILK NEEDED ORALLY THREE TIMES A DAY NOT-TAKING ISOSORBIDE MONONITRATE ER 30 MG TABLET EXTENDED RELEASE 24 HOUR 1 TABLET IN THE MORNING ORALLY ONCE A DAY, NOTES: LAST DOSE 07-12-2020 MEDICATION LIST REVIEWED AND RECONCILED WITH THE PATIENT PAST MEDICAL HISTORY CAD--NST 09/04 EF 63%, ANTEROSEPT ISCHEMIA, LAD STENT [facility] 09/04; NST 11/04, ANTEROSEPTAL REVERSIBLE ISCHEMIA, EF 60%; NST 11/06: NL PERFUSION, EF 65%; NST 11/08: NL PERFUSION, EF 66%; ACS 09/09, EMERGENT CATH AT [facility]: (EF 55% W/O ANY HYPOKINETIC REGIONS 90% LAD X2, 65% LPAD, 60% DISTAL LAD; S/P ADRIANNA X 2 OVERLAPPING LAD (DAPT X 1 YEAR), REPEAT CATH CAROLE 10/10, PATENT LAD STENSTS, NO RCA,CX LESIONS; 50% OSTIAL STENOSIS-- MED TX ADVISED IBS ECHO 08/07: EF 70%, SL ELEV PULM ART PRESSURE, NL VALVES DDD/DJD C-SPINE, T SPINE-- ORTHO, PAIN CLINIC, HAD CERVICAL EPIDURALS HYPERLIPIDEMIA PREDIABETES ESOPHAGEAL REFLUX- EGD 08/24, UGI-01/26, PH PROBE 10/26 HYPERTENSION VITAMIN D DEFICIENCY 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 RENAL STONE 12/25 CONCUSSION DECEMBER 2013 T7 COMPRESSION FRACTURE 2014 ANTONI, ON CPAP 01/04 PFTS AT [facility] 08/07--NL, FEV1/FVC 76% FRACTURE RIGHT ANKLE TORN LABRUM LEFT SHOULDER TINNITUS CHRONIC ALLERGIC RHINITIS CHRONIC NECK PAIN EMPHYSEMA ALLERGIES PRAVACHOL: ELEV LFT'S - SIDE EFFECTS SURGICAL HISTORY L EYE SURGERY 1981 RUPTURED ACHILLES TENDON L X 2 12/1998, 05/1999 R KNEE ACL 2002 EGD/COLONOSCOPY--NL BOTH TIMES 08/24, 09/01 EGD--NL 01/26 CARDIAC CATH/LAD ADRIANNA STENT 09/04 09/04 RIGHT ANKLE 06/07 TOOTH EXTRACTION WITH BONE GRAFT X4 LEFT SHOULDER SURGERY 12/2019 [facility] HEART CATH (SEE PMH ABOVE) WITH 2 STENTS 09/10/20 FAMILY HISTORY FATHER: , AT 86, [place], DIAGNOSED WITH UNSPECIFIED HEART DISEASE MOTHER: , AT 66 OF PULM FIBROSIS, SILK AUDIOMETRIST; CAD, UNSPECIFIED HEART DISEASE 2 BROTHER(S) . 2DAUGHTER(S) - HEALTHY. YOUNGER BROTHER: THYROID. SOCIAL HISTORY GENERAL: TOBACCO USE ARE YOU A: NONSMOKER. LATEX QUESTIONNAIRE LATEX ALLERGY : HAVE YOU EVER DEVELOPED ANY TYPE OF REACTION AFTER HANDLING LATEX PRODUCTS SUCH RUBBER GLOVES, CONDOMS, DIAPHRAGMS, BALLOONS, SOCKS, OR UNDERWEAR?NO LATEX ALLERGY : HAVE YOU EVER DEVELOPED ANY TYPE OF REACTION DURING OR AFTER DENTAL APPOINTMENT, VAGINAL/RECTAL EXAMINATION, SURGICAL PROCEDURE, OR ANY OTHER EXPOSURE?NO LATEX RISK : HAVE YOU EVER HAD ANY DIFFICULTY BREATHING OR HIVES AFTER EATING OR HANDLING ANY FRUITS, OR VEGETABLES; SUCH KIWI, BANANAS, STONE FRUITS, OR CHESTNUTSNO LATEX RISK : DO YOU HAVE A PREVIOUS PERSONAL HISTORY OF MORE THAN NINE SURGERIES, SPINA BIFIDA, OR REPEATED CATHERIZATIONS? NO LATEX RISK : ARE YOU FREQUENTLY EXPOSED TO LATEX PRODUCTS IN YOUR OCCUPATION?NO DATE ASKED : 10/23/2020 ALCOHOL USE: YES. OCCASIONAL. LUNG CANCER SCREENING SMOKING STATUS:NON SMOKER BMI CARE GOAL FOLLOW-UP ABOVE NORMAL BMI FOLLOW-UPDIETARY MANAGEMENT EDUCATION, GUIDANCE, AND COUNSELING ALCOHOL SCREENING DID YOU HAVE A DRINK CONTAINING ALCOHOL IN THE PAST YEAR?YES HOW OFTEN DID YOU HAVE SIX OR MORE DRINKS ON ONE OCCASION IN THE PAST YEAR?NEVER (0 POINTS) HOW MANY DRINKS DID YOU HAVE ON A TYPICAL DAY WHEN YOU WERE DRINKING IN THE PAST YEAR?3 OR 4 (1 POINT) HOW OFTEN DID YOU HAVE A DRINK CONTAINING ALCOHOL IN THE PAST YEAR?TWO TO THREE TIMES PER WEEK (3 POINTS) POINTS4 INTERPRETATIONPOSITIVE RECREATIONAL DRUG USE DRUG USE?NO CAFFEINE CAFFEINE USE?YES COFFEE HOW OFTEN AND HOW MUCH? 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 MARITAL STATUS: . - PFS REFERRAL NEEDED?NO CLERGY REFERRAL NEEDED?NO PUBLIC HEALTH REFERRAL NEEDED?NO HAS THE PATIENT BEEN EDUCATED REGARDING HIS/HER PLAN OF CARE?YES HAS THE PATIENT BEEN EDUCATED REGARDING PAIN, THE RISK FOR PAIN, THE IMPORTANCE OF EFFECTIVE PAIN MANAGEMENT, AND THE PAIN ASSESSMENT PROCESS?YES ADVANCE DIRECTIVE ADVANCE DIRECTIVE DISCUSSED WITH PATIENT:YES PATIENT GIVEN HCP INFORMATION. ASSISTANCE OFFERED IN COMPLETING FORM IF NEEDED. HOSPITALIZATION/MAJOR DIAGNOSTIC PROCEDURE SURG RELATED ER HYPOGLYCEMIC RELATED TO METFORMIN BID 09/2019 CARDIAC CATH AT [facility] 09/2020 REVIEW OF SYSTEMS CONSTITUTIONAL: ANY RECENT FEVER NO . CHILLS NO . WEIGHT CHANGE OF UNKNOWN REASONS NO . GASTROENTEROLOGY: NEW UNEXPLAINABLE CHANGES IN BOWEL CONTROL NO . CONSTIPATION NO . GENITOURINARY: ANY NEW CHANGE IN BLADDER CONTROL? NO . NEUROLOGY: NEW ONSET DIZZINESS OR NEUROLOGICAL CHANGES NOT MENTIONED NO . NEW NUMBNESS OR PAIN PATTERNS NOT MENTIONED AND PERTINENT TO TODAY'S VISIT NO . CARDIOLOGY: NEW CHEST PRESSURE NO . PATIENT DENIES NO . RESPIRATORY: UNEXPLAINABLE COUGH NO . NEW SHORTNESS OF BREATH NO . VITAL SIGNS WT 227.8 LBS, HT 70 IN, BMI 32.68 INDEX, BP 116/73 MM HG, HR 83 /MIN, RR 18 /MIN, TEMP 97.2 F, OXYGEN SAT % 92%, SAFE IN ENV? (Y/N) YES, NA INITIALS AL 09:24, REVIEWED BY: JUSTIN RN. EXAMINATION GENERAL EXAMINATION: GENERALAWAKE,ALERT ,PLEASANT . PSYCHAFFECT NORMAL . LUNGS:LUNG MERA ARE CLEAR TO AUSCULTATION BILATERALLY. GOOD MOVEMENT OF AIR . HEART:S1, S2 IN A REGULAR RATE AND RHYTHM. NO SIGNIFICANT MURMURS, RUBS OR GALLOPS NOTED . ASSESSMENTS CERVICAL DISC DISORDER WITH RADICULOPATHY OF CERVICOTHORACIC REGION - M50.13 (PRIMARY) TREATMENT CERVICAL DISC DISORDER WITH RADICULOPATHY OF CERVICOTHORACIC REGION STOP HYDROCODONE-ACETAMINOPHEN TABLET, 5-325 MG, 1 TABLET NEEDED, ORALLY, Q8H PRN PAIN MDD3, NOTES: 07-11-20201999 CONTINUE DULOXETINE HCL CAPSULE DELAYED RELEASE PARTICLES, 30 MG, TAKE ONE CAPSULE BY MOUTH EVERY DAY, ORALLY, DAILY CONTINUE TRAMADOL HCL TABLET, 50 MG, 1 TABLET NEEDED, ORALLY, EVERY 6 HRS PRN MDD4 NOTES: ISTOP REGISTRY REVIEWED AND DEMONSTRATES COMPLLIANCE. BRINGS IN MEDICATIONS WHICH IS APPROPRIATE FOR WHAT WAS DISPENSED. RECENT URINE TOXICOLOGY REVIEWED. NO UNAUTHORIZED MEDICATIONS. NO ILLICIT SUBSTANCES AND PRESCRIBED MEDICATIONS WERE PRESENT. PROCEDURE CODES FA211 ESTABILISHED PATIENT [facility] CHARGE DISPOSITION & COMMUNICATION FOLLOW UP 3 MONTHS (REASON: UTOX MED MGMNT) ELECTRONICALLY SIGNED BY LAURA ORDAZ ON 10/24/2020 AT 02:16 PM EDT DISCLAIMER : THIS IS A VISIT SUMMARY EXTRACTED FROM THE [employer] CHART. IT IS NOT A COPY OF THE [employer] PROGRESS NOTE. RADHA
== END ==
LOC: M PAIN 09:15
PROVIDERS: ATTEND Nurse Practitioner Family
DX: M50.13 Cervical disc disorder with radiculopathy, cervicothoracic region (principal); E11.9 Type 2 diabetes mellitus without complications; K21.9 Gastro-esophageal reflux disease without esophagitis; E55.9 Vitamin D deficiency, unspecified; G25.81 Restless legs syndrome; G47.33 Obstructive sleep apnea (adult) (pediatric); Z88.8 Allergy status to other drugs, medicaments and biological substances; Z79.82 Long term (current) use of aspirin; Z79.84 Long term (current) use of oral hypoglycemic drugs; Z79.899 Other long term (current) drug therapy

== ENCOUNTER → 2020-11-17 | Outpatient (CLI) | payer BC, OTHER ==
[~2020-11-17] MED LIST changes: +GABA-283 PO; -GABA-845 PO
--- NOTE | 2020-11-17 13:49 | REP ---
INDICATION: YO,DYSPNEA, UNSPECIFIED COMPARISON: None TECHNIQUE: Axial noncontrast images from the thoracic inlet to the upper abdomen with coronal and sagittal reformations. This CT examination was performed using the following dose reduction techniques: Automated exposure control, adjustment of mA and/or kv according to the patient's size, and use of iterative reconstruction technique. FINDINGS: Lung fountain demonstrate moderate scattered subpleural pulmonary fibrosis along with relatively mild diffuse bronchiectasis and moderate emphysematous changes. No focal consolidation. No effusion. No pneumothorax. Nonspecific mediastinal lymph nodes measure up to 12 mm. Thoracic aorta appears normal. The pulmonary arteries appear dilated and the pulmonary trunk measures 3.5 cm diameter suggesting pulmonary arterial hypertension. Atherosclerotic changes and coronary arterial stents noted. No pericardial effusion. Surrounding musculoskeletal structures intact and without acute osseous abnormality. IMPRESSION: Changes related to chronic lung disease as described above. No acute focal consolidation or effusion. <Electronically signed by Jason Vasquez > 11/17/20 [id number]
== END ==
LOC: M RAD 12:38
PROVIDERS: ATTEND Family Medicine
DX: R06.00 Dyspnea, unspecified (principal)

== ENCOUNTER → 2020-11-27 | Outpatient (REF) | payer OTHER ==
[2020-11-27 14:19] LABS: HEMATOCRIT 39.3 % (42.0-52.0); HEMOGLOBIN 13.2 g/dl (13.5-17.5); MEAN CORPUSCULAR HEMOGLOBIN 31.7 pg (27.0-33.0); MEAN CORPUSCULAR HGB CONC 33.6 g/dl (32.0-36.5); MEAN CORPUSCULAR VOLUME 94.5 fl (80.0-96.0); PLATELET COUNT, AUTOMATED 219 10^3/uL (150-450); RED BLOOD COUNT 4.16 10^6/uL (4.30-6.10); WHITE BLOOD COUNT 4.5 10^3/uL (4.0-10.0)
[2020-11-27 15:32] LABS: ALBUMIN 3.9 GM/DL (3.2-5.2); BILIRUBIN,TOTAL 0.8 MG/DL (0.2-1.0); CALCIUM LEVEL 9.3 MG/DL (8.8-10.2); CHOLESTEROL RISK RATIO 3.645 (<5); CREATININE FOR GFR 1.34 MG/DL (0.70-1.30); GLOMERULAR FILTRATION RATE 57.1 (>49); POTASSIUM SERUM 4.5 MEQ/L (3.5-5.1); TOTAL PROTEIN 7.5 GM/DL (6.4-8.2)
[2020-11-27 15:58] LABS: HEMOGLOBIN A1c 5.9 %
== END ==
LOC: M SFHCADAM 11:39
PROVIDERS: ATTEND Family Medicine
DX: J30.9 Allergic rhinitis, unspecified (principal); I11.9 Hypertensive heart disease without heart failure; R73.03 Prediabetes; E78.2 Mixed hyperlipidemia; Z12.5 Encounter for screening for malignant neoplasm of prostate
CPT/HCPCS: 80053; 80061; 83036; 85027; G0103

== ENCOUNTER → 2021-01-21 | Outpatient (CLI) | payer BC, OTHER ==
[~2021-01-21] MED LIST changes: +OMEP40CA4 PO; -OMEP40CA97 PO
[2021-01-21 14:45] LABS: RHEUMATOID FACTOR QUANT < 10.0 IU/ML (<15.0)
[2021-01-25 09:11] LABS: ANCA-ATYPICAL <1:20 titer (Neg:<1:20); ANGIOTENSIN 1 CONVERTING ENZYM 23 U/L (14-82); ANTINUCLEAR ANTIBODIES DIRECT Negative (Negative); ASPERGILLUS FUMIGATUS AB Negative (Negative); AUREOBASIDIUM PULLULANS Negative (Negative); CYCLIC CITRULLINATED PEPTIDE 6 units (0-19); CYTOPLASMIC NEUTROP AB ANCA-C <1:20 titer (Neg:<1:20); MICROPOLYSPORA FAENI AB Negative (Negative); PERINUCLEAR AB ANCA-P <1:20 titer (Neg:<1:20); PIGEON SERUM AB Negative (Negative); SJOGREN'S ANTI SS-A <0.2 AI (0.0-0.9); SJOGREN'S ANTI SS-B <0.2 AI (0.0-0.9); THERMOACTINOMYCES SACCHARI Negative (Negative); THERMOACTINOMYCES VULGARIS Negative (Negative)
== END ==
LOC: M PLALAB 12:01
PROVIDERS: ATTEND Nurse Practitioner Adult Health
DX: R91.8 Other nonspecific abnormal finding of lung field (principal)

== ENCOUNTER → 2021-01-23 | Outpatient (CLI) | payer BC, OTHER ==
--- NOTE | 2021-01-24 06:29 | ECWPNPC ---
PATIENT NAME: JENNIFER JAIME : 1955 GENDER: MALE VISIT DATE: 01/23/2021 DISCHARGE DATE: 01/23/21 1046 VISIT LOCKED DATE TIME: PHYSICIAN: THANH ZAPATA PHYSICIAN PAGER NO: ACTIVE RESOURCE: THANH ZPAATA REASON FOR APPOINTMENT 1. NECK/UTOX/MED MGMNT HISTORY OF PRESENT ILLNESS DEPRESSION SCREENING: PHQ-2 (2015 EDITION) LITTLE INTEREST OR PLEASURE IN DOING THINGS?NOT AT ALL FEELING DOWN, DEPRESSED, OR HOPELESS?NOT AT ALL TOTAL SCORE0 GENERAL: HERE FOR FOLLOW-UP OF PERSISTENT NECK AND UPPER BACK PAIN. DOING FAIRLY WELL. HAS BEEN UNDERGOING A LOT OF MEDICAL TESTING WITH RECENT CARDIAC STENTING. NEW DIAGNOSIS OF EMPHYSEMA. IS SCHEDULED FOR CT SCAN IN THE NEAR FUTURE. DENIES CHEST PAINS OR SHORTNESS OF BREATH TODAY. FINDS CURRENT CHRONIC PAIN MEDICATION HELPFUL AT REDUCING PAIN AND KEEPING HIM FUNCTIONAL. DENIES ADVERSE SIDE EFFECTS. - -. FALL RISK SCREENING: SCREENING : NO FALLS REPORTED IN THE LAST YEAR. PAIN SCREENING: PATIENT HAS A COMPLAINT OF ACUTE OR CHRONIC PAIN :YES LOCATION OF PAIN:NECK, UPPER BACK INTENSITY OF PAIN (SCALE OF 1 TO 10):1 WHAT DOES YOUR PAIN FEEL LIKE:ACHING, INTERMITTENT DURATION:ONLY WITH SPECIFIC ACTIVITIES, INTERMITTENT PAIN IS INCREASED BY:ACTIVITIES PAIN IS DECREASED BY:USE OF PAIN MEDICATIONS, SITTING, OTHERS RESTING NURSING NOTE: -. PAIN CENTER INTAKE QUESTIONS: DO YOU HAVE A HISTORY OF MRSA? :NO DO YOU TAKE A BLOOD THINNERS? :YES PLAVIX DO YOU HAVE ANY BLEEDING DISORDERS? :NO ANY NEW NUMBNESS OR WEAKNESS IN YOUR LEGS OR ARMS? :NO ANY PACEMAKER,DEFIBRILLATOR, OR DORSAL COLUMN STIMULATOR? :NO DO YOU HAVE ANY RASHES OR OPEN SORES? :NO ARE YOU ALLERGIC TO IV DYE? :NO ARE YOU DIABETIC? :YES PREDIABETIC ON METFORMIN AND JARDIANCE ANY NEW PROBLEMS WITH YOUR MEDICATIONS? :NO HAVE YOU RECEIVED A VACCINE IN THE PAST 30 DAYS? :NO DO YOU PLAN TO RECEIVE A VACCINE IN THE NEXT 21 DAYS? :NO DO YOU TAKE ANY IMMUNOSUPPRESSIVE MEDICATIONS? :NO IS THERE A CHANCE YOU COULD BE ? :NO ARE YOU BREAST FEEDING? :NO CURRENT MEDICATIONS TAKING PREDNISONE 50 MG TABLET 1 TABLET ORALLY ONCE A DAY, STOP DATE 01/25/2021 TAKING VITAMIN D 5000 UNIT TABLET 1 TABLET ORALLY DAILY TAKING CLOBETASOL PROPIONATE 0.05 % CREAM 1 APPLICATION TO AFFECTED AREA/ EZEXMA BODY EXTERNALLY TWICE A DAY NEEDED TAKING LOPROX CREAM CREAM TO FEET FOR FUNGUS TOPICALLY TWICE A DAY NEEDED TAKING ASPIRIN 81 MG TABLET 1 TAB(S) ORALLY DAILY TAKING NITROSTAT 0.4 MG TABLET SUBLINGUAL 1 TAB(S) SUBLINGUAL EVERY 5 MIN PRN CHEST PAIN, MAX DOSE 3 TAKING MAY USE - - CBD CREAM DIRECTED TAKING MELATONIN ER 1 MG TABLET EXTENDED RELEASE DIRECTED ORALLY 3 MG NEEDED TAKING FLUTICASONE PROPIONATE 50 MCG/ACT SUSPENSION 1 SPRAY IN EACH NOSTRIL NASALLY ONCE A DAY TAKING AMITRIPTYLINE HCL 25 MG TABLET 2 TABLETS ORALLY BEFORE BEDTIME TAKING OMEPRAZOLE 40 MG CAPSULE DELAYED RELEASE TAKE ONE CAPSULE BY MOUTH TWICE A DAY TAKING BISOPROLOL FUMARATE 5 MG TABLET TAKE ONE TABLET BY MOUTH TWICE A DAY , NOTES: L TAKING LISINOPRIL 10 MG TABLET TAKE ONE TABLET BY MOUTH EVERY DAY TAKING METFORMIN 1000 MG TABLET 1 TAB(S) ORALLY DAILY TAKING AMLODIPINE 5MG TABLET 1 TAB(S) ORAL DAILY TAKING CLOPIDOGREL BISULFATE 75 MG TABLET 1 TABLET ORALLY DAILY TAKING REQUIP 1 MG TABLET 3 TAB ORALLY BEFORE BEDTIME TAKING DULOXETINE HCL 30 MG CAPSULE DELAYED RELEASE PARTICLES TAKE ONE CAPSULE BY MOUTH EVERY DAY ORALLY DAILY TAKING TRAMADOL HCL 50 MG TABLET 1 TABLET NEEDED ORALLY EVERY 6 HRS PRN MDD4 TAKING ATORVASTATIN CALCIUM 40 MG TABLET TAKE ONE TABLET BY MOUTH EVERY DAY TAKING ALBUTEROL SULFATE HFA 108 (90 BASE) MCG/ACT AEROSOL SOLUTION INHALE ONE TO TWO PUFFS BY MOUTH EVERY 4 TO 6 HOURS NEEDED INHALATION TAKING JARDIANCE 25 MG TABLET 1 TABLET ORALLY ONCE A DAY TAKING CYCLOBENZAPRINE HCL 5 MG TABLET 1-2 TABS ORALLY BEFORE BEDTIME TAKING ISOSORBIDE MONONITRATE 20 MG TABLET 1 TABLET ORALLY ONCE A DAY 120 MG NOT-TAKING PREDNISONE 1 TAB ORAL NOT-TAKING IBUPROFEN 600 MG TABLET 1 TABLET WITH FOOD OR MILK NEEDED ORALLY THREE TIMES A DAY NOT-TAKING ISOSORBIDE MONONITRATE ER 30 MG TABLET EXTENDED RELEASE 24 HOUR 1 TABLET IN THE MORNING ORALLY ONCE A DAY, NOTES: LAST DOSE 07-12-2020 MEDICATION LIST REVIEWED AND RECONCILED WITH THE PATIENT PAST MEDICAL HISTORY CAD--NST 09/04 EF 63%, ANTEROSEPT ISCHEMIA, LAD STENT [facility] 09/04; NST 11/04, ANTEROSEPTAL REVERSIBLE ISCHEMIA, EF 60%; NST 11/06: NL PERFUSION, EF 65%; NST 11/08: NL PERFUSION, EF 66%; ACS 09/09, EMERGENT CATH AT [facility]: (EF 55% W/O ANY HYPOKINETIC REGIONS 90% LAD X2, 65% LPAD, 60% DISTAL LAD; S/P ADRIANNA X 2 OVERLAPPING LAD (DAPT X 1 YEAR), REPEAT CATH CAROLE 10/10, PATENT LAD STENSTS, NO RCA,CX LESIONS; 50% OSTIAL STENOSIS-- MED TX ADVISED IBS ECHO 08/07: EF 70%, SL ELEV PULM ART PRESSURE, NL VALVES TYPE 2 DM DDD/DJD C-SPINE, T SPINE-- ORTHO, PAIN CLINIC, HAD CERVICAL EPIDURALS HYPERLIPIDEMIA ESOPHAGEAL REFLUX- EGD 08/24, UGI-01/26, PH PROBE 10/26 HYPERTENSION VITAMIN D DEFICIENCY 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 RENAL STONE 12/25 CONCUSSION DECEMBER 2013 T7 COMPRESSION FRACTURE 2014 ANTONI, ON CPAP 01/04 PFTS AT [facility] 08/07--NL, FEV1/FVC 76% FRACTURE RIGHT ANKLE TORN LABRUM LEFT SHOULDER TINNITUS CHRONIC ALLERGIC RHINITIS CHRONIC NECK PAIN CT CHEST 11/09: EMPHYSEMA/FIBRIOSIS/BRONCHIECTASIS--REFERRED BACK TO [facility] CKD 3A, GFR 50S (12/10), SL REDUCTION AFTER CARDIAC CATH ALLERGIES PRAVACHOL: ELEV LFT'S - SIDE EFFECTS SURGICAL HISTORY L EYE SURGERY 1980 RUPTURED ACHILLES TENDON L X 2 12/1998, 05/1999 R KNEE ACL 2002 EGD/COLONOSCOPY--NL BOTH TIMES 08/24, 09/01 EGD--NL 01/26 CARDIAC CATH/LAD ADRIANNA STENT 09/04 09/04 RIGHT ANKLE 06/07 TOOTH EXTRACTION WITH BONE GRAFT X4 LEFT SHOULDER SURGERY 12/2019 [facility] HEART CATH (SEE [facility] ABOVE) WITH 2 STENTS 09/10/20 SOCIAL HISTORY GENERAL: TOBACCO USE ARE YOU A: NONSMOKER. LATEX QUESTIONNAIRE LATEX ALLERGY : HAVE YOU EVER DEVELOPED ANY TYPE OF REACTION AFTER HANDLING LATEX PRODUCTS SUCH RUBBER GLOVES, CONDOMS, DIAPHRAGMS, BALLOONS, SOCKS, OR UNDERWEAR?NO LATEX ALLERGY : HAVE YOU EVER DEVELOPED ANY TYPE OF REACTION DURING OR AFTER DENTAL APPOINTMENT, VAGINAL/RECTAL EXAMINATION, SURGICAL PROCEDURE, OR ANY OTHER EXPOSURE?NO LATEX RISK : HAVE YOU EVER HAD ANY DIFFICULTY BREATHING OR HIVES AFTER EATING OR HANDLING ANY FRUITS, OR VEGETABLES; SUCH KIWI, BANANAS, STONE FRUITS, OR CHESTNUTSNO LATEX RISK : DO YOU HAVE A PREVIOUS PERSONAL HISTORY OF MORE THAN NINE SURGERIES, SPINA BIFIDA, OR REPEATED CATHERIZATIONS? NO LATEX RISK : ARE YOU FREQUENTLY EXPOSED TO LATEX PRODUCTS IN YOUR OCCUPATION?NO DATE ASKED : 01/23/2021 ALCOHOL USE: YES. OCCASIONAL. LUNG CANCER SCREENING SMOKING STATUS:NON SMOKER BMI CARE GOAL FOLLOW-UP ABOVE NORMAL BMI FOLLOW-UPDIETARY MANAGEMENT EDUCATION, GUIDANCE, AND COUNSELING ALCOHOL SCREENING DID YOU HAVE A DRINK CONTAINING ALCOHOL IN THE PAST YEAR?YES HOW OFTEN DID YOU HAVE A DRINK CONTAINING ALCOHOL IN THE PAST YEAR?TWO TO THREE TIMES PER WEEK (3 POINTS) HOW MANY DRINKS DID YOU HAVE ON A TYPICAL DAY WHEN YOU WERE DRINKING IN THE PAST YEAR?3 OR 4 (1 POINT) HOW OFTEN DID YOU HAVE SIX OR MORE DRINKS ON ONE OCCASION IN THE PAST YEAR?NEVER (0 POINTS) POINTS4 INTERPRETATIONPOSITIVE RECREATIONAL DRUG USE DRUG USE?NO CAFFEINE CAFFEINE USE?YES COFFEE HOW OFTEN AND HOW MUCH? 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 MARITAL STATUS: . - PFS REFERRAL NEEDED?NO CLERGY REFERRAL NEEDED?NO PUBLIC HEALTH REFERRAL NEEDED?NO HAS THE PATIENT BEEN EDUCATED REGARDING HIS/HER PLAN OF CARE?YES HAS THE PATIENT BEEN EDUCATED REGARDING PAIN, THE RISK FOR PAIN, THE IMPORTANCE OF EFFECTIVE PAIN MANAGEMENT, AND THE PAIN ASSESSMENT PROCESS?YES ADVANCE DIRECTIVE ADVANCE DIRECTIVE DISCUSSED WITH PATIENT:YES PATIENT GIVEN HCP INFORMATION. ASSISTANCE OFFERED IN COMPLETING FORM IF NEEDED. HOSPITALIZATION/MAJOR DIAGNOSTIC PROCEDURE SURG RELATED ER HYPOGLYCEMIC RELATED TO METFORMIN BID 09/2019 CARDIAC CATH AT [facility] 09/2020 REVIEW OF SYSTEMS CONSTITUTIONAL: ANY RECENT FEVER NO . CHILLS NO . WEIGHT CHANGE OF UNKNOWN REASONS NO . GASTROENTEROLOGY: NEW UNEXPLAINABLE CHANGES IN BOWEL CONTROL NO . CONSTIPATION NO . GENITOURINARY: ANY NEW CHANGE IN BLADDER CONTROL? NO . NEUROLOGY: NEW ONSET DIZZINESS OR NEUROLOGICAL CHANGES NOT MENTIONED NO . NEW NUMBNESS OR PAIN PATTERNS NOT MENTIONED AND PERTINENT TO TODAY'S VISIT NO . CARDIOLOGY: NEW CHEST PRESSURE NO . PATIENT DENIES NO . RESPIRATORY: UNEXPLAINABLE COUGH NO . NEW SHORTNESS OF BREATH NO . VITAL SIGNS WT 121 LBS, WT-KG 54.89 KG, HT 70 IN, BMI 32.28 INDEX, BP 134/87 MM HG, HR 76 /MIN, RR 18 /MIN, TEMP 97.9 F, OXYGEN SAT % 98%, SAFE IN ENV? (Y/N) YEST.LISA VILLARREAL. EXAMINATION GENERAL EXAMINATION: GENERALAWAKE,ALERT ,PLEASANT . PSYCHAFFECT NORMAL . LUNGS:LUNG MERA ARE CLEAR TO AUSCULTATION BILATERALLY. GOOD MOVEMENT OF AIR . HEART:S1, S2 IN A REGULAR RATE AND RHYTHM. NO SIGNIFICANT MURMURS, RUBS OR GALLOPS NOTED . ASSESSMENTS CERVICAL DISC DISORDER WITH RADICULOPATHY OF CERVICOTHORACIC REGION - M50.13 (PRIMARY) TREATMENT CERVICAL DISC DISORDER WITH RADICULOPATHY OF CERVICOTHORACIC REGION CONTINUE DULOXETINE HCL CAPSULE DELAYED RELEASE PARTICLES, 30 MG, TAKE ONE CAPSULE BY MOUTH EVERY DAY, ORALLY, DAILY CONTINUE TRAMADOL HCL TABLET, 50 MG, 1 TABLET NEEDED, ORALLY, EVERY 6 HRS PRN MDD4 PROCEDURE CODES FA211 ESTABILISHED PATIENT [facility] CHARGE DISPOSITION & COMMUNICATION FOLLOW UP 3 MONTHS (REASON: MED MGMNT) ELECTRONICALLY SIGNED BY LAURA ORDAZ ON 01/23/2021 AT 03:53 PM EDT DISCLAIMER : THIS IS A VISIT SUMMARY EXTRACTED FROM THE [employer] CHART. IT IS NOT A COPY OF THE [employer] PROGRESS NOTE. MTDD
== END ==
LOC: M PAIN 10:00
PROVIDERS: ATTEND Nurse Practitioner Family
DX: M50.13 Cervical disc disorder with radiculopathy, cervicothoracic region (principal); E11.9 Type 2 diabetes mellitus without complications; K21.9 Gastro-esophageal reflux disease without esophagitis; E55.9 Vitamin D deficiency, unspecified; G25.81 Restless legs syndrome; G47.33 Obstructive sleep apnea (adult) (pediatric); Z88.8 Allergy status to other drugs, medicaments and biological substances; Z79.82 Long term (current) use of aspirin; Z79.84 Long term (current) use of oral hypoglycemic drugs; Z79.899 Other long term (current) drug therapy

== ENCOUNTER → 2021-02-27 | Outpatient (CLI) | payer BC, OTHER | LOC: M PLALAB 07:53 | PROVIDERS: ATTEND Internal Medicine Pulmonary Disease | DX: R91.8 Other nonspecific abnormal finding of lung field (principal); J84.170 Interstitial lung disease with progressive fibrotic phenotype in diseases classified elsewhere ==

== ENCOUNTER → 2021-04-30 | Outpatient (REF) | payer OTHER ==
[2021-05-01 16:09] LABS: Lyme Disease IgG/IgM Antibodie <0.91 ISR (0.00-0.90); Lyme Disease IgM Ab Quantitati <0.80 index (0.00-0.79)
== END ==
LOC: M SFHCADAM 08:57
PROVIDERS: ATTEND Family Medicine
DX: M25.469 Effusion, unspecified knee (principal)

== ENCOUNTER → 2021-04-30 | Outpatient (CLI) | payer BC, OTHER ==
--- NOTE | 2021-04-30 11:59 | REP ---
INDICATION: RIGHT MEDIAL KNEE PAIN COMPARISON: None TECHNIQUE: Five views FINDINGS: There is been previous ACL reconstruction. Mature tunnel defects are seen 1 in the distal femur and the other in the proximal tibia. [place] devices are seen 1 in the distal femur and the other in the proximal tibia. The compartments are symmetric and well maintained. There is no prominent marginal osteophytosis. There is no fracture, dislocation, or subluxation. IMPRESSION: Postop changes as described above. There is no evidence of an acute osseous abnormality. <Electronically signed by Dima Toussaint > 04/30/21 [id number]
== END ==
LOC: M ADAMS 09:38
PROVIDERS: ATTEND Family Medicine
DX: M25.561 Pain in right knee (principal)

== ENCOUNTER → 2021-06-04 | Outpatient (CLI) | payer BC, OTHER ==
[2021-06-04 12:14] LABS: HEMATOCRIT 43.2 % (42.0-52.0); HEMOGLOBIN 14.8 g/dl (13.5-17.5); MEAN CORPUSCULAR HEMOGLOBIN 32.1 pg (27.0-33.0); MEAN CORPUSCULAR HGB CONC 34.3 g/dl (32.0-36.5); MEAN CORPUSCULAR VOLUME 93.7 fl (80.0-96.0); PLATELET COUNT, AUTOMATED 238 10^3/uL (150-450); RED BLOOD COUNT 4.61 10^6/uL (4.30-6.10); WHITE BLOOD COUNT 4.2 10^3/uL (4.0-10.0)
[2021-06-04 12:43] LABS: ALBUMIN 4.2 GM/DL (3.2-5.2); ALT/SGPT 80 U/L (12-78); BILIRUBIN,TOTAL 0.5 MG/DL (0.2-1.0); BLOOD UREA NITROGEN 19 MG/DL (7-18); CALCIUM LEVEL 9.7 MG/DL (8.8-10.2); CARBON DIOXIDE LEVEL 28 MEQ/L (21-32); CHLORIDE LEVEL 106 MEQ/L (98-107); CHOLESTEROL LEVEL 196 MG/DL (<200); CHOLESTEROL RISK RATIO 3.563 (<5); CREATININE FOR GFR 1.27 MG/DL (0.70-1.30); GLOMERULAR FILTRATION RATE > 60.0 (>49); GLUCOSE, FASTING 122 MG/DL (70-100); HDL CHOLESTEROL 55 MG/DL (>40); LDL CHOLESTEROL 85 MG/DL (<100); NON-HDL-C 141 MG/DL; POTASSIUM SERUM 4.6 MEQ/L (3.5-5.1); SODIUM LEVEL 139 MEQ/L (136-145); TOTAL PROTEIN 7.8 GM/DL (6.4-8.2); TRIGLYCERIDES LEVEL 280 MG/DL (<150)
[2021-06-04 12:59] LABS: HEMOGLOBIN A1c 6.2 %
[2021-06-04 13:02] LABS: MAU/CREAT RATIO 97.6 MCG/MG (0.0-30.0)
== END ==
LOC: M LAB 10:52
PROVIDERS: ATTEND Family Medicine
DX: E11.22 Type 2 diabetes mellitus with diabetic chronic kidney disease (principal); E78.2 Mixed hyperlipidemia; N18.2 Chronic kidney disease, stage 2 (mild)

== ENCOUNTER → 2021-06-07 | Outpatient (CLI) | payer BC, OTHER | LOC: M PAIN 09:00 | PROVIDERS: ATTEND Anesthesiology | DX: M47.812 Spondylosis without myelopathy or radiculopathy, cervical region (principal); Z79.891 Long term (current) use of opiate analgesic; I25.10 Atherosclerotic heart disease of native coronary artery without angina pectoris; K58.9 Irritable bowel syndrome, unspecified; Z95.5 Presence of coronary angioplasty implant and graft; E11.22 Type 2 diabetes mellitus with diabetic chronic kidney disease; E78.5 Hyperlipidemia, unspecified; K21.9 Gastro-esophageal reflux disease without esophagitis; I12.9 Hypertensive chronic kidney disease with stage 1 through stage 4 chronic kidney disease, or unspecified chronic kidney disease; E55.9 Vitamin D deficiency, unspecified; G25.81 Restless legs syndrome; G47.33 Obstructive sleep apnea (adult) (pediatric); N18.31 Chronic kidney disease, stage 3a; J84.10 Pulmonary fibrosis, unspecified; Z79.82 Long term (current) use of aspirin; Z79.02 Long term (current) use of antithrombotics/antiplatelets; Z79.84 Long term (current) use of oral hypoglycemic drugs; Z79.1 Long term (current) use of non-steroidal anti-inflammatories (NSAID); Z79.899 Other long term (current) drug therapy; Z88.8 Allergy status to other drugs, medicaments and biological substances ==

== ENCOUNTER → 2021-08-28 | Outpatient (CLI) | payer BC, OTHER | LOC: M PLALAB 10:01 | PROVIDERS: ATTEND Internal Medicine Pulmonary Disease | DX: M35.00 Sjogren syndrome, unspecified (principal); J84.170 Interstitial lung disease with progressive fibrotic phenotype in diseases classified elsewhere ==

== ENCOUNTER → 2021-08-28 | Outpatient (CLI) | payer BC, OTHER ==
[2021-08-28 13:44] LABS: BLOOD UREA NITROGEN 25 MG/DL (7-18); CALCIUM LEVEL 9.7 MG/DL (8.8-10.2); CARBON DIOXIDE LEVEL 26 MEQ/L (21-32); CHLORIDE LEVEL 103 MEQ/L (98-107); CREATININE FOR GFR 1.22 MG/DL (0.70-1.30); GLOMERULAR FILTRATION RATE > 60.0 (>49); GLUCOSE, FASTING 125 MG/DL (70-100); POTASSIUM SERUM 4.6 MEQ/L (3.5-5.1); SODIUM LEVEL 134 MEQ/L (136-145)
[2021-08-28 18:41] LABS: HEMOGLOBIN A1c 6.7 %
== END ==
LOC: M PLALAB 10:00
PROVIDERS: ATTEND Family Medicine
DX: E11.22 Type 2 diabetes mellitus with diabetic chronic kidney disease (principal); N18.9 Chronic kidney disease, unspecified

== ENCOUNTER → 2021-08-28 | Outpatient (CLI) | payer BC, OTHER | LOC: M LABSMTC 09:54 | PROVIDERS: ATTEND Anesthesiology | DX: Z01.812 Encounter for preprocedural laboratory examination (principal); Z20.822 Contact with and (suspected) exposure to COVID-19 ==

== ENCOUNTER → 2021-09-02 | Outpatient (CLI) | payer OTHER ==
[~2021-09-02] MED LIST changes: +BUPIVACAINE HCL 0.25% 30ML VIAL As Ordered ONE; +ISOVUE-M 300 61% 15ML VIAL As Ordered ONE; +LIDOCAINE 1% SDV 30ML VIAL As Ordered ONE
== END ==
LOC: M PAIN 13:45
PROVIDERS: ATTEND Anesthesiology
DX: M47.812 Spondylosis without myelopathy or radiculopathy, cervical region (principal); K21.9 Gastro-esophageal reflux disease without esophagitis; E55.9 Vitamin D deficiency, unspecified; G25.81 Restless legs syndrome; G47.33 Obstructive sleep apnea (adult) (pediatric); E11.9 Type 2 diabetes mellitus without complications; Z88.8 Allergy status to other drugs, medicaments and biological substances; Z79.82 Long term (current) use of aspirin; Z79.84 Long term (current) use of oral hypoglycemic drugs
CPT/HCPCS: 64490; 64491; 64492; Q9967

== ENCOUNTER → 2021-12-26 | Outpatient (CLI) | payer MEDICARE, OTHER, BC ==
[~2021-12-26] MED LIST changes: -BUPIVACAINE HCL 0.25% 30ML VIAL As Ordered ONE; -ISOVUE-M 300 61% 15ML VIAL As Ordered ONE; -LIDOCAINE 1% SDV 30ML VIAL As Ordered ONE
== END ==
LOC: M ADAMS 16:03
PROVIDERS: ATTEND Family Medicine
DX: M25.552 Pain in left hip (principal)

== ENCOUNTER → 2022-01-02 | Outpatient (CLI) | payer MEDICARE, BC, OTHER | LOC: M RAD 10:39 | PROVIDERS: ATTEND Internal Medicine Pulmonary Disease | DX: J84.10 Pulmonary fibrosis, unspecified (principal) ==

== ENCOUNTER → 2022-03-03 | Outpatient (REF) | payer MEDICARE, OTHER ==
[2022-03-03 18:08] LABS: HEMATOCRIT 37.7 % (42.0-52.0); HEMOGLOBIN 13.1 g/dl (13.5-17.5); MEAN CORPUSCULAR HEMOGLOBIN 33.7 pg (27.0-33.0); MEAN CORPUSCULAR HGB CONC 34.7 g/dl (32.0-36.5); MEAN CORPUSCULAR VOLUME 96.9 fl (80.0-96.0); PLATELET COUNT, AUTOMATED 194 10^3/uL (150-450); RED BLOOD COUNT 3.89 10^6/uL (4.30-6.10); WHITE BLOOD COUNT 5.3 10^3/uL (4.0-10.0)
[2022-03-03 19:14] LABS: ALBUMIN 3.7 GM/DL (3.2-5.2); BILIRUBIN,TOTAL 0.8 MG/DL (0.2-1.0); CHOLESTEROL RISK RATIO 3.254 (<5); CREATININE FOR GFR 1.31 MG/DL (0.70-1.30); FREE T4 0.83 NG/DL (0.76-1.46); GLOMERULAR FILTRATION RATE 58.5 (>49); POTASSIUM SERUM 4.9 MEQ/L (3.5-5.1); THYROID STIMULATING HORMONE 1.16 uIU/ML (0.358-3.740); TOTAL PROTEIN 7.2 GM/DL (6.4-8.2)
[2022-03-03 19:16] LABS: HEMOGLOBIN A1c 6.4 %
[2022-03-03 19:24] LABS: MALB URINE SIEMENS 32.7 MG/L
== END ==
LOC: M SFHCADAM 11:28
PROVIDERS: ATTEND Family Medicine
DX: Z12.5 Encounter for screening for malignant neoplasm of prostate (principal); E11.22 Type 2 diabetes mellitus with diabetic chronic kidney disease; J84.10 Pulmonary fibrosis, unspecified; I25.10 Atherosclerotic heart disease of native coronary artery without angina pectoris; E78.2 Mixed hyperlipidemia
CPT/HCPCS: 80053; 80061; 82043; 83036; 84439; 84443; 85027; G0103

== ENCOUNTER → 2022-03-13 | Outpatient (REF) | payer MEDICARE, BC, OTHER ==
[2022-03-13 14:15] LABS: ALBUMIN 3.9 GM/DL (3.2-5.2); BILIRUBIN,DIRECT 0.1 MG/DL (0.0-0.2); BILIRUBIN,TOTAL 0.4 MG/DL (0.2-1.0); TOTAL PROTEIN 7.7 GM/DL (6.4-8.2)
== END ==
LOC: M LABDRWAD 12:43
PROVIDERS: ATTEND Internal Medicine Pulmonary Disease
DX: J84.9 Interstitial pulmonary disease, unspecified (principal)

== ENCOUNTER → 2022-03-24 | Outpatient (CLI) | payer MEDICARE, BC, OTHER | LOC: M SLEEP 20:00 | PROVIDERS: ATTEND Internal Medicine Pulmonary Disease | DX: G47.33 Obstructive sleep apnea (adult) (pediatric) (principal) ==

== ENCOUNTER → 2022-05-14 | Outpatient (CLI) | payer MEDICARE, BC, OTHER ==
[~2022-05-14] MED LIST changes: +CLOP75TA99 PO; -PLAV1TAB2 PO
== END ==
LOC: M LABSMTC 09:07
PROVIDERS: ATTEND Anesthesiology
DX: Z01.812 Encounter for preprocedural laboratory examination (principal); Z20.822 Contact with and (suspected) exposure to COVID-19

== ENCOUNTER → 2022-05-19 | Outpatient (CLI) | payer MEDICARE, OTHER ==
[~2022-05-19] MED LIST changes: +BUPIVACAINE HCL 0.25% 30ML VIAL As Ordered ONE; +ISOVUE-M 300 61% 15ML VIAL As Ordered ONE; +LIDOCAINE 1% SDV 30ML VIAL As Ordered ONE
== END ==
LOC: M PAIN 11:00
PROVIDERS: ATTEND Anesthesiology
DX: M47.812 Spondylosis without myelopathy or radiculopathy, cervical region (principal); G89.29 Other chronic pain; E11.9 Type 2 diabetes mellitus without complications; G47.33 Obstructive sleep apnea (adult) (pediatric); K21.9 Gastro-esophageal reflux disease without esophagitis; I10 Essential (primary) hypertension; E55.9 Vitamin D deficiency, unspecified; G25.81 Restless legs syndrome; Z88.8 Allergy status to other drugs, medicaments and biological substances; Z79.82 Long term (current) use of aspirin; Z79.84 Long term (current) use of oral hypoglycemic drugs; Z79.899 Other long term (current) drug therapy
CPT/HCPCS: 64490; 64491; 64492; Q9967

== ENCOUNTER → 2022-06-10 | Outpatient (CLI) | payer MEDICARE, OTHER, BC ==
[~2022-06-10] MED LIST changes: -BUPIVACAINE HCL 0.25% 30ML VIAL As Ordered ONE; -ISOVUE-M 300 61% 15ML VIAL As Ordered ONE; -LIDOCAINE 1% SDV 30ML VIAL As Ordered ONE
[2022-06-10 15:12] LABS: BILIRUBIN,DIRECT 0.1 MG/DL (<0.4); BILIRUBIN,TOTAL 0.5 MG/DL (0.3-1.2); TOTAL PROTEIN 7.1 G/DL (5.7-8.2)
== END ==
LOC: M PLALAB 11:54
PROVIDERS: ATTEND Internal Medicine Pulmonary Disease
DX: J84.9 Interstitial pulmonary disease, unspecified (principal)

== ENCOUNTER → 2022-06-17 | Outpatient (CLI) | payer MEDICARE, OTHER | LOC: M TMPAIN 14:00 → M PAIN 14:00 | PROVIDERS: ATTEND Anesthesiology | DX: M47.812 Spondylosis without myelopathy or radiculopathy, cervical region (principal); G89.29 Other chronic pain; R73.03 Prediabetes; K21.9 Gastro-esophageal reflux disease without esophagitis; I10 Essential (primary) hypertension; E55.9 Vitamin D deficiency, unspecified; G25.81 Restless legs syndrome; G47.33 Obstructive sleep apnea (adult) (pediatric); Z88.8 Allergy status to other drugs, medicaments and biological substances; Z79.82 Long term (current) use of aspirin; Z79.84 Long term (current) use of oral hypoglycemic drugs; Z79.899 Other long term (current) drug therapy ==

== ENCOUNTER → 2022-07-09 | Outpatient (CLI) | payer MEDICARE, BC, OTHER ==
[~2022-07-09] MED LIST changes: +ALBU90AE IH; +FLON1SPR; +ISOS120T7 PO; +ROPI2TAB3 PO; +TIZA2CAP PO; +VITA100093 PO; +[UNRECOGNIZED DRUG - CODE] PO
[2022-07-09 15:24] LABS: ALBUMIN 4.1 G/DL (3.2-5.2); BILIRUBIN,DIRECT 0.2 MG/DL (<0.4); BILIRUBIN,TOTAL 0.6 MG/DL (0.3-1.2); TOTAL PROTEIN 7.4 G/DL (5.7-8.2)
== END ==
LOC: M PLALAB 12:08
PROVIDERS: ATTEND Internal Medicine Pulmonary Disease
DX: J84.9 Interstitial pulmonary disease, unspecified (principal)

== ENCOUNTER → 2022-07-16 | Outpatient (CLI) | payer MEDICARE, BC, OTHER | LOC: M LABSMTC 10:09 | PROVIDERS: ATTEND Anesthesiology | DX: Z01.818 Encounter for other preprocedural examination (principal); Z11.52 Encounter for screening for COVID-19 ==

== ENCOUNTER 2022-07-21 10:27 | Day surgery (SDC) | payer MEDICARE, BC, OTHER ==
[~2022-07-21] VITALS: Ht 176.5 cm; Wt 99.7 kg
[~2022-07-21 10:27] MED LIST changes: +NS 1,000 ML IV ONE
[2022-07-21] MEDS ORDERED: propofoL 200 MG/20 ML VIAL As Ordered ONE (11:12)
[2022-07-21] MEDS ORDERED: LIDOCAINE 2% 100MG/5ML SDV (FOR ANES.) As Ordered ONE (11:12)
[2022-07-21 11:35] VITALS: BP 141/88
== END 2022-07-21 11:44 | disposition home or self-care (01) ==
LOC: M OPP 10:27
PROVIDERS: ATTEND Internal Medicine Gastroenterology
DX: Z12.11 Encounter for screening for malignant neoplasm of colon (principal); K64.0 First degree hemorrhoids; K57.30 Diverticulosis of large intestine without perforation or abscess without bleeding; Z79.02 Long term (current) use of antithrombotics/antiplatelets; Z79.51 Long term (current) use of inhaled steroids; Z79.52 Long term (current) use of systemic steroids; Z79.82 Long term (current) use of aspirin; Z79.83 Long term (current) use of bisphosphonates; Z79.84 Long term (current) use of oral hypoglycemic drugs; Z88.8 Allergy status to other drugs, medicaments and biological substances; G47.33 Obstructive sleep apnea (adult) (pediatric); Z99.89 Dependence on other enabling machines and devices; I10 Essential (primary) hypertension; R73.09 Other abnormal glucose

== ENCOUNTER → 2022-08-28 | Outpatient (CLI) | payer MEDICARE, BC, OTHER ==
[~2022-08-28] MED LIST changes: -NS 1,000 ML IV ONE
[2022-08-28 14:05] LABS: HEMATOCRIT 41.6 % (42.0-52.0); HEMOGLOBIN 13.8 g/dl (13.5-17.5); MEAN CORPUSCULAR HEMOGLOBIN 33.1 pg (27.0-33.0); MEAN CORPUSCULAR HGB CONC 33.2 g/dl (32.0-36.5); MEAN CORPUSCULAR VOLUME 99.8 fl (80.0-96.0); PLATELET COUNT, AUTOMATED 221 10^3/uL (150-450); RED BLOOD COUNT 4.17 10^6/uL (4.30-6.10); WHITE BLOOD COUNT 4.7 10^3/uL (4.0-10.0)
[2022-08-28 14:27] LABS: BLOOD UREA NITROGEN 25 MG/DL (9-23); CALCIUM LEVEL 9.3 MG/DL (8.3-10.6); CARBON DIOXIDE LEVEL 24 MMOL/L (20-31); CHLORIDE LEVEL 106 MMOL/L (98-107); CREATININE FOR GFR 1.22 MG/DL (0.70-1.30); GLOMERULAR FILTRATION RATE > 60.0 (>49); GLUCOSE, FASTING 114 MG/DL (74-106); POTASSIUM SERUM 4.6 MMOL/L (3.5-5.1); SODIUM LEVEL 139 MMOL/L (136-145)
[2022-08-28 14:28] LABS: HEMOGLOBIN A1c 5.9 % (4.0-6.0)
== END ==
LOC: M PLALAB 10:45
PROVIDERS: ATTEND Family Medicine
DX: J84.10 Pulmonary fibrosis, unspecified (principal); Z12.5 Encounter for screening for malignant neoplasm of prostate

== ENCOUNTER → 2022-08-28 | Outpatient (CLI) | payer MEDICARE, BC, OTHER ==
[2022-08-28 14:27] LABS: ALBUMIN 3.9 G/DL (3.2-5.2); BILIRUBIN,DIRECT 0.2 MG/DL (<0.4); BILIRUBIN,TOTAL 0.6 MG/DL (0.3-1.2)
== END ==
LOC: M PLALAB 10:41
PROVIDERS: ATTEND Internal Medicine Pulmonary Disease
DX: J84.9 Interstitial pulmonary disease, unspecified (principal)

== ENCOUNTER → 2022-10-17 | Outpatient (CLI) | payer MEDICARE, OTHER ==
[~2022-10-17] MED LIST changes: +LORA1TAB23 PO; -LORA1TAB4 PO
== END ==
LOC: M PAIN 13:30
PROVIDERS: ATTEND Anesthesiology
DX: M47.812 Spondylosis without myelopathy or radiculopathy, cervical region (principal); E11.9 Type 2 diabetes mellitus without complications; Z79.82 Long term (current) use of aspirin; Z79.84 Long term (current) use of oral hypoglycemic drugs; Z79.899 Other long term (current) drug therapy

== ENCOUNTER → 2022-10-27 | Outpatient (CLI) | payer MEDICARE, OTHER ==
[~2022-10-27] MED LIST changes: +BUPIVACAINE HCL 0.25% 30ML VIAL As Ordered ONE; +LIDOCAINE 1% SDV 30ML VIAL As Ordered ONE; +diazePAM 5MG TABLET As Ordered ONE; +oxyCODONE 5MG TAB As Ordered ONE
== END ==
LOC: M PAIN 08:00
PROVIDERS: ATTEND Anesthesiology
DX: M47.812 Spondylosis without myelopathy or radiculopathy, cervical region (principal); G89.29 Other chronic pain; G47.33 Obstructive sleep apnea (adult) (pediatric); K21.9 Gastro-esophageal reflux disease without esophagitis; I10 Essential (primary) hypertension; E55.9 Vitamin D deficiency, unspecified; G25.81 Restless legs syndrome; Z88.8 Allergy status to other drugs, medicaments and biological substances; Z79.82 Long term (current) use of aspirin; Z79.84 Long term (current) use of oral hypoglycemic drugs; Z79.899 Other long term (current) drug therapy
CPT/HCPCS: 64633; 64634; J1100

== ENCOUNTER → 2022-11-18 | Outpatient (CLI) | payer MEDICARE, OTHER ==
[~2022-11-18] MED LIST changes: -BUPIVACAINE HCL 0.25% 30ML VIAL As Ordered ONE; -LIDOCAINE 1% SDV 30ML VIAL As Ordered ONE; -diazePAM 5MG TABLET As Ordered ONE; -oxyCODONE 5MG TAB As Ordered ONE
== END ==
LOC: M PAIN 11:15
PROVIDERS: ATTEND Nurse Practitioner Family
DX: M47.812 Spondylosis without myelopathy or radiculopathy, cervical region (principal); G89.29 Other chronic pain; E11.9 Type 2 diabetes mellitus without complications; K21.9 Gastro-esophageal reflux disease without esophagitis; I10 Essential (primary) hypertension; E55.9 Vitamin D deficiency, unspecified; G25.81 Restless legs syndrome; G47.33 Obstructive sleep apnea (adult) (pediatric); Z88.8 Allergy status to other drugs, medicaments and biological substances; Z79.82 Long term (current) use of aspirin; Z79.84 Long term (current) use of oral hypoglycemic drugs; Z79.899 Other long term (current) drug therapy

== ENCOUNTER → 2022-12-29 | Outpatient (CLI) | payer MEDICARE, BC, OTHER ==
[~2022-12-29] MED LIST changes: -ROPI1TAB3; +ROPI1TAB73; -ROPI2TAB3 PO; +ROPI2TAB46 PO
[2022-12-29 17:57] LABS: BASO % 0.9 % (0.0-1.0); EOS # 0.1 10^3/uL (0.0-0.5); EOS % 3.3 % (0.0-3.0); HEMATOCRIT 38.8 % (42.0-52.0); HEMOGLOBIN 13.4 g/dl (13.5-17.5); LYMPH # 0.7 10^3/uL (1.5-5.0); LYMPH % 16.7 % (24.0-44.0); MEAN CORPUSCULAR HEMOGLOBIN 34.4 pg (27.0-33.0); MEAN CORPUSCULAR HGB CONC 34.5 g/dl (32.0-36.5); MEAN CORPUSCULAR VOLUME 99.5 fl (80.0-96.0); MONO # 0.4 10^3/uL (0.0-0.8); MONO % 9.7 % (2.0-8.0); NEUTROPHILS # 2.9 10^3/uL (1.5-8.5); NEUTROPHILS % 69.2 % (36.0-66.0); PLATELET COUNT, AUTOMATED 187 10^3/uL (150-450); WHITE BLOOD COUNT 4.2 10^3/uL (4.0-10.0)
[2022-12-29 18:16] LABS: ERYTHROCYTE SEDIMENTATION RATE 21 mm/hr (0-20)
[2022-12-29 18:33] LABS: C REACTIVE PROTEIN QUANTITATIV < 0.40 MG/DL (<1.0)
[2022-12-29 18:35] LABS: ALKALINE PHOSPHATASE 99 U/L (46-116); ALT/SGPT 32 U/L (7.0-40); AST/SGOT 34 U/L (<34); BILIRUBIN,TOTAL 0.5 MG/DL (0.3-1.2); BLOOD UREA NITROGEN 20 MG/DL (9-23); CARBON DIOXIDE LEVEL 27 MMOL/L (20-31); CHLORIDE LEVEL 101 MMOL/L (98-107); CREATININE FOR GFR 1.08 MG/DL (0.70-1.30); GLOMERULAR FILTRATION RATE > 60.0 (>49); GLUCOSE, FASTING 85 MG/DL (74-106); POTASSIUM SERUM 5.1 MMOL/L (3.5-5.1); SODIUM LEVEL 135 MMOL/L (136-145); TOTAL PROTEIN 7.2 G/DL (5.7-8.2)
== END ==
LOC: M PLALAB 15:23
PROVIDERS: ATTEND Internal Medicine Critical Care Medicine
DX: J84.9 Interstitial pulmonary disease, unspecified (principal)

== ENCOUNTER → 2023-02-19 | Outpatient (CLI) | payer MEDICARE, OTHER ==
[~2023-02-19] MED LIST changes: -AMIT25TA17 PO; +AMIT25TA19 PO; -GABA-283 PO; +GABA-284 PO
== END ==
LOC: M PAIN 11:00
PROVIDERS: ATTEND Nurse Practitioner Family
DX: M47.812 Spondylosis without myelopathy or radiculopathy, cervical region (principal); G89.29 Other chronic pain; E11.9 Type 2 diabetes mellitus without complications; G47.33 Obstructive sleep apnea (adult) (pediatric); K21.9 Gastro-esophageal reflux disease without esophagitis; I10 Essential (primary) hypertension; E55.9 Vitamin D deficiency, unspecified; G25.81 Restless legs syndrome; Z88.8 Allergy status to other drugs, medicaments and biological substances; Z79.82 Long term (current) use of aspirin; Z79.84 Long term (current) use of oral hypoglycemic drugs; Z79.899 Other long term (current) drug therapy

== ENCOUNTER → 2023-03-02 | Outpatient (REF) | payer MEDICARE, OTHER ==
[2023-03-02 14:12] LABS: HEMOGLOBIN 14.1 g/dl (13.5-17.5); MEAN CORPUSCULAR HEMOGLOBIN 33.7 pg (27.0-33.0); MEAN CORPUSCULAR HGB CONC 34.4 g/dl (32.0-36.5); MEAN CORPUSCULAR VOLUME 98.1 fl (80.0-96.0); PLATELET COUNT, AUTOMATED 187 10^3/uL (150-450); RED BLOOD COUNT 4.18 10^6/uL (4.30-6.10); WHITE BLOOD COUNT 4.6 10^3/uL (4.0-10.0)
[2023-03-02 14:21] LABS: HEMOGLOBIN A1c 5.8 % (4.0-6.0)
[2023-03-02 14:57] LABS: BLOOD UREA NITROGEN 20 MG/DL (9-23); CALCIUM LEVEL 9.1 MG/DL (8.3-10.6); CARBON DIOXIDE LEVEL 26 MMOL/L (20-31); CHLORIDE LEVEL 100 MMOL/L (98-107); CREATININE FOR GFR 1.22 MG/DL (0.70-1.30); GLOMERULAR FILTRATION RATE > 60.0 (>49); GLUCOSE, FASTING 113 MG/DL (74-106); POTASSIUM SERUM 4.8 MMOL/L (3.5-5.1); SODIUM LEVEL 135 MMOL/L (136-145)
== END ==
LOC: M SFHCPLAZ 13:12
PROVIDERS: ATTEND Family Medicine
DX: J84.10 Pulmonary fibrosis, unspecified (principal); Z12.5 Encounter for screening for malignant neoplasm of prostate; E11.22 Type 2 diabetes mellitus with diabetic chronic kidney disease

== ENCOUNTER → 2023-05-21 | Outpatient (CLI) | payer MEDICARE, BC | LOC: M PAIN 09:00 | PROVIDERS: ATTEND Nurse Practitioner Family | DX: M47.812 Spondylosis without myelopathy or radiculopathy, cervical region (principal); G89.29 Other chronic pain; Z88.8 Allergy status to other drugs, medicaments and biological substances; Z79.82 Long term (current) use of aspirin; Z79.84 Long term (current) use of oral hypoglycemic drugs; Z79.899 Other long term (current) drug therapy ==

== ENCOUNTER → 2023-08-20 | Outpatient (CLI) | payer MEDICARE, BC | LOC: M PAIN 09:00 | PROVIDERS: ATTEND Nurse Practitioner Family | DX: M47.812 Spondylosis without myelopathy or radiculopathy, cervical region (principal); G89.29 Other chronic pain; I25.10 Atherosclerotic heart disease of native coronary artery without angina pectoris; E11.22 Type 2 diabetes mellitus with diabetic chronic kidney disease; E78.5 Hyperlipidemia, unspecified; K21.9 Gastro-esophageal reflux disease without esophagitis; I12.9 Hypertensive chronic kidney disease with stage 1 through stage 4 chronic kidney disease, or unspecified chronic kidney disease; E55.9 Vitamin D deficiency, unspecified; G47.33 Obstructive sleep apnea (adult) (pediatric); M54.2 Cervicalgia; N18.31 Chronic kidney disease, stage 3a; Z88.8 Allergy status to other drugs, medicaments and biological substances; Z79.82 Long term (current) use of aspirin; Z79.84 Long term (current) use of oral hypoglycemic drugs; Z79.899 Other long term (current) drug therapy ==

== ENCOUNTER → 2023-08-24 | Outpatient (CLI) | payer MEDICARE, BC ==
[2023-08-24 13:59] LABS: HEMATOCRIT 43.8 % (42.0-52.0); HEMOGLOBIN 15.1 g/dl (13.5-17.5); MEAN CORPUSCULAR HEMOGLOBIN 34.5 pg (27.0-33.0); MEAN CORPUSCULAR HGB CONC 34.5 g/dl (32.0-36.5); PLATELET COUNT, AUTOMATED 211 10^3/uL (150-450); RED BLOOD COUNT 4.38 10^6/uL (4.30-6.10); WHITE BLOOD COUNT 5.5 10^3/uL (4.0-10.0)
[2023-08-24 14:24] LABS: MAU/CREAT RATIO 70.5 MCG/MG (0.0-30.0)
[2023-08-24 14:27] LABS: ALBUMIN 4.1 G/DL (3.2-5.2); ALKALINE PHOSPHATASE 105 U/L (46-116); ALT/SGPT 56 U/L (7.0-40); AST/SGOT 29 U/L (<34); BILIRUBIN,TOTAL 0.6 MG/DL (0.3-1.2); BLOOD UREA NITROGEN 25 MG/DL (9-23); CALCIUM LEVEL 9.2 MG/DL (8.3-10.6); CARBON DIOXIDE LEVEL 26 MMOL/L (20-31); CHLORIDE LEVEL 101 MMOL/L (98-107); CHOLESTEROL LEVEL 172 MG/DL (<200); CREATININE FOR GFR 1.14 MG/DL (0.70-1.30); GLOMERULAR FILTRATION RATE > 60.0 (>49); GLUCOSE, FASTING 136 MG/DL (74-106); HDL CHOLESTEROL 61.4 MG/DL (>40); NON-HDL-C 110.6 MG/DL; POTASSIUM SERUM 4.1 MMOL/L (3.5-5.1); SODIUM LEVEL 135 MMOL/L (136-145); TOTAL PROTEIN 7.5 G/DL (5.7-8.2); TRIGLYCERIDES LEVEL 248 MG/DL (<150)
== END ==
LOC: M PLALAB 10:00
PROVIDERS: ATTEND Family Medicine
DX: I25.10 Atherosclerotic heart disease of native coronary artery without angina pectoris (principal); Z95.5 Presence of coronary angioplasty implant and graft

== ENCOUNTER → 2023-12-22 | Outpatient (CLI) | payer MEDICARE, BC ==
[~2023-12-22] MED LIST changes: -ALBU90AE IH; +ALBU90AE2 IH
[2023-12-22 17:43] LABS: ALBUMIN 3.8 G/DL (3.2-5.2); ALKALINE PHOSPHATASE 102 U/L (46-116); ALT/SGPT 50 U/L (7.0-40); AST/SGOT 31 U/L (<34); BILIRUBIN,DIRECT < 0.1 MG/DL (<0.4); BILIRUBIN,TOTAL 0.6 MG/DL (0.3-1.2); TOTAL PROTEIN 7.2 G/DL (5.7-8.2)
== END ==
LOC: M PLALAB 15:54
PROVIDERS: ATTEND Internal Medicine Pulmonary Disease
DX: J84.9 Interstitial pulmonary disease, unspecified (principal)

== ENCOUNTER 2024-01-07 19:24 | Emergency (ER) | payer MEDICARE, BC ==
[~2024-01-07] VITALS: Ht 172.7 cm; Wt 99.9 kg
[2024-01-07 19:24] VITALS: TEMP 98.1
[2024-01-07] MEDS ORDERED: PANT40TA29 (19:52)
[2024-01-07 20:01] LABS: BASO % 0.6 % (0.0-1.0); EOS # 0.1 10^3/uL (0.0-0.5); HEMATOCRIT 40.9 % (42.0-52.0); HEMOGLOBIN 14.4 g/dl (13.5-17.5); LYMPH # 1.1 10^3/uL (1.5-5.0); LYMPH % 20.5 % (24.0-44.0); MEAN CORPUSCULAR HGB CONC 35.2 g/dl (32.0-36.5); MEAN CORPUSCULAR VOLUME 99.3 fl (80.0-96.0); MONO # 0.5 10^3/uL (0.0-0.8); MONO % 9.4 % (2.0-8.0); NEUTROPHILS # 3.4 10^3/uL (1.5-8.5); NEUTROPHILS % 67.1 % (36.0-66.0); PLATELET COUNT, AUTOMATED 231 10^3/uL (150-450); RED BLOOD COUNT 4.12 10^6/uL (4.30-6.10); WHITE BLOOD COUNT 5.1 10^3/uL (4.0-10.0)
[2024-01-07 20:14] LABS: INR 0.95; PROTHROMBIN TIME 12.4 SECONDS (12.5-14.5)
[2024-01-07 20:24] VITALS: BP 125/82
[2024-01-07] MEDS: NITROGLYCERIN 0.4MG SUBL TABLET SL PRN (20:24)
[2024-01-07] MEDS: ASPIRIN 81MG CHEW TABLET PO ONE (20:24)
[2024-01-07 20:28] LABS: CK-MB VALUE MASS < 1.0 NG/ML (<3.6); LIPASE 49 U/L (12-53)
[2024-01-07 20:29] LABS: CPK CREATINE PHOSPHOKINASE 51 U/L (46-171); MB/CK RELATIVE INDEX 1.96 (< OR =4)
[2024-01-07 20:30] LABS: ALBUMIN 3.9 G/DL (3.2-5.2); ALKALINE PHOSPHATASE 112 U/L (46-116); ALT/SGPT 50 U/L (7.0-40); AST/SGOT 31 U/L (<34); BILIRUBIN,DIRECT 0.1 MG/DL (<0.4); BILIRUBIN,TOTAL 0.4 MG/DL (0.3-1.2); BLOOD UREA NITROGEN 22 MG/DL (9-23); CALCIUM LEVEL 9.7 MG/DL (8.3-10.6); CARBON DIOXIDE LEVEL 26 MMOL/L (20-31); CHLORIDE LEVEL 105 MMOL/L (98-107); CREATININE FOR GFR 1.28 MG/DL (0.70-1.30); GLOMERULAR FILTRATION RATE 59.7 (>49); GLUCOSE, FASTING 109 MG/DL (74-106); POTASSIUM SERUM 4.7 MMOL/L (3.5-5.1); SODIUM LEVEL 137 MMOL/L (136-145); TOTAL PROTEIN 7.4 G/DL (5.7-8.2)
[2024-01-07 20:39] LABS: PARTIAL THROMBOPLASTIN TIME 25.5 SECONDS (24.8-34.2)
[2024-01-07 20:51] LABS: FREE T4 1.12 NG/DL (0.89-1.76); THYROID STIMULATING HORMONE 3.141 uIU/ML (0.55-4.78)
[2024-01-07] MEDS ORDERED: ISOVUE-370 76% 100ML VIAL As Ordered ONE (21:07)
[2024-01-07 22:10] LABS: CK-MB VALUE MASS < 1.0 NG/ML (<3.6)
[2024-01-07 22:13] LABS: CPK CREATINE PHOSPHOKINASE 54 U/L (46-171); MB/CK RELATIVE INDEX 1.85 (< OR =4)
[2024-01-07 22:15] VITALS: BP 131/80
[2024-01-07 22:24] VITALS: O2SAT 95
== END 2024-01-07 22:32 | disposition home or self-care (01) ==
LOC: M ED 19:24
DX: R07.9 Chest pain, unspecified (principal); K21.9 Gastro-esophageal reflux disease without esophagitis; I10 Essential (primary) hypertension; E78.5 Hyperlipidemia, unspecified; E11.9 Type 2 diabetes mellitus without complications; F10.10 Alcohol abuse, uncomplicated; Z88.8 Allergy status to other drugs, medicaments and biological substances; Z79.52 Long term (current) use of systemic steroids; Z79.02 Long term (current) use of antithrombotics/antiplatelets; Z79.82 Long term (current) use of aspirin; Z79.4 Long term (current) use of insulin; Z79.899 Other long term (current) drug therapy
CPT/HCPCS: 36415; 71045; 71275; 80048; 80076; 82550; 82553; 83690; 83880; 84439; 84443; 84484; 85025; 85610; 85730; 93005; 93041; 94760; 99285; Q9967

== ENCOUNTER → 2024-02-23 | Outpatient (CLI) | payer MEDICARE, BC ==
[~2024-02-23] MED LIST changes: +PANT40TA29
[2024-02-23 10:57] LABS: BLOOD UREA NITROGEN 21 MG/DL (9-23); CALCIUM LEVEL 9.9 MG/DL (8.3-10.6); CARBON DIOXIDE LEVEL 25 MMOL/L (20-31); CHLORIDE LEVEL 107 MMOL/L (98-107); CREATININE FOR GFR 1.27 MG/DL (0.70-1.30); GLOMERULAR FILTRATION RATE > 60.0 (>49); GLUCOSE, FASTING 121 MG/DL (74-106); SODIUM LEVEL 138 MMOL/L (136-145)
[2024-02-23 11:00] LABS: HEMOGLOBIN A1c 5.6 % (4.0-6.0)
== END ==
LOC: M PLALAB 08:21
PROVIDERS: ATTEND Family Medicine
DX: E11.22 Type 2 diabetes mellitus with diabetic chronic kidney disease (principal); N18.9 Chronic kidney disease, unspecified

== ENCOUNTER → 2024-03-07 | Outpatient (CLI) | payer MEDICARE, BC | LOC: M PAIN 11:15 | PROVIDERS: ATTEND Nurse Practitioner Family | DX: M47.812 Spondylosis without myelopathy or radiculopathy, cervical region (principal); G89.29 Other chronic pain; M25.511 Pain in right shoulder; Z95.5 Presence of coronary angioplasty implant and graft; I25.10 Atherosclerotic heart disease of native coronary artery without angina pectoris; K58.9 Irritable bowel syndrome, unspecified; E11.22 Type 2 diabetes mellitus with diabetic chronic kidney disease; K21.9 Gastro-esophageal reflux disease without esophagitis; I12.9 Hypertensive chronic kidney disease with stage 1 through stage 4 chronic kidney disease, or unspecified chronic kidney disease; G25.81 Restless legs syndrome; G47.33 Obstructive sleep apnea (adult) (pediatric); N18.31 Chronic kidney disease, stage 3a; J84.10 Pulmonary fibrosis, unspecified; Z79.82 Long term (current) use of aspirin; Z79.84 Long term (current) use of oral hypoglycemic drugs; Z79.899 Other long term (current) drug therapy; Z88.8 Allergy status to other drugs, medicaments and biological substances ==

== ENCOUNTER → 2024-04-19 | Outpatient (CLI) | payer MEDICARE, BC ==
[~2024-04-19] MED LIST changes: +GABA-1172 PO; -GABA-282 PO
[2024-04-19 18:32] LABS: ALBUMIN 3.8 G/DL (3.2-5.2); BILIRUBIN,DIRECT 0.2 MG/DL (<0.4); BILIRUBIN,TOTAL 0.4 MG/DL (0.3-1.2); TOTAL PROTEIN 7.5 G/DL (5.7-8.2)
== END ==
LOC: M PLALAB 14:55
PROVIDERS: ATTEND Internal Medicine Pulmonary Disease
DX: J84.9 Interstitial pulmonary disease, unspecified (principal)

== ENCOUNTER → 2024-05-25 | Outpatient (CLI) | payer MEDICARE, BC ==
[~2024-05-25] MED LIST changes: -CYCL5TAB PO; +CYCL5TAB4 PO
[2024-05-25 13:11] LABS: HEMATOCRIT 40.8 % (42.0-52.0); MEAN CORPUSCULAR HEMOGLOBIN 34.1 pg (27.0-33.0); MEAN CORPUSCULAR HGB CONC 34.3 g/dl (32.0-36.5); MEAN CORPUSCULAR VOLUME 99.5 fl (80.0-96.0); PLATELET COUNT, AUTOMATED 225 10^3/uL (150-450); WHITE BLOOD COUNT 4.9 10^3/uL (4.0-10.0)
[2024-05-25 13:43] LABS: MAU/CREAT RATIO 8.6 MCG/MG (0.0-30.0)
[2024-05-25 13:47] LABS: ALBUMIN 3.5 G/DL (3.2-5.2); BILIRUBIN,TOTAL 0.6 MG/DL (0.3-1.2); CALCIUM LEVEL 12.3 MG/DL (8.3-10.6); CHOLESTEROL RISK RATIO 3.19 (<5); CREATININE FOR GFR 1.54 MG/DL (0.70-1.30); GLOMERULAR FILTRATION RATE 48.2 (>49); POTASSIUM SERUM 4.8 MMOL/L (3.5-5.1); TOTAL PROTEIN 7.2 G/DL (5.7-8.2)
[2024-05-25 14:08] LABS: HEMOGLOBIN A1c 5.6 % (4.0-6.0)
== END ==
LOC: M PLALAB 10:15
PROVIDERS: ATTEND Family Medicine
DX: Z99.81 Dependence on supplemental oxygen (principal); J84.112 Idiopathic pulmonary fibrosis; I25.10 Atherosclerotic heart disease of native coronary artery without angina pectoris; Z95.5 Presence of coronary angioplasty implant and graft; E78.2 Mixed hyperlipidemia; E11.22 Type 2 diabetes mellitus with diabetic chronic kidney disease

== ENCOUNTER → 2024-05-26 | Outpatient (CLI) | payer MEDICARE, BC ==
[2024-05-26 10:30] LABS: IONIZED CALCIUM 5.4 MG/DL (4.5-5.3)
[2024-05-26 11:07] LABS: CALCIUM LEVEL 11.7 MG/DL (8.3-10.6)
[2024-05-26 11:13] LABS: PTH INTACT < 6.3 PG/ML (18.5-88.0); TOTAL 25(OH) VITAMIN D 81.8 NG/ML (20.0-100.0)
== END ==
LOC: M LAB 10:01
PROVIDERS: ATTEND Family Medicine
DX: E83.52 Hypercalcemia (principal)

== ENCOUNTER → 2024-05-31 | Outpatient (CLI) | payer MEDICARE, BC ==
[2024-05-31 15:21] LABS: ALBUMIN 3.4 G/DL (3.2-5.2); BILIRUBIN,DIRECT 0.1 MG/DL (<0.4); BILIRUBIN,TOTAL 0.3 MG/DL (0.3-1.2); TOTAL PROTEIN 7.3 G/DL (5.7-8.2)
== END ==
LOC: M PLALAB 14:08
PROVIDERS: ATTEND Internal Medicine Pulmonary Disease
DX: J84.9 Interstitial pulmonary disease, unspecified (principal)

== ENCOUNTER → 2024-06-02 | Outpatient (CLI) | payer MEDICARE, BC ==
[2024-06-02 10:26] LABS: ALBUMIN 3.8 G/DL (3.2-5.2); BLOOD UREA NITROGEN 20 MG/DL (9-23); CALCIUM LEVEL 9.7 MG/DL (8.3-10.6); CARBON DIOXIDE LEVEL 27 MMOL/L (20-31); CHLORIDE LEVEL 106 MMOL/L (98-107); CREATININE FOR GFR 1.23 MG/DL (0.70-1.30); GLOMERULAR FILTRATION RATE > 60.0 (>49); GLUCOSE, FASTING 105 MG/DL (74-106); PHOSPHORUS LEVEL 2.7 MG/DL (2.4-5.1); POTASSIUM SERUM 4.5 MMOL/L (3.5-5.1); SODIUM LEVEL 141 MMOL/L (136-145)
== END ==
LOC: M PLALAB 08:23
PROVIDERS: ATTEND Family Medicine
DX: E83.52 Hypercalcemia (principal)

== ENCOUNTER → 2024-07-07 | Outpatient (CLI) | payer MEDICARE, BC | LOC: M PAIN 10:00 | PROVIDERS: ATTEND Nurse Practitioner Family | DX: M47.812 Spondylosis without myelopathy or radiculopathy, cervical region (principal); G89.29 Other chronic pain; M25.511 Pain in right shoulder; Z95.5 Presence of coronary angioplasty implant and graft; I25.10 Atherosclerotic heart disease of native coronary artery without angina pectoris; K58.9 Irritable bowel syndrome, unspecified; E11.22 Type 2 diabetes mellitus with diabetic chronic kidney disease; K21.9 Gastro-esophageal reflux disease without esophagitis; I12.9 Hypertensive chronic kidney disease with stage 1 through stage 4 chronic kidney disease, or unspecified chronic kidney disease; G25.81 Restless legs syndrome; G47.33 Obstructive sleep apnea (adult) (pediatric); N18.31 Chronic kidney disease, stage 3a; J84.10 Pulmonary fibrosis, unspecified; Z79.82 Long term (current) use of aspirin; Z79.84 Long term (current) use of oral hypoglycemic drugs; Z79.899 Other long term (current) drug therapy; Z88.8 Allergy status to other drugs, medicaments and biological substances ==

== ENCOUNTER → 2024-08-16 | Outpatient (REF) | payer MEDICARE, BC ==
[2024-08-16 18:17] LABS: BILIRUBIN,TOTAL 0.6 MG/DL (0.3-1.2); CALCIUM LEVEL 9.8 MG/DL (8.3-10.6); CREATININE FOR GFR 1.31 MG/DL (0.70-1.30); GLOMERULAR FILTRATION RATE 58.1 (>49); PERCENT SATURATION 23.3 % (19.7-50.0); POTASSIUM SERUM 5.3 MMOL/L (3.5-5.1); TOTAL PROTEIN 7.7 G/DL (5.7-8.2)
[2024-08-16 18:19] LABS: FERRITIN 64.9 NG/ML (10.5-307.3); FOLATE 11.72 NG/ML (>5.4)
[2024-08-16 18:43] LABS: HEMOGLOBIN A1c 5.6 % (4.0-6.0)
== END ==
LOC: M SFHCADAM 11:06
PROVIDERS: ATTEND Family Medicine
DX: I95.1 Orthostatic hypotension (principal); E11.22 Type 2 diabetes mellitus with diabetic chronic kidney disease; D53.9 Nutritional anemia, unspecified; G25.81 Restless legs syndrome

== ENCOUNTER → 2025-02-20 | Outpatient (CLI) | payer MEDICARE, BC ==
[~2025-02-20] MED LIST changes: +LIDO1ADH93 TD; -LIDO5DIS41 TD; +MORP-138 PO; -MORP15TASA PO
[2025-02-20 09:58] LABS: BASO # 0.0 10^3/uL (0.0-0.2); BASO % 1.0 % (0.0-1.0); EOS # 0.0 10^3/uL (0.0-0.5); EOS % 0.0 % (0.0-3.0); LYMPH # 0.6 10^3/uL (1.5-5.0); LYMPH % 13.7 % (24.0-44.0); MONO # 0.2 10^3/uL (0.0-0.8); MONO % 5.1 % (2.0-8.0); NEUTROPHILS # 2.9 10^3/uL (1.5-8.5); NEUTROPHILS % 70.9 % (36.0-66.0); PLATELET COUNT, AUTOMATED 328 10^3/uL (150-450)
[2025-02-20 10:06] LABS: ALT/SGPT 22.0 U/L (7.0-40); AST/SGOT 18.0 U/L (<34); CALCIUM LEVEL 9.4 MG/DL (8.3-10.6); CARBON DIOXIDE LEVEL 28.0 MMOL/L (20-31); CHLORIDE LEVEL 100.0 MMOL/L (98-107); CREATININE FOR GFR 1.68 MG/DL (0.70-1.30); GLOMERULAR FILTRATION RATE 44.0 (>49); POTASSIUM SERUM 4.8 MMOL/L (3.5-5.1); SODIUM LEVEL 139.0 MMOL/L (136-145)
[2025-02-24 05:03] LABS: FK 506 (TACROLIMUS) 8.8 mcg/L (5.0-20.0)
[2025-02-24 10:38] LABS: CMV QUANT DNA PCR (PLASMA) Not Detected; log10 CMV QN DNA P1 Not Detected log IU/mL
[2025-02-24 19:28] LABS: EBV PCR QUANTITATIVE Not Detected
== END ==
LOC: M LAB 08:39
PROVIDERS: ATTEND Student in an Organized Health Care Education/Training Program
DX: Z94.2 Lung transplant status (principal)

== ENCOUNTER → 2025-02-27 | Outpatient (CLI) | payer MEDICARE, BC ==
[2025-02-27 09:09] LABS: PLATELET COUNT, AUTOMATED 332 10^3/uL (150-450)
[2025-02-27 09:20] LABS: ALT/SGPT 15.0 U/L (7.0-40); AST/SGOT 13.0 U/L (<34); CALCIUM LEVEL 9.4 MG/DL (8.3-10.6); CARBON DIOXIDE LEVEL 30.0 MMOL/L (20-31); CHLORIDE LEVEL 101.0 MMOL/L (98-107); CREATININE FOR GFR 1.54 MG/DL (0.70-1.30); GLOMERULAR FILTRATION RATE 48.8 (>49); POTASSIUM SERUM 5.0 MMOL/L (3.5-5.1); SODIUM LEVEL 140.0 MMOL/L (136-145)
[2025-02-27 09:44] LABS: LYMPHOCYTES 18 % (16-44); METAMYELOCYTES 4 % (0-0); MONOCYTES 4 % (0-5); NEUTROPHILS 65 % (28-66); PLATELET ESTIMATE NORMAL (NORMAL)
[2025-03-01 22:22] LABS: CMV QUANT DNA PCR (PLASMA) Not Detected; log10 CMV QN DNA P1 Not Detected log IU/mL
[2025-03-02 07:48] LABS: EBV PCR QUANTITATIVE Not Detected
== END ==
LOC: M LAB 07:39
PROVIDERS: ATTEND Student in an Organized Health Care Education/Training Program
DX: Z94.2 Lung transplant status (principal)

== ENCOUNTER → 2025-03-20 | Outpatient (CLI) | payer MEDICARE, BC ==
[2025-03-20 09:19] LABS: PLATELET COUNT, AUTOMATED 277 10^3/uL (150-450)
[2025-03-20 10:18] LABS: ALT/SGPT 23.0 U/L (7.0-40); AST/SGOT 13.0 U/L (<34); CALCIUM LEVEL 9.0 MG/DL (8.3-10.6); CARBON DIOXIDE LEVEL 27.0 MMOL/L (20-31); CHLORIDE LEVEL 100.0 MMOL/L (98-107); CREATININE FOR GFR 1.37 MG/DL (0.70-1.30); GLOMERULAR FILTRATION RATE 56.2 (>49); POTASSIUM SERUM 5.0 MMOL/L (3.5-5.1); SODIUM LEVEL 137.0 MMOL/L (136-145)
[2025-03-20 10:25] LABS: BASOPHILS 1 % (0-1); LYMPHOCYTES 17 % (16-44); METAMYELOCYTES 2 % (0-0); MONOCYTES 17 % (0-5); NEUTROPHILS 44 % (28-66)
[2025-03-20 10:26] LABS: PLATELET ESTIMATE NORMAL (NORMAL)
== END ==
LOC: M LAB 07:48
PROVIDERS: ATTEND Student in an Organized Health Care Education/Training Program
DX: Z94.2 Lung transplant status (principal)

== ENCOUNTER 2025-03-23 21:36 | Emergency (ER) | payer MEDICARE, BC ==
[~2025-03-23] VITALS: Ht 174 cm; Wt 96.6 kg
[2025-03-24 02:03] VITALS: TEMP 97.7
[2025-03-24 04:13] VITALS: BP 108/62; O2SAT 97
== END 2025-03-24 05:08 | disposition left against medical advice (07) ==
LOC: M ED 21:36 → EEVIPCON 21:36 → M ED 03-24 05:08
DX: Z53.21 Procedure and treatment not carried out due to patient leaving prior to being seen by health care provider (principal)

== ENCOUNTER → 2025-03-23 | Outpatient (REF) | payer MEDICARE, BC | LOC: M LAB REF 11:46 | PROVIDERS: ATTEND Orthopaedic Surgery Hand Surgery | DX: M79.645 Pain in left finger(s) (principal) ==

== ENCOUNTER → 2025-03-27 | Outpatient (CLI) | payer MEDICARE, BC ==
[2025-03-27 08:48] LABS: PLATELET COUNT, AUTOMATED 298 10^3/uL (150-450)
[2025-03-27 09:11] LABS: ALT/SGPT 26.0 U/L (7.0-40); AST/SGOT 22.0 U/L (<34); CALCIUM LEVEL 8.9 MG/DL (8.3-10.6); CARBON DIOXIDE LEVEL 30.0 MMOL/L (20-31); CHLORIDE LEVEL 100.0 MMOL/L (98-107); CREATININE FOR GFR 1.48 MG/DL (0.70-1.30); GLOMERULAR FILTRATION RATE 51.2 (>49); POTASSIUM SERUM 5.0 MMOL/L (3.5-5.1); SODIUM LEVEL 137.0 MMOL/L (136-145)
[2025-03-27 10:02] LABS: ATYPICAL LYMPH 1 % (0-5); LYMPHOCYTES 19 % (16-44); METAMYELOCYTES 2 % (0-0); MONOCYTES 6 % (0-5); NEUTROPHILS 58 % (28-66); PLATELET ESTIMATE NORMAL (NORMAL)
== END ==
LOC: M LAB 07:35
PROVIDERS: ATTEND Student in an Organized Health Care Education/Training Program
DX: Z94.2 Lung transplant status (principal)

== ENCOUNTER → 2025-04-03 | Outpatient (CLI) | payer MEDICARE, BC ==
[2025-04-03 10:58] LABS: PLATELET COUNT, AUTOMATED 294 10^3/uL (150-450)
[2025-04-03 11:08] LABS: ALT/SGPT 25.0 U/L (7.0-40); AST/SGOT 14.0 U/L (<34); CALCIUM LEVEL 9.1 MG/DL (8.3-10.6); CARBON DIOXIDE LEVEL 28.0 MMOL/L (20-31); CHLORIDE LEVEL 104.0 MMOL/L (98-107); CREATININE FOR GFR 1.46 MG/DL (0.70-1.30); GLOMERULAR FILTRATION RATE 52.1 (>49); POTASSIUM SERUM 5.0 MMOL/L (3.5-5.1); SODIUM LEVEL 143.0 MMOL/L (136-145)
[2025-04-03 11:29] LABS: EOSINOPHILS 1 % (0-3); LYMPHOCYTES 10 % (16-44); METAMYELOCYTES 2 % (0-0); MONOCYTES 4 % (0-5); NEUTROPHILS 75 % (28-66)
[2025-04-03 11:30] LABS: PLATELET ESTIMATE NORMAL (NORMAL)
== END ==
LOC: M LAB 08:00
PROVIDERS: ATTEND Student in an Organized Health Care Education/Training Program
DX: Z94.2 Lung transplant status (principal)

== ENCOUNTER → 2025-04-17 | Outpatient (CLI) | payer MEDICARE, BC ==
[2025-04-17 07:37] LABS: PLATELET COUNT, AUTOMATED 245 10^3/uL (150-450)
[2025-04-17 08:10] LABS: ALT/SGPT 19.0 U/L (7.0-40); AST/SGOT 14.0 U/L (<34); CALCIUM LEVEL 9.1 MG/DL (8.3-10.6); CARBON DIOXIDE LEVEL 30.0 MMOL/L (20-31); CHLORIDE LEVEL 102.0 MMOL/L (98-107); CREATININE FOR GFR 1.28 MG/DL (0.70-1.30); GLOMERULAR FILTRATION RATE 61.0 (>49); POTASSIUM SERUM 4.9 MMOL/L (3.5-5.1); SODIUM LEVEL 140.0 MMOL/L (136-145)
[2025-04-17 08:22] LABS: BASOPHILS 4 % (0-1); EOSINOPHILS 1 % (0-3); LYMPHOCYTES 13 % (16-44); MONOCYTES 6 % (0-5); NEUTROPHILS 54 % (28-66)
[2025-04-17 08:23] LABS: PLATELET ESTIMATE NORMAL (NORMAL)
[2025-04-20 12:48] LABS: FK 506 (TACROLIMUS) 13.8 mcg/L (5.0-20.0)
[2025-04-20 15:42] LABS: CMV QUANT DNA PCR (PLASMA) Not Detected; log10 CMV QN DNA P1 Not Detected log IU/mL
[2025-04-20 21:52] LABS: EBV PCR QUANTITATIVE Not Detected
== END ==
LOC: M LAB 06:56
PROVIDERS: ATTEND Student in an Organized Health Care Education/Training Program
DX: Z94.2 Lung transplant status (principal)

== ENCOUNTER → 2025-04-24 | Outpatient (CLI) | payer MEDICARE, BC ==
[2025-04-24 08:54] LABS: PLATELET COUNT, AUTOMATED 247 10^3/uL (150-450)
[2025-04-24 09:14] LABS: ALT/SGPT 17.0 U/L (7.0-40); AST/SGOT 14.0 U/L (<34); CALCIUM LEVEL 9.0 MG/DL (8.3-10.6); CARBON DIOXIDE LEVEL 31.0 MMOL/L (20-31); CHLORIDE LEVEL 98.0 MMOL/L (98-107); CREATININE FOR GFR 1.21 MG/DL (0.70-1.30); GLOMERULAR FILTRATION RATE 65.2 (>49); POTASSIUM SERUM 4.7 MMOL/L (3.5-5.1); SODIUM LEVEL 137.0 MMOL/L (136-145)
[2025-04-24 11:09] LABS: EOSINOPHILS 3 % (0-3); LYMPHOCYTES 13 % (16-44); METAMYELOCYTES 5 % (0-0); MONOCYTES 2 % (0-5); NEUTROPHILS 66 % (28-66)
[2025-04-24 11:11] LABS: PLATELET ESTIMATE NORMAL (NORMAL)
== END ==
LOC: M LAB 07:08
PROVIDERS: ATTEND Student in an Organized Health Care Education/Training Program
DX: Z94.2 Lung transplant status (principal)

== ENCOUNTER → 2025-05-15 | Outpatient (CLI) | payer MEDICARE, BC ==
[2025-05-15 07:50] LABS: PLATELET COUNT, AUTOMATED 236 10^3/uL (150-450)
[2025-05-15 08:16] LABS: ALT/SGPT 26.0 U/L (7.0-40); AST/SGOT 15.0 U/L (<34); CALCIUM LEVEL 8.6 MG/DL (8.3-10.6); CARBON DIOXIDE LEVEL 30.0 MMOL/L (20-31); CHLORIDE LEVEL 104.0 MMOL/L (98-107); CREATININE FOR GFR 1.1 MG/DL (0.70-1.30); GLOMERULAR FILTRATION RATE 73.1 (>49); POTASSIUM SERUM 4.7 MMOL/L (3.5-5.1); SODIUM LEVEL 141.0 MMOL/L (136-145)
[2025-05-15 08:38] LABS: ATYPICAL LYMPH 2 % (0-5); BASOPHILS 2 % (0-1); LYMPHOCYTES 17 % (16-44); METAMYELOCYTES 2 % (0-0); MONOCYTES 5 % (0-5); MYELOCYTES 1 % (0-0); NEUTROPHILS 60 % (28-66)
[2025-05-15 08:41] LABS: PLATELET ESTIMATE NORMAL (NORMAL)
== END ==
LOC: M LAB 06:44
PROVIDERS: ATTEND Student in an Organized Health Care Education/Training Program
DX: Z94.2 Lung transplant status (principal)

== ENCOUNTER → 2025-05-22 | Outpatient (CLI) | payer MEDICARE, BC ==
[2025-05-22 07:52] LABS: PLATELET COUNT, AUTOMATED 225 10^3/uL (150-450)
[2025-05-22 08:06] LABS: ALT/SGPT 13.0 U/L (7.0-40); AST/SGOT 14.0 U/L (<34); CALCIUM LEVEL 8.6 MG/DL (8.3-10.6); CARBON DIOXIDE LEVEL 31.0 MMOL/L (20-31); CHLORIDE LEVEL 101.0 MMOL/L (98-107); CREATININE FOR GFR 1.15 MG/DL (0.70-1.30); GLOMERULAR FILTRATION RATE 69.3 (>49); POTASSIUM SERUM 4.5 MMOL/L (3.5-5.1); SODIUM LEVEL 140.0 MMOL/L (136-145)
[2025-05-22 10:25] LABS: ATYPICAL LYMPH 1 % (0-5); BASOPHILS 1 % (0-1); EOSINOPHILS 6 % (0-3); LYMPHOCYTES 20 % (16-44); METAMYELOCYTES 4 % (0-0); MONOCYTES 9 % (0-5); NEUTROPHILS 45 % (28-66)
[2025-05-22 10:28] LABS: PLATELET ESTIMATE NORMAL (NORMAL)
[2025-05-24 22:47] LABS: EBV PCR QUANTITATIVE Not Detected
[2025-05-25 00:58] LABS: FK 506 (TACROLIMUS) 5.1 mcg/L (5.0-20.0)
[2025-05-25 13:21] LABS: CMV QUANT DNA PCR (PLASMA) Not Detected; log10 CMV QN DNA P1 Not Detected log IU/mL
== END ==
LOC: M LAB 06:26
PROVIDERS: ATTEND Student in an Organized Health Care Education/Training Program
DX: Z94.2 Lung transplant status (principal)

== ENCOUNTER → 2025-05-30 | Outpatient (CLI) | payer MEDICARE, BC ==
[2025-05-30 07:07] LABS: PLATELET COUNT, AUTOMATED 231 10^3/uL (150-450)
[2025-05-30 07:39] LABS: ALT/SGPT 18.0 U/L (7.0-40); AST/SGOT 15.0 U/L (<34); CALCIUM LEVEL 8.7 MG/DL (8.3-10.6); CARBON DIOXIDE LEVEL 29.0 MMOL/L (20-31); CHLORIDE LEVEL 101.0 MMOL/L (98-107); CREATININE FOR GFR 1.1 MG/DL (0.70-1.30); GLOMERULAR FILTRATION RATE 73.1 (>49); POTASSIUM SERUM 4.1 MMOL/L (3.5-5.1); SODIUM LEVEL 139.0 MMOL/L (136-145)
[2025-05-30 08:31] LABS: EOSINOPHILS 1 % (0-3); LYMPHOCYTES 27 % (16-44); METAMYELOCYTES 6 % (0-0); MONOCYTES 8 % (0-5); NEUTROPHILS 40 % (28-66)
[2025-05-30 08:32] LABS: PLATELET ESTIMATE NORMAL (NORMAL)
[2025-06-02 01:32] LABS: FK 506 (TACROLIMUS) 3.5 mcg/L (5.0-20.0)
== END ==
LOC: M LAB 06:10
PROVIDERS: ATTEND Student in an Organized Health Care Education/Training Program
DX: Z94.2 Lung transplant status (principal)

== ENCOUNTER → 2025-06-05 | Outpatient (CLI) | payer MEDICARE, BC ==
[2025-06-05 08:11] LABS: PLATELET COUNT, AUTOMATED 280 10^3/uL (150-450)
[2025-06-05 08:39] LABS: ALT/SGPT 16.0 U/L (7.0-40); AST/SGOT 16.0 U/L (<34); CALCIUM LEVEL 8.8 MG/DL (8.3-10.6); CARBON DIOXIDE LEVEL 29.0 MMOL/L (20-31); CHLORIDE LEVEL 98.0 MMOL/L (98-107); CREATININE FOR GFR 1.34 MG/DL (0.70-1.30); GLOMERULAR FILTRATION RATE 57.7 (>49); POTASSIUM SERUM 4.6 MMOL/L (3.5-5.1); SODIUM LEVEL 136.0 MMOL/L (136-145)
[2025-06-05 09:03] LABS: EOSINOPHILS 1 % (0-3); LYMPHOCYTES 23 % (16-44); METAMYELOCYTES 4 % (0-0); MONOCYTES 7 % (0-5); NEUTROPHILS 56 % (28-66)
[2025-06-05 09:07] LABS: PLATELET ESTIMATE NORMAL (NORMAL)
[2025-06-07 22:42] LABS: EBV PCR QUANTITATIVE Not Detected
== END ==
LOC: M LAB 06:16
PROVIDERS: ATTEND Student in an Organized Health Care Education/Training Program
DX: Z94.2 Lung transplant status (principal)

== ENCOUNTER → 2025-06-19 | Outpatient (CLI) | payer MEDICARE, BC ==
[2025-06-19 07:19] LABS: PLATELET COUNT, AUTOMATED 230 10^3/uL (150-450)
[2025-06-19 07:45] LABS: ALT/SGPT 19.0 U/L (7.0-40); AST/SGOT 17.0 U/L (<34); CALCIUM LEVEL 9.1 MG/DL (8.3-10.6); CARBON DIOXIDE LEVEL 30.0 MMOL/L (20-31); CHLORIDE LEVEL 101.0 MMOL/L (98-107); CREATININE FOR GFR 1.23 MG/DL (0.70-1.30); GLOMERULAR FILTRATION RATE 64.0 (>49); POTASSIUM SERUM 4.7 MMOL/L (3.5-5.1); SODIUM LEVEL 138.0 MMOL/L (136-145)
[2025-06-19 07:47] LABS: ATYPICAL LYMPH 1 % (0-5); BASOPHILS 1 % (0-1); LYMPHOCYTES 24 % (16-44); METAMYELOCYTES 4 % (0-0); MONOCYTES 8 % (0-5); NEUTROPHILS 48 % (28-66)
[2025-06-19 07:50] LABS: PLATELET ESTIMATE NORMAL (NORMAL)
[2025-06-21 15:12] LABS: FK 506 (TACROLIMUS) 11.2 mcg/L (5.0-20.0)
[2025-06-21 20:03] LABS: EBV PCR QUANTITATIVE Not Detected
== END ==
LOC: M LAB 06:16
PROVIDERS: ATTEND Student in an Organized Health Care Education/Training Program
DX: Z94.2 Lung transplant status (principal); I25.10 Atherosclerotic heart disease of native coronary artery without angina pectoris; E78.2 Mixed hyperlipidemia

== ENCOUNTER → 2025-06-19 | Outpatient (CLI) | payer MEDICARE, BC ==
[2025-06-19 07:33] LABS: CHOLESTEROL LEVEL 162.0 MG/DL (<200); CHOLESTEROL RISK RATIO 3.72 (<5); LDL CHOLESTEROL 59.5 MG/DL (<100); NON-HDL-C 118.5 MG/DL; TRIGLYCERIDES LEVEL 295.0 MG/DL (<150)
== END ==
LOC: M LAB 06:14
PROVIDERS: ATTEND Physician Assistant
DX: I25.10 Atherosclerotic heart disease of native coronary artery without angina pectoris (principal); E78.2 Mixed hyperlipidemia